=== PATIENT | female | born 1965 | race Caucasian/White ===

== ENCOUNTER 2022-11-30 13:00 | Outpatient (OUT) | payer MEDICAID, SELFPAY ==
--- NOTE | 2022-11-30 13:57 | PM.CN ---
Consult Note: HPI Data of Consult Patient: new to practice Consult date: 11/30/22 Requesting Physician: Geovani Dias MD Primary Care Provider: Non-Staff Physician, Consult Narrative Reason for consult: right knee pain Narrative: 57yof who presents for evaluation. worsening right knee pain, ongoing for years. underwent right genicular blocks at outside pain clinic, which provided significant relief, but was denied RFA. has had steroid injection in the past, with significant relief. last completed >6 months ago. currently uses percocet on occasion, which helps. engages in provider directed home exercise program for >6 weeks, with limited benefit. denies adverse med side effects. cc:: CC: Geovani Dias MD Review of Systems ROS Status of ROS 10 or more systems reviewed and unremarkable except as noted in history and below Exam Narrative Exam Narrative: Psych-alert and oriented x 3.? Attentive and appropriate, constitutionally normal, displays normal mood and affect per situation.? There are no obvious deficits in memory, reasoning, or intellect. Extremities-lower extremities are warm with minimal edema and palpable pulses. Knee-examination of the right knee reveals tenderness to palpation over the superior, inferior, lateral, and medial aspect of the knee.? Some swelling is noted without erythema. Pain is elicited with flexion and extension of the knee both actively and passively.? Some grinding is noted with these motions.? There is no notable ligamental laxity or instability.? Coordination remains intact.? Gait remains antalgic. Assessment and Plan Assessment and Plan (1) Osteoarthritis of right knee: Plan 57yof who presents for evaluation. failed conservative measures. imaging reviewed, which is significant for severe osteoarthritis of right knee. given previous relief with steroid injection of >50% for >3 months, prudent to repeat right knee injection in office. she is in agreement. medications reviewed. will prescribe percocet 5mg tid prn. will obtain urine drug screen. follow up for procedure.
== END 2022-11-30 13:01 | disposition home or self-care (01) ==
PROVIDERS: Visit Provider Anesthesiology
DX: M17.11 Unilateral primary osteoarthritis, right knee (principal)
CPT/HCPCS: G0463

== ENCOUNTER 2022-12-14 11:37 | Outpatient (OUT) | payer MEDICAID, SELFPAY ==
--- NOTE | 2022-12-14 12:14 | PM.CN ---
Consult Note: HPI Data of Consult Patient: known to practice within the last 3 years Consult date: 12/14/22 Requesting Physician: Geovani Dias MD Primary Care Provider: Non-Staff Physician, Consult Narrative Reason for consult: right knee pain Narrative: 57yof who presents for right knee injection today cc:: CC: Geovani Dias MD Review of Systems ROS Status of ROS 10 or more systems reviewed and unremarkable except as noted in history and below Meds Home Medications and Allergies Home Medications Medication Instructions Recorded Confirmed Type amlodipine 2.5 mg tablet 2.5 mg PO DAILY 11/30/22 11/30/22 History duloxetine 20 mg capsule,delayed 20 mg PO DAILY 11/30/22 11/30/22 History release (Cymbalta) lisinopril 40 mg tablet 40 mg PO DAILY 11/30/22 11/30/22 History oxycodone-acetaminophen 5 mg-325 1 tab PO TID 11/30/22 11/30/22 History mg tablet (Percocet) oxycodone-acetaminophen 5 mg-325 1 tab PO TID PRN pain #90 tabs 11/30/22 Rx mg tablet (Percocet) Allergies Allergy/AdvReac Type Severity Reaction Status Date / Time No Known Drug Allergies Allergy Verified 11/30/22 14:33 Exam Narrative Exam Narrative: Psych-alert and oriented x 3.? Attentive and appropriate, constitutionally normal, displays normal mood and affect per situation.? There are no obvious deficits in memory, reasoning, or intellect. Extremities-lower extremities are warm with minimal edema and palpable pulses. Knee-examination of the right knee reveals tenderness to palpation over the superior, inferior, lateral, and medial aspect of the knee.? Some swelling is noted without erythema. Pain is elicited with flexion and extension of the knee both actively and passively.? Some grinding is noted with these motions.? There is no notable ligamental laxity or instability.? Coordination remains intact.? Gait remains antalgic. Assessment and Plan Assessment and Plan (1) Osteoarthritis of right knee: Plan 57yof who presents for right knee injection. Risks and benefits reviewed, all questions answered. We agree to proceed. Procedure: Right knee injection Medications: Bupivacaine 0.25% 4cc, kenalog 40mg I explained the details of the procedure to the patient including the risks, benefits and alternatives. We had an informed discussion and the patient verbalized understanding and signed the consent form. All questions were answered appropriately.? A time out was performed.? After obtaining a comfortable seated position, the right knee was prepped with alcohol x3. A syringe containing the above medication was attached to a 25 guage, 1.5 inch needle under strict aseptic technique. The lateral tibial plateau was palpated.? The needle was then advanced through the subcutaneous tissue in a medial and superior direction towards the joint space.? The contents of the syringe were gently injected without any resistance. The needle was removed and pressure was applied to the injection site to decrease the incidence of ecchymosis and hematoma formation.? A sterile bandage was applied.
== END 2022-12-14 11:38 | disposition home or self-care (01) ==
LOC: PM 11:37
PROVIDERS: Visit Provider Anesthesiology
DX: M17.11 Unilateral primary osteoarthritis, right knee (principal)
CPT/HCPCS: 20610

== ENCOUNTER 2023-01-20 09:39 | Outpatient (OUT) | payer MEDICAID, SELFPAY ==
--- NOTE | 2023-01-20 10:01 | PM.CN ---
Consult Note: HPI Data of Consult Patient: known to practice within the last 3 years Requesting Physician: Lauren Ag NP Primary Care Provider: Non-Staff Physician, Consult Narrative Reason for consult: f/u Narrative: Ruthie Thompson a pleasant 57 year old female presents for evaluation and management of chronic knee pain with moderate to severe OA. Patient had 100% relief for 3.5 weeks as a result of right knee injection with Dr Dias. Patient rating pain 7-8/10 now, returned to baseline. Patient has had benefit from synvisc in left knee prior to surgery and would like to discuss this today. cc:: CC: Lauren Ag NP Review of Systems ROS Status of ROS 10 or more systems reviewed and unremarkable except as noted in history and below Musculoskeletal Reports: joint pain Meds Home Medications and Allergies Home Medications Medication Instructions Recorded Confirmed Type amlodipine 2.5 mg tablet 2.5 mg PO DAILY 11/30/22 11/30/22 History duloxetine 20 mg capsule,delayed 20 mg PO DAILY 11/30/22 11/30/22 History release (Cymbalta) lisinopril 40 mg tablet 40 mg PO DAILY 11/30/22 11/30/22 History oxycodone-acetaminophen 5 mg-325 1 tab PO TID 11/30/22 11/30/22 History mg tablet (Percocet) oxycodone-acetaminophen 5 mg-325 1 tab PO TID PRN pain #90 tabs 11/30/22 Rx mg tablet (Percocet) oxycodone-acetaminophen 5 mg-325 1 tab PO TID PRN pain #90 tabs 12/24/22 Rx mg tablet (Percocet) Allergies Allergy/AdvReac Type Severity Reaction Status Date / Time No Known Drug Allergies Allergy Verified 11/30/22 14:33 Exam Narrative Exam Narrative: Psych-alert and oriented x 3.? Attentive and appropriate, constitutionally normal, displays normal mood and affect per situation.? There are no obvious deficits in memory, reasoning, or intellect. Extremities-lower extremities are warm with minimal edema and palpable pulses. Knee-examination of the right knee reveals tenderness to palpation over the superior, inferior, lateral, and medial aspect of the knee.? Some swelling is noted without erythema. Pain is elicited with flexion and extension of the knee both actively and passively.? Some grinding is noted with these motions.? There is no notable ligamental laxity or instability.? Coordination remains intact.? Gait remains antalgic. Constitutional Documenting provider has reviewed patient's vital signs: yes Common normals: no apparent distress, oriented x3, healthy appearing, alert and well nourished General appearance: cooperative HENMT Common normals: normocephalic, hearing grossly normal bilaterally and moist oral mucous membranes Head and scalp: normocephalic Eye Common normals: PERRL Pupil: PERRL Neck & C-Spine Common normals: full ROM General: normal visual inspection Chest Common normals: inspection of chest normal Respiratory Common normals: normal respiratory effort, no retractions and no use of accessory muscles Neuro Common normals: oriented x3, CN's II-XII intact bilaterally, moves all extremities, no focal motor deficits, no sensory deficits noted and deep tendon reflexes 2+ bilaterally Sensorium/orientation: alert Motor exam: strength 5/5 throughout and no movement abnormalities noted Psych Common normals: mental status grossly normal, thought process normal, cooperative, affect normal, speech normal and activity/motor behavior normal Speech: normal speech Thought process: normal thought process Results Additional Findings Additional findings: I have checked an [place] report on this patient today and there are no aberrancies noted in the prescribing history.?? A drug screen was completed and reviewed within the last year, and if there has not been a drug screen completed we ordered one today to monitor higher risk, state monitored pain medication use. As part of providing excellent, safe, comprehensive care, the following was completed at our patient's visit: 1. A medication reconciliation and review to ensure accurate knowledge of current/active medications, including asking our patients to inform us about any [id number] medications or herbal remedies/nutritional supplements/alternative remedies. 2. A review to specifically ensure our patients have had annual screening for: elevated body mass index (BMI), tobacco use, screening for depression, and screening for unhealthy alcohol use. When screening is concerning, patients are provided with education and the specific recommendation to discuss the concerning health issue and treatment options with their primary care provider. Assessment and Plan Assessment and Plan (1) Osteoarthritis of right knee: Qualifiers: Osteoarthritis type: primary Qualified Code(s): M17.11 - Unilateral primary osteoarthritis, right knee (2) Chronic prescription opiate use: Assessment and Plan: I feel these medications are improving the patient's quality of life and allow them to tolerate activities of daily living as well as participate in recreational activity.? The patient does not report intolerable side effects. The patient is NOT opioid naive and non-pharmacologic and non-opioid treatment has failed to significantly relieve the patient's pain and improve functionality. The patient has a diagnosis that is related to a somatic or visceral pain etiology. ? ?? I reviewed with the patient the potential risks and side effects with the use of? opioid medications including but not limited to respiratory depression,? sedation, and even . I verified the patient has access to naloxone should? these effects occur. I advised the patient to avoid the use of any other? sedation substances including alcohol, THC, and benzodiazepines while? taking opioid medications due to the risk of compounding side effects and? detrimental outcomes. I reviewed the [employer], pain treatment agreement, urine? drug screen, and opioid start talking forms. The patient was advised to let? their family know they had Naloxone in case they would need to administer? the medication.? ?? A drug screen was completed within the last year, and no aberrancies were noted regarding their use of controlled substances. The patient understands they are subject to the terms and conditions of the pain contract that they have signed. ? ?? I have checked an [place] report on this patient today and there are no aberrancies noted in the prescribing history.? okay to fill early as she is going on vacation Plan patient not interested in surgery at this time synvisc to right knee for chronic pain and OA start diclofenac 50mg BID PRN, discussed risks vs benefits continue current medications, tolerating well without side effects f/u 1 month after synvisc injection
== END 2023-01-20 09:40 | disposition home or self-care (01) ==
PROVIDERS: Visit Provider Nurse Practitioner
DX: M17.11 Unilateral primary osteoarthritis, right knee (principal); Z79.891 Long term (current) use of opiate analgesic
CPT/HCPCS: G0463

== ENCOUNTER 2023-02-15 12:04 | Outpatient (OUT) | payer MEDICAID, SELFPAY ==
--- OUTSIDE RECORDS SUMMARY | 2023-02-15 12:07 | XMS_ITS | CCD ---
Author Name Unknown Address [address] [place] [address] Organization [facility] Care Team Providers Care Receiving And Processing Supervisor Name Role Phone Health DeptRolf Primary Care Provider Finn ([facility])CAROLYN Attending Provider Jet Douglass Unavailable LILY OLIVEIRA Primary Care Physician [phone] GOOD TAYLOR Primary Care Physician ANTONY Mesa Admitting UnavailGOOD Bourne Referring Unavailable Mariama Mesa Attending Unavailable Gerard Forbes Attending Unavailable Gerard Forbes Referring Unavailable MD Gerard Forbes Admitting Unavailable Mariama Mesa Admitting Unavailable Mariama Mesa Attending Unavailable Angie Rosario Attending Unavailable Norman Chiu Attending Unavailable ANTONY Mesa Mariama Admitting UnavailGOOD Bourne Referring Unavailable Mariama Mesa Attending Unavailable Mariama Mesa Attending Unavailable ANTONY Mesa Mariama Admitting UnavailGOOD Bourne Referring Unavailable Larissa JONES, Geovani Brar Attending Unavailable Larissa JONES, Geovani Brar Attending Unavailable Allergies Allergy Classification Reported Allergen(s) Allergy Type Date of Onset Reaction(s) Facility (7 sources) Ketorolac; Translations: [Ketorolac] Drug Allergy 10-13-19 Unknown Reaction, [facility] (10 sources) traMADol; Translations: [Tramadol] Drug Allergy 10-13-19 [facility] (2 sources) Dextromethorphan / guaiFENesin Drug Allergy Unknown [employer] Other (7 sources) guaiFENesin; Translations: [guaifenesin] Drug Allergy vomiting [facility] (7 sources) Metoprolol; Translations: [metoprolol] Drug Allergy sickneess [facility] (6 sources) gabapentin; Translations: [gabapentin] Drug Allergy Nausea and vomiting (disorder) [facility] (1 source) Ketorolac; Translations: [Toradol] Drug Allergy [facility] Repository Medications Current Medications Medication Drug Class(es) Dates Sig (Normalized) Sig (Original) acetaminophen 325 mg / oxyCODONE hydrochloride 5 mg oral tablet (8 sources) Opioid Agonist Start: 10-26-2022 take 1 tablet by mouth three times daily as needed for pain Percocet 5 mg-325 mg oral tablet 1 tab(s), Oral, TID as needed for pain, 21 tab(s), Refill(s) 0, [facility], 167, cm, 10/26/22 8:57:00 EDT, Height/Length Dosing, 74.8, kg, 10/26/22 8:57:00 EDT, Weight Dosing Start Date: 10/26/22 Status: Ordered Start: 09-22-2022 take 1 tablet by blaine th three times daily as needed for pain Percocet 5 mg-325 mg oral tablet 1 tab(s), Oral, TID as needed for pain, 21 tab(s), Refill(s) 0, [facility], 167, cm, 09/22/22 9:26:00 EDT, Height/Length Dosing, 82.9, kg, 09/07/22 13:27:00 EDT, Weight Dosing Start Date: 09/22/22 Status: Ordered Start: 05-16-2022 Percocet 5 mg- 325 mg oral tablet 1 tab(s), Oral, q6hr, 12 tab(s), Refill(s) 0, [facility], 167, cm, 05/16/22 10:57:00 EDT, Height/Length Dosing, 74.4, kg, 05/16/22 10:57:00 EDT, Weight Dosing Start Date: 05/16/22 Status: Ordered amLODIPine 2.5 mg oral tablet (6 sources) Dihydropyridine Calcium Channel Radha Start: 09-07-2022 take 1 tablet by mouth once daily amLODIPine 2.5 mg Tab TAKE 1 TABLET BY MOUTH DAILY Start Date: 09/07/22 Status: [facility] amLODIPine Besylate 5 MG 1 tablet Orally Once a day Active amoxicillin 875 mg / clavulanate 125 mg oral tablet (1 source) Penicillin-class Antibacterial Start: 06-16-2021 take 1 tablet by mouth every twelve hours Amoxicillin-Pot Clavulanate 875-125 MG 1 tablet Orally every 12 hrs for 10 day(s) June, Active azithromycin 250 mg oral tablet (1 source) Macrolide Antimicrobial Start: 01-25-2023 Azithromycin 250 MG 2 tablets on the first day, then 1 tablet daily for 4 days Orally Once a day for 5 day(s) Jan, Active benzonatate 200 mg oral capsule (2 sources) Non-narcotic Antitussive Start: 01-25-2023 take 1 capsule by mouth three times daily as needed for cough Benzonatate 200 MG 1 capsule Orally Three times a day as needed for cough for 7 day(s) Jan, Active Start: 06-16-2021 take 1 capsule by mo [facility] three times daily as needed Benzonatate 200 MG 1 capsule Orally Three times a day as needed for 5 day(s) June, Active dextromethorphan hydrobromide 1.5 mg/ml / pyrilamine maleate 1.5 mg/ml oral solution (2 sources) Uncompetitive D-hzcyhf-L-aspartate Receptor Antagonist, Sigma-1 Agonist Start: 01-25-2023 take 20 mL by mouth every eight hours as needed for cough [place] DM 7.5-7.5 MG/5ML 20 ml Orally May take every 8 hours as needed for cough for 3 days Jan, Active Start: 06-16-2021 take 20 mL by mouth once daily at bedtime as needed [place] DM 7.5-7.5 MG/5ML 20 ml Orally QHS as needed for 5 days June, Active DULoxetine 20 mg delayed release oral capsule (6 sources) Serotonin and Norepinephrine Reuptake Inhibitor Start: 09-07-2022 take 1 capsule by mouth once daily duloxetine 20 mg oral delayed release capsule TAKE 1 CAPSULE BY MOUTH DAILY Start Date: 09/07/22 Status: Ordered take 1 capsule by mo [facility] every twenty-four hours DULoxetine HCl 30 MG 1 capsule Orally Once a day Active Hydroxychloroquine (1 source) Antimalarial, Antirheumatic Agent Hydroxychloroquine Sulfate Active ibuprofen 600 mg oral tablet (6 sources) Nonsteroidal Anti-inflammatory Drug Start: 2020 take 1 tablet by mouth four times daily as needed for pain ibuprofen 600 mg Tab 600 mg = 1 tab(s), Oral, QID, PRN for pain, # 40 tab(s), Refills(s) 0, Pharmacy: [facility], 165, cm, 07/07/20 13:07:00 EDT, Height/Length Dosing, 75, kg, 07/07/20 13:07:00 EDT, Weight Dosing Start Date: 07/07/20 Status: Ordered lisinopril 2.5 mg oral tablet (9 sources) Angiotensin Converting Enzyme Inhibitor Start: 2017 take 1 tablet by mouth once daily lisinopril 2.5 mg Tab 2.5 mg = 1 tab(s), Oral, Daily, Refills(s) 0 Start Date: 07/10/19 Status: Ordered take 1 tablet by [facility] every twenty-four hours Lisinopril 5 MG 1 tablet Orally Once a day Active methylPREDNISolone 4 mg oral tablet (1 source) Corticosteroid Start: 09-22-2022 End: 09-28-2022 Medrol 4 mg Tab = 1 packet(s), Oral, As Directed, as directed on package labeling, X 6 day(s), # 21 tab(s), Refills(s) 0, Pharmacy: [facility], 167, cm, 09/22/22 9:26:00 EDT, Height/Length Dosing, 82.9, kg, 09/07/22 13:27:00 EDT, Weight Dosing Start Date: 09/22/22 Stop Date: 09/28/22 Status: Ordered Multivitamin preparation (5 sources) Start: 09-07-2022 multivitamin See Instructions, Refill(s) 0, daily Start Date: 09/07/22 Status: Ordered polymyxin b 34697 unt/ml / trimethoprim 1 mg/ml ophthalmic solution (1 source) Dihydrofolate Reductase Inhibitor Antibacterial, Polymyxin-class Antibacterial Start: 10-28-2021 End: 11-04-2021 Polytrim 10 mL Soln-Opth 1 drop(s), Eye-Right, q3hr for 7 day(s), 10 mL, Refill(s) 0, q3 hr while awake not to exceed 6 doses/day, [facility], 165, cm, 10/28/21 14:14:00 EDT, Height/Length Dosing, 75.8, kg, 10/28/21 14:14:00 EDT, Weight Dosing Start Date: 10/28/21 Stop Date: 11/04/21 Status: Ordered pregabalin 25 mg oral capsule (2 sources) Start: 09-07-2022 take 1 capsule by mouth twice daily pregabalin 25 mg Cap 25 mg = 1 cap(s), Oral, BID, # 60 cap(s), Refills(s) 0, Pharmacy: [facility], 167, cm, 05/16/22 10:57:00 EDT, Height/Length Dosing, 82.9, kg, 09/07/22 13:27:00 EDT, Weight Dosing Start Date: 09/07/22 Status: Ordered Problems Active Problems Problem Classification Problem Date Documented Da te Episodic/Chronic Anxiety disorders (5 sources) Anxiety 09-07-2022 Chronic Essential hypertension (5 sources) Hypertensive disorder 09-07-2022 Chronic Immunizations and screening for infectious disease (1 source) Vaccination given; Translations: [Encounter for immunization] Onset: 10-28-2021 Episodic Other and unspecified benign neoplasm (6 sources) Benign neoplasm of brain Onset: 09-30-2012 07-10-2019 Chronic Other upper respiratory infections (2 sources) Acute maxillary sinusitis, unspecified; Translations: [Acute sinusitis, unspecified] Onset: 06-16-2021 Resolved: 06-16-2021 Episodic Phlebitis; thrombophlebitis and thromboembolism (5 sources) Thrombosis 09-07-2022 Episodic Spondylosis; intervertebral disc disorders; other back problems (5 sources) Low back pain 09-07-2022 Episodic Substance-related disorders (6 sources) Smoker 10-31-2018 Chronic Comment on above: Added secondary to d ocumentation in Social History. Superficial injury; contusion (1 source) Injury of eye region; Translations: [Injury of conjunctiva and corneal abrasion without foreign body, right eye, initial encounter] Onset: 10-28-2021 Episodic Past or Other Problems Problem Classification Problem Date Documented Da te Episodic/Chronic Unclassified (2 sources) Cough R05.9 Onset: 06-16-2021 Resolved: 06-16-2021 Results Test Name Value Interpretation Reference Range Facility COVID/FLU RT-PCRon 3 SARS-CoV-2 (COVID-19) RNA EDWIN+probe Ql (Unsp spec) Positive [facility] Other COVID/FLU RT-PCR [facility] Other Insurance Correspondence Off iceon 11-09-2022 Insurance Correspondence Office [id number]#2.00 CD:127 Normal [facility] Consent for Treatmenton 10-09 Consent for Treatment [id number]#1.00 CD:127 Normal [facility] Consultation Noteon 10-27-19 23 Consultation Note Patient: Delaney CORDERO Age: 57 years Sex: Female : 1965 Associated Diagnoses: None Author: Mariama Mesa PA-C Subjective Chief complaint 10/26/2022 8:50 EDT Right knee pain . Patient is a 57-year-old female. She presents today for a follow-up after undergoing a right-sided genicular nerve block done on 10/13/2022 that gave her 75 to 80% relief for 4 days. Unfortunate, her right knee pain then returned back to baseline at an 8/10. It is present with any sort of walking or standing. This has been going on for a long time?the last 5 to 6 months. She has a history of left knee replacement done by Dr. Ponce. She saw him for her right knee and was told that she did not need surgery. She has difficulty walking any sort just because the pain. This affects her quality of life and activities of daily living. It affects her ability to get comfortable. Previous conservative treatments have not helped. She has trialed some stretching at home that has not helped. She has been using OTC medications that have not helped. Recent trial of Lyrica made her pain worse. She is allergic to gabapentin. She is the Percocet sparingly and she wonders about possibly getting 1 more refill of this to get her to the ablation. She is aware of the reasoning for not wanting to use this long-term but she would like to get some to get her to the RFA. Health Status Allergies: Allergic Reactions (Selected) Severity Not Documented Gabapentin- Nausea and vomiting. GuaiFENesin- Vomiting. Metoprolol- Sickneess. Toradol- Sick. TraMADol- Ill., Allergies (5) Active Reaction gabapentin Nausea and vomiting guaiFENesin vomiting metoprolol sickneess Toradol sick traMADol ill Current medications: (Selected) Prescriptions Prescribed Percocet 5 mg-325 mg oral tablet: 1 tab(s), Oral, TID as needed for pain, 21 tab(s), Refill(s) 0, [facility], 167, cm, 10/26/22 8:57:00 EDT, Height/Length Dosing, 74.8, kg, 10/26/22 8:57:00 EDT, Weight Dosing Percocet 5 mg-325 mg oral tablet: 1 tab(s), Oral, q6hr, 12 tab(s), Refill(s) 0, [facility], 167, cm, 05/16/22 10:57:00 EDT, Height/Length Dosing, 74.4, kg, 05/16/22 10:57:00 EDT, Weight Dosing ibuprofen 600 mg Tab: 600 mg = 1 tab(s), Oral, QID, PRN for pain, # 40 tab(s), Refills(s) 0, Pharmacy: [facility], 165, cm, 07/07/20 13:07:00 EDT, Height/Length Dosing, 75, kg, 07/07/20 13:07:00 EDT, Weight Dosing Documented Medications Documented amLODIPine 2.5 mg Tab: TAKE 1 TABLET BY MOUTH DAILY duloxetine 20 mg oral delayed release capsule: TAKE 1 CAPSULE BY MOUTH DAILY lisinopril 2.5 mg Tab: 2.5 mg = 1 tab(s), Oral, Daily, Refills(s) 0 multivitamin: See Instructions, Refill(s) 0, daily Problem list: All Problems Smoker / SNOMED CT 754222220 / Confirmed Added secondary to documentation in Social History. Hypertension / SNOMED CT 9206669585 / Confirmed Anxiety / SNOMED CT 92000449 / Confirmed Thrombosis / SNOMED CT 2128916098 / Confirmed Lower back pain / SNOMED CT 618985345 / Confirmed Resolved: Benign brain tumor / SNOMED CT 0201424718 Objective Vital Signs 10/26/2022 8:50 EDT Peripheral Pulse Rate 62 bpm Respiratory Rate 18 br/min Systolic Blood Pressure 142 mmHg HI Diastolic Blood Pressure 103 mmHg HI Mean Arterial Pressure, Cuff 116 mmHg General: Alert and oriented, No acute distress. Eye: Normal conjunctiva. HENT: Normocephalic, Normal hearing. Cardiovascular: No edema. Musculoskeletal Normal range of motion. Normal strength. 5/5 lower extremity strength Pain with flexion extension of the right knee Integumentary: Warm, Dry, [place]. Injection sites well-healed Neurologic: Alert, Oriented. Psychiatric: Cooperative, Appropriate mood & affect. Results Review * Final Report * Reason For Exam Pain, Traumatic POWERSCRIBE REPORT IMPRESSION: NO ACUTE OSSEOUS ABNORMALITY. EXAM: XR Knee Complete 4+ Views Right HISTORY: Pain after a fall TECHNIQUE: AP, lateral and oblique views of the knee obtained. COMPARISON: None available FINDINGS: No acute fracture or dislocation. Degenerative changes of the knee including patellofemoral compartment joint space narrowing and tricompartmental marginal osteophyte formation. 9 mm loose body along the anterior joint line. No knee joint effusion. Soft tissues are within normal limits. Ordering Provider: Karla Padron Signature Line FINAL REPORT Dictated: 05/16/2022 12:06 pm Jose Gordon DO Signed (Electronic Signature): 05/16/2022 12:06 pm Signed by: Jose Gordon DO Transcribed by: CALLIE Technologist: CARYN Technical Comments Radiation Dose: Ka,r in mGy = na DAP = na RAD REPORT This document has an image Result type: XR Knee Complete 4+ Views Right Result date: May 16, 2022 11:37 EDT Result status: Auth (Verified) Result title: XR Knee Complete 4+ Views Right Performed by: Jose Gordon DO on May (more content not included)... Normal [facility] Comment on above: Result Comment: Elec tronically Signed By: Mariama Mesa PA-C\.br\Date and Time Signed: 10/26/22 09:21 EDT\.br\Electronically Co-Signed By: Gerard Forbes MD\.br\Date and Time Co-Signed: 10/27/22 12:01 EDT Office/Clinic Note-Physician on 10-26-2022 Office/Clinic Note-Physician [id number]#1.00 CD:[address] [facility] Patient Correspondenceon Patient Correspondence [id number]#1.00 CD:127 Normal [facility] Patient Correspondence [id number]#1.00 CD:[address] [facility] Patient History Officeon Patient History Office [id number]#1.00 CD:[address] [facility] Consent for Procedure/Surger yon 10-13-2022 Consent for Procedure/Surgery [id number]#1.00 CD:[address] [facility] Consent for Treatmenton Consent for Treatment [id number]#1.00 CD:[address] [facility] Discharge Instructionson Discharge Instructions [id number]#1.00 CD:[address] [facility] IntraOperative Documentson 0 10-13-2022 IntraOperative Documents [id number]#1.00 CD:[address] [facility] Main OR Intraoperative Recor don 10-13-2022 Main OR Intraoperative Record IntraOp Document Type FTPM Summary Primary Physician: Gerard Forbes MD Finalized Date/Time: 10/13/22 15:13:27 Pt. Name: RUTHIE CORDERO/Sex: 1965 Female Med Rec #: [id number] Physician: Gerard Forbes MD Financial #: [id number] Pt. Type: P Room/Bed: / Admit/Disch: 10/13/22 13:50:50 - Institution: Case Times FTPM Entry 1 Patient Times In Room 10/13/22 14:50:00 Out Room 10/13/22 14:58:00 Procedure Times Start 10/13/22 14:53:00 Stop 10/13/22 14:57:00 Anesthesia Times Last Modified By: Yaya LEO, Mar 10/13/22 14:59:05 Case Attendance FTPM Entry 1 Entry 2 Entry 3 Case Attendee Leidy JONES, Gerard Mcgill RN, Joana Javier RN, Mar Role Performed Surgeon - Primary Scrub - Primary Oven Tender - Primary Time In 10/13/22 14:50:00 10/13/22 14:50:00 10/13/22 14:50:00 Time Out 10/13/22 14:58:00 10/13/22 14:58:00 10/13/22 14:58:00 Procedure GENICULAR NERVE GENICULAR NERVE GENICULAR NERVE BLOCK(Right) BLOCK(Right) BLOCK(Right) Comments Last Modified By: Yaya LEO, Mar 10/13/22 Yaya LEO, Mar 10/13/22 Yaya LEO, Mar 10/13/22 14:59:05 14:59:05 14:59:05 Entry 4 Entry 5 Case Attendee Ender LEO, Ruthie Lam Role Performed Scrub - Relief Foot Gatherer Time In 10/13/22 14:50:00 10/13/22 14:50:00 Time Out 10/13/22 14:58:00 10/13/22 14:58:00 Procedure GENICULAR NERVE GENICULAR NERVE BLOCK(Right) BLOCK(Right) Comments Last Modified By: Yaya LEO, Mar 10/13/22 Yaya LEO, Mar 10/13/22 14:59:05 14:59:05 Perioperative Protocols FTPM Pre-Care Text: Implements protective measures prior to operative or invasive procedure, confirms identity before the operative or invasive procedure, verifies operative procedure, surgical site, and laterality Entry 1 Procedure(s) GENICULAR NERVE Patient Identity Birthday, ID Band BLOCK(Right) Verified (select at Check, Patient least 2): Participation Consents / H and P HandP, Surgery/Procedure Operative Site Present Verified Consent Marking Verified Surgical Site Yes Laterality Verified Yes Verified Procedure Verified Yes Correct Patient Yes Position Verified Availability Equipment, Medication, Prep Dry Yes Verified (If X-ray Applicable) PreOp Antibiotic No Time Out Mar Javier RN, Given Participants Nano LEO, Leidy Draper MD, Gerard Samuels, Ender LEO, Gregory Mehta Amy Time Out Complete 10/13/22 14:50:00 Outcomes Met? Yes Last Modified By: Mar Javier RN 10/13/22 14:50:56 Post-Care Text: The patient is free from signs and symptoms of injury caused by extraneous objects Allergy Information FTPM Pre-Care Text: Verifies allergies Entry 1 Allergies Reviewed? Yes Allergies Reviewed Self/Patient With Outcomes Met? Yes Last Modified By: Mar Javier RN 10/13/22 14:34:10 Post-Care Text: The patient received appropriate medication(s) safely administered during the perioperative period Surgical Procedures FTPM Entry 1 Procedure Description Procedure GENICULAR NERVE BLOCK Modifiers Right Surgeon Description GENICULAR NB Primary Procedure Yes Primary Surgeon Leidy JONES, Gerard Samuels Start 10/13/22 14:53:00 Stop 10/13/22 14:57:00 Anesthesia Type None Surgical Service Pain Management Wound Class 1 - Clean Last Modified By: Mar Javier RN 10/13/22 14:59:08 General Case Data FTPM Pre-Care Text: Classifies surgical wound, implements aseptic technique, initiates traffic control Entry 1 Case Information OR Pain Proc Room Case Level Level 2 Wound Class 1 - Clean Specialty Pain Management Preop Diagnosis M17.11, M25.561 Postop Same As Preop Yes Postop Diagnosis M17.11, M25.561 Outcomes Met? Yes Last Modified By: Mar Javier RN 10/13/22 15:12:20 Post-Care Text: The patient is free from signs and symptoms of infection Skin Assessment (Pre Procedure) FTPM Pre-Care Text: Implements protective measures to prevent skin/ tissue injury due to thermal or mechanical sources Evaluates for signs and symptoms of physical injury to skin and tissue Entry 1 Skin Integrity Intact, [place], Warm, and Skin Abnormality No Dry Outcomes Met? Yes Last Modified By: Mar Javier RN 10/13/22 15:12:29 Post-Care Text: The patient is free from signs and symptoms of injury caused by extraneous objects Patient Positioning FTPM Pre-Care Text: Identifies physical alterations that require additional precautions for procedure-specific positioning, verifies presence of prosthetics or corrective devices, positions the patient, evaluates the patient for signs and symptoms of injury as a result of positioning Entry 1 Procedure GENICULAR NERVE Body Position Supine BLOCK(Right) Feet Uncrossed? Yes Left Arm Position Resting at Side Right Arm Position Resting at Side Left Leg Position Extended Right Leg Position Extended Positioning Device Pillow Under Head Large, Safety Strap, Pillow Large Under Knees Press Points Checked Yes By Mar Javier RN Outcomes Met? Yes La (more content not included)... Normal [facility] Main OR Preoperative Recordo n 10-13-2022 Main OR Preoperative Record Holding Area Document Type FT Summary Primary Physician: Gerard Forbes MD Finalized Date/Time: 10/13/22 14:22:01 Pt. Name: RUTHIE CORDERO/Sex: 1965 Female Med Rec #: [id number] Physician: Gerard Forbes MD Financial #: [id number] Pt. Type: P Room/Bed: / Admit/Disch: 10/13/22 13:50:50 - Institution: Case Times Holding FTPM Pre-Care Text: Verifies consent for planned procedure, identifies individual values and wishes concerning care, includes family members in perioperative teaching Secures patient's records' belongings, and valuables, maintains patient's dignity and privacy, and maintains patient confidentiality Entry 1 In Holding 10/13/22 14:19:00 Outcomes Met? Yes Last Modified By: Antoinette Wiggins RN 10/13/22 14:20:00 Post-Care Text: The patient participates in decisions affecting his or her perioperative plan of care The patient's right to privacy is maintained Surgery Checklist FTPM Entry 1 Patient Birthday, ID Band Procedure History and Physical, Identification: Check, Patient Verification: Surgical Consent, With Participation Patient NPO after Midnight: n/a Date/Time: 10/13/22 14:20:00 Personal Items: Dentures Personal Items Dentures upper and lower Comment: Complaints of Pain: Yes Pain Comment: 09/17 knee Operative Site Yes Marked By: Leidy Marking: Availability Equipment, X-Ray Verified: Does Patient Smoke No Patient states Yes Comment - Adult [place] postop adult Supervision supervision available Case Cancelled in No Holding Area see comments below for reason Last Modified By: Antoinette Wiggins RN 10/13/22 14:21:56 General Comments: [employer] at 0730 Finalized By: Antoinette Wiggins RN Document Signatures Signed By: Antoinette Wiggins RN 10/13/22 14:22 Normal [facility] Operative Reporton 3 Operative Report Patient: Delaney CORDERO Age: 57 years Sex: Female : 1965 Associated Diagnoses: None Author: Leidy JONES, Gerard Samuels Procedure Procedure: Genicular Nerve Blocks Right Knee Diagnosis: Osteoarthritis Knee, Chronic Knee Joint Pain Anesthesia: Local The patient was identified in the pre-op area. The procedure, including risks benefits and alternatives was discussed with the patient. The patient agreed to proceed. Informed consent was obtained and the site(s) marked. The patient was brought to the procedure room and placed in the supine position with the Right knee flexed. Time out was taken. The knee was prepped and draped in sterile fashion. Skin and subcutaneous tissues were anesthetized with 6 mL of Lidocaine 2% through a 25G needle. Three 22G spinal needles were then advanced under fluoroscopic guidance to the locations of the superior medial, superior lateral, and inferior medial genicular nerves. 0.5 mL of Isovue contrast was injected through each needle demonstrating appropriate spread without vascular uptake. After confirmation of negative aspiration, 1 mL of 0.5% bupivacaine was injected through each needle. The needles were removed and bandages applied. The patient was brought to the recovery area in stable condition and then monitored for an appropriate period of time. The patient was discharged home in good condition with post-procedure instructions. No apparent complications. Epidural injection procedure Physical Exam: vital signs Vital Signs 10/13/2022 14:21 EDT Heart Rate Monitored 79 bpm SpO2 99 % 10/13/2022 14:20 EDT Systolic Blood Pressure 137 mmHg Diastolic Blood Pressure 88 mmHg Mean Arterial Pressure, Monitered 104 mmHg 10/13/2022 14:20 EDT Temperature Axillary 36.6 DegC 10/13/2022 14:20 EDT Respiratory Rate 15 br/min . Normal [facility] Comment on above: Result Comment: Elec tronically Signed By: Leidy JONES, Gerard Mata.br\Date and Time Signed: 10/13/22 14:57 EDT Consent for Treatmenton 09-08 Consent for Treatment [id number]#1.00 CD:127 Normal [facility] Consultation Noteon 09-23-19 Consultation Note Patient: Delaney CORDERO Age: 57 years Sex: Female : 1965 Associated Diagnoses: None Author: Mariama Mesa PA-C Subjective Chief complaint 09/22/2022 9:23 EDT right knee pain . Patient is a 57-year-old female. She presents today for a follow-up that she called for yesterday because she went to the ED but the wait was too long so she decided to leave. She states that she had a flareup of her pain and she has not been able to get it calm down. She is getting ready to leave for [place] in 10 days and she is just worried about how much pain she is going to experience. She states that previously when she went to the ER she was given Percocet and steroids and this helped. She was hopeful to do this again yesterday but she could not wait and there were a lot of people ahead of her at the ED. She has right knee pain. This has been going on for a long time?the last 5 to 6 months. She has a history of left knee replacement done by Dr. Ponce. She saw him for her right knee and was told that she did not need surgery. They recommended pain management. I saw her a few weeks ago and ordered a right-sided genicular nerve block. She has this scheduled in October. She was not able to do it sooner due to her trip. She is here today to see if she can get something to help her with the pain to be able to pursue the trip. She rates her right knee pain a 10/10. She has difficulty walking any sort just because the pain. This affects her quality of life and activities of daily living. It affects her ability to get comfortable. Previous conservative treatments have not helped. She has trialed some stretching at home that has not helped. She has been using OTC medications that have not helped. Recent trial of Lyrica made her pain worse. She stopped taking it. She is allergic to gabapentin. Health Status Allergies: Allergic Reactions (Selected) Severity Not Documented Gabapentin- Nausea and vomiting. GuaiFENesin- Vomiting. Metoprolol- Sickneess. Toradol- Sick. TraMADol- Ill., Allergies (5) Active Reaction gabapentin Nausea and vomiting guaiFENesin vomiting metoprolol sickneess Toradol sick traMADol ill Current medications: (Selected) Prescriptions Prescribed Medrol 4 mg Tab: = 1 packet(s), Oral, As Directed, as directed on package labeling, X 6 day(s), # 21 tab(s), Refills(s) 0, Pharmacy: [facility], 167, cm, 09/22/22 9:26:00 EDT, Height/Length Dosing, 82.9, kg, 09/07/22 13:27:00 EDT, Weight Dosing Percocet 5 mg-325 mg oral tablet: 1 tab(s), Oral, TID as needed for pain, 21 tab(s), Refill(s) 0, [facility], 167, cm, 09/22/22 9:26:00 EDT, Height/Length Dosing, 82.9, kg, 09/07/22 13:27:00 EDT, Weight Dosing Percocet 5 mg-325 mg oral tablet: 1 tab(s), Oral, q6hr, 12 tab(s), Refill(s) 0, [facility], 167, cm, 05/16/22 10:57:00 EDT, Height/Length Dosing, 74.4, kg, 05/16/22 10:57:00 EDT, Weight Dosing ibuprofen 600 mg Tab: 600 mg = 1 tab(s), Oral, QID, PRN for pain, # 40 tab(s), Refills(s) 0, Pharmacy: [facility], 165, cm, 07/07/20 13:07:00 EDT, Height/Length Dosing, 75, kg, 05/30/21 13:07:00 EDT, Weight Dosing pregabalin 25 mg Cap: 25 mg = 1 cap(s), Oral, BID, # 60 cap(s), Refills(s) 0, Pharmacy: [facility], 167, cm, 05/16/22 10:57:00 EDT, Height/Length Dosing, 82.9, kg, 09/07/22 13:27:00 EDT, Weight Dosing Documented Medications Documented amLODIPine 2.5 mg Tab: TAKE 1 TABLET BY MOUTH DAILY duloxetine 20 mg oral delayed release capsule: TAKE 1 CAPSULE BY MOUTH DAILY lisinopril 2.5 mg Tab: 2.5 mg = 1 tab(s), Oral, Daily, Refills(s) 0 multivitamin: See Instructions, Refill(s) 0, daily Problem list: All Problems Smoker / SNOMED CT 443345376 / Confirmed Added secondary to documentation in Social History. Hypertension / SNOMED CT 1179316794 / Confirmed Anxiety / SNOMED CT 44275818 / Confirmed Thrombosis / SNOMED CT 2878203925 / Confirmed Lower back pain / SNOMED CT 646419325 / Confirmed Resolved: Benign brain tumor / SNOMED CT 8504395934 Objective Vital Signs 09/22/2022 9:23 EDT Peripheral Pulse Rate 69 bpm Respiratory Rate 15 br/min Systolic Blood Pressure 139 mmHg Diastolic Blood Pressure 88 mmHg Mean Arterial Pressure, Cuff 105 mmHg General: Alert and oriented, No acute distress. Eye: Normal conjunctiva. HENT: Normocephalic, Normal hearing. Cardiovascular: No edema. Musculoskeletal Normal range of motion. Normal strength. 5/5 lower extremity strength Other than pain with movement of the right knee. Pain with knee flexion and extension Integumentary: Warm, Dry, [place]. Neurologic: Alert, Oriented. Psychiatric: Cooperative, Appropriate mood & affect. Results Review * Final Report * Reason For Exam Pain, Traumatic POWERSCRIBE REPORT IMPRESSION: NO ACUTE OSSEOUS ABNORMALITY. EXAM: XR Knee Complete 4+ Views Right HISTORY: Pain after a fall TECHNIQUE: AP, lateral and oblique views of the k (more content not included)... Normal [facility] Comment on above: Result Comment: Elec tronically Signed By: Moshe HADRY, Mariama\.br\Date and Time Signed: 09/22/22 09:46 EDT\.br\Electronically Co-Signed By: Leidy JONES, Gerard Samuels\.br\Date and Time Co-Signed: 10/13/22 07:49 EDT Office/Clinic Note-Physician on 09-22-2022 Office/Clinic Note-Physician [id number]#1.00 CD:127 Normal [facility] Patient Correspondenceon Patient Correspondence [id number]#1.00 CD:127 Normal [facility] Patient Correspondence [id number]#1.00 CD:127 Normal [facility] Patient History Officeon Patient History Office [id number]#1.00 CD:127 Normal [facility] Consent for Treatmenton 09-08 Consent for Treatment [id number]#1.00C D:127 Normal [facility] ED Clinical Summaryon 2022 ED Clinical Summary (Inserted Image. Teresita ble to display) [place] [id number] ED Clinical Summary Person Information Name: RUTHIE CORDERO [facility] Age: 57 Years : 1965 Sex: Female Language: Canadian PCP: GOOD TAYLOR CNP Marital Status: Visit Id: Visit Reason: FELL IN SHOWER Speciality: Acuity: Enc Type: Emergency Med Service: Emergency Arrival: 09/21/2022 09:12:37 Discharge: 09/21/2022 10:11:52 LOS: 000 00:59 Checkin: 09/21/2022 09:12:37 Checkout: 09/21/2022 10:11:52 Dispo Type: Left Without Being Seen EVENTS: Event Name Event Status Request Date/Time Start Date/Time Complete Date/Time Arrive Complete 09/21/2022 09:12:37 09/21/2022 09:12:37 09/21/2022 09:12:37 Document Home Meds Request 09/21/2022 09:12:37 Triage Request 09/21/2022 09:12:37 Registration Complete 09/21/2022 09:14:31 09/21/2022 09:14:31 09/21/2022 09:14:31 Reg Complete Request 09/21/2022 09:14:31 Reg Bed Request Complete 09/21/2022 09:14:31 09/21/2022 09:14:31 09/21/2022 09:14:31 Discharge Complete 09/21/2022 10:12:23 09/21/2022 10:12:23 09/21/2022 10:12:23 Transfer Complete 09/21/2022 10:12:23 09/21/2022 10:12:23 09/21/2022 10:12:23 ADDRESS: [address] [place] [phone] [facility] DOC NOTES: MEDICAL INFORMATION: Prescriptions Given: Medications to Continue with No Changes Other Medications acetaminophen-oxycodone (Percocet 5 mg-325 mg oral tablet) 1 Tablets By Mouth every 6 hours. Refills: 0. amlodipine (amLODIPine 2.5 mg Tab) TAKE 1 TABLET BY MOUTH DAILY. duloxetine (duloxetine 20 mg oral delayed release capsule) TAKE 1 CAPSULE BY MOUTH DAILY. ibuprofen (ibuprofen 600 mg Tab) 1 Tablets By Mouth 4 times a day as needed for pain. Refills: 0. lisinopril (lisinopril 2.5 mg Tab) 1 Tablets By Mouth every day. multivitamin daily. pregabalin (pregabalin 25 mg Cap) 1 Capsules By Mouth 2 times a day. Refills: 0. PATIENT EDUCATION INFORMATION: Instructions: Follow up: DIAGNOSIS: Normal [facility] ED Patient Education Noteon 09-21-2022 ED Patient Education Note Normal [facility] ED Patient Summaryon 023 ED Patient Summary (Inserted Image. Teresita ble to display) [address] [address] Patient Discharge Instructions Person Information Name: RUTHIE CORDERO Age: 57 Years [facility]: [id number] Arrival Date: 09/21/2022 09:12:37 Discharge Diagnosis: Primary Care Physician: GOOD TAYLOR CNP Provider Information Primary Provider: Advanced Airline Radio Operator:None The exam and treatment you received in the Emergency Department were for an urgent problem and are not intended as complete care. It is important that you follow up with a doctor, nurse practitioner, or physician?s assistant to the president for ongoing care. If your symptoms become worse or you do not improve as expected and you are unable to reach your usual health care provider, you should return to the Emergency Department. We are available 24 hours a day. RUTHIE CORDERO has been given the following list of patient education materials, prescriptions and follow-up instructions: Follow-up Instructions: In the event that this physician does not participate in your insurance network, please consult with your insurance company to find a nearby participating provider. Patient Education Materials: A MESSAGE TO ALL PATIENTS REGARDING OPIOIDS PRESCRIPTION OPIOIDS: WHAT YOU NEED TO KNOW Prescription opioids can be used to help relieve zgvujsya-cg-mfcpto pain and are often prescribed following a surgery or injury, or for certain health conditions. These medications can be an important part of the treatment but also come with serious risks. It is important to work with your healthcare provider to make sure you are getting the safest, most effective care. WHAT ARE THE RISKS AND SIDE EFFECTS OF OPIOID USE? Prescription opioids carry serious risks of addiction and overdose, especially with prolonged use. An opioid overdose, often marked by slowed breathing, can cause sudden . The use of prescription opioids can have a number of side effects as well, even when taken as directed: ? Tolerance?meaning you might need to take more of the medication for the same pain relief ? Physical dependence?meaning you have symptoms of withdrawal when a medication is stopped ? Increased sensitivity to pain ? Constipation ? Nausea, vomiting, and dry mouth ? Sleepiness and dizziness ? Confusion ? Depression ? Low levels of testosterone that can result in lower sex drive, energy, and strength ? Itching and sweating RISKS ARE GREATER WITH: ? History of drug misuse, substance use disorder, or overdose ? Mental health conditions (such as depression or anxiety) ? Sleep apnea ? Older age (65 years and older) ? Avoid alcohol while taking prescription opioids. Also, unless specifically advised by your health care provider, medications to avoid include: ? Benzodiazepines (such as Xanax or Valium) ? Muscle relaxants (such as Soma or Flexeril) ? Hypnotics (such as Ambien or Lunesta) ? Other prescription opioids KNOW YOUR OPTIONS Talk to your health care provider about ways to manage your pain that don?t involve prescription opioids. Some of these options may actually work better and have fewer risks and side effects. Options may include: ? Pain relievers such as acetaminophen, ibuprofen, and naproxen ? Some medication that are also used for depression or seizures ? Physical therapy and exercise ? Cognitive behavioral therapy, a psychological, goal-directed approach, in which patients learn how to modify physical, behavioral, and emotional triggers of pain and stress. IF YOU ARE PRESCRIBED OPIOIDS FOR PAIN: ? Never take opioids in greater amounts or more often than prescribed. ? Follow up with your primary health care provider. o Work together to create a plan on how to manage your pain. o Talk about ways to help manage your pain that don?t involve prescription opioids. o Talk about any and all concerns and side effects. ? Help prevent misuse and abuse o Never sell or share prescription opioids. o Never use another person?s prescription opioids. ? Store prescription opioids in a secure place and out of reach of others (this may include visitors, children, friends, and family). ? Safely dispose of unused prescription opioids: Find your community drug take-back program or your pharmacy mail-back program, or flush them down the toilet, following guidance from the Food and Drug Administration (www.fda.gov/Drugs/Reso urcesForYou). ? Visit www.cdc.gov/drugoverdos e to learn about the risks of opioids abuse and overdose. ? If you believe you may be struggling with addiction, tell your health ocular care technician and ask for guidance or call SAMHSA?S National Helpline at 3-819-106-HAGN. v Source: [place] Department of Health and Human Services/Center for Disease Control & Prevention [facility] Medications Given: Medication Dose Route No medications found. Medication Information: M (more content not included)... Normal [facility] Patient Correspondenceon Patient Correspondence [id number]#1.00C D:127 Normal [facility] Insurance Correspondence Off iceon 09-14-2022 Insurance Correspondence Office [id number]#1.00 CD:127 Normal [facility] Laboratory Outside Office Co pyon 09-11-2022 Laboratory Outside Office Copy [id number]#1.00 CD:127 Normal [facility] Outside Records Officeon Outside Records Office [id number]#1.00 CD:127 Normal [facility] Consent for Treatmenton 08-10 Consent for Treatment [id number]#1.00 CD:127 Normal [facility] Consent for Treatment [id number]#1.00 CD:127 Normal [facility] Consultation Noteon 09-08-19 Consultation Note Patient: Delaney CORDERO Age: 57 years Sex: Female : 1965 Associated Diagnoses: None Author: Mariama Mesa PA-C Basic Information Accompanied by: Significant other. Source of history: Self, Significant other, Medical record. Referral source: GOOD TAYLOR CNP. History limitation: None. Chief Complaint 09/07/2022 13:06 EDT Right knee pain History of Present Illness Patient is a 57-year-old female. She presents today as a new patient with her significant other who is also our patient. She is here today with complaints of right knee pain. This is going on for a long time. She has a history of left knee replacement done by Dr. Ponce. She recently saw him for her right knee. She states that she had an injection in July and was supposed to have another one in August but she decided not to pursue that and to be seen by our services. She states that she has not been able to get anything for pain other than a short supply of Percocet and wonders about getting a refill of this. She rates her right knee pain a 10/10. She states that surgery was not recommended to her. She has difficulty walking any sort just because the pain. This affects her quality of life and activities of daily. It affects her ability to get comfortable. Previous conservative treatments have not helped. She has trialed some stretching at home that has not helped. She has been using OTC medications that have not helped. She states that the Percocet helped and she ration to as much as she could. Review of Systems Constitutional: No fever, No chills. Eye: No recent visual problem. Ear/Nose/Mouth/Throat: No decreased hearing. Respiratory: No shortness of breath, No cough. Cardiovascular: No chest pain. Gastrointestinal: No nausea, No vomiting. Genitourinary: No dysuria, No hematuria. Hematology/Lymphatics: No bruising tendency, No bleeding tendency. Endocrine: No excessive thirst. Musculoskeletal: Joint pain. Integumentary: No rash, No pruritus. Neurologic: Alert and oriented X4. Psychiatric: No anxiety, No depression. Health Status Allergies: Allergic Reactions (Selected) Severity Not Documented Gabapentin- Nausea and vomiting. GuaiFENesin- Vomiting. Metoprolol- Sickneess. Toradol- Sick. TraMADol- Ill. Current medications: No qualifying data available Problem list: All Problems Smoker / SNOMED CT 019082597 / Confirmed Added secondary to documentation in Social History. Hypertension / SNOMED CT 3547297975 / Confirmed Anxiety / SNOMED CT 69154420 / Confirmed Thrombosis / SNOMED CT 2075020005 / Confirmed Lower back pain / SNOMED CT 188605403 / Confirmed Resolved: Benign brain tumor / SNOMED CT 7028041827 Histories Past Medical History: Resolved Benign brain tumor (6780709824): Onset on 09/30/2012 at 47 years. Resolved. Family History: Entire family history is negative. Procedure history: History of total knee arthroplasty (SNOMED CT 5137291930) on 07/14/2018 at 53 Years. BT - Brain tumor (SNOMED CT 015671722). Cholecystectomy (SNOMED CT 62592701). Social History Social & Psychosocial Habits Alcohol 10/31/2018 Risk Assessment: Denies Alcohol Use Substance Abuse 10/31/2018 Risk Assessment: Denies Substance Abuse Tobacco 07/10/2019 Risk Assessment: Denies Tobacco Use 07/10/2019 Tobacco Use: Former smoker, quit more Type: Cigarettes 09/07/2022 Tobacco Use: 5-9 cigarettes (between 1 . Physical Examination Vital Signs (last 24 hrs) Last Charted Heart Rate Peripheral 91 bpm (SEP 07 13:) SBP 118 mmHg (SEP 07 13:06) DBP 73 mmHg (SEP 07:) Weight 82.9 kg (SEP 07:) Height 167 cm (SEP 07:) BMI 29.72 (SEP 07:) General: Alert and oriented. Eye: Pupils are equal, round and reactive to light. HENT: Normocephalic, Normal hearing. Respiratory: Respirations are non-labored. Cardiovascular: No edema. Musculoskeletal Normal range of motion. Normal strength. Other than pain with movement of the right knee. Pain with knee flexion and extension.. Neurologic: Alert, Oriented, Normal deep tendon reflexes. Cognition and Speech: Oriented, Speech clear and coherent. Psychiatric: Cooperative, Appropriate mood & affect. Integumentary: Warm, Dry, [place]. Review / Management Results review: No qualifying data available . inal Report * Reason For Exam Pain, Traumatic POWERSCRIBE REPORT IMPRESSION: NO ACUTE OSSEOUS ABNORMALITY. EXAM: XR Knee Complete 4+ Views Right HISTORY: Pain after a fall TECHNIQUE: AP, lateral and oblique views of the knee obtained. COMPARISON: None available FINDINGS: No acute fracture or dislocation. Degenerative changes of the knee including patellofemoral compartment joint space narrowing and tricompartmental marginal osteophyte formation. 9 mm loose body along the anterior joint line. No knee joint effusion. Soft tissues are within normal limits. Ord (more content not included)... [facility] Comment on above: Result Comment: Elec tronically Signed By: Mariama Mesa PA-C\.br\Date and Time Signed: 09/07/22 13:42 EDT\.br\Electronically Co-Signed By: Leidy JONES, Gerard Samuels\.br\Date and Time Co-Signed: 09/15/22 14:21 EDT HIPAA Forms Officeon 023 HIPAA Forms Office [id number]#1.00 CD:[address] [facility] In office Testingon 09-08-19 23 In office Testing [id number]#1.00 CD:[address] [facility] Legal Correspondence Officeo n 09-07-2022 Legal Correspondence Office [id number]#1.00 CD:127 Normal [facility] Legal Correspondence Office [id number]#1.00 CD:127 Normal [facility] Office/Clinic Note-Physician on 09-07-2022 Office/Clinic Note-Physician [id number]#1.00 CD:127 Normal [facility] APPLICATION PACKAGER Drug Screen-LCon 023 Test Name TOXASSURE FLEX Invalid Interpretation Code [facility] Comment on above: Performed By: #### 1 [id number] ####[facility] [address] [place] [address] Patient Correspondenceon Patient Correspondence [id number]#1.00 CD:127 Normal [facility] Patient Correspondence [id number]#1.00 CD:127 Normal [facility] Patient Correspondence [id number]#1.00 CD:127 Normal [facility] Patient Correspondence [id number]#1.00 CD:127 Normal [facility] Patient Correspondence [id number]#1.00 CD:127 Normal [facility] Patient Correspondence [id number]#1.00 CD:127 Normal [facility] Patient History Officeon Patient History Office [id number]#1.00 CD:127 Normal [facility] Physician Orderon 09-07-2022 Physician Order [id number]#1.00 CD:127 Normal [facility] Reference Laboratory Testing Ordered By: Elena Sierra on 09-07-2022 Test Name TOXASSURE FLEX Invalid Interpretation Code [facility] [place] [employer] Release of Records Officeon 09-07-2022 Release of Records Office [id number]#1.00 CD:127 Normal [facility] Outside Records Officeon Outside Records Office [id number]#1.00 CD:127 Normal [facility] Radiology Outside Office Juvenile Officer yon 08-21-2022 Radiology Outside Office Copy [id number]#1.00 CD:127 Normal [facility] Referrals Officeon Referrals Office [id number]#1.00 CD:127 Normal [facility] Coding Summary.on 2022 Coding Summary. CD:[id number] Ww+ PGhlYWQ+FE2HYUPtS31oiBA dcE1eT3ZBKDtWBxmiAPZRIJ dOLfSjawLlQT1yoDAzJRSc IC8+OY0aYUJqBzaosCDjg3Z 1vRO6V83sis1nRQirkAB0HZ BzUvOujyevs2bkgTx1XVvgA mluOyBt ZXRruZ49EOP0cX48Ue13tWE jiJWir9mevKx2BnPyGZVxAP K9vYwiDNgfo8PsLROwX95ro LWsh2O6 DVMmlNpbvEWaNdOetJO6aI1 bPLnnptust8ywjexrKat0uv 84wGRda8I8bLV7G8PqtiN2F GJvbGQg IqzvjELIoA1gcjkyy5bwoya wKyTtWQOiAXi6WSq7TRGpfE xjMgMhJH73TJD1SLPwkqEsO 2FsLWFs hIozMiY6i7Z1Fk3LG0XADiz qF4EVQGOFGCvbxGZ+PC90cj 25L2UrCoehDug2FNFsOWJ4r UV0aF6i PKArACoko8O7aGM5X3CtbxH vem0ym0cnNPApLGivQ33pbF Uvd8M0APMupSW8EETqoZmcX iBzaG93 Oyc+CPFrxDuxo0GkYfwhr2v no9oxcFw8MiyyPCKwtdKebW gnYAY6e9QmKv2jZOJhoXV2u NE5xO8l LzDuHsO6DRraD721RuZkbQU pIxwzX57aI7NbrSO+PHRyPj e3JVLqiHtaSN7eW8IuJQMxu mctbGVm aBpbPE8gTIPrvxtsYWChhC7 vEMArG4x4AuXoHkA8OAbmX1 LsFBNhwgtwDf71pT4kVgJcH qF4EGmh A7TwvfZ0JQQztIQdNRyuNFX 7P82rc7Y9UFJfMCTvXSI1mW U4tZ6cuDsgeovyoAPbbJiqo mVydGlj DTsaKSzaR693BXObqKctOzF vZGluZyBEYXRlOiAgMDQvMT EvMjAyMzwvdGQ+VGQvTNC3s WxlPSAn aVNqQZttZf6caSbiyOgpGX7 eKECwvnvxCCMkqA0vRHDlbS FvxBfoTZ7vAGVjtnjlr029K iAxMHB0 NFSffUUbL5IsrY8rKmLbADZ cNYUoB2JpcBFmGHrvW489PY ewQjP0EFPcwwVwI8AbOYUrw WduOiB0 d8O0Qe4Uq9WvfhggP4BukVT uApIgHhdyCDy6M4GeWgxypI I+WF90CSPfCO83BJi3OQR9q WxlPSdi AXJuJ9MmaD0rGdYhYVVkCLY kOyc+PHRhYmxlIHdpZHRoPS xnTQTfOeScbNtjZH9eHt3bG GVyLWNv gRlltWVmNnXtq0ehCCDtQRd dRL6biBbzA7BvuIQ8VPCml3 m2Fx29B60nX7KwjGH+PGNvb CU6qTM4 qG0fFoMbEcH7XSagE563JnJ rqLZrWtnim8rim2itcMc8Pn K5VGDwspQcoCuxQMH5f7MhX n80E52m IHdpZHRoPSIxNSUiIHZhbGl sek5jlX1yZw2+FGWbpVY6cH A0yR9gMzKpKyK9EAltK173U nRvcCIv Cwnkk9xsq0ydvIt1FmWkBFC bejRraEmxVIL3u5SuYa92X4 LtxBxcu9NeNdl4hj45fXUiv 1M1pXH7 M2DzFVLydgebpMCakItqCV5 vOSHchxdgSFPpqI6wRMMoS4 w0FtTkCkH2XWeuV9IjzuL3O GJvbGQg YVOkvBNVdB2behxwk3xjnmb fXxFmCIHaXLx5SPp8ZFMmuT ouZwDoLAC5PgE0GSG1tXNvn A9esJzw gftlbU5xIwv+MIV3hHOyyBM QVB0sVadpgSL+TUAlEYM0sR ivBRfiBYAjrW8pPUZeI0o8I iAwLjA1 LJkcG7AuqdD6XVNfgNSbGEF knXRNmF5dzcswg1pnmtvzGc YmMBUtNTg2OOv1ZUXpwZwwL iBsZWZ0 XkG2SKK6hOJbeY9iuQtnplb byC4sKej+MymeuLouDHT9BJ n6D0NzJcs4AQWruBrhNO6sc GFkZGlu Bl7tvWacyZxoAJ8bOANxuuj li900NuTih0atFXOnfYHrVH seTSY2E66mg3K7NWVtZGHiZ NN4qHY7 dY0qzMuatqwusESqtJumzmD boAbtLAdjCMijG256TNLjwH lbCkZnIJi7U6MmVer7MBRsx DwfZI4h zACpPCzdJo2atOkuuRluTY0 yADMjhcelm247VuFld6plLY SjzUIoPFylWCU8Z83xn7G6R CMwMDAw BPW6vKN4xN8gjKqhjsuedMK mdDsgdmVydGljYWwtYWxpZ2 38VHXnqLcaXeQpyMu5M1WoX bn9KAVo nBsiIR8lhRCaSGvdLc5meZb tpMjnCG7fRPNjcvhwy817Ei Oin5yrNXBzqKQrNBbdTSY3X 01qj1Z9 LKYwFCNoAVA8rSN3mR7ewOv nbjogbGVmdDsgdmVydGljYW hjWKksC030QARzhMijWlCcw GllbnQg PGyhARe5Z7VpOpiklCK+PC9 7MQWbDW14fTDntSMkn3xqhL z9JlWoALXzPCX7uRxdYCvsm 3JkZXIt L28clGTbm6Q9FFRscHbokUV uXaXbiQF8mQ9rHNbvzivqq5 uycsqnSldch8asnw36yO60K 29sIHdp ZHRoPSIzMCUiIHZhbGlnbj0 bfX3nQe8+IETzvCV5lHP1sT 4aYBKtNeR6ZSvdA876RrYce CIvPjxj r9pkn4vwaBt8IxB7EAZwdcR qlOegYML7i9RdMm28H08iWN dpZHRoPSIyMCUiIHZhbGlnb s4hfG6m Ii8+BTRjbMY8kLN6nM1nWpN xYvP3NJsvN348TpRmnKCiQq hfN82bI0RogUF+AJYuPzr9G CBzdHls AI5ehXNcLEgkKt8oBIV1EgV sLbDlOAfvL3RmWFCpaanjdo pbwME5BHSqTSFwuR10El2rh DogMTBw rEKWbX8vmzpbi6uhuomdAlE eFISsDZb4OZt7BKJevCvmLy VqQSQ0CvG8MUV9cNOysK6hf Glnbjog yE3kG2AiGZHsjwnaIj57sZ4 sTvTjZtK9PMghTpa+U0NIV0 ZZYANqWFEPXUDSLR37OM72v HItd2M6 bBT8Z6MhVOTjjvwleofsjAA 1NFZlYTQacG89nXAoMYouDx 4zi4M9n761MIXqAWLypV50U s5pbEtg DCNriABPsZ4tcgdgu0jxdte zEfPtHHIrFJa4CCb0AMJptU meOgSdXBC0CyU3UVP4bPDuk Z5jjPby avoslE7sMkl+MDQvMTEvMTk 2NjwvdGQ+AIKfQMZ6bErdHV czBDFnnR6cLZOaB3k8QxGtM fA3YDcc M2HiLSYsiurgGk52fG8bCnM jOwA8QXkhG7HqhhV2PLMxwF ZnZSvjJLX8I86ph8M4VGHwX DAwMDA7 fOB0tO0kgSmvgjbnjFLrlJl ommYgsUfwIJoyMSriS451YB BhvWumKfA5BCohEQOxWV14K Q68oLSk e9W8uIH3O7PuWPGwikcatqx kwPA2SPUiSSGcxR51xUJsPB clOq5du4K1v296HUDeZJQqg C37Wu7e cFxnTHQqaBNIyF7gckrry5i leugwPyMmITVmPSj4DDn6PP HedCpcQiAwXRI4HpH8OUI6b RSeqM2z dSaqqwljwU6mLbj+RmVtYWx lWD25TS14lJRgh2E9wZV7J7 VgXXHuldvoycihlTU1PXOgQ DUwaW47 fQMlTVcnZw3uk2W1v304WXJ vWWRycJ11Wm6xaRdxIFDgeL WPxO7svmjem9yelljyLhYfS DAwMDt0 BNe7KTDwnDxeDfRfAJE3SlW 9KBV3zHJvqR7fcAzttzfanE 9wOyc+RB7mspucuqH0UZ36O Z82E3Wk PjwvdGFibGU+PHRhYmxlIHd pZHRoPScxMDAlJyBzdHlsZT 5cTe5zQCItRGCyjIrrbDWaZ wBws9mz TDWzNCyeLE3qaBgdT0WlzQW 5ESYmr8y7Rk40M48gA6IncX A+RZTgzGZ9dAE3kX8yDtVlN lQ2WCch B224HiZcgQWqWcjkr2npv9r svEo9PqFnPCRksdOegNtqWR P0w9SdGn37X28tGUswSBPtJ SIyMCUi DDXnvLogan2lsY3sVb2+PGN ltCJ8yET0iI3pOuHfDgU1QS nuR184TfLjdCQsKbjaW85yG 3JvdXA+ OGSdSpb9NSFasBukIE3tqKI nIEpuFg0aMYA9SaYkDvHtCK alF3HjSHHbqktwwwgqhTN8O DAuMDUw oQ95Zj5jkVuzYt8xMGIhHZZ 4GRWycNVuR3BchS0kNpAhVR JdKAInY4ZftSZyGMotG554Q GxlZnQ7 YBAtlkCrH8PcAKXduNvyWbX 3x1I4Zc4MqTsemPYvOA5lEp MeOKh2D4TyZwk3TMNsdSzxT B5zlMOc JAkkVy8gxVsbaRuzVN8aJKF upvbrr670HnUyn7pyYJCgdH XmNMioMPR2X74bx7U9IRRpX DAwMDA7 uNX5rY0khTyckqjraWAddLm nhsVnvZizTRxfPIzzU902BD ZxdLlgTeHGZxk0U9AwUfh4N CBzdHls KU1vbZEhEVnjLi7wjAhtjHk vWH3tYYPnvpzmy898EeCci1 sdRHZwdFWrBUpeBXT0B21yy 9C1ZJGv AMNxZGT8vGI5fM2wxBqhaiw gbGVmdDsgdmVydGljYWwtYW unW214SRDxnNdzRc1ZLlp8A 4PkZrw0 PYUpiNhsJF2orSXaKIbpCi9 omMcjxYiaGK9uBMVoooyiu8 28IkMth2pbMJMgxZKjASeeQ EG2N59t y4H2UHQvCRCxLWX4pTC7wN4 hbGlnbjogbGVmdDsgdmVydG ciUQmzSUcmW694OFJwbYesN lBheWVy OjwvdGQ+UM44tg89W7WgNln sJeh0AMJnWAH0mDO2jO1rNV EqZTuin0S4aMB3Y3TxnlEct j1qs0jl YXBzZTog (more content not included)... Normal [facility] Consent for Treatmenton Consent for Treatment [id number] D:127 Normal [facility] Discharge Instructionson Discharge Instructions [id number] CD:127 Normal [facility] ED Clinical Summaryon 2022 ED Clinical Summary (Inserted Image. Teresita ble to display) [address] [address] ED Clinical Summary Person Information Name: MARCELINA RUTHIE [facility] Age[facility] 56 Years : 1965 Sex: Female Language: Canadian PCP: [facility] [employer] Marital Status: Visit Id: Visit Reason: Fall; Knee pain-swelling; FELL WEDNESDAY, Speciality: Acuity: 4 Enc Type: Emergency Med Service: Emergency Arrival: 05/16/2022 10:46:05 Discharge: 05/16/2022 12:31:46 LOS: 000 01:45 Checkin: 05/16/2022 10:46:05 Checkout: 05/16/2022 12:31:46 Dispo Type: Home (Routine DC) EVENTS: Event Name Event Status Request Date/Time Start Date/Time Complete Date/Time Arrive Complete 05/16/2022 10:46:05 05/16/2022 10:46:05 05/16/2022 10:46:05 Document Home Meds Request 05/16/2022 10:46:05 Triage Complete 05/16/2022 10:46:05 05/16/2022 10:57:44 05/16/2022 10:57:44 Bed Assign Complete 05/16/2022 10:54:46 05/16/2022 10:54:46 05/16/2022 10:54:46 Dr Exam Complete 05/16/2022 10:54:46 05/16/2022 10:56:18 05/16/2022 10:56:18 RN Exam Complete 05/16/2022 10:54:46 05/16/2022 12:12:29 05/16/2022 12:12:29 Registration Complete 05/16/2022 10:56:18 05/16/2022 11:28:13 05/16/2022 11:28:13 Dr Exam Complete 05/16/2022 10:58:00 05/16/2022 10:58:00 05/16/2022 10:58:00 X-Ray Complete 05/16/2022 11:13:49 05/16/2022 11:26:37 05/16/2022 11:37:28 Reg Complete Request 05/16/2022 11:28:13 Reg Bed Request Complete 05/16/2022 11:28:13 05/16/2022 11:28:13 05/16/2022 11:28:13 Wet Read Request 05/16/2022 11:37:28 Discharge Complete 05/16/2022 12:26:06 05/16/2022 12:31:51 05/16/2022 12:31:51 Transfer Complete 05/16/2022 12:31:51 05/16/2022 12:31:51 05/16/2022 12:31:51 ADDRESS: [id number] [address] [facility] [id number] PHYS DOC NOTES: MEDICAL INFORMATION: Prescriptions Given: New Medications DSI MET-TECH #24, [address] [facility] [place] [id number], [phone] acetaminophen-oxycodone (Percocet 5 mg-325 mg oral tablet) 1 Tablets By Mouth every 6 hours. Refills: 0. methylPREDNISolone (Medrol 4 mg Tab) 1 Packets By Mouth As Directed for 6 Days. as directed on package labeling. Refills: 0. Medications to Continue with No Changes Other Medications ibuprofen (ibuprofen 600 mg Tab) 1 Tablets By Mouth 4 times a day as needed for pain. Refills: 0. lisinopril (lisinopril 2.5 mg Tab) 1 Tablets By Mouth every day. PATIENT EDUCATION INFORMATION: Instructions: RICE Therapy for Routine Care of Injuries, Fxlt-ax-Aozy; How to Use a Knee Immobilizer, Covl-je-Upbn; Acute Knee Pain, Adult, Yeok-vn-Mgus Follow up: With: Address: When: Gerry Mercado [address] [place], [place] [id number] Business (1) In 3 days 2022 With: Address: When: GOOD TAYLOR [address] [place] [phone] Business (1) In 3 days DIAGNOSIS: 1:Acute traumatic pain; 2:Strain of right knee Normal [facility] ED Note-Physicianon 05-17-19 ED Note-Physician Basic Information Time Seen: Karla Padron PA-C 05/16/2022 10:56 Chief Complaint Pt had mechanical fall on Wednesday, saw PCP who was concerned about L knee due to prior replacement, but pt presents with pain in R knee, radiating down lower leg. History of Present Illness This patient presents emergency department chief complaint of right knee pain. The patient had a mechanical fall on Wednesday. She did see her primary care physician. They were very concerned because she has a left knee replacement. She does have a bruise on that knee, but has not had any pain or difficulty with ambulation. However, her right knee is giving her severe pain even at rest, but much worse with weightbearing and ambulation. She has been taking Naprosyn and Aleve without any relief. She has also been using a cream and Lidoderm patch to the area with no relief. The patient denies any fevers chills or sweats. She denies any other injuries. She is not on a blood thinner. Review of Systems Constitutional: Denies weight loss, fevers, chills, sweats, malaise Eyes: Denies visual changes, eye pain, double vision, scotomas, floaters ENT: Denies runny nose, epistaxis, sinus pain, ear pain, ringing in ears, tooth ache, sore throat, pain with swallowing Cardiovascular: Denies chest pain, shortness of breath, orthopnea, edema, palpitations, loss of consciousness, claudication Respiratory: Denies cough, sputum production, wheezing, hemoptysis, shortness of breath, dyspnea on exertion Gastrointestinal: Denies abdominal pain, unintentional weight loss, difficulty swallowing, indigestion, bloating, cramping, loss of appetite, nausea, vomiting, diarrhea, constipation, hematochezia, melena Genitourinary: Denies any incontinence of urine, dysuria, hematuria, nocturia, polyuria, hesitancy, frequency, urgency, burning Musculoskeletal: Denies joint pain, morning stiffness, joint swelling, decreased range of motion, crepitus. + R knee pain Integumentary: Denies any pruritus, rashes, lesions, wounds, petechiae Neurologic: Denies any changes in sight, smell, hearing, taste, seizures, headache, paresthesia, numbness, weakness, balance disturbance Psychiatric denies any depression, change in sleep patterns, anxiety, difficulty concentrating, paranoia, anhedonia, lack of energy, radha Hematologic/lymphatic: Denies any purpura, petechiae, excessive bleeding, bruising Physical Exam Vitals & Measurements T: 36.6 ?C(Oral) HR: 81(Peripheral) RR: 18 BP: 129/86 SpO2: 99% HT: 167 cm WT: 74.4 kg BMI: 26.68 Vital Signs reviewed and noted. General: Alert, no acute distress, patient resting comfortably Skin: warm, intact, no pallor noted Head: Normocephalic, atraumatic Eye: Normal conjunctiva Cardiac: Normal peripheral perfusion Respiratory: No acute distress Musculoskeletal: No deformity, full ROM. Patient does have a small contusion to the right inferior lateral aspect of the knee anteriorly. There is no laxity of the joint. There is no traumatic effusion. Distal neurovascular is intact. Neurological: alert and oriented, normal sensory and motor observed. Psychiatric: Cooperative Medical Decision Making MEDICAL DECISION MAKING Number and Complexity of Problems Differential Diagnosis: Contusion, sprain, strain, fracture, dislocation, DJD MDM Data External documents reviewed: Not applicable My EKG interpretation: Noted in chart if applicable My CT interpretation: Noted in chart if applicable My X-ray interpretation: Noted in chart if applicable My Ultrasound interpretation: Not applicable Decision rules/scores evaluated: Noted in chart if applicable Discussed with: Not applicable Treatment and Disposition ED Course: Patient was interviewed and examined. The appropriate ER work-up was initiated. Plain film radiograph of the knee has degenerative changes, but no acute findings. No evidence of fractures. I discussed the results of the work-up with the patient. The patient was placed in a knee immobilizer. Distal neurovascular is intact after immobilizer placement. I discussed the discharge diagnosis, plan of care, home-going prescriptions. The patient will follow-up with her orthopedist in anticipation of need for knee replacement. Patient will be discharged home in stable condition. She is to return to the emergency department for any further problems or concerns. Shared decision making: I discussed the discharge diagnosis and plan of care with the patient. She is in agreement with the plan of care. Code status: Not applicable Assessment/Plan 1. Acute traumatic pain (G89.11: Acute pain due to trauma) Ordered: acetaminophen-oxycodone , 1 tab(s), Oral, q6hr, 12 tab(s), Refill(s) 0, DSI MET-TECH #24, 167, cm, 05/16/22 10:57:00 EDT, Height/Length Dosing, 74.4, kg, 05/16/22 10:57:00 EDT, Weight Dosing 2. Strain of right knee (S86.911A: Strain of unspecified muscle(s) and tendon(s) at lower leg level, right leg, initial encounter) Ordered: acetaminophe (more content not included)... Normal [facility] Comment on above: Result Comment: Elec tronically Signed By: Nereida HARDY, Karla Camp\.br\Date and Time Signed: 05/16/22 12:18 EDT\.br\Electronically Co-Signed By: Angie Rosario M.D.\.br\Date and Time Co-Signed: 05/16/22 15:37 EDT ED Patient Education Noteon 05-16-2022 ED Patient Education Note Orthopedics RICE Therapy for Routine Care of Injuries Many injuries can be cared for with rest, ice, compression, and elevation (RICE therapy). This includes: ? Resting the injured part. ? Putting ice on the injury. ? Putting pressure (compression) on the injury. ? Raising the injured part (elevation). Using RICE therapy can help to lessen pain and swelling. Supplies needed: ? Ice. ? Plastic bag. ? Towel. ? Elastic bandage. ? Pillow or pillows to raise (elevate) your injured body part. How to care for your injury with RICE therapy Rest Limit your normal activities, and try not to use the injured part of your body. You can go back to your normal activities when your doctor says it is okay to do them and you feel okay. Ask your doctor if you should do exercises to help your injury get better. Ice Put ice on the injured area. Do not put ice on your bare skin. ? Put ice in a plastic bag. ? Place a towel between your skin and the bag. ? Leave the ice on for 20 minutes, 2?3 times a day. Use ice on as many days as told by your doctor. Compression Compression means putting pressure on the injured area. This can be done with an elastic bandage. If an elastic bandage has been put on your injury: ? Do not wrap the bandage too tight. Wrap the bandage more loosely if part of your body away from the bandage is blue, swollen, cold, painful, or loses feeling (gets numb). ? Take off the bandage and put it on again. Do this every 3?4 hours or as told by your doctor. ? See your doctor if the bandage seems to make your problems worse. Elevation Elevation means keeping the injured area raised. If you can, raise the injured area above your heart or the center of your chest. Contact a doctor if: ? You keep having pain and swelling. ? Your symptoms get worse. Get help right away if: ? You have sudden bad pain at your injury or lower than your injury. ? You have redness or more swelling around your injury. ? You have tingling or numbness at your injury or lower than your injury, and it does not go away when you take off the bandage. Summary ? Many injuries can be cared for using rest, ice, compression, and elevation (RICE therapy). ? You can go back to your normal activities when you feel okay and your doctor says it is okay. ? Put ice on the injured area as told by your doctor. ? Get help if your symptoms get worse or if you keep having pain and swelling. This information is not intended to replace advice given to you by your health care provider. Make sure you discuss any questions you have with your health care provider. Document Released: 07/13/2008 Document Revised: 10/15/2017 Document Reviewed: 10/15/2017 [employer] Patient Education ? 2020 [employer]. How to Use a Knee Immobilizer A knee immobilizer, also called a knee brace, is used to support and protect an injured or painful knee. You may also have to wear it after knee surgery. A knee brace keeps your knee from moving or bending while it is healing. Wear and remove your knee brace only as told by your doctor. In general, your knee brace should: ? Have straps, hooks, or tapes that fasten snugly around your leg. ? Not feel too tight or too loose. Follow these instructions at home: ? While resting, raise (elevate) your leg above the level of your heart. Pillows can be used for support. Doing this reduces throbbing and helps with healing. ? Loosen the brace if your toes tingle or if you notice other symptoms or signs that it is too tight, such as: ? Swelling. ? Numbness. ? Color change in your foot or ankle. ? More pain. ? Keep the brace clean. ? If the brace is not waterproof: ? Do not let it get wet. ? Cover it with a watertight covering when you take a bath or a shower. ? If your doctor says that you may take off (remove) the brace: ? Take it off before you take a bath or a shower. ? Check for any skin irritation. ? Use a towel to dry the area completely before you put the brace back on. Contact a doctor if: ? Your knee brace breaks or needs to be replaced. ? You have more pain or swelling in your knee, foot, or ankle. ? Your knee brace is not helping. ? Your knee brace makes your knee pain worse. Summary ? A knee immobilizer, also called a knee brace, keeps your knee from moving or bending while it is healing. ? Different knee braces will have different instructions for use. Follow the instructions from your doctor. ? Call your doctor if you have more pain or swelling, if your knee brace breaks, or if it does not help your knee pain. This information is not intended to replace advice given to you by your health care provider. Make sure you discuss any questions you have with your health care provider. Document Released: 11/03/2008 Document Revised: 01/07/2018 Document Reviewed: 01/11/2017 [employer] Patient Educatio (more content not included)... Normal [facility] ED Patient Summaryon 023 ED Patient Summary (Inserted Image. Teresita ble to display) [place] [address] Patient Discharge Instructions Person Information Name: RUTHIE CORDERO Age: 56 Years Arrival Date: 05/16/2022 10:46:05 Discharge Diagnosis: 1:Acute traumatic pain; 2:Strain of right knee Primary Care Physician: GOOD TAYLOR CNP Provider Information Primary Provider: Angie Rosario M.D. Advanced Airline Radio Operator:None The exam and treatment you received in the Emergency Department were for an urgent problem and are not intended as complete care. It is important that you follow up with a doctor, nurse practitioner, or physician?s assistant to the president for ongoing care. If your symptoms become worse or you do not improve as expected and you are unable to reach your usual health care provider, you should return to the Emergency Department. We are available 24 hours a day. RUTHIE CORDERO has been given the following list of patient education materials, prescriptions and follow-up instructions: Follow-up Instructions: With: Address: When: Gerry Rogelio [address] [place] [address] Business (1) In 3 days 2022 With: Address: When: GOODAshley TAYLOR [address] [place] [id number] Business (1) In 3 days In the event that this physician does not participate in your insurance network, please consult with your insurance company to find a nearby participating provider. Patient Education Materials: RICE Therapy for Routine Care of Injuries, Syvr-pu-Tlnj; How to Use a Knee Immobilizer, Erbc-zh-Dbpa; Acute Knee Pain, Adult, Dbrp-rz-Ctms A MESSAGE TO ALL PATIENTS REGARDING OPIOIDS PRESCRIPTION OPIOIDS: WHAT YOU NEED TO KNOW Prescription opioids can be used to help relieve aswmeqzm-tg-oojfck pain and are often prescribed following a surgery or injury, or for certain health conditions. These medications can be an important part of the treatment but also come with serious risks. It is important to work with your healthcare provider to make sure you are getting the safest, most effective care. WHAT ARE THE RISKS AND SIDE EFFECTS OF OPIOID USE? Prescription opioids carry serious risks of addiction and overdose, especially with prolonged use. An opioid overdose, often marked by slowed breathing, can cause sudden . The use of prescription opioids can have a number of side effects as well, even when taken as directed: ? Tolerance?meaning you might need to take more of the medication for the same pain relief ? Physical dependence?meaning you have symptoms of withdrawal when a medication is stopped ? Increased sensitivity to pain ? Constipation ? Nausea, vomiting, and dry mouth ? Sleepiness and dizziness ? Confusion ? Depression ? Low levels of testosterone that can result in lower sex drive, energy, and strength ? Itching and sweating RISKS ARE GREATER WITH: ? History of drug misuse, substance use disorder, or overdose ? Mental health conditions (such as depression or anxiety) ? Sleep apnea ? Older age (65 years and older) ? Avoid alcohol while taking prescription opioids. Also, unless specifically advised by your health care provider, medications to avoid include: ? Benzodiazepines (such as Xanax or Valium) ? Muscle relaxants (such as Soma or Flexeril) ? Hypnotics (such as Ambien or Lunesta) ? Other prescription opioids KNOW YOUR OPTIONS Talk to your health care provider about ways to manage your pain that don?t involve prescription opioids. Some of these options may actually work better and have fewer risks and side effects. Options may include: ? Pain relievers such as acetaminophen, ibuprofen, and naproxen ? Some medication that are also used for depression or seizures ? Physical therapy and exercise ? Cognitive behavioral therapy, a psychological, goal-directed approach, in which patients learn how to modify physical, behavioral, and emotional triggers of pain and stress. IF YOU ARE PRESCRIBED OPIOIDS FOR PAIN: ? Never take opioids in greater amounts or more often than prescribed. ? Follow up with your primary health care provider. o Work together to create a plan on how to manage your pain. o Talk about ways to help manage your pain that don?t involve prescription opioids. o Talk about any and all concerns and side effects. ? Help prevent misuse and abuse o Never sell or share prescription opioids. o Never use another person?s prescription opioids. ? Store prescription opioids in a secure place and out of reach of others (this may include visitors, children, friends, and family). ? Safely dispose of unused prescription opioids: Find your community drug take-back program or your pharmacy mail-back program, or flush them down the toilet, following guidance from the Food and Drug Administration (www.fda.gov/Drugs/Reso urcesForYou). ? Visit www.cdc.gov/drugoverdos e (more content not included)... Normal [facility] XR Knee Complete 4+ Views Jacky roberth 05-16-2022 XR Knee Complete 4+ Views Right Exam Date/Time: 05/16/2022 11:37 EDT Reason for Exam: Pain, Traumatic Report IMPRESSION: NO ACUTE OSSEOUS ABNORMALITY. EXAM: XR Knee Complete 4+ Views Right HISTORY: Pain after a fall TECHNIQUE: AP, lateral and oblique views of the knee obtained. COMPARISON: None available FINDINGS: No acute fracture or dislocation. Degenerative changes of the knee including patellofemoral compartment joint space narrowing and tricompartmental marginal osteophyte formation. 9 mm loose body along the anterior joint line. No knee joint effusion. Soft tissues are within normal limits. Ordering Provider: Karla Padron FINAL REPORT Dictated: 05/16/2022 12:06 pm Jose Gordon DO Signed (Electronic Signature): 05/16/2022 12:06 pm Signed by: Jose Gordon DO Transcribed by: CALLIE Technologist: CARYN Technical Comments Radiation Dose: Ka,r in mGy = na DAP = na Normal [facility] MM screening mammo BI w/CADo n 05-16-2021 MM screening mammo BI w/CAD [facility] [place] [address] [place] [address] Mammography Report Signed Patient: Ruthie Cordero MR#: [id number] : 1965 Acct:[id number] Age/Sex: 55 / F ADM Date: 05/16/21 Loc: DC Room: Type: [facility] Attending Dr: Pavithra Briseno ([facility]) CAROLYN Ordering Provider: Pavithra Briseno APRN JAMIA Date of Service: 05/16/21 MM/MM screening mammo BI w/CAD: Z12.31 Copies to: [facility] Pavithra Briseno APRN [facility] Bilateral Screening Full Field digital mammogram with 3-D imaging. Full field digital CC and MLO imaging performed. CAD utilized. COMPARISON: 05/24/15 HISTORY:Screening FINDINGS: The breast is almost entirely fatty. No developing architectural distortion, developing focal breast asymmetry or developing malignant calcifications identified. MM/MM screening mammo BI w/CAD IMPRESSION:No mammographic evidence of malignancy. Routine follow-up recommended in one year. RESULT CODE: 1 Negative DENSITY CODE: 1 (<25% glandular) FOLLOW UP: 1YR THE FALSE-NEGATIVE RATE OF MAMMOGRAPHY IS APPROXIMATELY 10%. IMAGING OF A PALPABLE ABNORMALITY MUST BE BASED ON CLINICAL GROUNDS. PATIENT WAS ENTERED INTO A REMINDER SYSTEM WITH A TARGET DUE DATE FOR THE NEXT MAMMOGRAM. Impression dictated by: Ryder Romero M.D.05/16/2021 9:05 AM Dictation Location: DWS01 Transcribed By: JIM 05/16/21904 Dictated By: Ryder Romero DO 05/16/21903 Signed By: 05/16/21904 [facility] CNOVon 07-25-2019 CNOV Office Visit (LOORRM ) MARCELINARUTHIE Hudson ([id number]) 1965 F Date Time Provider Department 07/25/19 9:20 AM SENA LICONA) LOORRM During your visit today, we recorded the following information about you: Sena Licona PA-C 07/25/2019 9:09 AM Signed Ortho Knee Follow Up Note Narrative Referring Provider: Miguel Angel Ponce MD [address] [place] [address] PCP: Estela Sorto MD ===== IMPRESSION/PLAN: ===== 54 year old s/p Left Total Knee Replacement completed on 06/14/2019. IMPRESSION: Excellent early outcome PLAN: Rest, Ice, Compression, Elevation PRN. continue PT discussed prophylactic antibiotics Patient Reassurance: Normal post-operative course discussed with patient. 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 Post-operative recovery was complicated by uneventful/none. Patient rates their condition as improving. Does the patient still experience pain? 0/10 Patient still utilizes Percocet but was on this medication prior to surgery. She states that she only uses it after physical therapy. She is receiving this prescription from her primary care physician Currently Ambulating with: a cane EXAM: POST OP KNEE Left Post-Operative Knee Ambulates with a: limp favoring the left. SKIN: Appropriate postop appearance, No evidence of erythema, warmth, discharge or drainage and Incision well healed. Range of motion is lacking a few degrees secondary to tight hamstrings degrees in extension and 120 degrees of flexion. Extension La degrees Pain with ROM:No There is None effusion. Mal-alignment: No Tender to the palpation of None Neurovascular Status: Sensation Intact, Moves foot and ankle up AND down and 2+ dorsalis pedis Stability:Anterior/Post erior- Yes, stable and Varus/Valgus- Yes, stable Quad strength: normal Imagin. None today. Provider: Sena Licona PA-C Completed by: Sena Licona PA-C Referring Provider: MIGUEL ANGEL PONCE [[id number]] Allergies As of Date: 07/25/2019 Noted Allergy Reaction GUAIFENESIN 05/02/2019 7 - Swelling TORADOL (KETOROLAC) 05/02/2019 9 - Itching TRAMADOL 03/20/2014 4 - Hives 9 - Itching Date Reviewed: 07/25/2019 Reviewed by: Sena Licona (Pa) - Fully Assessed Reason for Visit: Post Op [174] Primary Visit Diagnosis:S/P total knee arthroplasty, left [Z96.652] Prescriptions as of 07/25/2019 Sig: DOCUSATE SODIUM 100 MG CAPSULE Take 1 capsule by mouth twice* LISINOPRIL 20 MG TABLET Problem List As Of Date 07/25/2019 Noted Resolved Internal derangement of left knee [M23.92] 05/22/2014 Primary osteoarthritis of left knee [M17.12] 12/11/2014 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 DVT (deep venous thrombosis) (HCC) [I82.409] 2012 More... HTN (hypertension) [I10] More... Encounter Status:Closed by SENA LICONA PA-C on 07/25/19 [facility] 07-25-2019 PROGRESS HNO ID: [id number] Author: Sena Licona (Pa) Service: ? Author Type: Physician Senior Formulation Scientist Type: Progress Notes Filed: 07/25/2019 9:09 AM Note Text: Ortho Knee Follow Up Note Narrative Referring Provider: Miguel Angel Ponce MD [address] [facility] [address] PCP: Etsela Sorto MD ===== IMPRESSION/PLAN: ===== 54 year old s/p Left Total Knee Replacement completed on 06/14/2019. IMPRESSION: Excellent early outcome PLAN: Rest, Ice, Compression, Elevation PRN. continue PT discussed prophylactic antibiotics Patient Reassurance: Normal post-operative course discussed with patient. Follow up 6 weeks No X-Rays Needed Ruthie Becca CORDERO presents today for a an intermediate post-op visit ACTIVE PROBLEM LIST Internal Derangement of Left Knee Primary Osteoarthritis of Left Knee Chondromalacia of Left Patella Patellofemoral Stress Syndrome of Both Knees Lupus Erythematosus Discoid Dvt (Deep Venous Thrombosis) (Hcc) Htn (Hypertension) Status post op: Left Total Knee Replacement BMI: There is no height or weight on file to calculate BMI. Post-operative recovery was complicated by uneventful/none. Patient rates their condition as improving. Does the patient still experience pain? 0/10 Patient still utilizes Percocet but was on this medication prior to surgery. She states that she only uses it after physical therapy. She is receiving this prescription from her primary care physician Currently Ambulating with: a cane EXAM: POST OP KNEE Left Post-Operative Knee Ambulates with a: limp favoring the left. SKIN: Appropriate postop appearance, No evidence of erythema, warmth, discharge or drainage and Incision well healed. Range of motion is lacking a few degrees secondary to tight hamstrings degrees in extension and 120 degrees of flexion. Extension La degrees Pain with ROM:No There is None effusion. Mal-alignment: No Tender to the palpation of None Neurovascular Status: Sensation Intact, Moves foot and ankle up AND down and 2+ dorsalis pedis Stability:Anterior/Post erior- Yes, stable and Varus/Valgus- Yes, stable Quad strength: normal Imagin. None today. Provider: Sena Licona PA-C Completed by: Sena Licona PA-C Normal [facility] CNOVon 07-04-2019 CNOV Office Visit (LOORRM ) RUTHIE CORDERO ([id number]) 1965 F Date Time Provider Department 07/04/19 11:00 AM SENA LICONA (TESS) CRISTINA During your visit today, we recorded the following information about you: Sena Licona PA-C 07/04/2019 11:23 AM Signed Ortho Knee Follow Up Note Narrative Referring Provider: Miguel Angel Ponce MD [address] [facility] [address] PCP: Estela Sorto MD ===== IMPRESSION/PLAN: ===== 54 year old s/p Left Total Knee Replacement completed on 06/14/2019. IMPRESSION: At normal post-operative stage of recovery. PLAN: Rest, Ice, Compression, Elevation PRN. progress to outpatient PT rx for norco given, patient will contact PCP who provider her with percocet Patient Reassurance: Normal post-operative course discussed with patient. Follow up 3 weeks No X-Rays Needed Ruthie CORDERO presents today for a a routine 1st post-op visit ACTIVE PROBLEM LIST Internal Derangement of Left Knee Primary Osteoarthritis of Left Knee Chondromalacia of Left Patella Patellofemoral Stress Syndrome of Both Knees Lupus Erythematosus Discoid Dvt (Deep Venous Thrombosis) (Hcc) Htn (Hypertension) Status post op: Left Total Knee Replacement BMI: There is no height or weight on file to calculate BMI. Post-operative recovery was complicated by uneventful/none. Patient rates their condition as improving. Does the patient still experience pain? 10/18 Post Op discharge patient location: in home. Functional Assessment is as follows: has already started outpatient PT as of this visit. Functional difficulties: Stair climbing, Arising from chair and Walking. Pain Medication: Narcotic Currently Ambulating with: a walker EXAM: POST OP KNEE Left Post-Operative Knee Ambulates with a: limp favoring the left. SKIN: Appropriate postop appearance, No evidence of erythema, warmth, discharge or drainage, No evidence of warmth or erythema and Incision clean/dry/intact. Range of motion is 5 degrees in extension and 80 degrees of flexion. Extension La degrees Pain with ROM:No There is None effusion. Mal-alignment: No Tender to the palpation of None Neurovascular Status: Sensation Intact, Moves foot and ankle up AND down and 2+ dorsalis pedis Stability:Anterior/Post erior- Yes, stable and Varus/Valgus- Yes, stable Quad strength: normal Imagin. Implants are well aligned. Implants are well fixed. Provider: Sena Licona PA-C Completed by: Sena Licona PA-C Referring Provider: MIGUEL ANGEL PONCE [[id number]] Allergies As of Date: 07/04/2019 Noted Allergy Reaction GUAIFENESIN 05/02/2019 7 - Swelling TORADOL (KETOROLAC) 05/02/2019 9 - Itching TRAMADOL 03/20/2014 4 - Hives 9 - Itching Date Reviewed: 07/04/2019 Reviewed by: Sena Licona (Pa) - Fully Assessed Reason for Visit: Post Op [174] Primary Visit Diagnosis:S/P total knee arthroplasty, left [Z96.652] Other Visit Diagnoses:Primary osteoarthritis of left knee [M17.12] Post-operative state [Z98.890] Order(s):XR KNEE POST OP 3V AP/LAT/MERCHANT LT [[id number]] Order #: [id number] FUTURE CONSULT TO PHYSICAL THERAPY [9000] Order #: [id number]: 1 FUTURE HYDROcodone-acetaminoph en (NORCO) 5-325 mg per tabletTake 1 tablet by mouth every 6 hours as needed for up to 8 days.Disp: 30 tabletRfl: 0 Prescriptions as of 07/04/2019 Sig: HYDROCODONE 5 MG-ACETAMINOPHE* Take 1 tablet by mouth every * HYDROCODONE 5 MG-ACETAMINOPHE* Take 1-2 tablets by mouth rony* DOCUSATE SODIUM 100 MG CAPSULE Take 1 capsule by mouth twice* LISINOPRIL 20 MG TABLET Problem List As Of Date 07/04/2019 Noted Resolved Internal derangement of left knee [M23.92] 05/22/2014 Primary osteoarthritis of left knee [M17.12] 12/11/2014 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 DVT (deep venous thrombosis) (HCC) [I82.409] 2012 More... HTN (hypertension) [I10] More... Prescriptions ordered this encounter Disp Refills Start End HYDROCODONE 5 MG-ACETAMINOPHEN 325 M* 30 t* 0 07/04/2019 07/12/2019 Class: Print RX Route: ORAL Sig: Take 1 tablet by mouth every 6 hours as needed for up to 8 days. Encounter Status:Closed by SENA LICONA PA-C on 07/04/19 [facility] PROGRESSon 07-04-2019 PROGRESS HNO ID: [id number] Author: Pretty Hudson (Rt) Service: ? Author Type: Rail Switchman Type: Progress Notes Filed: 07/04/2019 11:00 AM Note Text: Radiology Service Progress Note PATIENT NAME: Ruthie CORDERO DATE OF SERVICE: July 04, 2019 TIME: 10:59 AM PATIENT IDENTITY VERIFICATION COMPLETED USING TWO (2) IDENTIFIERS: Name and Date of confirmed by patient verbally. FALL SCREENING: Has the patient had 2 falls in the last year or 1 fall with injury or currently using an Ambulatory Assistive Device (Walker, Cane, Wheelchair, Crutches, etc.)? No PATIENT GENDER DATA: Female. status: : No status: NO. PATIENT RELEVANT IMPLANT DATA REVIEWED: Yes RADIOLOGY DEPARTMENT: General X-ray: Exam(s) Completed: Lower Extremity X-Ray(s): Knee, AP / Lat / Merchant Left: PERIPHERAL IV DATA: Not applicable SIGNED BY: Alma Rosa Olivo July 04, 2019 10:59 AM Normal [facility] PROGRESS HNO ID: [id number] Author: Sena Licona (Pa) Service: ? Author Type: Physician Senior Formulation Scientist Type: Progress Notes Filed: 07/04/2019 11:23 AM Note Text: Ortho Knee Follow Up Note Narrative Referring Provider: Miguel Angel Ponce MD [address] [facility] [address] PCP: Estela Sorto MD ===== IMPRESSION/PLAN: ===== 54 year old s/p Left Total Knee Replacement completed on 06/14/2019. IMPRESSION: At normal post-operative stage of recovery. PLAN: Rest, Ice, Compression, Elevation PRN. progress to outpatient PT rx for norco given, patient will contact PCP who provider her with percocet Patient Reassurance: Normal post-operative course discussed with patient. Follow up 3 weeks No X-Rays Needed Ruthie CORDERO presents today for a a routine 1st post-op visit ACTIVE PROBLEM LIST Internal Derangement of Left Knee Primary Osteoarthritis of Left Knee Chondromalacia of Left Patella Patellofemoral Stress Syndrome of Both Knees Lupus Erythematosus Discoid Dvt (Deep Venous Thrombosis) (Hcc) Htn (Hypertension) Status post op: Left Total Knee Replacement BMI: There is no height or weight on file to calculate BMI. Post-operative recovery was complicated by uneventful/none. Patient rates their condition as improving. Does the patient still experience pain? 10/18 Post Op discharge patient location: in home. Functional Assessment is as follows: has already started outpatient PT as of this visit. Functional difficulties: Stair climbing, Arising from chair and Walking. Pain Medication: Narcotic Currently Ambulating with: a walker EXAM: POST OP KNEE Left Post-Operative Knee Ambulates with a: limp favoring the left. SKIN: Appropriate postop appearance, No evidence of erythema, warmth, discharge or drainage, No evidence of warmth or erythema and Incision clean/dry/intact. Range of motion is 5 degrees in extension and 80 degrees of flexion. Extension La degrees Pain with ROM:No There is None effusion. Mal-alignment: No Tender to the palpation of None Neurovascular Status: Sensation Intact, Moves foot and ankle up AND down and 2+ dorsalis pedis Stability:Anterior/Post erior- Yes, stable and Varus/Valgus- Yes, stable Quad strength: normal Imagin. Implants are well aligned. Implants are well fixed. Provider: Sena Licona PA-C Completed by: Sena Licona PA-C Normal [facility] XR KNEE 3V AP/LAT/MERCHANT L Ton 07-04-2019 XR KNEE 3V AP/LAT/MERCHANT LT * * *Final Report* * * DATE OF EXAM: Jul 04 2019 11:02AM LZX [id number] - XR KNEE 3V AP/LAT/MERCHANT LT / PROCEDURE REASON: S/P total knee arthroplasty, left * * * * Physician Interpretation * * * * EXAMINATION: XR KNEE 3V AP/LAT/MERCHANT LT HISTORY: left knee post op S/P total knee arthroplasty, left . TECHNIQUE: XR KNEE 3V AP/LAT/MERCHANT LT Laterality: LEFT Number of different views (projections): 3 M: XB_1 COMPARISON: 01/27/2019 RESULT: Interval postsurgical changes of a total left knee arthroplasty with patellar resurfacing. Hardware is intact with no evidence of periprosthetic lucency. No acute fracture or dislocation. No joint effusion. Mild surrounding soft tissue swelling. Mild right knee degenerative changes, unchanged. IMPRESSION: Interval total left knee arthroplasty without complication. 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: DESHAWN Transcribe Date/Time: Jul 04 2019 11:07A Dictated by : ONEAL ALONSO MD This examination was interpreted and the report reviewed and electronically signed by: JUSTINO URIBE MD on Jul 04 2019 2:01PM EST [id number] Normal [facility] OBSOLETEon 06-27-2019 OBSOLETE Refill (LOORRM) RUTHIE CORDERO ([id number]) 1965 F Date Time Provider Department 06/27/19 RENITA MIGUEL ANGELMARGARETH EVANS During your visit today, we recorded the following information about you: Tegan Kidney PSS 06/27/2019 8:36 AM Signed Patient has 3 left. Requestor:Patient Patient is identified by name and birthdate: Yes Patient reminded to check with pharmacy in 24-48 hours: Yes Prescriber Verified: Yes Pharmacy benefits have been verified: Yes Pharmacy updated in [facility]: Yes Is medication controlled substance: Yes Medication instructions verified (dose, dosing instructions [sig], dispense amount [30 or 90 day supply], refills): Yes -If medication is not on the MAR please get additional information Are any other medications due for a refill in the next 3 months: No Pending Prescriptions Disp Refills HYDROCODONE 5 MG-ACETAMINOPHEN 325 MG TABLET 40 tablet 0 Sig: Take 1-2 tablets by mouth every 6 hours as needed for Pain for up to 7 days. MARBELLA Class: C-II YIFAN: No Sena Licona PA-C 06/27/2019 8:50 AM Addendum PDMP reviewed. patient was on percocet before surgery. patient has taken norco too quickly. we cannot prescribe norco today. if she would like to proceed with nroco I can fill 06/28. or she can resume percocet from other provider. rx norco sent to local pharmacy today for fill date of 06/29/2019 ANTONY Vazquez RN, RN 06/27/2019 8:51 AM Signed Spoke with patient. Rx too early to fill.She should be decreasing the amount of medication at this point. Encouraged to take extra strength tylenol. Earliest fill date 06/28. Allergies As of Date: 06/27/2019 Noted Allergy Reaction GUAIFENESIN 05/02/2019 7 - Swelling TORADOL (KETOROLAC) 05/02/2019 9 - Itching TRAMADOL 03/20/2014 4 - Hives 9 - Itching Date Reviewed: 06/15/2019 Reviewed by: Brenda (Rn) Coral RN - Fully Assessed Reason for Visit: Refill Request [94] Visit Diagnoses:Primary osteoarthritis of left knee [M17.12] Post-operative state [Z98.890] Order(s):[START ON 06/29/2019] HYDROcodone-acetaminoph en (NORCO) 5-325 mg per tabletTake 1-2 tablets by mouth every 6 hours as needed for Pain for up to 7 days. 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 DVT (deep venous thrombosis) (HCC) [I82.409] 2012 More... HTN (hypertension) [I10] More... Other instructions from your clinician: Spoke with patient. Rx too early to fill.She should be decreasing the amount of medication at this point. Encouraged to take extra strength tylenol. Earliest fill date 06/28. Prescriptions ordered this encounter Disp Refills Start End HYDROCODONE 5 MG-ACETAMINOPHEN 325 M* 40 t* 0 06/29/2019 07/06/2019 Route: ORAL Sig: Take 1-2 tablets by mouth every 6 hours as needed for Pain for up to 7 days. Do not start before June 29, 2019. Medications Discontinued During This Encounter HYDROcodone-acetaminoph en (NORCO) 5-* 40 t* 0 06/23/2019 06/27/2019 Route: ORAL Sig: Take 1-2 tablets by mouth every 6 hours as needed for Pain for up to 7 days. Disc: Reason for discontinue is not on file. Encounter Status:Closed by LILY KISER on 06/27/19 [facility] OBSOLETEon 06-23-2019 OBSOLETE Refill (LOORRM) RUTHIE CORDERO ([id number]) 1965 F Date Time Provider Department 06/23/19 MIGUEL ANGEL PONCE During your visit today, we recorded the following information about you: Ryder OSHEA 06/23/2019 8:46 AM Signed Requestor:Patient Patient is identified by name and birthdate: Yes Patient reminded to check with pharmacy in 24-48 hours: Yes Prescriber Verified: Yes Pharmacy benefits have been verified: Yes Pharmacy updated in [facility]: Yes Is medication controlled substance: Yes Medication instructions verified (dose, dosing instructions [sig], dispense amount [30 or 90 day supply], refills): Yes -If medication is not on the MAR please get additional information Are any other medications due for a refill in the next 3 months: No Pending Prescriptions Disp Refills OXYCODONE 5 MG TABLET 50 tablet 0 Sig: Take 1-2 tablets by mouth every 4 hours as needed for up to 7 days. MARBELLA Class: C-II YIFAN: No Patient has 5 doses remaining. Pharmacy is [facility] [address] [place] [address] - [address] [facility] E??- [phone]. Patient can be reached at [phone]. Please advise. Miguel Angel Ponce MD 06/23/2019 8:56 AM Signed PDMP website checked and validated. All prescriptions have been APPROPRIATELY filled. No suspicious activity was identified. 06/23/2019 by Miguel Angel Ponce MD Rx for [place] has been approved and sent to patient's preferred pharmacy. Allergies As of Date: 06/23/2019 Noted Allergy Reaction GUAIFENESIN 05/02/2019 7 - Swelling TORADOL (KETOROLAC) 05/02/2019 9 - Itching TRAMADOL 03/20/2014 4 - Hives 9 - Itching Date Reviewed: 06/15/2019 Reviewed by: Brenda (Tash) TASH Moncada - Fully Assessed Reason for Visit: Refill Request [94] Primary Visit Diagnosis:Post-operativ e state [Z98.890] Other Visit Diagnosis:Primary osteoarthritis of left knee [M17.12] Order(s):HYDROcodone-ac etaminophen (NORCO) 5-325 mg per tabletTake 1-2 tablets by mouth every 6 hours as needed for Pain for up to 7 days.Disp: 40 tabletRfl: 0 Prescriptions as of 06/23/2019 Sig: HYDROCODONE 5 MG-ACETAMINOPHE* Take 1-2 tablets by mouth rony* OXYCODONE 5 MG TABLET Take 1-2 tablets by mouth rony* DOCUSATE SODIUM 100 MG CAPSULE Take 1 capsule by mouth twice* RIVAROXABAN 10 MG TABLET Take 1 tablet by mouth q 24 H* LISINOPRIL 20 MG TABLET Problem List As Of Date 06/23/2019 Noted Resolved Internal derangement of left knee [M23.92] 05/22/2014 Primary osteoarthritis of left knee [M17.12] 12/11/2014 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 DVT (deep venous thrombosis) (HCC) [I82.409] 2012 More... HTN (hypertension) [I10] More... Prescriptions ordered this encounter Disp Refills Start End HYDROCODONE 5 MG-ACETAMINOPHEN 325 M* 40 t* 0 06/23/2019 06/30/2019 Route: ORAL Sig: Take 1-2 tablets by mouth every 6 hours as needed for Pain for up to 7 days. Encounter Status:Closed by MIGUEL ANGEL PONCE MD on 06/23/19 [facility] Fernando 06-19-2019 CNPN Telephone (LOORRM) RUTHIE CORDERO ([id number]) 1965 Date Time Provider Department 06/19/19 MIGUEL ANGEL PONCE During your visit today, we recorded the following information about you: Rashida Linda Pss 06/19/2019 9:34 AM Signed Requestor:Patient Patient is identified by name and birthdate: Yes Patient reminded to check with pharmacy in 24-48 hours: Yes Prescriber Verified: Yes Pharmacy benefits have been verified: Yes Pharmacy updated in Epic: Yes Is medication controlled substance: No Medication instructions verified (dose, dosing instructions [sig], dispense amount [30 or 90 day supply], refills): Yes -If medication is not on the MAR please get additional information Are any other medications due for a refill in the next 3 months: No Pending Prescriptions Disp Refills OXYCODONE 5 MG TABLET 60 tablet 0 Sig: Take 1-2 tablets by mouth every 3 hours as needed for up to 7 days. MARBELLA Class: C-II YIFAN: No Sena Licona PA-C 06/19/2019 9:42 AM Signed PDMP reviewed. Prescription for oxycodone has been to local pharmacy today ANTONY Vazquez 06/19/2019 3:28 PM Signed Patient emergency contact calling in regards to the below medication, please release to pharmacy, they will pay out of pocket for the medication. Also patient is asking if she can alternate ice and heat or is it too soon after surgery. Please call [facility]in at [phone] Sena Licona PA-C 06/19/2019 3:47 PM Signed the rx was sent already to the local pharmacy she should utilize ice for the first week. then heat before exercise and ice when she is done ANTONY Vazqueznan Dougherty 06/19/2019 4:52 PM Signed Patient's [facility]in calling in regards to the below message. Advised [facility]in of the below message. [facility] verbalized understanding with no further questions. Sena Licona PA-C 06/19/2019 6:58 PM Signed I called and spoke with the pharmacy they did not received the electronic rx. another rx was sent. patients family was notified ANTONY Vazquez PA-C 06/20/2019 9:17 AM Signed Addended by: SENA LICONA PA-C on: 06/20/2019 09:17 AM Modules accepted: Orders Jennifer Greg Pss 06/20/2019 1:58 PM Signed [facility] calling to state they did not receive the med below. Please resend. Patient is okay with paying out of pocket. Please advise. Sena Licona PA-C 06/20/2019 2:18 PM Addendum I called and spoke with the pharmacists again. she did not received my escript of oxycodone. a rx will be mailed ANTONY Vazquez PA-C 06/20/2019 2:22 PM Signed Addended by: SENA LICONA PA-C on: 06/20/2019 02:22 PM Modules accepted: Orders Allergies As of Date: 06/19/2019 Noted Allergy Reaction GUAIFENESIN 05/02/2019 7 - Swelling TORADOL (KETOROLAC) 05/02/2019 9 - Itching TRAMADOL 03/20/2014 4 - Hives 9 - Itching Date Reviewed: 06/15/2019 Reviewed by: Brenda (Rn) Coral RN - Fully Assessed Reason for Visit: Refill Request [94] Visit Diagnosis:Primary osteoarthritis of left knee [M17.12] Order(s):oxyCODONE IR (ROXICODONE) 5 mg immediate release tabletTake 1-2 tablets by mouth every 4 hours as needed for up to 7 days.Disp: 50 tabletRfl: 0 Prescriptions as of 06/19/2019 Sig: OXYCODONE 5 MG TABLET Take 1-2 tablets by mouth rony* DOCUSATE SODIUM 100 MG CAPSULE Take 1 capsule by mouth twice* RIVAROXABAN 10 MG TABLET Take 1 tablet by mouth q 24 H* LISINOPRIL 20 MG TABLET Problem List As Of Date 06/19/2019 Noted Resolved Internal derangement of left knee [M23.92] 05/22/2014 Primary osteoarthritis of left knee [M17.12] 12/11/2014 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 DVT (deep venous thrombosis) (HCC) [I82.409] 2012 More... HTN (hypertension) [I10] More... Prescriptions ordered this encounter Disp Refills Start End OXYCODONE 5 MG TABLET 50 t* 0 06/19/2019 06/20/2019 Route: ORAL Sig: Take 1-2 tablets by mouth every 4 hours as needed for up to 7 days. OXYCODONE 5 MG TABLET 50 t* 0 06/20/2019 06/20/2019 Route: ORAL Sig: Take 1-2 tablets by mouth every 4 hours as needed for up to 7 days. OXYCODONE 5 MG TABLET 50 t* 0 06/20/2019 06/27/2019 Class: Print RX Route: ORAL Sig: Take 1-2 tablets by mouth every 4 hours as needed for up to 7 days. Medications Discontinued During This Encounter oxyCODONE IR (ROXICODONE) 5 mg immed* 60 t* 0 06/15/2019 06/19/2019 Cmt: Narcotic medication dose and quantity may exceed [place] state limits due to the medical necessity for post operative pain control required for the surgical procedure performed on Ruthie ELKINSShaji June 14, 2019. Route: ORAL Sig: Take 1-2 tablets by mouth every 3 hours as needed for up to 7 days. Disc: Reason for discontinue is not on file. oxyCODONE IR (ROXICODONE) 5 mg immed* 50 t* 0 06/19/2019 06/20/2019 Route: ORAL Sig: Take 1-2 tablets by mouth every 4 hours as needed for up to 7 days. Disc: Reason for discontinue is not on file. oxyCODONE IR (ROXICODONE) 5 mg immed* 50 t* 0 06/20/2019 06/20/2019 Route: ORAL Sig: Take 1-2 tablets by mouth every 4 hours as needed for up to 7 days. Disc: Reason for discontinue is not on file. Encounter Status:Closed by SENA LICONA PA-C on 06/19/19 [facility] OBSOLETEon 06-19-2019 OBSOLETE Refill (LOORRM) RUTHIE CORDERO ([id number]) 1965 Date Time Provider Department 06/19/19 [facility] During your visit today, we recorded the following information about you: Rashida Mckeon Pss 06/19/2019 9:34 AM Signed Requestor:Patient Patient is identified by name and birthdate: Yes Patient reminded to check with pharmacy in 24-48 hours: Yes Prescriber Verified: Yes Pharmacy benefits have been verified: Yes Pharmacy updated in [facility]: Yes Is medication controlled substance: No Medication instructions verified (dose, dosing instructions [sig], dispense amount [30 or 90 day supply], refills): Yes -If medication is not on the MAR please get additional information Are any other medications due for a refill in the next 3 months: No Pending Prescriptions Disp Refills OXYCODONE 5 MG TABLET 60 tablet 0 Sig: Take 1-2 tablets by mouth every 3 hours as needed for up to 7 days. MARBELLA Class: C-II YIFAN: No Sena Licona PA-C 06/19/2019 9:42 AM Signed PDMP reviewed. Prescription for oxycodone has been to local pharmacy today Sena Licona PA-C Allergies As of Date: 06/19/2019 Noted Allergy Reaction GUAIFENESIN 05/02/2019 7 - Swelling TORADOL (KETOROLAC) 05/02/2019 9 - Itching TRAMADOL 03/20/2014 4 - Hives 9 - Itching Date Reviewed: 06/15/2019 Reviewed by: Brenda (Rn) TASH Moncada - Fully Assessed Reason for Visit: Refill Request [94] Visit Diagnosis:Primary osteoarthritis of left knee [M17.12] Order(s):oxyCODONE IR (ROXICODONE) 5 mg immediate release tabletTake 1-2 tablets by mouth every 4 hours as needed for up to 7 days.Disp: 50 tabletRfl: 0 Prescriptions as of 06/19/2019 Sig: OXYCODONE 5 MG TABLET Take 1-2 tablets by mouth rony* DOCUSATE SODIUM 100 MG CAPSULE Take 1 capsule by mouth twice* RIVAROXABAN 10 MG TABLET Take 1 tablet by mouth q 24 H* LISINOPRIL 20 MG TABLET Problem List As Of Date 06/19/2019 Noted Resolved Internal derangement of left knee [M23.92] 05/22/2014 Primary osteoarthritis of left knee [M17.12] 12/11/2014 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 DVT (deep venous thrombosis) (HCC) [I82.409] 2012 More... HTN (hypertension) [I10] More... Prescriptions ordered this encounter Disp Refills Start End OXYCODONE 5 MG TABLET 50 t* 0 06/19/2019 06/26/2019 Route: ORAL Sig: Take 1-2 tablets by mouth every 4 hours as needed for up to 7 days. Medications Discontinued During This Encounter oxyCODONE IR (ROXICODONE) 5 mg immed* 60 t* 0 06/15/2019 06/19/2019 Cmt: Narcotic medication dose and quantity may exceed [place] state limits due to the medical necessity for post operative pain control required for the surgical procedure performed on Ruthie CORDERO June 14, 2019. Route: ORAL Sig: Take 1-2 tablets by mouth every 3 hours as needed for up to 7 days. Disc: Reason for discontinue is not on file. Encounter Status:Closed by SENA LICONA PA-C on 06/19/19 [facility] Basic Metabolic Panlon 06-14 Anion gap [Moles/Vol] 12 mmol/L Normal 9-18 [facility] Calcium [Mass/Vol] 8.5 mg/dL Normal 8.5-10.2 [facility] Chloride [Moles/Vol] 100 mmol/L Normal 97-105 [facility] CO2 [Moles/Vol] 26 mmol/L Normal 22-30 [facility] Creatinine [Mass/Vol] 0.72 mg/dL Normal 0.58-0.96 [facility] eGFR- Amer. >60 [facility] GFR/1.73 sq M predicted among non-blacks MDRD (S/P/Bld) [Vol rate/Area] mL/min/{1.73_m2} Normal [facility] Comment on above: Result Comment: eGFR (Estimated GFR) Units of measure: mL/min/1.73 meters squared eGFR is derived from the reexpressed MDRD Study equation using the following parameters: serum creatinine, age, gender and race. The creatinine assay has been calibrated to be traceable to IDMS. An eGFR <60 mL/min/1.73m2 for >3 months is consistent with chronic kidney disease. Refer to KDOQI guidelines for clinical interpretation. In patients with unstable renal function, e.g. those with acute kidney injury, the eGFR may not accurately reflect actual GFR. Glucose [Mass/Vol] 117 mg/dL High 74-99 [facility] Comment on above: Result Comment: The [place] [employer] (ADA) provides guidance for cutoff values for fasting glucose and random glucose. The ADA defines fasting as no caloric intake for at least 8 hours. Fasting plasma glucose results between 100 to 125 mg/dL indicate increased risk for diabetes (prediabetes). Fasting plasma glucose results greater than or equal to 126 mg/dL meet the criteria for diagnosis of diabetes. In the absence of unequivocal hyperglycemia, results should be confirmed by repeat testing. In a patient with classic symptoms of hyperglycemia or hyperglycemic crisis, random plasma glucose results greater than or equal to 200 mg/dL meet the criteria for diagnosis of diabetes. Reference: Standards of Medical Care in Diabetes 2016, [place] [employer] Association. Diabetes Care. 2016.39(Suppl 1). Potassium [Moles/Vol] 4.0 mmol/L Normal 3.7-5.1 [facility] Sodium [Moles/Vol] 138 mmol/L Normal 136-144 [facility] Urea nitrogen [Mass/Vol] 7 mg/dL Normal 7-21 [facility] CASE MANAGEMon 06-15-2019 CASE MANAGEM HNO ID: [id number] Author: Kate (Rn) TASH Sanchez Service: Care Management Author Type: Registered Nurse Type: Care Mgt Progress Note Filed: 06/15/2019 12:58 PM Note Text: CARE MANAGEMENT DISCHARGE NOTE SERVICE DATE: 06/15/2019 SERVICE TIME: 12:57 PM LOS: 0 days Admission Date: 06/14/2019 DISCHARGE ARRANGEMENT (list agency and phone number) Discharge Arrangement: Home Alf Care: PT CAREGIVER ASSESSMENT: Caregiver is ready, willing and able to meet the patient's needs as recommended by the inter-professional team:: No Caregiver needed Does the patient have an acute stroke diagnosis, or has the patient had a stroke during this admission?: No Patient's transition needs and plan for meeting these needs: Home Care PT HANDOFF COMMUNICATION: Handoff to: Other Caregiver Other Caregiver Name/Phone: [employer] [facility] [employer] [facility] TRANSPORTATION ARRANGEMENTS: Transportation Arrangements: Car Discharge Information Row Name Admission (Discharged) from 06/14/[address] Care Agency [facility] SIGNATURE: Kate Sanchez RN PATIENT NAME: Ruthie CORDERO DATE: June 15, 2019 TIME: 12:57 PM PAGER/CONTACT #: [phone] Normal [facility] CASE MANAGEM HNO ID: [id number] Author: Kate (Rn) TASH Sanchez Service: Care Management Author Type: Registered Nurse Type: Care Mgt Progress Note Filed: 06/15/2019 9:21 AM Note Text: CARE MANAGEMENT PROGRESS NOTE SERVICE DATE: 06/15/2019 SERVICE TIME: 9:21 AM LOS: 0 days [place] of Choice Given: Yes Level of Care Discussed: Home Care Financial Disclosure Provided: No Financial Disclosure Comments: [facility] unable to accept. pt would like to use [employer]. Referral sent. SIGNATURE: Kate Sanchez RN PATIENT NAME: Ruthie CORDERO DATE: June 15, 2019 TIME: 9:21 AM PAGER/CONTACT #: [phone] [facility] CBCon 06-15-2019 [facility] nRBC <0.01 [facility] width (RBC) [Ratio] 12.5 % Normal 11.5-15.0 [facility] Hematocrit (Bld) [Volume fraction] 32.8 % Low 36.0-46.0 [facility] Hemoglobin (Bld) [Mass/Vol] 10.9 g/dL Low 11.5-15.5 [facility] MCH (RBC) [Entitic mass] 31.0 pG Normal 26.0-34.0 [facility] MCHC (RBC) [Mass/Vol] 33.2 g/dL Normal 30.5-36.0 [facility] MCV (RBC) [Entitic vol] 93.2 fL Normal 80.0-100.0 [facility] Platelet mean volume (Bld) [Entitic vol] 10.7 fL Normal 9.0-12.7 [facility] Platelets (Bld) [#/Vol] 263 10*3/uL Normal 150-400 [facility] RBC (Bld) [#/Vol] 3.52 10*6/uL Low 3.90-5.20 [facility] WBC (Bld) [#/Vol] 8.63 10*3/uL Normal 3.70-11.00 [facility] NURSING PROGon 06-15-2019 NURSING PROG HNO ID: [id number] Author: Brenda (Rn) Coral, RN Service: Nursing Author Type: Registered Nurse Type: Nursing Progress Note Filed: 06/15/2019 11:35 AM Note Text: Nursing Progress Note Patient Name: Ruthie CORDERO Patient Location: / Daily Note:assumed care of pt, pt awake alert x 3, pt medicated for pain shift change, aquacell dressing left knee dry intact,slight weakness noted left upper extremity baseline per pt, pt up to bathroom assist of walker, now up in chair working with OT, will continue to monitor pt 1134 discharge instructions completed pt waiting for ride This note was completed by: Brenda Moncada RN [facility] PLAN OF CAREon 06-15-2019 PLAN OF CARE HNO ID: [id number] Author: Michelle Handley ([employer]) Service: ? Author Type: Rail Switchman Type: Plan of Care Filed: 06/15/2019 3:12 PM Note Text: The following medications were delivered to the patient: Medication List START taking these medications X docusate sodium 100 mg capsule Commonly known as: COLACE Take 1 capsule by mouth twice daily. X oxyCODONE IR 5 mg immediate release tablet Commonly known as: ROXICODONE Take 1-2 tablets by mouth every 3 hours as needed for up to 7 days. X rivaroxaban 10 mg tablet Commonly known as: XARELTO Take 1 tablet by mouth q 24 HR for 11 doses. CONTINUE taking these medications lisinopril 20 mg tablet Commonly known as: ZESTRIL, PRINIVIL You might also be taking other medications not listed above. If you have questions about any of your other medications, talk to the person who prescribed them or your Primary Care Provider. STOP taking these medications naproxen 500 mg tablet Commonly known as: NAPROSYN oxyCODONE-acetaminophen 5-325 mg tablet Commonly known as: PERCOCET Michelle Handley ([employer]) PAGER: rajesh June 15, 2019 3:12 PM [facility] PROGRESSon 06-15-2019 PROGRESS HNO ID: [id number] Author: Sena Licona (Pa) Service: Orthopaedic Surgery Author Type: Physician Senior Formulation Scientist Type: Progress Notes Filed: 06/15/2019 8:51 AM Note Text: ORTHOPAEDIC POSTOP PROGRESS NOTE SERVICE DATE: 06/15/2019 SERVICE TIME: 8:50 AM Subjective Patient states that they are comfortable Denies knee(s) pain. Denies incisional pain. itm sob, cp or lighteadedness Objective VITAL SIGNS: BP 159/91 Pulse 86 Temp 37.7 ?C (99.9 ?F) (Oral) Resp 20 Ht 167.6 cm (5' 5.98 ) Wt 90 kg (198 lb 6.6 oz) SpO2 96% BMI 32.04 kg/m? INTAKE AND OUTPUT: Intake/Output Summary (Last 24 hours) at 06/15/2019 0850 Last data filed at 06/15/2019 0604 Gross per 24 hour Intake 3360 ml Output 3385 ml Net -25 ml PHYSICAL EXAMINATION: Left Lower Extremity: Dorsalis pedis pulses palpable. Dorsi flexion 5/5. Plantar flexion 5/5. Extensor hallucis extension: 5/5. Sensory intact to light touch Dressing clean, dry and intact. Surgical site no drainage and Aquacell intact. Problem Review and Assessment: Patient monitored, no new events overnight. LABS: Recent Labs 06/15/19 0411 06/12/19 0915 HB 10.9* 12.6 HCT 32.8* 38.6 DATA: Diagnostic tests reviewed for today's visit: Most recent labs Assessment/Plan S/P Procedure(s) (LRB): ARTHROPLASTY REPLACE JOINT TOTAL KNEE (Left) on 06/14/2019 POSTOP PLAN: Physical Therapy evaluation DVT prophylaxis: Intermittent pneumatic compression device (IPCD) and xeralto bc history of DVT Pain control - Discussed with the patient the benefits and risks regarding opioid pain medication. This patient underwent major orthopedic surgery which will require the dose of daily narcotic pain medication to exceed the 30 MED/day regulation and non-opioid pain medication alone will not be enough to control pain in the immediate post operative period. This patient will require 1-2 tablets every 4-6 hours short-term postoperatively (7 days) for pain control. Will taper as tolerated thereafter. Case Management for discharge planning - home with [facility] home after PT evaluation ACTIVE PROBLEM LIST Internal Derangement of Left Knee Primary Osteoarthritis of Left Knee Chondromalacia of Left Patella Patellofemoral Stress Syndrome of Both Knees Lupus Erythematosus Discoid Dvt (Deep Venous Thrombosis) (Hcc) Htn (Hypertension) Medication and Non-Pharmacologic VTE Prophylaxis/Anticoagula nts Anticoagulant AND Antiplatelet Medications (From admission, onward) Start Dose Route Frequency Ordered Stop 06/15/19 0000 rivaroxaban (XARELTO) 10 mg tablet 10 mg ORAL EVERY 24 HOURS 06/15/19 0837 06/26/19 2359 06/14/19 1700 rivaroxaban 10 mg tab(s) (XARELTO) (Surgical Risk Categories ) 10 mg ORAL EVERY 24 HOURS 06/14/19 1211 06/26/19 1659 06/14/19 1215 pneumatic compression stockings (nd,oh) 06/14/19 1215 graduated compression stockings (nd,oh) VTE Prophylaxis: VTE prophylaxis appropriate POST OPERATIVE COMPLICATIONS: Complicated by: uneventful/none SIGNATURE: Sena Licona PA-C PATIENT NAME: Ruthie CORDERO DATE: June 15, 2019 TIME: 8:50 AM PAGER/CONTACT #: [phone] [facility] THERAPY NTon 06-15-2019 THERAPY NT HNO ID: [id number] Author: Chaka (Pt) Richard Service: Physical Therapy Author Type: Physical Therapist Type: Therapy (PT/OT/Speech/Resp) Filed: 06/15/2019 11:31 AM Note Text: Physical Therapy Treatment SERVICE DATE: 06/15/2019 SERVICE TIME: 1025 to 1050 ROOM: [place] [address] Recommended Discharge Disposition: Home PT Anticipated Discharge Needs: Supervision at Home Recommended Discharge Equipment: No equipment needs anticipated PT Recommendations to Nursing: Ambulate with device;To bathroom;In halls;With assist of 1 person Device: Wheeled Walker PT 6 Clicks Score: 22 Precautions/Activity Restrictions: Total Knee Replacement;Weight Bearing Restrictions Extremity With Weight Bearing Restricted: Left Lower Extremity Left Lower Extremity Weight Bearing Status: WBAT ASSESSMENT : Patient presents s/p 1 day L TKA. Patient is limited by pain at this time. Decreased functional strength and mobility. Initially was ambulating with toe touch weight bearing, but with cues, was able to improve heel strike and increase WB on LLE, but still decreased. Was limited to roughly 30? of knee flexion with the sheet and PT assist due to pain. Recommendation of discharging PT services at this time, as patient is able to demo functional mobility safely, and is ready for Home PT. Patient Disposition at Start of Session: (standing in bathroom) Patient Disposition at End of Session: Supine in Bed Tolerance Limited By Pain Physical Therapy Problem List: Decreased Activity Tolerance;Decreased Range Of Motion;Decreased Strength;Functional Mobility Impairment Patient /Caregiver Goals: Walk;Go Home Goals for Plan of Care: Able to perform HEP with: Independent Transfer supine to/from sit with: Modified Independent Transfer sit to/from stand with: Supervision Ambulate with: Supervision Distance: 150 Device: Wheeled Walker Ambulate up and down steps with: Supervision Number of steps: 12 Device: Cane;Rail Progress Toward Goals: Progressing as expected Rehab Potential: Good PLAN: Treatment Frequency (times per week): Discontinue Therapy Services Reasons Therapy Services Discontinued: Independent in all functional mobility;Goals met Current admission Plan of Care developed with: Patient TREATMENT INTERVENTIONS: Therapy Diagnosis: Reduced mobility-other;Unsteadi ness on feet;Abnormalities of gait and mobility-other;Muscle Weakness (generalized) Interventions Provided: Therapeutic Exercise (30910);Gait Training (65484) Therapeutic Exercise (89742) Treatment Minutes: 10 1 unit Skilled Intervention(s): Instruction in therapeutic exercise Verbal and tactile cuing provided Pt performed in supine position: Verbally reviewed AP, QS, GS B LE, pt instructed to do every hour while awake on their own. HS, SLR x10. Pt instructed on using a sheet to A with L SLR, HS. Calf stretch to L with 30 sec hold x 3 reps Pt performed in seated position: LAQ (also known as QBT) x10 Reviewed seated knee extension stretch for pt to perform at home 3x/day. Instructed to sit with heel propped on another chair/table/etc out infront of patient, knee extended, and to hold as long as possible (~10-15 min if able) with ice pack on top of the knee. All exercises are to be completed at home 3x/day, 2 sets for 10, and both stretches to be completed 3x/day with holding times as listed above. Gait Training (77372) Treatment Minutes: 15 1 unit Skilled Intervention(s): Instruction in stand to sit technique with LE's touching chair/bed and reaching back for surface, Instruction in sequencing, gait pattern, Instruction in correction of gait deviations, Instruction in stair negotiation and Instruction in use of equipment, cues for sequence and pattern Total Timed Code Treatment Minutes: 25 Total Treatment Time (minutes): 25 SUBJECTIVE: Current Hospital Course: Chart reviewed and no significant medical updates relevant to therapy were noted Reason for Physical Therapy Consult : safety, functional mobility Relevant Past Medical History: OA Left knee, HTN, brain tumor, lupus Patient Report: Ready for pain meds, and wants to go home Home Environment Patient Lives With: Spouse(and mother in law) Assistance Available: 24 Hour Entry To Home: Ramp Number Of Stairs To Bed/Bath: 14 Stairs to Bed/Bath with: Unilateral Rail Tub/Shower Type: walk in shower Equipment Owned: Cane;Grab Bars-Shower;Grab Bars-Toilet;Wheeled Walker Prior Functional Level: Within Functional Limits Prior Functional Level Comments: ind ADLs, IADLs, not driving OBJECTIVE: CURRENT FUNCTIONAL STATUS: Current Functional Mobility Assist Level Additional Information Rolling Supine to Sit Stand By Assistance Sit to Supine Scooting Sit to Stand Supervision Stand to Sit Supervision Bed to Chair Toilet/Commode Gait Stand By Assistance Gait Device: Wheeled Walker Gait Distance (feet): 50,20 Stairs Contact Guard Assistance Stairs Device: Rail(B handrails) Number of Stairs: 4 Curb Step Car Transfer Gait Deviations Right Lower Extremity: Knee stability during stance phase decreased Gait Deviations Left Lower Extremity: Heel strike during initial stance decreased;Push off during terminal stance decreased;Weight bearing decreased General Deviations/Observations : Flexed trunk posture -[facility]: 7: Walk 25 feet or more Please see discipline specific clinical documentation flowsheet for complete details for this therapy evaluation/treatment. SIGNATURE: Chaka Ramos PT PATIENT NAME: Ruthie CORDERO DATE: June 15, 2019 TIME: 11:02 AM [facility] THERAPY NT HNO ID: [id number] Author: Nancy Helm Service: ? Author Type: Occupational Therapist Type: Therapy (PT/OT/Speech/Resp) Filed: 06/15/2019 10:27 AM Note Text: Occupational Therapy Evaluation SERVICE DATE: 06/15/2019 SERVICE TIME: 844 to 929 ROOM: [place] [address] Recommended Discharge Disposition: Home Anticipated Discharge Needs: Supervision at Home Recommended Discharge Equipment: No equipment needs anticipated OT Recommendations to Nursing: To Bathroom for ADL?s /and or Toileting;OOB for meals;Transfer to Chair Equipment: Wheeled Walker OT 6 Clicks Score: 23 Precautions/Activity Restrictions: Total Knee Replacement;Weight Bearing Restrictions Extremity With Weight Bearing Restricted: Left Lower Extremity Left Lower Extremity Weight Bearing Status: WBAT ASSESSMENT: Patient presents with decrease range of motion, functional mobility / transfers for activities of daily living's and self care tasks after a left TKR. Patient would like to return home with home with family support . Patient demonstrated independence with toilet transfers, upper and lower body dressing. She only required assistance with socks and shoes due to post op edema. Patient is very motivated and has a good understanding of her precautions. Patient cleared to go home from OT standpoint. Patient Disposition at Start of Session: OOB in Chair;Call [facility] in [place] Patient Disposition at End of Session: Supine in Bed;Call [facility] in [place](RN notified) Tolerated Full Session Occupational Therapy Problem List: Edema;Pain;Safety Deficits;Impaired Self Care;Decreased Range Of Motion;Decreased Strength;Functional Mobility Impairment Patient /Caregiver Goals: Go Home;Care For Self Goals for Plan of Care: Lower Body Bathing with: Modified Independent Lower Body Dressing with: Modified Independent Toilet Hygiene with: Modified Independent Toilet Transfer with: Modified Independent Shower Transfer with: Modified Independent Tolerate (minutes of functional activity): 25 Functional Activity with: Modified Independent Kitchen Mobility Tasks with: Modified Independent Rehab Potential: Excellent PLAN: Treatment Frequency (times per week): 5 Current admission Treatment Interventions: Education;Self Care / Home Management;Energy Conservation Training;Joint Mobility;Strengthening; Functional Mobility Training;Balance Training Plan of Care developed with: Patient TREATMENT INTERVENTIONS: Therapy Diagnosis: Decreased activities of daily living (ADL);Reduced mobility-other;Muscle Weakness (generalized);Abnormali ties of gait and mobility-other;General symptoms and signs-other;Difficulty walking-musculoskeletal Interventions Provided: Evaluation;Self Alf Management (72053) $ Evaluation-Low (76069) Billed Units: 1 unit Self Alf Management (92328) Treatment Minutes: 30 2 units Skilled Intervention(s): Instructed in post-op instructions during ADLs . Provided instruction, cuing and facilitation for lower body dressing. Instructed patient in use of ice pack provide for home use and precautions and to keep incision clean and dry. Patient ambulated to toilet and back with supervision. Patient demonstrated ability to óscar and doff shirt, under garments and shorts independently. Patient did require assistance with socks an d shoes due to post op edema. Patient has adaptive equipment at home and is familiar with is but does not wish to use it. She prefers to do everything her self and if she requires assistance, he spouse is available to help. Educated patient on kitchen safety with the walker. Patient completed ADLs as stated above. Patient educated on safety with transfers, DME usage, pacing, energy conservation techniques, home safety, DME for home usage, bathroom safety, compensatory techniques for ADLs with verbalization of understanding however would benefit from continued reinforcement of information provided. Facilitated Patient with maintaining proper balance, education on upright posture with weight shifting while sitting to increase strength and balance in preparation for ADL completion and safe toilet transfer. Facilitation of rest breaks between functional tasks and ADL tasks to reduce anxiety and for optimal activity dosing and monitoring of vital signs. Total Timed Code Treatment Minutes: 30 Total Treatment Time (minutes): 45 SUBJECTIVE: Current Hospital Course: Chart reviewed; . Rtuhie is a 54 year old female with a history of left Knee pain due to OA that has not responded to a comprehensive course of conservative treatment. Patient underwent a ARTHROPLASTY REPLACE JOINT TOTAL KNEE (Left) on 06/14/19. Reason for Occupational Therapy Consult: Recent change in ability to perfrom selfcare tasks Relevant Past Medical History: OA Left knee, HTN, brain tumor, lupus Patient Report: Patient reports she is able to do everything herself as far as self care tasks, but she will not be cooking or cleaning because her and mother in law will be helping with that. Patient states she wants to get better. Home Environment Patient Lives With: Spouse(and mother in law) Assistance Available: 24 Hour Entry To Home: Ramp Number Of Stairs To Bed/Bath: 14 Stairs to Bed/Bath with: Unilateral Rail Tub/Shower Type: walk in shower Equipment Owned: Cane;Grab Bars-Shower;Grab Bars-Toilet;Wheeled Walker Prior Functional Level: Within Functional Limits Prior Functional Level Comments: ind ADLs, IADLs, not driving OBJECTIVE: Cognition/Communication Deficits Responsiveness: Alert;Awake Follows Commands: 3-step Commands CURRENT FUNCTIONAL STATUS: Current Activities of Daily Living Assist Level Feeding Set Up Grooming Set Up Bathing Upper Body Set Up Bathing Lower Body Supervision Dressing Upper Body Set Up Dressing Lower Body Supervision Toileting Supervision Instrumental Activities of Daily Living Assist Level Meal/Beverage Prep Light Cleaning Laundry Medication Management with Strategies Functional Mobility Assist Level Rolling Supine to Sit Sit to Supine Stand By Assistance Scooting Supervision Sit to Stand Supervision Stand to Sit Supervision Bed to Chair Stand By Assistance Stand Pivot Wheeled Walker Toilet/Commode Supervision Functional Mobility Supervision 20' to bathroom and back Wheeled Walker Please see discipline specific clinical documentation flowsheet for complete details for this therapy evaluation/treatment. SIGNATURE: CANDE Case/Maximino PATIENT NAME: Ruthie CORDERO DATE: June 15, 2019 TIME: 9:58 AM [facility] ANES POSTPROC EVALon 020 ANES POSTPROC EVAL HNO ID: [id number] Author: Christy Gutierrez Service: ? Author Type: Anesthesiologist Type: Anesthesia Postprocedure Evaluation Filed: 06/14/2019 11:55 AM Note Text: POST ANESTHESIA EVALUATION NOTE : 1965 Procedure Summary Date: 06/14/19 Room / Location: OR02 / AV OR Anesthesia Start: 857 Anesthesia Stop: 1106 Procedure: ARTHROPLASTY REPLACE JOINT TOTAL KNEE (Left Knee) Diagnosis: Primary osteoarthritis of left knee (Primary osteoarthritis of left knee [M17.12]) Surgeon: Miguel Angel Ponce Responsible Provider: Christy Gutierrez Anesthesia Type: spinal, regional, MAC ASA Status: 3 Anesthesia Type: spinal, regional, MAC Last vitals Vitals Value Taken Time BP 115/75 06/14/2019 11:45 AM Temp 36.1 ?C (97 ?F) 06/14/2019 11:00 AM Pulse 53 06/14/2019 11:45 AM HR SpO2 54 06/14/2019 11:45 AM Resp 20 06/14/2019 11:45 AM SpO2 100 % 06/14/2019 11:45 AM Vitals shown include unvalidated device data. Post Anesthesia Patient Status Patient Evaluation: PACU. PACU/ICU Patient Condition: stable. Anticipated Disposition: inpatient floor planned admission. Neurological Status: aware and responsive. Pulmonary Status: breathing comfortably on room air . Airway Control: returned to baseline unsupported. Cardiovascular Status: stable. Pain Management: clinically adequate. - multimodal analgesia pain management approach Postoperative Hydration: acceptable. Intraoperative Events: no significant anesthesia events Anesthetic Observations: no significant anesthetic observations Recommendation: continue current plan of care. SIGNATURE: Christy Gutierrez MD PATIENT NAME: Ruthie CORDERO DATE: June 14, 2019 TIME: 11:54 AM CSN: [id number] [facility] ANES PRE-OPon 06-14-2019 ANES PRE-OP HNO ID: [id number] Author: Christy Matt Service: ? Author Type: Anesthesiologist Type: Anesthesia Preprocedure Evaluation Filed: 06/14/2019 7:54 AM Note Text: ANESTHESIOLOGY DAY OF SURGERY NOTE : 1965 Procedure(s) (LRB): ARTHROPLASTY REPLACE JOINT TOTAL KNEE (Left) Surgeon(s): Miguel Angel Ponce Estimated body mass index is 30.68 kg/m? as calculated from the following: Height as of this encounter: 167.6 cm (5' 5.98 ). Weight as of this encounter: 86.2 kg (190 lb). Most recent hematocrit and potassium results: Hematocrit 38.6 06/12/2019 Potassium 4.8 06/12/2019 Relevant Problems CARDIO (+) DVT (deep venous thrombosis) (HCC) (+) HTN (hypertension) I - PHYSICAL EVALUATION AIRWAY Patient intubated: No. Tracheostomy tube not present Mallampati: II. TM distance: >3 FB. Neck ROM: full ROM without neurological symptoms. Mouth opening: adequate. Short neck: no. Thick neck: no DENTAL Normal dental observations. Dental findings: teeth intact. II - ANESTHESIA PLAN ASA Score: 3 Anesthetic Plan: spinal and regional Anesthetic plan additional comments: Spinal and regional nerve block and MAC Sedation and back up GA Full code Will accept blood and prdts prn . The patient is not a current smoker. NPO Status: adequate Monitoring plan: Standard ASA. Postoperative analgesic plan: parenteral or oral opioids, multimodal analgesia and peripheral nerve block. Anesthetic Risks, Benefits, Alternatives, Personnel Discussed. Consent obtained from: patient. Patient / Surrogate agrees to blood products: yes DNR status not reviewed with patient and/or family prior to surgery. Significant changes in the patient condition since the History and Physical, not otherwise documented in primary service progress note: no. Potential Anesthesia issues that may suggest increased risk of complications or contractions to planned procedure: none. Vitals Value Taken Time BP 176/109 06/14/2019 7:47 AM Pulse 72 06/14/2019 7:47 AM Resp 15 06/14/2019 7:47 AM Temp 36.3 ?C (97.3 ?F) 06/14/2019 7:47 AM SpO2 100 % 06/14/2019 7:47 AM Facility-Administered Medications as of 06/14/2019 Medication Dose Route Frequency - lactated ringers infusion 5-30 mL/hr INTRAVENOUS CONTINUOUS - ceFAZolin iv piggyback 2 g in D5W (iso-osmotic) 100 mL (ANCEF) 2 g INTRAVENOUS Pre-Op Once - tranexamic acid 1,000 mg in NaCl 0.9% 100 mL (CYKLOKAPRON) 1,000 mg INTRAVENOUS Pre-Op Once - tranexamic acid 1,000 mg in NaCl 0.9% 100 mL (CYKLOKAPRON) 1,000 mg INTRAVENOUS ONCE - bupivacaine liposome (PF) 1.3 % (13.3 mg/mL) 133 mg injection (EXPAREL) 133 mg INFILTRATION ONCE - acetaminophen 1,000 mg tab(s) (TYLENOL) 1,000 mg ORAL ONCE - scopolamine 1 mg over 3 days 1 Patch (TRANSDERM-SCOP) 1 Patch TRANSDERMAL ONCE And - scopolamine - REMOVE PATCH OTHER ONCE And - scopolamine - VERIFY patch OTHER ONCE - promethazine 12.5 mg tab(s) (PHENERGAN) 12.5 mg ORAL ONCE Outpatient Medications as of 06/14/2019 Medication Sig - oxyCODONE-acetaminophen (PERCOCET) 5-325 mg tablet - lisinopril (ZESTRIL, PRINIVIL) 20 mg tablet - naproxen (NAPROSYN) 500 mg tablet I have interviewed and examined the patient. I have reviewed the medical record and/or the pre-anesthesia evaluation, pertinent labs, and test results. This contains updated information obtained within 48 hours of Surgery/Procedure. SIGNATURE: Christy Gutierrez MD PATIENT NAME: Ruthie CORDERO DATE: June 14, 2019 TIME: 7:53 AM CSN: [id number] [facility] BRIEF OP NOTon 06-14-2019 BRIEF OP NOT HNO ID: [id number] Author: Miguel Angel Ponce Service: Orthopaedic Surgery Author Type: Physician Type: Brief Op Note Filed: 06/14/2019 10:52 AM Note Text: TOTAL KNEE ARTHROPLASTY BRIEF OPERATIVE / PROCEDURE NOTE LOG ID: [id number] Surgery/Procedure Date: 06/14/2019 Incision/Procedure Start Time: 9:33 AM Incision Close/Procedure End Time: 10:47 AM Surgeon(s)/Proceduralis t(s) and Senior Formulation Scientist(s): Surgeon(s) and Role: * Miguel Angel Ponce - Primary Physician Senior Formulation Scientist: Sena Licona (Pa) Procedure(s): Procedure(s) (LRB): ARTHROPLASTY REPLACE JOINT TOTAL KNEE (Left) Anesthesia: Spinal Peripheral Block Type: Saphenous/Adductor Approach: Median parapatellar Findings: OA Tourniquet: 39 min at 250mm Hg Estimated Blood Loss: 25 mls Specimens: None Complications: None Implant: * No implants in log * Bearing Surface: Fixed Fixation: Cementless SSI Risk Factors: None Constraint: Cruciate Retaining Other: None Pre-Op/Pre-Procedure Diagnosis: Primary osteoarthritis of left knee [M17.12] Post-Op/Post-Procedure Diagnosis: Primary osteoarthritis of left knee [M17.12] Weight Bearing Status: Full Weight Bearing SIGNATURE: Miguel Angel Ponce MD PATIENT NAME: Ruthie CORDERO DATE: June 14, 2019 TIME: 10:50 AM PAGER/CONTACT #: [facility] CASE MGT INIT [facility] 2019 [facility] HNO ID: [id number] Author: Kate (Rn) TASH Sanchez Service: Care Management Author Type: Registered Nurse Type: Care Mgt Initial Assessment Filed: 06/14/2019 3:43 PM Note Text: CARE MANAGEMENT: ASSESSMENT AND DISCHARGE PLAN SERVICE DATE: June 14, 2019 SERVICE TIME: 3:42 PM PRIMARY CARE PHYSICIAN: Estela Sorto MD ADMISSION STATUS: Extended Recovery MEDICAL: [facility] MEDICAID 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 Last discharge within 30 days: No Advance Directive: Current Advance Directive: Health Care Power of Piano Tuner;Living Will In Chart: No Neurourologist Attempted to Assist with AD Completion: Yes Action: Education Provided Health LiteracyHow often do you need to have someone help you when you read instructions, pamphlets, or other written material from your doctor or pharmacy? : 1 - Never How confident are you filling out medical forms by yourself?: 1 - Extremely If Patient scores > 3 on either question, the following interventions were put into place:: Patient did not score > 3 on either question. Baseline Mental Status Prior to this Illness what was the patient's Baseline Mental Status?: Alert AND Oriented Prior to this illness, has anyone described the patient having any of the following behaviors?: Not Applicable Relationship of the informant to the patient:: Self Functional Status: Independent Does Patient Currently Receive Any Community Services or Home Care?: None Equipment Prior to Admission: Cane;Walker SOCIAL: Living Arrangements: Home Lives With: Other: See Comment(deny and deny's mother) Financial Resources: DisabledPrimary Contact: Extended Emergency Contact Information Primary Emergency Contact: Chapin Child Address: [address] [place] [id number] [facility] Mobile Relation: Significant other Supportive Patient Contact:: Yes Contact Resources: (Deny) Social Needs Food insecurity Worry: Never true Inability: Never true Resources Needed: No Social Needs Financial resource strain: Not hard at all Social Needs Transportation needs Medical: No Non-medical: No Caregiver AssessmentCaregiver is ready, willing and able to meet the patient's needs as recommended by the inter-professional team:: No Caregiver needed Does the patient have an acute stroke diagnosis, or has the patient had a stroke during this admission?: No Patient's transition needs and plan for meeting these needs: Home Care Patient's perception of need for this admission: knee replacement Medication Adherance I am convinced of the importance of my prescription medication: 0 - Agree Completely I worry that my prescription medication will do more harm than good to me : 0 - Disagree Completely I feel financially burdened by my [id number] expenses for my prescription medication:: 0 - Disagree Completely Risk Score: 0 Patient is categorized as: Low risk < 2 Are you interested in bedside delivery of your medications? Yes Is Patient Psychosocially Complex?: No ASSESSMENT AND PLAN: Medical Needs: Medical Needs: None Psychosocial Needs: Psychosocial Needs: None FREEDOM OF CHOICE EXPLAINED: [place] of Choice Given: Yes Level of Care Discussed: Home Care Financial Disclosure Provided: No Financial Disclosure Comments: Pt would like to use [facility] Care. Declines list POTENTIAL TRANSITION PLANS Home Care Pt from home with deny and his mother. Pt independent. Pt has equipment. Referral to [facility] SIGNATURE: Kate Sanchez RN PATIENT NAME: Ruthie CORDERO DATE: June 14, 2019 TIME: 3:42 PM PAGER/CONTACT #: [phone] [facility] NURSING PROGon 06-14-2019 NURSING PROG HNO ID: [id number] Author: Ophelia Girard (Rn) TASH Savage Service: Nursing Author Type: Registered Nurse Type: Nursing Progress Note Filed: 06/14/2019 12:12 PM Note Text: Nursing Progress Note Patient Name: Ruthie CORDERO [facility] [place] [address] Transfer Note: Patient transferred into room/unit 06-13 in stable condition. Actions taken: Patient belongings with patient This note was completed by: Ophelia Savage RN [facility] OPERATIVE NOon 06-14-2019 OPERATIVE NO HNO ID: [id number] Author: Miguel Angel Ponce Service: Orthopaedic Surgery Author Type: Physician Type: Operative Report Filed: 06/15/2019 11:32 AM Note Text: [facility] - Operative Report RUTHIE CORDERO : 1965 AGE: 54. SEX: F PATIENT TYPE: [facility] [place] LOCATION: [facility] ATTENDING PHYSICIAN: Miguel Angel Ponce MD CSN NUMBER: [id number] DATE OF SURGERY/PROCEDURE: 06/14/2019 INCISION/PROCEDURE START TIME: 0933 hours. INCISION CLOSE/PROCEDURE END TIME: 1047 hours. PREOPERATIVE DIAGNOSIS: Left knee primary localized osteoarthritis. POSTOPERATIVE DIAGNOSIS: Left knee primary localized osteoarthritis. SURGEON: Miguel Angel Ponce MD [place] FINISH SPRAYER: Sena MONSIVAIS. No qualified resident available. Ms. Licona assisted in positioning the patient, retraction, and closure of the surgical incision. SURGERY/PROCEDURE: Left total knee replacement. I performed the procedure. ANESTHESIA: Spinal with adductor canal block. OPERATIVE FINDINGS: Tricompartmental osteoarthritis. All 3 compartments with grade 4 changes. INDICATIONS FOR PROCEDURE: The patient is a 54-year-old woman with severe left knee osteoarthritis and pain that was not responsive to a comprehensive course of conservative treatment. Pain was significantly affecting her activities of daily living. We discussed left total knee replacement with her. I went over the procedure, the options, risks, expected outcome, postoperative rehab. Discussed risk of infection, stiffness, preoperative medical problems, neurovascular injury, DVT/PE, and persistent pain. We discussed postoperative rehab. She had a good understanding. She wished to proceed. We discussed risks of infection regarding the COVID pandemic. The patient noted that her activities of daily living were significantly limiting and wants to proceed with surgical treatment. The patient was offered a surgery/procedure at a [facility]. The surgeon/proceduralist and patient have discussed in detail the risk of exposure to and/or potential harm posed by the COVID-19 virus with having a surgery/procedure at this time versus the risk of delaying the surgery/procedure. It is not possible to know either the risk of delaying the surgery or procedure or chance of getting an infection with perfect accuracy, but a joint decision was made between the patient and the surgeon/proceduralist to proceed at this time with the scheduled surgery/procedure as indicated on the consent form. As a result of the 04/25/19 order by [facility] Director Ruthie Zhou M.D. to cancel non-essential surgeries that would use PPE, unless special criteria are met, I have reviewed the clinical record for this patient and have determined that the scheduled procedure meets the criteria to go forward because there is a presence of severe symptoms causing an inability to perform activities of daily living. TOURNIQUET TIME: 39 minutes at 250 mmHg. ESTIMATED BLOOD LOSS: 25 mL. DRAINS: None. SPECIMENS: None. COMPLICATIONS: None apparent. IMPLANTS: [place] [employer] uncemented knee system. A size #3 cruciate retaining femoral component, a size #3 tibia, a 32 mm asymmetric patella and a size #3, 9 mm CS insert. All components were uncemented. DESCRIPTION OF PROCEDURE: Procedure and operative site were confirmed with the patient. The operative site was marked. All questions were answered. Preoperative sign-in was performed. The patient was brought into the operating room and placed on the operating room table. She had a spinal anesthetic administered by the anesthesiologist. She had a left adductor canal block placed. She had a left upper leg well-padded tourniquet placed. Left leg was prepped with ChloraPrep and draped in usual sterile fashion. We did a time-out. The leg was exsanguinated using an Esmarch bandage. The tourniquet was inflated to 250 mmHg. A midline incision was made. A medial parapatellar arthrotomy was made. We did a synovectomy. Both menisci were debrided. The knee demonstrated grade 4 changes in all 3 compartments. The knee demonstrated large areas of bare bone in the patellofemoral joint as well as the medial femoral condyle. There was a full-thickness chondral defect of the lateral femoral condyle. We exposed the proximal medial tibia subperiosteally. We flexed the knee, placed retractors to expose the knee. Using intramedullary alignment batsheva, the distal femoral cutting block was placed. The distal femoral osteotomy was made. We now exposed the tibia. Using the intramedullary alignment batsheva referencing off the medial tibia, the proximal tibial cutting block was placed and the proximal tibial osteotomy was made. We placed a tensiometer and measured the external rotation, which was set on the sizing guide, which measured a size #3. The rotational alignment drill holes were drilled. The anterior, posterior, and chamfer cutting block was placed and appropriate cuts were made. The flexion- extension gaps were 9 mm. We exposed the tibia. The size #3 tibial baseplate provided coverage. We determined rotational alignment and used the keel punch for the cemented prosthesis. We now placed a trial femur. We trialed the knee with a 9 mm insert, which had full extension and flexion with excellent stability and equal gaps. We now osteotomized the patella in a freehand manner. The 32 mm asymmetric patella provided coverage. We reamed the sockets for the pegs. We now placed a trial patella, took the knee through a range of motion with central tracking of the patella. At this point, the trial components were removed. The tourniquet was deflated. Hemostasis was excellent. We completed the preparation of the tibia. The femoral lugs were reamed prior to removal of the femoral trial prosthesis. We infiltrated the soft tissues with a block of Exparel, Marcaine, and Duramorph. We now irrigated the knee. The components were then impacted into place. We again trialed the knee with a 9 mm CS insert, which had full extension and flexion, excellent stability and equal gaps. The trial insert was removed. The real 9 mm CS insert was now placed. The final reduction corresponded to the trial reductions. We placed our attention towards closure. The medial parapatellar arthrotomy was closed using a combination of running and interrupted #1 Ethibond sutures. Ms. Licona completed the closure with #0 Vicryl deep, 2-0 Vicryl, and 3-0 Monocryl subcuticular stitch followed by surgical glue and an Aquacel dressing. Standard post total knee dressing was placed. The patient was in the process of being transferred to the PACU no apparent complications. She tolerated the procedure well. She received preoperative antibiotics. Postoperative sign-out was performed. No specimens were sent. The procedure was to be discussed over the phone with her family. Miguel Angel Ponce MD :[id number] /[id number] [facility] PT ED 06-14-2019 PT ED HNO ID: [id number] Author: Lyubov CoteRn) TASH Grace Service: ? Author Type: Registered Nurse Type: Patient Education Filed: 06/14/2019 7:28 AM Note Text: PRE OP LEARNING ASSESSMENT PROCEDURE/SURGERY: SURGERY: Left total knee surgery READINESS TO LEARN COGNITIVE ABILITY: Alert and oriented MOTIVATION TO LEARN: Eager FAMILY SUPPORT: High - Very involved in pt care PATIENT LEARNS BEST BY: Individual Instruction Written Instruction - Hand-outs Verbal Instruction FACTORS AFFECTING LEARNING: None PHYSICAL LIMITATIONS AFFECTING LEARNING: None Electronically Signed By: Lyubov Grace RN In Department: [facility] SURGERY [facility] THERAPY NT 06-14-2019 THERAPY NT HNO ID: [id number] Author: Chaka CotePt) Richard Service: Physical Therapy Author Type: Physical Therapist Type: Therapy (PT/OT/Speech/Resp) Filed: 06/14/2019 2:27 PM Note Text: Physical Therapy Evaluation SERVICE DATE: 06/14/2019 SERVICE TIME: 1330 to 1405 ROOM: [place] [address] Recommended Discharge Disposition: Home PT Recommended Discharge Equipment: No equipment needs anticipated PT Recommendations to Nursing: Ambulate with device;To bathroom;OOB for Meals;With assist of 2 people Device: Wheeled Walker PT 6 Clicks Score: 16 Precautions/Activity Restrictions: Total Knee Replacement;Weight Bearing Restrictions Extremity With Weight Bearing Restricted: Left Lower Extremity Left Lower Extremity Weight Bearing Status: WBAT ASSESSMENT : Patient presents with decreased ROM, strength, and mobility s/p L TKA. Pt was issued a total joint packet and instructed on anti-embolics. Pt plans to return home with home PT. Plan to progress ambulation and practice steps as pt is able to tolerate. Patient was still experiencing numbness/tingling into R quad, and did have R knee buckle during sit to stand. Was experiencing some diminished sensation B along medial knee. Did have LOB to her R during initial stance. Requires skilled PT for strengthening, ROM, endurance, gait, and stability. Patient Disposition at Start of Session: Supine in Bed Patient Disposition at End of Session: OOB in Chair Tolerance Limited By Fatigue Physical Therapy Problem List: Decreased Activity Tolerance;Decreased Range Of Motion;Decreased Strength;Functional Mobility Impairment Patient /Caregiver Goals: Walk;Go Home Goals for Plan of Care: Able to perform HEP with: Independent Transfer supine to/from sit with: Modified Independent Transfer sit to/from stand with: Supervision Ambulate with: Supervision Distance: 150 Device: Wheeled Walker Ambulate up and down steps with: Supervision Number of steps: 12 Device: Cane;Rail Progress Toward Goals: Progressing as expected Rehab Potential: Good PLAN: Treatment Frequency (times per week): 7 Current admission Plan of Care developed with: Patient TREATMENT INTERVENTIONS: Therapy Diagnosis: Reduced mobility-other;Unsteadi ness on feet;Abnormalities of gait and mobility-other;Muscle Weakness (generalized) Interventions Provided: Evaluation;Therapeutic Exercise (46258) $ Evaluation-Low (05150) Billed Units: 1 unit Therapeutic Exercise (72145) Treatment Minutes: 20 1 unit Skilled Intervention(s): Instruction in therapeutic exercise Verbal and tactile cuing provided See Flowsheets Instructed/facilitated, provided verbal and tactile cues for seated and standing exercises including quad and glut co-activation to enable standing. Performed seated triceps push-ups from bed/chair. Requires mod A. Patient also ambulated 30 feet with min A, did require increased help with circumduction on L LE during fatigue. Total Timed Code Treatment Minutes: 20 Total Treatment Time (minutes): 35 SUBJECTIVE: Current Hospital Course: Chart reviewed; PAST MEDICAL HISTORY Diagnosis Date - DVT (deep venous thrombosis) ([facility]) 2012 s/p brain surgery left leg - HTN (hypertension) - Lupus erythematosus discoid - Osteoarthritis of left knee Reason for Physical Therapy Consult : safety, functional mobility Patient Report: Just received pain meds about 15 mins ago. Home Environment Patient Lives With: Spouse Assistance Available: 24 Hour Entry To Home: Ramp Number Of Stairs To Bed/Bath: 14 Stairs to Bed/Bath with: Unilateral Rail Tub/Shower Type: walk in shower Equipment Owned: Cane;Grab Bars-Shower;Grab Bars-Toilet;Wheeled Walker(3 pronged cane) Prior Functional Level: Within Functional Limits Prior Functional Level Comments: ind ADLs, IADLs, not driving OBJECTIVE: CURRENT FUNCTIONAL STATUS: Current Functional Mobility Assist Level Additional Information Rolling Supine to Sit Stand By Assistance Sit to Supine Scooting Sit to Stand Moderate Assistance Stand to Sit Minimal Assistance Bed to Chair Toilet/Commode Gait Moderate Assistance Gait Device: Wheeled Walker Gait Distance (feet): 30 Stairs Curb Step Car Transfer Gait Deviations Right Lower Extremity: Knee stability during stance phase decreased Gait Deviations Left Lower Extremity: Knee stability during stance phase decreased General Deviations/Observations : Flexed trunk posture [facility]: Walk 25 feet or more Please see discipline specific clinical documentation flowsheet for complete details for this therapy evaluation/treatment. SIGNATURE: Chaka Ramos PT PATIENT NAME: Ruthie CORDERO DATE: June 14, 2019 TIME: 2:23 PM Normal [facility] APTTon 06-12-2019 aPTT Coag (Bld) [Time] 26.5 s Normal 23.0-32.4 [facility] Comment on above: Result Comment: Unfr actionated Heparin Therapeutic Ranges: Standard Heparin Nomogram: 53 to 78 seconds (anti-Xa level of 0.3 to 0.7 U/ml) Low Dose/ACS Nomogram: 49 to 67 seconds (anti-Xa level of 0.2 to 0.5 U/ml) Stroke Treatment Nomogram: 49 to 67 seconds (anti-Xa level of 0.2 to 0.5 U/ml) Note: The APTT therapeutic range has been determined for the current lot of laboratory APTT reagent in use throughout the [facility]. Basic Metabolic Panlon 06-11 Anion gap [Moles/Vol] 11 mmol/L Normal 9-18 [facility] Calcium [Mass/Vol] 9.4 mg/dL Normal 8.5-10.2 [facility] Chloride [Moles/Vol] 105 mmol/L Normal 97-105 [facility] CO2 [Moles/Vol] 24 mmol/L Normal 22-30 [facility] Creatinine [Mass/Vol] 0.73 mg/dL Normal 0.58-0.96 [facility] eGFR- Amer. >60 Normal [facility] GFR/1.73 sq M predicted among non-blacks MDRD (S/P/Bld) [Vol rate/Area] mL/min/{1.73_m2} Normal [facility] Comment on above: Result Comment: eGFR (Estimated GFR) Units of measure: mL/min/1.73 meters squared eGFR is derived from the reexpressed MDRD Study equation using the following parameters: serum creatinine, age, gender and race. The creatinine assay has been calibrated to be traceable to IDMS. An eGFR <60 mL/min/1.73m2 for >3 months is consistent with chronic kidney disease. Refer to KDOQI guidelines for clinical interpretation. In patients with unstable renal function, e.g. those with acute kidney injury, the eGFR may not accurately reflect actual GFR. Glucose [Mass/Vol] 98 mg/dL Normal 74-99 [facility] Comment on above: Result Comment: The [place] [employer] (ADA) provides guidance for cutoff values for fasting glucose and random glucose. The ADA defines fasting as no caloric intake for at least 8 hours. Fasting plasma glucose results between 100 to 125 mg/dL indicate increased risk for diabetes (prediabetes). Fasting plasma glucose results greater than or equal to 126 mg/dL meet the criteria for diagnosis of diabetes. In the absence of unequivocal hyperglycemia, results should be confirmed by repeat testing. In a patient with classic symptoms of hyperglycemia or hyperglycemic crisis, random plasma glucose results greater than or equal to 200 mg/dL meet the criteria for diagnosis of diabetes. Reference: Standards of Medical Care in Diabetes 2016, [place] [employer]. Diabetes Care. 2016.39(Suppl 1). Potassium [Moles/Vol] 4.8 mmol/L Normal 3.7-5.1 [facility] Sodium [Moles/Vol] 140 mmol/L Normal 136-144 [facility] Urea nitrogen [Mass/Vol] 11 mg/dL Normal 7-21 [facility] CBC and Differentialon 06-11 Abs Baso 0.03 k/uL Normal <0.11 [facility] Abs [place] 0.63 k/uL Normal <0.87 [facility] Abs Neut 5.30 k/uL Normal 1.45-7.50 [facility] Absolute nRBC <0.01 Normal <0.01 [facility] Basophils/100 WBC (Bld) 0.4 % Normal [facility] DTYPE Auto Diff Normal [facility] Eosinophils (Bld) [#/Vol] 0.08 10*3/uL Normal <0.46 [facility] Eosinophils/100 WBC (Bld) 1.0 % Normal [facility] Erythrocyte distribution width (RBC) [Ratio] 12.4 % Normal 11.5-15.0 [facility] Hematocrit (Bld) [Volume fraction] 38.6 % Normal 36.0-46.0 [facility] Hemoglobin (Bld) [Mass/Vol] 12.6 g/dL Normal 11.5-15.5 [facility] Lymphocytes (Bld) [#/Vol] 2.31 10*3/uL Normal 1.00-4.00 [facility] Lymphocytes/100 WBC (Bld) 27.7 % Normal [facility] MCH (RBC) [Entitic mass] 30.4 pG Normal 26.0-34.0 [facility] MCHC (RBC) [Mass/Vol] 32.6 g/dL Normal 30.5-36.0 [facility] MCV (RBC) [Entitic vol] 93.2 fL Normal 80.0-100.0 [facility] Monocytes/100 WBC (Bld) 7.5 % Normal [facility] Neutrophils/100 WBC (Bld) 63.4 % Normal [facility] NRBCs 0.0 /100 WBC Normal 0 [facility] Platelet mean volume (Bld) [Entitic vol] 10.0 fL Normal 9.0-12.7 [facility] Platelets (Bld) [#/Vol] 324 10*3/uL Normal 150-400 [facility] RBC (Bld) [#/Vol] 4.14 10*6/uL Normal 3.90-5.20 [facility] WBC (Bld) [#/Vol] 8.35 10*3/uL Normal 3.70-11.00 [facility] Confirm Blood Typeon 020 ABO/RH(D) Negative Normal [facility] Comment on above: Performed By: #### C ONABO #### [facility] [address] [place], [place] [address] Coronavirus 2019on 0 COVID 19 Result 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 [facility] Comment on above: Result Comment: This test was developed and its performance characteristics determined by [facility]'s [facility] Pathology and Laboratory Medicine [place]. This test has been authorized by FDA under an Emergency Use Authorization (EUA). This test has been validated in accordance with the FDA's Guidance Document Policy for Diagnostics Testing in Laboratories Certified to Perform High Complexity Testing under CLIA prior to Emergency use Authorization for Coronavirus Disease 2019 during the Public Health Emergency issued on April 08, 2019. 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 Author Type: Nurse Specialist Type: HANDP Filed: 06/12/2019 9:45 AM Note Text: HISTORY AND PHYSICAL EXAMINATION SERVICE DATE: 06/12/2019 SERVICE TIME: 8:12 AM PRIMARY CARE PHYSICIAN: Estela Sorto MD REASON FOR VISIT: Ruthie CORDERO is a 54 year old female who is scheduled for ARTHROPLASTY REPLACE JOINT TOTAL KNEE Left at the request of Dr. Miguel Angel Ponce for consultation. My final recommendation will be communicated back to the requesting physician by way of shared medical record or letter. 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 She has had Synvisc, a couple times, but states it is no longer effective. On pain scale, 10/10 aching, sharp pain. Consulted Dr. Ponce. After exam, Xray Left Knee, Dx with Osteoarthritis Left Knee. PAST MEDICAL HISTORY Diagnosis Date - DVT (deep venous thrombosis) ([facility]) 2012 s/p brain surgery - HTN (hypertension) - Lupus erythematosus discoid - Osteoarthritis of left knee PAST SURGICAL HISTORY Procedure Laterality Date - PAST SURGICAL HISTORY OF brain surgery 2 benign tumors removed 2012 No family history on file. SOCIAL HISTORY: Social History Tobacco Use - Smoking status: Former Smoker Packs/day: 0.50 Years: 30.00 Pack years: 15.00 Types: Cigarettes Last attempt to quit: 02/09/2012 Years since quittin.3 - Smokeless tobacco: Never Used Substance Use Topics - Alcohol use: Not Currently - Drug use: Not on file Prior to Admission medications as of 06/12/19 0818 Medication Sig Last Dose Taking oxyCODONE-acetaminophen (PERCOCET) 5-325 mg tablet Taking Yes lisinopril (ZESTRIL, PRINIVIL) 20 mg tablet Taking Yes naproxen (NAPROSYN) 500 mg tablet Taking Yes No medication comments found. ALLERGIES Allergen Reactions - Guaifenesin Swelling - Toradol [Ketorolac] Itching - Tramadol Hives, Itching REVIEW OF SYSTEMS: PAIN ASSESSMENT: Pain Pain Level: 7 Pain Location: Knee-Left Description: Aching;Throbbing;Pulsat ing;Stabbing;Stiffness Duration Units: Years Frequency: Continuous Intervention: Relaxation;Heat;Cold;Im agery;Exercise;Medicati on General: No weight loss, malaise or fevers. BMI 30.6 Neuro: No history of TIA's, stroke, CLAIM INVESTIGATOR tumor, impaired sensorium, hemiplegia, paraplegia or quadraplegia. No neurological symptoms or problems., H/O Brain surgery 2013 x2 beign tumor removed Discoid Lupus Respiratory: No history of current cough or dyspnea, or pneumonia in the past 6 weeks. No history of respiratory/pulmonary symptoms or problems. Cardiovascular: Positive for: DVT/PE Left leg 2013 after brain surgery HTN takes med daily GI: No history of GI symptoms or problems. No history of esophageal varices, recent ascites, or ETOH greater than 2 drinks per day. : No history of dysuria, frequency or incontinence,, stones or chronic kidney disease BISQUE PLACER: Negative for abnormal vaginal bleeding, abnormal vaginal discharge. : N/A, No LMP recorded. Patient is postmenopausal. Endocrine: No history of diabetes. Has not taken steroids within the past 30 days. No history of endocrinological symptoms or problems. Hematology: No history of bleeding or clotting disorder. Pt is not taking anti-coagulation or platelet medications. No history of hematological symptoms or problems. Oncology: No history of CA metastasis, chemo within 30 days, or radiotherapy within 90 days. Has not lost 10% of body wt in 6 months. No history of oncological symptoms or problems., H/O Brain tumor removed in 2013 x2-benign Psych: No history of psychiatric symptoms or problems. Musculoskeletal: Joint pain and left knee Skin: Negative for lesions, rash and itching. Objective PHYSICAL EXAM: VITALS: BP 143/88 Pulse 62 Temp (Src) 98.5 (Oral) Resp 18 Ht 5' 6 (1.68m) Wt 190 lb (86.2kg) SpO2 100% BMI 30.68 kg/(m2). General: Alert and oriented Skin: Normal color, no rash, no lesions. HEENT: EOM, pupils equal, round and reactive.full upper and lower dentures Cardiovascular: Normal S1 AND S2, no rubs, murmurs or gallops. No JVD. Pulse regular. Lungs: Normal breath sounds, no wheezes or crackles. Abdomen: Soft, non-tender, no rigidity. Lap celestina scar intact Extremities: No deformity, no edema or tenderness, no joint swelling or clubbing. Neurological: Normal cognition and motor skills. Pulses: Carotid and radial pulses normal +2. Diagnostic tests reviewed for today's visit: Lab Value Units Date High Low HB No results within date range. HCT No results within date range. WBC No results within date range. PLT No results within date range. NA No results within date range. K No results within date range. GLUC No results within date range. BUN No results within date range. CREAT No results within date range. PTSEC No results within date range. INR No results within date range. APTT No results within date range. ALT No results within date range. AST No results within date range. TBILI No results within date range. TSH No results within date range. Lab Value Units Date High Low HCGQT No results within date range. UHCG No results within date range. HCG, BODY* No results within date range. Lab Value Units Date High Low ABORHD No results within date range. ABSCREEN No results within date range. No results found for: HBA1C Most recent labs results in epic of 03/31/19(Nasal Swab)(neg) Assessment/Plan HTN (hypertension) Assessment: on med for control, monitored per PCP,BP 143/88,pulse 62 DVT (deep venous thrombosis) (HCC) Assessment: had DVT left Leg in 2013 after Brain tumor surgery,had not had a DVT since that time Lupus erythematosus discoid Assessment: monitored per PCP H/O BRAIN TUMOR-surgery x2 in 2013,results benign METS: Do yardwork, such as raking leaves, weeding,or pushing a power mower (4.50 METs) Patient denies any chest pain or undue shortness of breath with the above physical activity. D/T left knee pain ASA Class: 3 ANESTHESIA FINDINGS: Intubation History: No history of difficult intubation Significant Anesthesia Considerations: None Airway Exam: General: Normal appearance Mallampati Score is CLASS II ULBT: Class I - Lower incisors can bite the upper lip above the thomas line Neck: Normal appearance and function, Distance from hyoid to mentum during neck extension is at least 3 finger breaths Mouth: Normal tongue size Dentition: Upper denture and Lower denture Airway History: No abnormal airway history STOP BANG Score: Criteria: Hypertension Age over 50 (54 year old) Neck circumference > 15.75 inches Score = 3 PLAN Pt optimally prepared for surgery, pending day of surgery EKG and labs ordered per surgeon (YANE,Confirm Blood Type, PT,PTT,CBCD,Urine CANDS,U/A,BMP,Covid -19) CONSULTS: Patient does not require consults for optimization at this time. The Following Tests/Procedures Have Been Initiated: Orders Placed This Encounter ECG COMPLETE Standing Status: Future Standing Expiration Date: 06/11/2020 Lab tests ordered per surgeon (Cobvid-19,TANDS,Confir m Blood Type, PT,PTT,CBCD,Urine CANDS,U/S,BMP) Planned Anesthetic: Per anesthesia choice Instructions Given to Patient: Instructions located in the after visit summary. Patient given verbal and written preop instructions and voices comprehension and compliance. SIGNATURE: Sammi Noriega APRN.CLAIM INVESTIGATOR PATIENT NAME: Ruthie CORDERO DATE: June 12, 2019 TIME: 8:12 AM PAGER/CONTACT #: [facility] NURSING PROGon 06-12-2019 NURSING PROG HNO ID: [id number] Author: Lois Nickerson (Rn) TASH Cruz Service: ? Author Type: Registered Nurse Type: Nursing Progress Note Filed: 06/12/2019 12:53 PM Note Text: PACC Nurse Progress Note History AND Physical: PACC Visit Date:06/12/2019 Original HANDP Date: N/A ED visit Date: N/A Outside HANDP Scanned Date: N/A Labs Within Last 6 Months: CBC: Date 06/11 BMP/CMP: Date 06/11 PT: Date 06/11 PTT: Date 06/11 UA: Date 06/11 Urine C+S: Date 06/11 TYPE AND SCREEN: Date 06/11 [place]: Date 06/11 OTHER TEST: COVID-scheduled to be done 06/11 STAMP:03/31/2019-Negativ e Imaging Within Last 12 Months: N/A Cardiac Testing: EKG in last 12 Months: Yes: Date: 06/12/2019, Comment: EKG trace pending Last Menstrual Period: LMP Date: No LMP Recorded Postmenopausal >1yr: Yes, S/P Hysterectomy: No Risk Assessment: N/A Anesthesia Review: N/A Narrative: HTN (hypertension) Assessment: on med for control, monitored per PCP,BP 143/88,pulse 62 ? ? DVT (deep venous thrombosis) (HCC) Assessment: had DVT left Leg in 2013 after Brain tumor surgery,had not had a DVT since that time ? ? Lupus erythematosus discoid Assessment: monitored per PCP ? H/O BRAIN TUMOR-surgery x2 in 2013,results benign Pre-op Considerations: N/A Chart Check: IN PROGRES-labs pending ekg tracing covid tbd Lois Cruz RN June 12, 2019 11:41 AM [facility] Protimeon 06-12-2019 PT Coag (PPP) [Time] 9.8 s Normal 9.7-13.0 [facility] PT Coag (PPP) [Time] s Low 0.9-1.3 [facility] Comment on above: Result Comment: Lulu min K Antagonist (VKA) Therapeutic Range: INR 2 to 3 (Target INR of 2.5) Note: For patients treated with VKA drugs, such as warfarin, the [place] [employer] 2012 Guideline recommends a therapeutic INR range of 2 to 3 (target INR of 2.5). This recommendation includes high-risk patients with antiphospholipid syndrome with previous arterial or venous thromboembolism, current-generation mechanical or bioprosthetic aortic heart valve replacement. Note: Patients with mechanical aortic valve replacement and additional risk factors for thromboembolic events (atrial fibrillation, previous thromboembolism, LV dysfunction, hypercoagulable conditions) or an older generation mechanical AVR (i.e., ball in-Cage) or any mechanical MVR should have a INR therapeutic range of 2.5 to 3.5 (target INR of 3). Carol GH, et al. Chest 2012, 141:7S-47S Irvin RA, et al. [facility] 2017, 70: 252-289 Type and SCR (30D)on 020 ABO/RH(D) Negative Normal [facility] Comment on above: Performed By: #### T SCR30 #### [facility] [address] [place], [place] [address] Urinalysis with Microscopico n 06-12-2019 Bilirubin, Urine Negative Normal Negative [facility] Comment on above: Performed By: #### U AWMIC ####[facility] [place], [place] [phone] Clarity (U) Clear Normal Clear [facility] Comment on above: Performed By: #### U AWMIC ####[facility] [place], [place] [phone] Color (U) Light Yellow Critically abnormal Yellow [facility] Comment on above: Performed By: #### U AWMIC ####[facility] [place] [phone] Comments SEE COMMENT Normal [facility] Comment on above: Result Comment: N/A Performed By: #### U AWMIC ####[place] [address] [place] [phone] Epithelial cells LM.HPF (Urine sed) [#/Area] SEE COMMENT Normal [facility] Comment on above: Result Comment: Few Squamous Epithelial Cells Performed By: #### U AWMIC ####[place] [address] [place] [phone] Glucose Ql (U) Negative Normal Negative [facility] Comment on above: Performed By: #### U AWMIC ####[address] [place] [phone] Hemoglobin/Blood,Ur Negative Normal Negative [facility] Comment on above: Performed By: #### U AWMIC ####[place] [address] [place] [phone] Ketones Ql (U) Negative Normal Negative [facility] Comment on above: Performed By: #### U AWMIC ####[place] [address] [place] [phone] Leukest Negative Normal Negative [facility] Comment on above: Performed By: #### U AWMIC ####[place] [address] [place] [phone] Nitrite Ql (U) Negative Normal Negative [facility] Comment on above: Performed By: #### U AWMIC ####[place] [address] [place] [phone] pH (Bld) 6.0 Normal 5.0-8.0 [facility] Comment on above: Performed By: #### U AWMIC ####[place] [address] [place] [phone] Protein (U) [Mass/Vol] Negative Normal Negative [facility] Comment on above: Performed By: #### U AWMIC ####[place] [address] [place] [phone] RBC (U) [#/Vol] 0-3 Normal 0-3 [facility] Comment on above: Performed By: #### U AWMIC ####[place] [phone] Specific Avant, Ur 1.012 Normal 1.005-1.030 [facility] Comment on above: Performed By: #### U AWMIC ####[place] [phone] Urine Christopher Comment SEE COMMENT Normal [facility] Comment on above: Result Comment: N/A Performed By: #### U AWMIC ####[place] [address] [place] [phone] Urobilinogen Qn (U) Negative Normal Negative [facility] Comment on above: Performed By: #### U AWMIC ####[place] [phone] WBC (Bld) [#/Vol] 0-5 Normal 0-5 [facility] Comment on above: Performed By: #### U AWMIC ####[place] [address] [place] [phone] Urine Cultureon 06-12-2019 Bacteria identified Cx Nom (U) Sp. Request/Comment: - Specimen received in preservative Culture Result - No growth (<1,000 CFU/ml) Normal [facility] Comment on above: Performed By: #### U RCUL ####[place] [address] [place] [phone] CNPNon 06-08-2019 CNPN Telephone (ORAVON) RUTHIE CORDERO Becca ([id number]) 1965 F Date Time Provider Department 06/08/19 MIGUEL ANGEL PONCE During your visit today, we recorded the following information about you: Lily Dumas 06/08/2019 12:38 PM Signed Patient was returning your call that she just missed. Patient said if you need to talk to her she has her phone next to her. Miguel Angel Ponce MD 06/09/2019 12:11 PM Addendum Called the patient regarding her canceled surgery. Patient was scheduled for left total knee replacement but was canceled secondary to the COVID-19 pandemic. Patient continues to complain of significant pain and wants to proceed with the canceled surgery. Pre operative discussion and medically necessity regarding surgical scheduling related to COVID pandemic: I discussed with the patient Risks Benefits Alternatives relative to the procedure planned as well as risks of angel COVID-19 during the perioperative period during this time of pandemic. The patient indicated understanding and accepts the associated risks. The patient and I concomitantly agree that their current symptoms are sufficiently severe and that the patients ADL (activities of daily living) are sufficiently limited to warrant the risks of surgical intervention. The risks discussed concern the patients health and well being as well as the risks to the public at large. The patient also understands they will need to have pre operative COVID testing that will likely require travel to the [facility] at the [facility] several days prior to surgery and that they will be required to self quarantine following the COVID test. All questions were answered. The patient requests to proceed with the planned surgical procedure. As a result of the 04/25/19 order by [facility] Director Ruthie Zhou M.D. to cancel non-essential surgeries that would use PPE, unless special criteria are met, I have reviewed the clinical record for this patient and have determined that the scheduled procedure meets the criteria to go forward because there is a presence of severe symptoms causing an inability to perform activities of daily living. MD Sena Hewitt PA-C 06/09/2019 9:49 AM Signed Addended by: SENA LICONA PA-C on: 06/09/2019 09:49 AM Modules accepted: Orders Allergies As of Date: 06/08/2019 Noted Allergy Reaction GUAIFENESIN 05/02/2019 7 - Swelling TORADOL (KETOROLAC) 05/02/2019 9 - Itching TRAMADOL 03/20/2014 4 - Hives 9 - Itching Date Reviewed: 06/08/2019 Reviewed by: Sena Licona (Pa) - Fully Assessed Reason for Visit: returning phone call [Other] Primary Visit Diagnosis:Primary osteoarthritis of left knee [M17.12] Order(s):2019 CORONAVIRUS [SQCOVID] Order #: [id number] FUTURE CONSULT TO(TCI)PRE-OP CLEAR [[id number]] Order #: [id number]: 1 TYPE + SCREEN,30 DAY [NCYCWS39] Order #: [id number] FUTURE CONFIRM BLOOD TYPE [SQCONABO] Order #: [id number] FUTURE ACTIVATED PTT [SQPTT] Order #: [id number] FUTURE PROTHROMBIN TIME/PT [SQPT] Order #: [id number] FUTURE URINALYSIS WITH MICROSCOPIC [SQUAWMIC] Order #: [id number] FUTURE URINE CULTURE [SQURCUL] Order #: [id number] FUTURE CBC + DIFF [SQCBCDIF] Order #: [id number] FUTURE BASIC METABOLIC PNL [SQBMP] Order #: [id number] FUTURE Prescriptions as of 06/08/2019 Sig: OXYCODONE-ACETAMINOPHEN 5 MG-* LISINOPRIL 20 MG TABLET NAPROXEN 500 MG TABLET Problem List As Of Date 06/08/2019 Noted Resolved Internal derangement of left knee [M23.92] 05/22/2014 Primary osteoarthritis of left knee [M17.12] 12/11/2014 Chondromalacia of left patella [M22.42] 12/11/2014 Patellofemoral stress syndrome of both knees [M*2016 Encounter Status:Closed by SENA LICONA PA-C on 06/08/19 Normal [facility] HOSPon 06-08-2019 HOSP Patient:Ruthie CORDERO MRN: Height:5' 6 (1.676 m) Weight:190 lb (86.183 kg) Outpatient Medications as of 06/14/19: oxyCODONE-acetaminophen (PERCOCET) 5-325 mg tablet lisinopril (ZESTRIL, PRINIVIL) 20 mg tablet naproxen (NAPROSYN) 500 mg tablet Admission/Clinic Administered Medications as of 06/14/19: lactated ringers infusion ceFAZolin iv piggyback 2 g in D5W (iso-osmotic) 100 mL (ANCEF) tranexamic acid 1,000 mg in NaCl 0.9% 100 mL (CYKLOKAPRON) tranexamic acid 1,000 mg in NaCl 0.9% 100 mL (CYKLOKAPRON) bupivacaine liposome (PF) 1.3 % (13.3 mg/mL) 133 mg injection (EXPAREL) scopolamine - REMOVE PATCH scopolamine - VERIFY patch Problem List: Internal derangement of left knee [M23.92] Primary osteoarthritis of left knee [M17.12] Chondromalacia of left patella [M22.42] Patellofemoral stress syndrome of both knees [M22.2X1, M22.2X2] Lupus erythematosus discoid [L93.0] DVT (deep venous thrombosis) (HCC) [I82.409] HTN (hypertension) [I10] Allergies: Guaifenesin Toradol [Ketorolac] Tramadol Date Verified: 06/14/19 Lab Values Lab Value Units Date High Low POTA* 4.8 mmol/L 06/12/2019 5.1 3.7 HAYLEE* 38.6 % 06/12/2019 46.0 36.0 Progress Notes ([facility] REJ): Lily Dumas 06/08/2019 12:38 PM Signed Patient was returning your call that she just missed. Patient said if you need to talk to her she has her phone next to her. Miguel Angel Ponce MD 06/09/2019 12:11 PM Addendum Called the patient regarding her canceled surgery. Patient was scheduled for left total knee replacement but was canceled secondary to the COVID-19 pandemic. Patient continues to complain of significant pain and wants to proceed with the canceled surgery. Pre operative discussion and medically necessity regarding surgical scheduling related to COVID pandemic: I discussed with the patient Risks Benefits Alternatives relative to the procedure planned as well as risks of angel COVID-19 during the perioperative period during this time of pandemic. The patient indicated understanding and accepts the associated risks. The patient and I concomitantly agree that their current symptoms are sufficiently severe and that the patients ADL (activities of daily living) are sufficiently limited to warrant the risks of surgical intervention. The risks discussed concern the patients health and well being as well as the risks to the public at large. The patient also understands they will need to have pre operative COVID testing that will likely require travel to the [facility] at the [facility] several days prior to surgery and that they will be required to self quarantine following the COVID test. All questions were answered. The patient requests to proceed with the planned surgical procedure. As a result of the 04/25/19 order by [facility] Director Ruthie Zhou M.D. to cancel non-essential surgeries that would use PPE, unless special criteria are met, I have reviewed the clinical record for this patient and have determined that the scheduled procedure meets the criteria to go forward because there is a presence of severe symptoms causing an inability to perform activities of daily living. Miguel Angel Ponce MD Previous Version Sena Licona PA-C 06/09/2019 9:49 AM Signed Addended by: SENA LICONA PA-C on: 06/09/2019 09:49 AM Modules accepted: Orders Normal [facility] 03-31-2019 [facility] Office Visit (LOORRM ) RUTHIE CORDERO ([id number]) 1965 F Date Time Provider Department 03/31/19 8:45 AM MIGUEL ANGEL PONCE During your visit today, we recorded the following information about you: Miguel Angel Ponce MD 03/31/2019 2:15 PM Signed Established Patient Ortho Knee Consult Note ASSESSMENT AND PLAN Impression: Left Knee Severe Degenerative Osteoarthritis, Primary Ruthie CORDERO has radiograph and physical exam evidence of degenerative joint disease and wishes to pursue surgery. This patient appears to have sufficient symptoms to warrant surgical intervention and is an appropriate candidate for left Primary Total Knee Arthroplasty as evidenced by six months of unsuccessful non-operative treatment as outlined in the HPI below. This patient has the following risk factors: none We had a lengthy discussion regarding the risk and benefit of surgery, the alternatives, limitations and personnel involved. These included but were not limited to infection, persistent pain, instability, nerve injury, blood clots, and medical complications. We also discussed the pre-operative course, surgery itself and rehabilitation. Sara-operative blood management and transfusion issues were discussed, and options clearly outlined. The patient has consented to the use of the banked allogenic blood if medically necessary. The patient has elected to schedule surgery at this time or intends to call the office with a surgical date. Shared decision making occurred while obtaining informed consent. The patient will be scheduled for a pre-operative education class at which time they will have their nasal swab completed and will be given CHG cloths along with the verbal and written instructions for their use. Patient has been instructed and has been scheduled or will call to schedule attendence in one of the total joint perioperative classes offered prior to proceeding with TKA. The patient has been ordered: Nasal Swab Culture Anemia Screen CONSULTS: IMPACT/PACE Consult for preoperative clearance. ACTIVE PROBLEM LIST Internal Derangement of Left Knee Primary Osteoarthritis of Left Knee Chondromalacia of Left Patella Patellofemoral Stress Syndrome of Both Knees SUBJECTIVE CHIEF COMPLAINT: Knee Pain HPI: Ruthie CORDERO is a 53 year old patient here for evaluation and management of left knee pain. Patient has had progressive problems with the knee(s) constantly over the past 5 year(s) interfering with activities which include exercise, doing traveler changer, participating in family activities, enjoying hobbies, walking and climbing stairs. The problem began limiting activities 3+ years ago. Currently the pain in the joint is rated at 10 out of 10 with minimal activity. The pain is chronic and is located along the inside aspect, along the outside aspect and in the front. The pain is described as stabbing, clicking, and grinding. Relieving factors include rest, prescription medication, over the counter medication, repositioning, heat, and knee brace. There is no specific incident that brought about this pain. Patient also complains of weakness, stiffness, locking, popping and giving way. Preoperative Ambulatory Status: Impaired Community Distances Number of Entry Steps: none, has a ramp Bedroom Location: Second floor Bathroom Location: Second floor Caregiver Assistance: Consistent/Live-In (5-7 days/wk) Home Location: Up to 150 miles PREVIOUS TREATMENTS: Medical Treatments: OTC NSAIDS for 3 Months or Greater (Aleve), Steroid Injections Left Knee, Viscosupplementation Left Knee, Percocet Physical Therapy: Shoe Wear, Braces, Orthotics, etc. and PT Three Months or Greater 1-2 times per week SURGICAL RISK FACTORS: None PHYSICAL EXAM: There were no vitals taken for this visit. All other systems deferred. GENERAL: Appears healthy, well-nourished, no deformities. HABITUS: Normal GAIT: Normal, the patient did not have trouble getting onto the exam table. KNEE EXAM: Left: Alignment: Neutral Range of motion is 0 degrees in extension and 120 degrees of flexion. Extension La degrees Pain with ROM: No Effusion: Slight Tender to the palpation of Medial femoral condyle and Lateral femoral condyle Pain with patellar compression: Yes Stability: Anterior/Posterior stable and Varus/Valgus stable Hip Exam: flexion to 100+ degrees, full extension, internal/external rotation adequate and no pain with log roll Neurovascular Status: Sensation Intact, Moves foot and ankle up AND down and 2+ dorsalis pedis DATA: Diagnostic tests reviewed for today's visit: Left knee X-Ray: Medial joint space noted to have moderate degenerative changes, Lateral joint space noted to have moderate degenerative changes , Patellofemoral joint noted to have severe degenerative changes and MRI with grade 4 changes 30 Minutes spent with the patient SIGNATURE: Miguel Angel Ponce MD PATIENT NAME: Ruthie CORDERO DATE: March 31, 2019 TIME: 8:38 AM Referring Provider: ESTELA SORTO [[id number]] Allergies As of Date: 03/31/2019 Noted Allergy Reaction TRAMADOL 03/20/2014 4 - Hives 9 - Itching Date Reviewed: 03/31/2019 Reviewed by: Miguel Angel Ponce - Fully Assessed Reason for Visit: Follow Up [171] Primary Visit Diagnosis:Primary osteoarthritis of left knee [M17.12] Other Visit Diagnoses:Chondromalaci a of left patella [M22.42] Patellofemoral stress syndrome of both knees [M22.2X1, M22.2X2] Order(s):SURGICAL REQUEST - ELECTIVE [[id number]] Order #: [id number]: 1 CONSULT TO(TCI)PRE-OP CLEAR [0891307] Order #: [id number]: 1 PATIENT PLACED ON JESUS TKA CARE PATH [1714767] Order #: [id number]: 1 TYPE + SCREEN,30 DAY [ECFVLI12] Order #: [id number] FUTURE CONFIRM BLOOD TYPE [SQCONABO] Order #: [id number] FUTURE ACTIVATED PTT [SQPTT] Order #: [id number] FUTURE PROTHROMBIN TIME/PT [SQPT] Order #: [id number] FUTURE URINALYSIS WITH MICROSCOPIC [SQUAWMIC] Order #: [id number] FUTURE URINE CULTURE [SQURCUL] Order #: [id number] FUTURE CBC + DIFF [SQCBCDIF] Order #: [id number] FUTURE STAPH AUREUS PCR [SQSAPCR] Order #: [id number] FUTURE BASIC METABOLIC PNL [SQBMP] Order #: [id number] FUTURE WALKER - FOLDING [99836134] Order #: [id number] RAISED TOILET SEAT [[id number]] Order #: [id number] BATH/SHOWER CHAIR [[id number]] Order #: [id number] Prescriptions as of 03/31/2019 Sig: OXYCODONE-ACETAMINOPHEN 5 MG-* LISINOPRIL 20 MG TABLET NAPROXEN 500 MG TABLET Problem List As Of Date 03/31/2019 Noted Resolved Internal derangement of left knee [M23.92] 05/22/2014 Primary osteoarthritis of left knee [M17.12] 12/11/2014 Chondromalacia of left patella [M22.42] 12/11/2014 Patellofemoral stress syndrome of both knees [M*2016 Letter Text Encounter Status:Closed by MIGUEL ANGEL PONCE MD on 03/31/19 [facility] PROGRESSon 03-31-2019 PROGRESS HNO ID: [id number] Author: Miguel Angel Ponce Service: ? Author Type: Physician Type: Progress Notes Filed: 03/31/2019 2:15 PM Note Text: Established Patient Ortho Knee Consult Note ASSESSMENT AND PLAN Impression: Left Knee Severe Degenerative Osteoarthritis, Primary Ruthie CORDERO has radiograph and physical exam evidence of degenerative joint disease and wishes to pursue surgery. This patient appears to have sufficient symptoms to warrant surgical intervention and is an appropriate candidate for left Primary Total Knee Arthroplasty as evidenced by six months of unsuccessful non-operative treatment as outlined in the HPI below. This patient has the following risk factors: none We had a lengthy discussion regarding the risk and benefit of surgery, the alternatives, limitations and personnel involved. These included but were not limited to infection, persistent pain, instability, nerve injury, blood clots, and medical complications. We also discussed the pre-operative course, surgery itself and rehabilitation. Sara-operative blood management and transfusion issues were discussed, and options clearly outlined. The patient has consented to the use of the banked allogenic blood if medically necessary. The patient has elected to schedule surgery at this time or intends to call the office with a surgical date. Shared decision making occurred while obtaining informed consent. The patient will be scheduled for a pre-operative education class at which time they will have their nasal swab completed and will be given CHG cloths along with the verbal and written instructions for their use. Patient has been instructed and has been scheduled or will call to schedule attendence in one of the total joint perioperative classes offered prior to proceeding with TKA. The patient has been ordered: Nasal Swab Culture Anemia Screen CONSULTS: IMPACT/PACE Consult for preoperative clearance. ACTIVE PROBLEM LIST Internal Derangement of Left Knee Primary Osteoarthritis of Left Knee Chondromalacia of Left Patella Patellofemoral Stress Syndrome of Both Knees SUBJECTIVE CHIEF COMPLAINT: Knee Pain HPI: Ruthie CORDERO is a 53 year old patient here for evaluation and management of left knee pain. Patient has had progressive problems with the knee(s) constantly over the past 5 year(s) interfering with activities which include exercise, doing traveler changer, participating in family activities, enjoying hobbies, walking and climbing stairs. The problem began limiting activities 3+ years ago. Currently the pain in the joint is rated at 10 out of 10 with minimal activity. The pain is chronic and is located along the inside aspect, along the outside aspect and in the front. The pain is described as stabbing, clicking, and grinding. Relieving factors include rest, prescription medication, over the counter medication, repositioning, heat, and knee brace. There is no specific incident that brought about this pain. Patient also complains of weakness, stiffness, locking, popping and giving way. Preoperative Ambulatory Status: Impaired Community Distances Number of Entry Steps: none, has a ramp Bedroom Location: Second floor Bathroom Location: Second floor Caregiver Assistance: Consistent/Live-In (5-7 days/wk) Home Location: Up to 150 miles PREVIOUS TREATMENTS: Medical Treatments: OTC NSAIDS for 3 Months or Greater (Aleve), Steroid Injections Left Knee, Viscosupplementation Left Knee, Percocet Physical Therapy: Shoe Wear, Braces, Orthotics, etc. and PT Three Months or Greater 1-2 times per week SURGICAL RISK FACTORS: None PHYSICAL EXAM: There were no vitals taken for this visit. All other systems deferred. GENERAL: Appears healthy, well-nourished, no deformities. HABITUS: Normal GAIT: Normal, the patient did not have trouble getting onto the exam table. KNEE EXAM: Left: Alignment: Neutral Range of motion is 0 degrees in extension and 120 degrees of flexion. Extension La degrees Pain with ROM: No Effusion: Slight Tender to the palpation of Medial femoral condyle and Lateral femoral condyle Pain with patellar compression: Yes Stability: Anterior/Posterior stable and Varus/Valgus stable Hip Exam: flexion to 100+ degrees, full extension, internal/external rotation adequate and no pain with log roll Neurovascular Status: Sensation Intact, Moves foot and ankle up AND down and 2+ dorsalis pedis DATA: Diagnostic tests reviewed for today's visit: Left knee X-Ray: Medial joint space noted to have moderate degenerative changes, Lateral joint space noted to have moderate degenerative changes , Patellofemoral joint noted to have severe degenerative changes and MRI with grade 4 changes 30 Minutes spent with the patient SIGNATURE: Miguel Angel Ponce MD PATIENT NAME: Ruthie CORDERO DATE: March 31, 2019 TIME: 8:38 AM Normal [facility] Staph aureus PCRon 0 MRSA PCR Negative Normal [facility] Comment on above: Performed By: #### S APCR ####[facility] [address] [place], [place] [phone] S aureus Spec Source Nasal Normal [facility] Comment on above: Performed By: #### S APCR ####[facility] [address] [place], [place] [phone] Staph aureus PCR Negative Normal [facility] Comment on above: Performed By: #### S APCR ####[facility] [address] [place], [place] [phone] CNOVon 01-27-2019 CNOV Office Visit (LOORRM ) RUTHIE CORDERO ([id number]) 1965 F Date Time Provider Department 01/27/19 11:00 AM CAST TECH JAYRO EVANS During your visit today, we recorded the following information about you: Vielka Dick Ma 01/27/2019 2:11 PM Signed Dispensed 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 Dispensed by [employer] Clerical Receptionist. Instructions were given on application/adjustments . Will f/u as scheduled/prn. Vielka Dick MA,RADHA Referring Provider: MIGUEL ANGEL PONCE [[id number]] Allergies As of Date: 01/27/2019 Noted Allergy Reaction TRAMADOL 03/20/2014 4 - Hives 9 - Itching Date Reviewed: 01/27/2019 Reviewed by: Miguel Angel Ponce - Fully Assessed Primary Visit Diagnosis:Primary osteoarthritis of left knee [M17.12] Other Visit Diagnosis:Chondromalaci a of left patella [M22.42] Prescriptions as of 01/27/2019 Sig: OXYCODONE-ACETAMINOPHEN 5 MG-* LISINOPRIL 20 MG TABLET NAPROXEN 500 MG TABLET Problem List As Of Date 01/27/2019 Noted Resolved Internal derangement of left knee [M23.92] 05/22/2014 Primary osteoarthritis of left knee [M17.12] 12/11/2014 Chondromalacia of left patella [M22.42] 12/11/2014 Patellofemoral stress syndrome of both knees [M*2016 Encounter Status:Closed by VIELKA DICK MA on 01/27/19 [facility] CNOV Office Visit (GLORYORRM ) RUTHIE CORDERO ([id number]) 1965 Date Time Provider Department 01/27/19 10:45 AM MIGUEL ANGEL PONCE During your visit today, we recorded the following information about you: Miguel Angel Ponce MD 01/27/2019 11:12 AM Signed Large Joint Arthro/Inj: L knee joint The risks, benefits and alternatives of the procedure were reviewed with the patient/surrogate, who agreed to proceed. Sign In Communication: Completed Time Out: Time Out completed The Time-Out verifies the correct patient, procedure, side/site, position (if applicable) and completion and review of fire risk assessment/protocols (if appropriate): Affirmation of Time Out: Yes Signout Discussion: Yes 01/27/2019 11:02 AM The procedure site was prepped in the usual sterile fashion. Allergies were reviewed Site: L knee joint Medications: 48 mg hylan G-F 20 48 mg/6 mL Outcome: Tolerated well, no immediate complications Post-injection instructions were reviewed with the patient and the patient voiced understanding of these instructions. Referring Provider: ESTELA SORTO [[id number]] Allergies As of Date: 01/27/2019 Noted Allergy Reaction TRAMADOL 03/20/2014 4 - Hives 9 - Itching Date Reviewed: 01/27/2019 Reviewed by: Miguel Angel Ponce - Fully Assessed Reason for Visit: Follow Up [171] Injections [199] Primary Visit Diagnosis:Primary osteoarthritis of left knee [M17.12] Other Visit Diagnoses:Chondromalaci a of left patella [M22.42] Patellofemoral stress syndrome of both knees [M22.2X1, M22.2X2] Order(s):Large Joint Arthro/Inj: L knee joint [JTN416] Order #: [id number] KNEE BRACE-J [[id number]] Order #: [id number] hylan G-F 20 48 mg/6 mL 48 mg injection (SYNVISC-ONE)Disp: Rfl: Prescriptions as of 01/27/2019 Sig: OXYCODONE-ACETAMINOPHEN 5 MG-* LISINOPRIL 20 MG TABLET NAPROXEN 500 MG TABLET Problem List As Of Date 01/27/2019 Noted Resolved Internal derangement of left knee [M23.92] 05/22/2014 Primary osteoarthritis of left knee [M17.12] 12/11/2014 Chondromalacia of left patella [M22.42] 12/11/2014 Patellofemoral stress syndrome of both knees [M*2016 Prescriptions ordered this encounter Disp Refills Start End HYLAN G-F 20 48 MG/6 ML INTRA-ARTIC* 01/27/2019 Route: Inj-ORTHO Encounter Status:Closed by MIGUEL ANGEL PONCE MD on 01/27/19 Normal [facility] PROGRESSon 01-27-2019 PROGRESS HNO ID: [id number] Author: Vielka Dick Ma Service: ? Author Type: ? Type: Progress Notes Filed: 01/27/2019 2:11 PM Note Text: Dispensed 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 Dispensed by [employer] Clerical Receptionist. Instructions were given on application/adjustments . Will f/u as scheduled/prn. Vielka Dick MA,ROT Normal [facility] PROGRESS HNO ID: [id number] Author: Miguel Angel Ponce Service: Orthopaedic Surgery Author Type: Physician Type: Progress Notes Filed: 02/02/2019 11:25 AM Note Text: [facility] [address] [place], [place] [address] CLINIC NOTE Department of Orthopaedics - Chel Ponce M.D. NAME: RUTHIE CORDERO CLINIC NO.: [id number] DATE OF SERVICE: 01/27/2019 HISTORY: Patient is a 53-year-old woman who presents for Synvisc injection left knee. She has osteoarthritis and patellofemoral arthralgia. We have injected her multiple times of Synvisc. Last injection did not offer relief but the prior injections had. No new injury. PAIN LEVEL: 10/10. Past medical history, medications, and allergies reviewed. EXAM: Examination demonstrates a small effusion. Motion is unchanged. Moderate patellofemoral crepitation. X-RAYS: X-rays repeated today demonstrate osteoarthritis, primarily patellofemoral with some medial compartment narrowing. PROCEDURE: Identity of the patient was verified. Procedure and site verified with the patient. Risks, benefits, alternatives, and personnel were discussed with the patient who consents to proceed. Audible time-out was performed. Injection of left knee with Synvisc-One. Synvisc-One injected per note above. The patient tolerated the procedure well. ASSESSMENT: 1. Left knee primary localized osteoarthritis. 2. Patellofemoral arthralgia. PLAN: We injected her knee with Synvisc-One today, which was approved. She is beginning to consider surgical treatment which would entail total knee replacement. We will see her back in a couple of months to assess benefits of the injection. A Reaction brace also prescribed. Dictated By: Miguel Angel Ponce M.D. Date Dictated: 01/27/2019 Date Typed: [facility] 01/27/2019 JOB# [id number] [facility] PROGRESS HNO ID: [id number] Author: Miguel Angel Ponce Service: ? Author Type: Physician Type: Progress Notes Filed: 01/27/2019 11:12 AM Note Text: Large Joint Arthro/Inj: L knee joint The risks, benefits and alternatives of the procedure were reviewed with the patient/surrogate, who agreed to proceed. Sign In Communication: Completed Time Out: Time Out completed The Time-Out verifies the correct patient, procedure, side/site, position (if applicable) and completion and review of fire risk assessment/protocols (if appropriate): Affirmation of Time Out: Yes Signout Discussion: Yes 01/27/2019 11:02 AM The procedure site was prepped in the usual sterile fashion. Allergies were reviewed Site: L knee joint Medications: 48 mg hylan G-F 20 48 mg/6 mL Outcome: Tolerated well, no immediate complications Post-injection instructions were reviewed with the patient and the patient voiced understanding of these instructions. [facility] PROGRESS HNO ID: [id number] Author: Vipul Ryder (Rt) Service: ? Author Type: Rail Switchman Type: Progress Notes Filed: 01/27/2019 10:51 AM Note Text: Radiology Service Progress Note PATIENT NAME: Ruthie CORDEOR DATE OF SERVICE: January 27, 2019 TIME: 10:50 AM PATIENT IDENTITY VERIFICATION COMPLETED USING TWO (2) IDENTIFIERS: Name and Date of confirmed by patient verbally. PATIENT GENDER DATA: Female. status: : No status: NO. PATIENT RELEVANT IMPLANT DATA REVIEWED: Not Applicable RADIOLOGY DEPARTMENT: General X-ray: Exam(s) Completed: Lower Extremity X-Ray(s): Knee, AP / Lat / Tunne / Merchant Left and Wt. Bearing: PERIPHERAL IV DATA: Not applicable SIGNED BY: Vik Li, RT January 27, 2019 10:50 AM Normal [facility] XR KNEE 4V AP/PA BOTH+LAT/ME R LTon 01-27-2019 XR KNEE 4V AP/PA BOTH+LAT/JOSE MANUEL LT * * *Final Report* * * DATE OF EXAM: Jan 27 2019 3:16PM LZX [id number] - XR KNEE 4V AP/PA BOTH+LAT/JOSE MANUEL LT / PROCEDURE REASON: Primary osteoarthritis of left knee * * * * Physician Interpretation * * * * HISTORY: 53-YEAR-OLD FEMALE WITH Primary osteoarthritis of left knee . left knee pain TECHNIQUE: XR KNEE 4V AP/PA BOTH+LAT/JOSE MANUEL LT Laterality: LEFT Number of different views (projections): 4 COMPARISON: 02/22/2018 RESULT: Osteophytes around the knee joint. Knee joint is maintained. Patellofemoral joint is moderately narrowed laterally with osteophytes. No joint effusion. No fracture. There are degenerative changes of the right knee. IMPRESSION: DEGENERATIVE JOINT DISEASE MOST SEVERE IN THE PATELLOFEMORAL JOINT. PATELLOFEMORAL DEGENERATIVE CHANGES IS PROGRESSED SINCE THE PREVIOUS EXAM. 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: PSCB Transcribe Date/Time: Jan 27 2019 3:49P Dictated by : CLIF MORALES MD This examination was interpreted and the report reviewed and electronically signed by: CLIF MORALES MD on Jan 27 2019 3:51PM EST [id number] Normal [facility] CNOVon 11-11-2018 CNOV Office Visit (LOORRM ) RUTHIE CORDERO ([id number]) 1965 F Date Time Provider Department 11/11/18 9:15 AM MIGUEL ANGEL PONCEORRBecca During your visit today, we recorded the following information about you: Referring Provider: SELF [200] Allergies As of Date: 11/11/2018 Noted Allergy Reaction TRAMADOL 03/20/2014 4 - Hives 9 - Itching Date Reviewed: 11/11/2018 Reviewed by: Tamanna Abrams Ma - Fully Assessed Reason for Visit: Follow Up [171] Primary Visit Diagnosis:Primary osteoarthritis of left knee [M17.12] Other Visit Diagnoses:Chondromalaci a of left patella [M22.42] Patellofemoral stress syndrome of both knees [M22.2X1, M22.2X2] Prescriptions as of 11/11/2018 Sig: OXYCODONE-ACETAMINOPHEN 5 MG-* LISINOPRIL 20 MG TABLET NAPROXEN 500 MG TABLET Problem List As Of Date 11/11/2018 Noted Resolved Internal derangement of left knee [M23.92] INVALID FOR* Primary osteoarthritis of left knee [M17.12] INVALID FOR* Chondromalacia of left patella [M22.42] INVALID FOR* Patellofemoral stress syndrome of both knees [M*INVALID FOR* Encounter Status:Closed by MIGUEL ANGEL PONCE MD on 11/11/18 Normal [facility] PROGRESSon 11-11-2018 PROGRESS HNO ID: [id number] Author: Miguel Angel Ponce Service: Orthopaedic Surgery Author Type: Physician Type: Progress Notes Filed: 11/22/2018 8:34 AM Note Text: [facility] [address] [place], [place] [address] CLINIC NOTE Department of Orthopaedics - Chel Ponce M.D. NAME: RUTHIE CORDERO CLINIC NO.: [id number] DATE OF SERVICE: 11/11/2018 HISTORY: Patient follows up today for her left knee. She has left knee osteoarthritis, primarily patellofemoral. She has been treated conservatively with naproxen, ice and heat, and cortisone injections. She gets alternating Synvisc and cortisone injections. This results in significant improvement in her pain. She had a cortisone injection 2 months ago with persistent pain. She requests Synvisc. No new trauma. No neurologic or hip complaints. PAIN LEVEL: 0 to 8/10. Past medical history, medications, and allergies reviewed. EXAM: Examination demonstrates a small effusion. Full extension, flexion to 120. Edin negative, stable to varus and valgus stress. There is some patellofemoral crepitation. Hip is negative. Neurologically intact. ASSESSMENT: 1. Left knee primary localized osteoarthritis. 2. Chondromalacia patella. PLAN: We are going to get approval for Synvisc as the combination of alternating Synvisc and cortisone injections offer significant pain relief. We are going to see her back after approval. Dictated By: Miguel Angel Ponce M.D. Date Dictated: 11/11/2018 Date Typed: [facility] 11/11/2018 JOB# [id number] [facility] CNOVon 09-09-2018 CNOV Office Visit (LOORRM ) SEVERORUTHIE Girard ([id number]) 1965 F Date Time Provider Department 09/09/18 10:45 AM SENA LICONA) LOORRBecca During your visit today, we recorded the following information about you: Sena Licona PA-C 09/09/2018 10:22 AM Signed This document has been created with the use of voice recognition technology. It may contain inaccuracies: misspellings, inaccurate syntax or word sense that escaped review. HISTORY: Ruthie is a 53 year old female. She is here following up for left knee pain from OA. She states there is no new injury or direct trauma. Her lubricant injection has helped for about 3-4 months. She comes in today requesting cortisone injection. Pain scale 7 out of 10. The patient's past medical history, surgical history, social history, family history, medications and allergies were reviewed with the patient today and are available in the chart for further review. EXAMINATION: Examination of the knee demonstrates the can be intact. No erythema. No ecchymosis. No Effusion. Active full extension, flexion to 120. Moderate Patellofemoral crepitation. Stable to varus and valgus stresses. Hip Exam is negative. Calf is soft and nontender. IMPRESSION: Encounter Diagnosis ICD-10-CM 1. Primary osteoarthritis of left knee M17.12 2. Chondromalacia of left patella M22.42 PROCEDURE NOTE: Ruthie CORDERO Medical Record: [id number] ? Provider : Sena Licona PA-C [facility] ? Prior to the procedure, the patient's allergies were reviewed. The procedure site was marked. The procedure team checked for proper functioning of devices and supplies to be used for the procedure. The procedure team reviewed the relevant diagnostic tests pertinent to the procedure. The risks, benefits and anticipated outcomes of the procedure, the risks and benefits of the alternatives to the procedure, and the roles and tasks of the personnel to be involved were discussed with the patient, who wished to proceed. ? Procedure details: The injection site was prepped in the usual sterile manner. Ethyl chloride mist spray was used to numb the skin. 4 cc of 1 % lidocaine and 40 mg of Kenalog was injected into the left Knee intraarticular . After the injection, a bandage was placed over the injection site. The patient tolerated the procedure well with no adverse effects. Post-injection instructions were reviewed with the patient and the patient voiced understanding of these instructions. ? Verbal health education was given to patient. Patient verbalizes understanding and agrees with the treatment plan as detailed above. ? ? Sena Licona PA-C PLAN: I injected her left knee with cortisone. Patient understands intervals between alternating between lubricant and cortisone injections. She like to avoid surgery. We'll see her back as symptoms dictate. Sena Licona PA-C Referring Provider: SELF [200] Allergies As of Date: 09/09/2018 Noted Allergy Reaction TRAMADOL 03/20/2014 4 - Hives 9 - Itching Date Reviewed: 09/09/2018 Reviewed by: Linda Perkins Ma - Fully Assessed Reason for Visit: Left Knee Pain [1208] Primary Visit Diagnosis:Primary osteoarthritis of left knee [M17.12] Other Visit Diagnosis:Chondromalaci a of left patella [M22.42] Order(s):lidocaine (PF) 10 mg/mL (1 %) 40 mg, triamcinolone acetonide 40 mgDisp: Rfl: Prescriptions as of 09/09/2018 Sig: OXYCODONE-ACETAMINOPHEN 5 MG-* LISINOPRIL 20 MG TABLET NAPROXEN 500 MG TABLET Problem List As Of Date 09/09/2018 Noted Resolved Internal derangement of left knee [M23.92] INVALID FOR* Primary osteoarthritis of left knee [M17.12] INVALID FOR* 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 Author Type: Physician Senior Formulation Scientist Type: Progress Notes Filed: 09/09/2018 10:22 AM Note Text: This document has been created with the use of voice recognition technology. It may contain inaccuracies: misspellings, inaccurate syntax or word sense that escaped review. HISTORY: Ruthie is a 53 year old female. She is here following up for left knee pain from OA. She states there is no new injury or direct trauma. Her lubricant injection has helped for about 3-4 months. She comes in today requesting cortisone injection. Pain scale 7 out of 10. The patient's past medical history, surgical history, social history, family history, medications and allergies were reviewed with the patient today and are available in the chart for further review. EXAMINATION: Examination of the knee demonstrates the can be intact. No erythema. No ecchymosis. No Effusion. Active full extension, flexion to 120. Moderate Patellofemoral crepitation. Stable to varus and valgus stresses. Hip Exam is negative. Calf is soft and nontender. IMPRESSION: Encounter Diagnosis ICD-10-CM 1. Primary osteoarthritis of left knee M17.12 2. 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 Provider : Sena Licona PA-C [facility] ? Prior to the procedure, the patient's allergies were reviewed. The procedure site was marked. The procedure team checked for proper functioning of devices and supplies to be used for the procedure. The procedure team reviewed the relevant diagnostic tests pertinent to the procedure. The risks, benefits and anticipated outcomes of the procedure, the risks and benefits of the alternatives to the procedure, and the roles and tasks of the personnel to be involved were discussed with the patient, who wished to proceed. ? Procedure details: The injection site was prepped in the usual sterile manner. Ethyl chloride mist spray was used to numb the skin. 4 cc of 1 % lidocaine and 40 mg of Kenalog was injected into the left Knee intraarticular . After the injection, a bandage was placed over the injection site. The patient tolerated the procedure well with no adverse effects. Post-injection instructions were reviewed with the patient and the patient voiced understanding of these instructions. ? Verbal health education was given to patient. Patient verbalizes understanding and agrees with the treatment plan as detailed above. ? ? Sena Licona PA-C PLAN: I injected her left knee with cortisone. Patient understands intervals between alternating between lubricant and cortisone injections. She like to avoid surgery. We'll see her back as symptoms dictate. Sena Licona PA-C Normal [facility] Vital Signs Date Time Vital Sign Value Performing Clinician Facility 01-25-2023 09:25-0500 Body height 167.64 cm Jet Douglass Other [facility] Other 01-25-2023 09:25-0500 Body mass index (BMI) [Ratio] 26.63 kg/m2 [facility] [place] Other [facility] Other 01-25-2023 09:25-0500 Body temperature 98 [degF] Jet [place] Other [facility] Other 01-25-2023 09:25-0500 Body weight 74.84 kg Jet Douglass Other [facility] Other 01-25-2023 09:25-0500 Respiratory rate 18 /min Jet Douglass Other [facility] Other 01-25-2023 09:25-0500 SaO2% (BldA) [Mass fraction] 97 % Jet Douglass Other [facility] Other 10-26-2022 08:50-0400 Diastolic blood pressure 103 mm[Hg] Mariama [facility]ry [facility] 10-26-2022 08:50-0400 Heart rate 62 /min Mariama [facility] 10-26-2022 08:50-0400 Mean blood pressure 116 mm[Hg] Mariama [facility] 10-26-2022 08:50-0400 Respiratory rate 18 /min Mariama [facility] 10-26-2022 08:50-0400 Systolic blood pressure 142 mm[Hg] Mariama [facility]ry [facility] 10-13-2022 15:00-0400 Heart rate 73 /min Gerard Forbes [facility] 10-13-2022 15:00-0400 SaO2% (BldA) [Mass fraction] 98 % Gerard Leidy [facility] 10-13-2022 15:00-0400 Diastolic blood pressure 83 mm[Hg] Gerard Leidy [facility] 10-13-2022 15:00-0400 Mean blood pressure 100 mm[Hg] Gerardsheldon Forbes [facility] 10-13-2022 15:00-0400 Systolic blood pressure 135 mm[Hg] Gerard Leidy [facility] 10-13-2022 14:59-0400 Respiratory rate 16 /min Gerard Leidy [facility] 10-13-2022 14:53-0400 Diastolic blood pressure 91 mm[Hg] Gerard Leidy [facility] 10-13-2022 14:53-0400 Heart rate 85 /min Gerard Leidy [facility] 10-13-2022 14:53-0400 Respiratory rate 14 /min Gerard Leidy [facility] 10-13-2022 14:53-0400 SaO2% (BldA) [Mass fraction] 97 % Gerard Leidy [facility] 10-13-2022 14:53-0400 Systolic blood pressure 145 mm[Hg] Gerard Leidy [facility] 10-13-2022 14:21-0400 Heart rate 79 /min Gerard Leidy [facility] 10-13-2022 14:21-0400 SaO2% (BldA) [Mass fraction] 99 % Gerard Leidy [facility] 10-13-2022 14:20-0400 Diastolic blood pressure 88 mm[Hg] Gerard Leidy [facility] 10-13-2022 14:20-0400 Mean blood pressure 104 mm[Hg] Gerard Leidy [facility] 10-13-2022 14:20-0400 Systolic blood pressure 137 mm[Hg] Gerard Leidy [facility] 10-13-2022 14:20-0400 Body temperature 97.88 [degF] Gerard Forbes [facility] 10-13-2022 14:20-0400 Respiratory rate 15 /min Gerard Forbes [facility] 09-22-2022 09:23-0400 Diastolic blood pressure 88 mm[Hg] Mariama Mesa [facility] 09-22-2022 09:23-0400 Heart rate 69 /min Mariama Mesa [facility] 09-22-2022 09:23-0400 Mean blood pressure 105 mm[Hg] Mariama Mesa [facility] 09-22-2022 09:23-0400 Respiratory rate 15 /min Mariama Mesa [facility] 09-22-2022 09:23-0400 Systolic blood pressure 139 mm[Hg] Mariama Mesa [facility] 09-07-2022 13:06-0400 Diastolic blood pressure 73 mm[Hg] Mariama Mesa [facility] 09-07-2022 13:06-0400 Heart rate 91 /min Mariama Mesa [facility] 09-07-2022 13:06-0400 Mean blood pressure 88 mm[Hg] Mariama Mesa [facility] 09-07-2022 13:06-0400 Respiratory rate 14 /min Mariama Mesa [facility] 09-07-2022 13:06-0400 Systolic blood pressure 118 mm[Hg] Mariama Mesa [facility] 10-28-2021 14:09-0400 Body temperature 98.24 [degF] Angie Latrellmarah [facility] 10-28-2021 14:09-0400 Diastolic blood pressure 93 mm[Hg] [facility] 10-28-2021 14:09-0400 Heart rate 79 /min [facility] 10-28-2021 14:09-0400 Respiratory rate 18 /min [facility] 10-28-2021 14:09-0400 SaO2% (BldA) [Mass fraction] 97 % [facility] 10-28-2021 14:09-0400 Systolic blood pressure 141 mm[Hg] [facility] 06-16-2021 10:30-0400 Body height 167.64 cm Jet Douglass Other [facility] Other 06-16-2021 10:30-0400 Body mass index (BMI) [Ratio] 26.63 kg/m2 Jet Douglass Other [facility] Other 06-16-2021 10:30-0400 Body temperature 97.9 [degF] Jet Douglass Other [facility] Other 06-16-2021 10:30-0400 Body weight 74.84 kg Jet Douglass Other [facility] Other 06-16-2021 10:30-0400 Respiratory rate 18 /min Jet Douglass Other [facility] Other 06-16-2021 10:30-0400 SaO2% (BldA) [Mass fraction] 99 % Jet Douglass Other [facility] Other Encounters Encounter Date Encounter Type Care Provider Facility Start: 01-25-2023 End: 01-25-2023 ambulatory Jet Douglass Other [facility] Other Start: 01-25-2023 Office outpatient visit 15 minutes Jet Douglass [facility] [address] Start: 12-14-2022 End: 12-15-2022 [facility] Start: 11-30-2022 End: 12-01-2022 ambulatory Geovani Dias MD Facility:[facility] Start: 10-26-2022 End: 10-27-2022 ambulatory PA-C Mariama Mesa Facility:[facility] Start: 10-26-2022 End: 10-26-2022 Pain Management Mariama Mesa [facility] Start: 10-13-2022 End: 10-14-2022 ambulatory Gerard Forbes Facility:[facility] [place] [facility] Start: 10-13-2022 End: 10-13-2022 Pain Management Gerard Forbes [facility] Start: 09-22-2022 End: 09-23-2022 ambulatory PA-C Mariama Mesa Facility:[facility] [place] [facility] Start: 09-22-2022 End: 09-22-2022 Pain Management Mariama Mesa [facility] Start: 09-21-2022 End: 09-21-2022 Emergency department patient visit Norman Chiu Facility:[facility] [place] Start: 09-07-2022 End: 09-08-2022 ambulatory Mariama Mesa Facility:[facility] [place] Start: 09-07-2022 End: 09-08-2022 ambulatory Mariama Mesa Facility:[facility] [place] Start: 09-07-2022 End: 09-07-2022 Patient encounter procedure Mariama Mesa [facility] Start: 09-07-2022 End: 09-07-2022 Pain Management Mariama Mesa [facility] Start: 05-16-2022 End: 05-16-2022 Emergency department patient visit Angie Rosario Facility:[facility] [place] Start: 10-28-2021 End: 10-28-2021 [facility] Start: 06-16-2021 End: 06-16-2021 ambulatory Jet Douglass Other [facility] Other Start: 06-16-2021 Office outpatient visit 15 minutes Jet Douglass [facility] [address] Start: 05-16-2021 End: 05-16-2021 Patient encounter procedure [facility] Work Phone: [facility] Procedures Date Procedure Procedure Detail Performing Clinician Start: 10-13-2022 Injection of knee us ing fluoroscopic guidance Mariama Mesa Comment on above: Right Genicular Nerv e Block-75% relief x 4 days Start: 05-16-2021 Screening mammograph y of bilateral breasts [facility] Work Phone: Start: 06-14-2019 Chronic pain followi ng right total knee arthroplasty Mariama Mesa Start: 06-12-2019 Antibody screen Comment on above: Performed By: #### T [id number] #### [place] [id number] Start: 06-12-2019 Electrocardiogram Start: 07-14-2018 [facility] total [facility] Carole Tamar ri Intracranial [facility]disorder) [facility] Immunizations Immunization Date Immunization Notes Care Provider Fa cility 10-28-2021 tetanus toxoid, redu jerrell diphtheria toxoid, and acellular pertussis vaccine, adsorbed [facility] 05-24-2020 COVID-19, mRNA, LNP- S, PF, 30 mcg/0.[address] [facility] Comment on above: Reason for Medicatio n: Prophylaxis 04-26-2020 COVID-19, mRNA, LNP- S, PF, 30 mcg/0.3 mL dose Angie Rosario [facility] Comment on above: Reason for Medicatio n: Prophylaxis Payers Date Payer Category Payer Medicaid [id number] 2022 Unknown 1965 Unknown [id number] 2.16.8 [id number] 1965 Unknown [id number] 2.16.8 [id number] 1965 Unknown [id number] 2.16.8 [id number] 1965 Unknown [id number] 2.16.8 [id number] 1965 Unknown [id number] 2.16.8 [id number] 1965 Unknown [id number] 2.16.8 [id number] 1965 Unknown [id number] 2.16.8 [id number] 1965 Unknown [id number] 2.16. [id number] 1965 Unknown [id number] 2.16. [id number] Self-pay Self Pay [id number] Unknown Self Pay [id number] Unknown [id number] 2.1 [id number] Social History Date Type Detail Facility [facility]: [facility]-12-2017 [facility] Start: 1965 Sex Assigned At Female F [facility] Sex Assigned At [facility] Other Start: 07-10-2019 Tobacco smoking status Ex-smoker (fi nding) [facility] Start: 09-07-2022 Tobacco smoking status Light t obacco smoker (finding) [facility] Functional Status Date Assessment Result Facility 10-26-2022 Functional Status N/A [facility] 10-13-2022 Functional Status N/A [facility] 09-22-2022 Functional Status N/A [facility] 09-07-2022 Functional Status N/A [facility] 10-28-2021 Functional Status N/A [facility] Clinical Notes 09-30-2012 to 01-25-2023 Note Date & Type Note Facility 01-25-2023 Evaluation note Encounter Date Diagnosis Assessment Notes Jan, Cough (ICD-10 - R05.9) Jan, Acute non-recurrent sinusitis, unspecified location (ICD-10 - J01.90) Even though covid test positive, I believe she may be developing early sinusitis. Drink plenty of fluids and get plenty of rest. If symptoms worsen or do not improve in 5-7 days, return to urgent care if you can not get in to see your pcp. Take tylenol as needed. [facility] Other 09-18-2023 Evaluation + Plan noteExtracted from: Title:Pain Managment Follow up Author:Mariama Adkins Date:10/26/22 Impression and Plan Patient is a 57-year-old female with a past medical history significant for right knee arthritis and right knee pain. Recent right genicular nerve block done on 10/13/2022 gave her 75 to 80% relief for 4 days. She was better able to do things. She was able to walk further and stand longer. Her quality of life was improved. She would like to get this amount of pain relief long-term. Thus far, this has been the thing to give her the most significant improvement. We discussed the right genicular RFA. This to be done under fluoroscopy procedure was discussed at length. Risks and benefits were discussed. She is agreeable. She would like to do this soon as possible. She also wonders about getting a refill of the Percocet just to get her to the RFA. I reviewed her OARRS and UDS. Both were appropriate. Narcan was offered and declined and a refill of Percocet #21 pills was given to her to last to the RFA. Patient is going to follow-up 3 weeks after the RFA for reevaluation. Call the clinic sooner if necessary. CADENCE score: 36% [facility]09-05-2023 Note [id number]:127[facility] 09-22-2022 Evaluation + Plan noteExtracted from: Title:Pain Managment Follow up Author:Mariama Adkins Date:09/22/22 Impression and Plan Patient is a 57-year-old female with a past medical history significant for right knee pain, loose body on x-ray, and right knee arthritis. She saw her previous orthopedic surgeon who did her left knee and he did not recommend right knee surgery to her. She was happy to hear this but she is having a lot of pain. She is scheduled for a right-sided genicular nerve block in October but she is here today to discuss options because she has a trip in 10 days and she is not sure if she is going to build to pursue it because of the pain. She states that she is supposed to be going to [place] for a baby shower. She is going to be gradient for the first time and she would really like to go but unfortunate, she has so much pain she is not sure what to do. She has right knee pain that she rates a 10/10. Difficulty with any sort of movement. Difficulty with ambulation. We once again reviewed her x-ray. I would recommend her to pursue the right-sided genicular nerve block and follow-up after as scheduled but in the meantime we are going to have her trial a Medrol Dosepak and I gave her a small supply of Percocet. She uses in the past with good relief. She is previously used Medrol with good relief. Has been over 4 months. She is aware of the risks. I told her that the small supply of Percocet needs to make it to the procedure as I will not refill this. She voiced understanding. Most recent UDS was reviewed. OARRS was reviewed and is appropriate. Narcan was offered and declined. She is going to follow-up after the procedure. Call clinic sooner if necessary. CADENCE score: 34% Future Appointments Appointment Date:10/13/2022 03:15:00 PM Scheduled Provider: Location:[facility] Appointment Type:Surgery FT Appointment Date:10/26/2022 09:00:00 AM Scheduled Provider:Mariama Mesa PA-C Location:.[facility] [place] Appointment Type:Pain Management - Follow Up (FT) [facility]07-31-2023 Evaluation + Plan noteExtracted from: Title:Pain Managment H&P new patient Author:Mariama Vital PA-C Date:09/07/22 Impression and Plan Patient is a 57-year-old female with a past medical history significant for right knee pain and right knee arthritis. Unfortunate, the right knee pain and right knee arthritis is very debilitating to her. She states that she cannot do anything because of the pain. She rates it a 10/10. Affects her ambulatory status. It affects her quality of life and activities of daily. It affects her ability to get comfortable. We reviewed her previous x-rays. I would like to obtain Dr. Ponce's notes as she states that she saw him and he did not recommend surgery but she did have some sort of injection which she thinks was back in July. She wondered about getting another injection today. I would like to obtain these records first. We reviewed the x-ray and I discussed with patient a right genicular nerve block for diagnostic purposes. If she gets significant short-term relief she may be a future candidate for RFA. Procedure was discussed. Risk and benefits were discussed. Patient is agreeable. She will follow-up 2 weeks after the injection for reevaluation. Call the clinic sooner if necessary. In the meantime she wonders what she can get to help with the pain. I recommended starting Lyrica 25 mg twice daily and we will obtain a UDS. CADENCE score: 38% [facility]09-20-2022 Hospital Discharge instructions Patient Education 10/28/2021 15:07:50 Corneal Abrasion, Kask-ar-Zytv Corneal Abrasion A corneal abrasion is a scratch or injury to the clear covering over the front of your eye (cornea). This can be painful. It is important to get treatment for a corneal abrasion. If this problem is not treated, it can affect your eyesight (vision). What are the causes? A inspector glass or mirror the eye. An object in the eye. Too much eye rubbing. Very dry eyes. Certain eye infections. Contact lenses that do not fit right or are worn for too long. You can also injure your cornea whenputting contact lenses in your eye or taking them out. Eye surgery. Certain cornea problems may increase the chance of a corneal abrasion. Sometimes, the cause is not known. What are the signs or symptoms? Eye pain. The pain may get worse when you open and close your eye or when you move your eye. A feeling of something stuck in your eye. Tearing, redness, and sensitivity to light. Having trouble keeping your eye open, or not being able to keep it open. Blurred vision. Headache. How is this diagnosed? You may work with a health care provider who specializes in conditions of the eye (seaman). This condition may be diagnosed based on your medical history, symptoms, and an eye exam. How is this treated? Washing out your eye. Removing anything that is stuck in your eye. Using antibiotic drops or ointment to treat or prevent an infection. Using a dilating drop to decrease irritation, swelling, and pain. Using steroid drops or ointment to treat redness, irritation, or swelling. Applying a cold, wet cloth (cold compress) or ice pack to ease the pain Taking pain medicine by mouth. In some cases, an eye patch or bandage soft contact lens might also be used. An eye patch should not be used if the corneal abrasion was related to contact lens wear as it can increase the chance of infection in these eyes. Follow these instructions at home: Medicines Use eye drops or ointments as told by your doctor. If you were prescribed antibiotic drops or ointment, use them as told by your doctor. Do not stop using the antibiotic even if you start to feel better. Take gjdc-czh-cqezvkk and prescription medicines only as told by your doctor. Ask your doctor if the medicine prescribed to you: ?Requires you to avoid driving or using heavy machinery. ?Can cause trouble pooping (constipation). You may need to take these actions to prevent or treat trouble pooping: ?Drink enough fluid to keep your pee (urine) pale yellow. ?Take hqep-jmd-pbgicuf or prescription medicines. ?Eat foods that are high in fiber. These include beans, whole grains, and fresh fruits and vegetables. ?Limit foods that are high in fat and processed sugars. These include fried or sweet foods. Using an eye patch If you have an eye patch, wear it as told by your doctor. Do not drive or use machinery while wearing an eye patch. Follow instructions from your doctor about when to take off the patch. General instructions Ask your doctor if you can use a cold, wet cloth on your eye to help with pain. Do not rub or touch your eye. Do not wash out your eye. Do not wear contact lenses until your doctor says that this is okay. Avoid bright light. Avoid straining your eyes. Keep all follow-up visits as told by your doctor. Doing this can help to prevent infection and lossof eyesight. Contact a doctor if: You keep having eye pain and other symptoms for more than 2 days. You get new symptoms, such as more redness, watery eyes, or discharge. You have discharge that makes your eyelids stick together in the morning. Your eye patch becomes so loose that you can blink your eye. Symptoms come back after your eye heals. Get help right away if: You have very bad eye pain that does not get better with medicine. You lose eyesight. Summary A corneal abrasion is a scratch or injury to the clear covering over the front of the eye (cornea). It is important to get treatment for a corneal abrasion. If this problem is not treated, it can affect your eyesight (vision). Use eye drops or ointments as told by your doctor. If you have an eye patch, do not drive or use machinery while wearing it. Let your doctor know if your symptoms last for more than 2 days. This information is not intended to replace advice given to you by your health care provider. Make sure you discuss any questions you have with your health care provider. Document Released: 07/13/2008 Document Revised: 06/02/2019 Document Reviewed: 06/02/2019 Elsevier Patient Education 2020 [employer] Follow Up Care 10/28/2021 14:09:12 With:Live Godinez DO Address: [facility] [address], [place] [address] [place] [phone] When:3 to 5 days [facility]09-20-2022 Evaluation + Plan noteExtracted from: Title:ED Note Author:Ishan HARDY, Sarah Samuels ate:10/28/21 1. Right corneal abrasion (S 05.01XA: Injury of conjunctiva and corneal abrasion without foreign body, right eye, initial encounter) Ordered: polymyxin B-trimethoprim ophthalmic, 1 drop(s), Eye-Right, q3hr for 7 day(s), 10 mL, Refill(s) 0, q3 hr while awake not to exceed 6 doses/day, DSI MET-TECH #24, 165, cm, 10/28/21 14:14:00 EDT, Height/Length Dosing, 75.8, kg, 10/28/21 14:14:00 EDT, Weight Dosing 2. Encounter for immunization (Z23: Encounter for immunization) Orders: fluorescein ophthalmic, 1 mg, 1 EA, Test, OPTH, Once, Stop date 10/28/21 14:24:00 EDT, STAT, Start date 10/28/21 14:24:00 EDT tetanus-diphtheria toxoids (Td), 0.5 mL, Susp-Inj, Intramuscular-Immunization, Once, Stop date 10/28/21 15:06:00 EDT, STAT, Start date 10/28/21 15:06:00 EDT tetracaine ophthalmic, 2 drop(s), Soln-Opth, Eye-Right, Once, Stop date 10/28/21 14:24:00 EDT, STAT, Start date 10/28/21 14:24:00 EDT Visual Acuity Screening [facility]05-09-2022 Evaluation note* Encounter Date Diagnosis Assessment Notes Treatment Notes Treatment Clinical Notes June, Acute non-recurrent maxillary sinusitis (ICD-10 - J01.00) Take medications as needed. If your symptoms do not improve in 3-5 days, then follow up with your pcp. Drink plenty of fluids and get plenty of rest. 56 y/o female who believes she has a sinus bacterial infection. She states that I get these a few times per year and this feels exactly like a sinus infection. DDx includes bacterial sinusitis, viral uri, covid, influenza, and allergic rhinosinusitis. Pt would like to start atbs today. I suspect she may have early onset bacterial sinusitis given her history of it. I educate her about the risks vs benefits of atbs. She understands and would like to start atbs. I feel this is not unreasonable. Will prescribe her augmentin and she requests liquid cough medicine for the night and tessalon pearles during the day. This is reasonable. Given strict return precautions. She understands and agrees with the plan. June, Cough (ICD-10 - R05.9) [employer] Other 08-23-2013 History general Narrative - Reported* Type Description Date Medical History CHRONIC KNEE PAIN Medical History ANXIETY Medical History CHOLECYSTECTOMY Medical History LT SIDED HEMIPARESIS Medical History stroke Medical History 09/30/12 CRANIECTOMY-DR. BURNETT Surgical History DR. BURNETT -CRANIECTOMY 09/30/12 Surgical History CHOLECYSTECTOMY 1998 Surgical History pyloric stenosis Dr Benavides thre e days old 1966 Hospitalization History SEE ABOVE SUREGRY [employer] Other Evaluation + Plan note Future Appointments Appointment Date:10/26/2022 09:00:00 AM Scheduled Provider:Mariama Mesa PA-C Location:[facility] Appointment Type:Pain Management - Follow Up (FT) [facility] information available [facility] Work Phone: Hospital course Narrative No data available for this section [facility] No data available for this section [facility] No data available for this section [facility] Summary Purpose Family History No Family History Records FoundNo Family History Records FoundNo Family History Records FoundNo Family History Records FoundNo Family History Records Found Advance Directives Advance Directive Response Recorded Date/ Time Advance Directives No October 4:07pm Hospital Course Note HNO ID: [id number] Author: Britni Landers) Livan Service: Orthopaedic Surgery Author Type: Physician Senior Formulation Scientist Type: Discharge Summary Filed: 06/15/2019 11:22 AM Note Text: Attestation signed by Miguel Angel Ponce at 06/15/2019 11:54 AM I have personally performed face to face diagnostic evaluation on this patient. I have examined the patient and reviewed radiographic studies and agree with plan as outlined above. Miguel Angel oPnce MD June 15, 2019 11:54 AM DISCHARGE SUMMARY Patient Name: Ruthie CORDERO : 1965 ADMISSION DATE: 06/14/2019 DISCHARGE DATE: 06/15/2019 Attending Physician: Miguel Angel Ponce Primary Diagnosis: Primary osteoarthritis of left knee [M17.12] Operations During Hospitalization: Procedure(s) (LRB): ARTHROPLASTY REPLACE JOINT TOTAL KNEE (Left) Procedures During Hospitalization: No procedures performed Hospi (more content not included)... Note HNO ID: [id number] Author: Arvind Ayala Service: ? Author Type: Nurse Technology Development Intern Type: Anesthesia Procedure Notes Filed: 06/14/2019 9:14 AM Note Text: ANESTHESIOLOGY PROCEDURE NOTE Spinal Block General Information SIGNATURE: Maria Del Rosario Ayala APRN.CRNA PATIENT NAME: Ruthie CORDERO DATE: June 14, 2019 TIME: 9:12 AM CSN: [id number] Note HNO ID: [id number] Author: Arvind yAala Service: ? Author Type: Nurse Technology Development Intern Type: Anesthesia Procedure Notes Filed: 06/14/2019 9:17 AM Note Text: ANESTHESIOLOGY PROCEDURE NOTE Spinal Block General Information Procedure Start Time/Medication Administration: 06/14/2019 9:03 AM Staffing BUILDING SUPPLIES SALESPERSON RETAIL: Maria Del Rosario Ayala SIGNATURE: Maria Del Rosario Ayala APRN.CRNA PATIENT NAME: Ruthie CORDERO DATE: June 14, 2019 TIME: 9:16 AM CSN: [id number] Note HNO ID: [id number] Author: Arvind Ayala Service: ? Author Type: Nurse Technology Development Intern Type: Anesthesia Procedure Notes Filed: 06/14/2019 9:19 AM Note Text: ANESTHESIOLOGY PROCEDURE NOTE Spinal Block General Information Procedure Start Time/Medication Administration: 06/14/2019 9:05 AM Patient location during procedure: ORTimeout Performed Pre-procedure: timeout performed Consent Obtained: Yes (via Surgical Consent) Patient identity confirmed: arm band Reason for Block: primary surgical anesthetic Staffing BUILDING SUPPLIES SALESPERSON RETAIL: Maria Del Rosario Ayala Preparation Sterility Preparation: hand hygiene performed prior to procedure, surgical cap used, mask used, sterile drape used during line insertion, skin prep agent completely dried prior to procedure Site Prep: Duraprep Procedure Details Patient Position: sitting Monitoring: Pulse Ox and NIBP Approach: Midline Location: L3-4 and L4-5 Injection Technique: single-shot Needle Needle Type: pencil-tip Needle Gauge: 25 G Needle Length: 3.5 in Asse (more content not included)... Note HNO ID: [id number] Author: Arvind Ayala Service: ? Author Type: Nurse Technology Development Intern Type: Anesthesia Procedure Notes Filed: 06/14/2019 9:32 AM Note Text: ANESTHESIOLOGY PROCEDURE NOTE Peripheral Nerve Block General Information Procedure Start Time/Medication Administration: 06/14/2019 9:10 AM Patient location during procedure: ORTimeout Performed Pre-procedure: timeout performed Consent Obtained: Yes (via Surgical Consent) Patient identity confirmed: patient sedated or unresponsive and arm band Reason for block: post-op pain management/at surgeon's request Staffing Anesthesiologist: Christy Gutierrez Performed by: anesthesiologist Preparation Sterility Preparation: hand hygiene performed prior to procedure, surgical cap used, mask used, sterile drape used during line insertion, skin prep agent completely dried prior to procedure Site Prep: Chloraprep Pre-Procedure Neuro Exam Location: LLE Sensory: sensory deficit and Spinal anesthesia Motor: pre-existing condition and Spinal anesth (more content not included)... Note HNO ID: [id number] Author: Arvind Baldwin) Jamie Service: ? Author Type: Nurse Technology Development Intern Type: Anesthesia Procedure Notes Filed: 06/14/2019 9:49 AM Note Text: ANESTHESIOLOGY PROCEDURE NOTE Spinal Block General Information Procedure Start Time/Medication Administration: 06/14/2019 9:03 AM Patient location during procedure: ORTimeout Performed Pre-procedure: timeout performed Consent Obtained: Yes (via Surgical Consent) Patient identity confirmed: arm band Reason for Block: primary surgical anesthetic Staffing BUILDING SUPPLIES SALESPERSON RETAIL: Maria Del Rosario Ayala Preparation Sterility Preparation: hand hygiene performed prior to procedure, surgical cap used, mask used, sterile drape used during line insertion, skin prep agent completely dried prior to procedure Site Prep: Duraprep Procedure Details Patient Position: sitting Monitoring: Pulse Ox and NIBP Approach: Midline Location: L3-4 and L4-5 Injection Technique: single-shot Needle Needle Type: pencil-tip Needle Gauge: 25 G Needle Length: 3.5 in Asse (more content not included)... Note HNO ID: [id number] Author: Arvind Ayala Service: ? Author Type: Nurse Technology Development Intern Type: Anesthesia Procedure Notes Filed: 06/14/2019 10:06 AM Note Text: ANESTHESIOLOGY PROCEDURE NOTE Spinal Block General Information Procedure Start Time/Medication Administration: 06/14/2019 9:03 AM Patient location during procedure: ORTimeout Performed Pre-procedure: timeout performed Consent Obtained: Yes Patient identity confirmed: arm band Reason for Block: primary surgical anesthetic Staffing BUILDING SUPPLIES SALESPERSON RETAIL: Maria Del Rosario Ayala Performed by: BUILDING SUPPLIES SALESPERSON RETAIL Preparation Sterility Preparation: hand hygiene performed prior to procedure, surgical cap used, mask used, sterile drape used during line insertion, skin prep agent completely dried prior to procedure Site Prep: Duraprep Procedure Details Patient Position: sitting Monitoring: Pulse Ox and NIBP Approach: Midline Location: L3-4 and L4-5 Injection Technique: single-shot Needle Needle Type: pencil-tip Needle Gauge: 25 G Needle Length: 3.5 in Assessm (more content not included)... Procedure Findings Note HNO ID: [id number] Author: Arvidn Ayala Service: ? Author Type: Nurse Technology Development Intern Type: Anesthesia Procedure Notes Filed: 06/14/2019 9:14 AM Note Text: ANESTHESIOLOGY PROCEDURE NOTE Spinal Block General Information SIGNATURE: Maria Del Rosario Ayala, WIND ENERGY TECHNICIAN.BUILDING SUPPLIES SALESPERSON RETAIL PATIENT NAME: Ruthie CORDERO DATE: June 14, 2019 TIME: 9:12 AM CSN: [id number] Note HNO ID: [id number] Author: Arvind Ayala Service: ? Author Type: Nurse Technology Development Intern Type: Anesthesia Procedure Notes Filed: 06/14/2019 9:17 AM Note Text: ANESTHESIOLOGY PROCEDURE NOTE Spinal Block General Information Procedure Start Time/Medication Administration: 06/14/2019 9:03 AM Staffing BUILDING SUPPLIES SALESPERSON RETAIL: Maria Del Rosario Ayala SIGNATURE: Maria Del Rosario Ayala APRN.CRNA PATIENT NAME: Ruthie CORDERO DATE: June 14, 2019 TIME: 9:16 AM CSN: [id number] Note HNO ID: [id number] Author: Arvind Ayala Service: ? Author Type: Nurse Technology Development Intern Type: Anesthesia Procedure Notes Filed: 06/14/2019 9:19 AM Note Text: ANESTHESIOLOGY PROCEDURE NOTE Spinal Block General Information Procedure Start Time/Medication Administration: 06/14/2019 9:05 AM Patient location during procedure: ORTimeout Performed Pre-procedure: timeout performed Consent Obtained: Yes (via Surgical Consent) Patient identity confirmed: arm band Reason for Block: primary surgical anesthetic Staffing BUILDING SUPPLIES SALESPERSON RETAIL: Maria Del Rosario Ayala Preparation Sterility Preparation: hand hygiene performed prior to procedure, surgical cap used, mask used, sterile drape used during line insertion, skin prep agent completely dried prior to procedure Site Prep: Duraprep Procedure Details Patient Position: sitting Monitoring: Pulse Ox and NIBP Approach: Midline Location: L3-4 and L4-5 Injection Technique: single-shot Needle Needle Type: pencil-tip Needle Gauge: 25 G Needle Length: 3.5 in Asse (more content not included)... Note HNO ID: [id number] Author: Arvind Ayala Service: ? Author Type: Nurse Technology Development Intern Type: Anesthesia Procedure Notes Filed: 06/14/2019 9:32 AM Note Text: ANESTHESIOLOGY PROCEDURE NOTE Peripheral Nerve Block General Information Procedure Start Time/Medication Administration: 06/14/2019 9:10 AM Patient location during procedure: ORTimeout Performed Pre-procedure: timeout performed Consent Obtained: Yes (via Surgical Consent) Patient identity confirmed: patient sedated or unresponsive and arm band Reason for block: post-op pain management/at surgeon's request Staffing Anesthesiologist: Christy Gutierrez Performed by: anesthesiologist Preparation Sterility Preparation: hand hygiene performed prior to procedure, surgical cap used, mask used, sterile drape used during line insertion, skin prep agent completely dried prior to procedure Site Prep: Chloraprep Pre-Procedure Neuro Exam Location: LLE Sensory: sensory deficit and Spinal anesthesia Motor: pre-existing condition and Spinal anesth (more content not included)... Note HNO ID: [id number] Author: Arvind Ayala Service: ? Author Type: Nurse Technology Development Intern Type: Anesthesia Procedure Notes Filed: 06/14/2019 9:49 AM Note Text: ANESTHESIOLOGY PROCEDURE NOTE Spinal Block General Information Procedure Start Time/Medication Administration: 06/14/2019 9:03 AM Patient location during procedure: ORTimeout Performed Pre-procedure: timeout performed Consent Obtained: Yes (via Surgical Consent) Patient identity confirmed: arm band Reason for Block: primary surgical anesthetic Staffing BUILDING SUPPLIES SALESPERSON RETAIL: Maria Del Rosario Ayala Preparation Sterility Preparation: hand hygiene performed prior to procedure, surgical cap used, mask used, sterile drape used during line insertion, skin prep agent completely dried prior to procedure Site Prep: Duraprep Procedure Details Patient Position: sitting Monitoring: Pulse Ox and NIBP Approach: Midline Location: L3-4 and L4-5 Injection Technique: single-shot Needle Needle Type: pencil-tip Needle Gauge: 25 G Needle Length: 3.5 in Asse (more content not included)... Note HNO ID: [id number] Author: Arvind Ayala Service: ? Author Type: Nurse Technology Development Intern Type: Anesthesia Procedure Notes Filed: 06/14/2019 10:06 AM Note Text: ANESTHESIOLOGY PROCEDURE NOTE Spinal Block General Information Procedure Start Time/Medication Administration: 06/14/2019 9:03 AM Patient location during procedure: ORTimeout Performed Pre-procedure: timeout performed Consent Obtained: Yes Patient identity confirmed: arm band Reason for Block: primary surgical anesthetic Staffing BUILDING SUPPLIES SALESPERSON RETAIL: Maria Del Rosario Ayala Performed by: BUILDING SUPPLIES SALESPERSON RETAIL Preparation Sterility Preparation: hand hygiene performed prior to procedure, surgical cap used, mask used, sterile drape used during line insertion, skin prep agent completely dried prior to procedure Site Prep: Duraprep Procedure Details Patient Position: sitting Monitoring: Pulse Ox and NIBP Approach: Midline Location: L3-4 and L4-5 Injection Technique: single-shot Needle Needle Type: pencil-tip Needle Gauge: 25 G Needle Length: 3.5 in Assessm (more content not included)... Chief Complaint and Reason for Visit Chief Complaint z12.31 Additional Source Comments INFORMATION SOURCE (unrecogn ized section and content) DATE CREATED AUTHOR 06/25/2019 [facility] DATE CREATED AUTHOR AUTHOR'S ORGANIZ ATION 07/25/2019 [facility] DATE CREATED AUTHOR AUTHOR'S ORGANIZ ATION 05/30/2021 [facility] DATE CREATED AUTHOR AUTHOR'S ORGANIZ ATION 11/13/2022 [facility] DATE CREATED AUTHOR AUTHOR'S ORGANIZ ATION 12/20/2022 [facility] Care Teams (unrecognized sec tion and content) Team Status: Inactive Member Role Status Dates [facility] Primary Care Provider Active Pavithra Briseno ([facility]) , WIND ENERGY TECHNICIAN Attending Provider Active Team Status: Active Member Role Status Dates [facility] Primary Care Provider Active Goals (unrecognized section and content) Goals may be documented in a n alternate sectionNo Information No data available for this section No data available for this section No data available for this section No data available for this section No data available for this section No data available for this sectionNo Information REASON FOR VISIT (unrecogniz ed section and content) congestion, coughCOUGH, JOSEPH ESTION FOR RECORDS PERTAINING TO PATIENTS WHO ARE OR HAVE BEEN ENROLLED IN A CHEMICAL DEPENDENCY/SUBSTANCEABUSE PROGRAM, SOME INFORMATION MAY BE OMITTED. This clinical summary was aggregated from multiple sources. Caution should be exercised in using it in the provision of clinical care. This summary normalizes information from multiple sources, and as a consequence, information in this document may materially change the coding, format and clinical context of patient data. In addition, data may be omitted in some cases. CLINICAL DECISIONS SHOULD BE BASED ON THE PRIMARY CLINICAL RECORDS. [employer] provides no warranty or guarantee of the accuracy or completeness of information in this document.
--- NOTE | 2023-02-15 13:31 | P.CN_ITS ---
Consult Note: HPI Data of Consult Patient: known to practice within the last 3 years Consult date: 02/15/23 Requesting Physician: Geovani Dias MD Primary Care Provider: Non-Staff Physician, Consult Narrative Reason for consult: Right knee pain Narrative: 57yof who presents for right knee Synvisc injection. cc:: CC: Geovani Dias MD Review of Systems ROS Status of ROS 10 or more systems reviewed and unremark able except as noted in history and below Meds Home Medications and Allergies Home Medications Medication Instructions Recorded Confirmed Type amlodipine 2.5 mg tablet 2.5 mg PO DAILY 11/30/22 11/30/22 History duloxetine 20 mg capsule,delayed 20 mg PO DAILY 11/30/22 11/30/22 History release (Cymbalta) lisinopril 40 mg tablet 40 mg PO DAILY 11/30/22 11/30/22 History oxycodone-acetaminophen 5 mg-325 1 tab PO TID 11/30/22 11/30/22 History mg tablet (Percocet) oxycodone-acetaminophen 5 mg-325 1 tab PO TID PRN pain #90 tabs 11/30/22 Rx mg tablet (Percocet) oxycodone-acetaminophen 5 mg-325 1 tab PO TID PRN pain #90 tabs 12/24/22 Rx mg tablet (Percocet) diclofenac sodium 50 mg 50 mg PO BID PRN pain #60 tabs 01/20/23 Rx tablet,delayed release oxycodone-acetaminophen 5 mg-325 1 tab PO TID PRN pain #90 tabs 01/20/23 Rx mg tablet (Percocet) Allergies Allergy/AdvReac Type Severity Reaction Status Date / Time No Known Drug Allergies Allergy Verified 11/30/22 14:33 Exam Narrative Exam Narrative: Psych-alert and oriented x 3.? Attentive and appropriate, constitutionally normal, displays normal mood and affect per situation.? There are no obvious deficits in memory, reasoning, or intellect. Extremities-lower extremities are warm with minimal edema and palpable pulses. Knee-examination of the right knee reveals tenderness to palpation over the superior, inferior, lateral, and medial aspect of the knee.? Some swelling is noted without erythema. Pain is elicited with flexion and extension of the knee both actively and passively.? Some grinding is noted with these motions.? There is no notable ligamental laxity or instability.? Coordination remains intact.? Gait remains antalgic. Assessment and Plan Assessment and Plan (1) Osteoarthritis of right knee: Qualifiers: Osteoarthritis type: primary Qualified Code(s): M17.11 - Unilateral primary osteoarthritis, right knee Plan 57yof who presents for right knee injection. Risks and benefits reviewed, questions answered. We agree to proceed. Procedure: Right knee injection Medications: Synvisc-1 Diagnosis: Right knee osteoarthritis I explained the details of the procedure to the patient including the risks, benefits and alternatives. We had an informed discussion and the patient verbalized understanding and signed the consent form. All questions were answered appropriately.? A time out was performed.? After obtaining a comfortable seated position, the right knee was prepped with alcohol x3. A syringe containing the above medication was attached to a 25 guage, 1.5 inch needle under strict aseptic technique. The lateral tibial plateau was palpated.? The needle was then advanced through the subcutaneous tissue in a medial and superior direction towards the joint space.? The contents of the syringe were gently injected without any resistance. The needle was removed and pressure was applied to the injection site to decrease the incidence of ecchymosis and hematoma formation.? A sterile bandage was applied.
== END 2023-02-15 12:05 | disposition home or self-care (01) ==
LOC: PM 12:04
PROVIDERS: Visit Provider Anesthesiology
DX: M17.11 Unilateral primary osteoarthritis, right knee (principal)
CPT/HCPCS: 20610; J7325

== ENCOUNTER 2023-04-08 09:16 | Outpatient (OUT) | payer MEDICAID, SELFPAY ==
--- NOTE | 2023-04-08 09:56 | P.CN_ITS ---
Consult Note: HPI Data of Consult Patient: known to practice within the last 3 years Consult date: 02/15/23 Requesting Physician: Lauren Ag NP Primary Care Provider: Non-Staff Physician, MD Consult Narrative Reason for consult: Right knee pain Narrative: Ruthie Thompson a pleasant 57 year old female presents for evaluation and management of chronic knee pain with moderate to severe OA. Patient had 100% relief for 3.5 weeks as a result of right knee injection with Dr Dias and recently had right synvsic injection with 70% improvement for 2 weeks. Patient rating pain 7-8/10 now, returned to baseline. Patient is not interested in surgical intervention at this time but is interested in meeting with Dr Graves for evaluation and management. At this time patient noticed moderate improvement in pain and functional ability with percocet 5-325mg TID PRN and diclofenac 50mg BID. cc:: CC: Lauren Ag NP Review of Systems ROS Status of ROS 10 or more systems reviewed and unremark able except as noted in history and below Musculoskeletal Reports: joint pain Meds Home Medications and Allergies Home Medications Medication Instructions Recorded Confirmed Type amlodipine 2.5 mg tablet 2.5 mg PO DAILY 11/30/22 11/30/22 History duloxetine 20 mg capsule,delayed 20 mg PO DAILY 11/30/22 11/30/22 History release (Cymbalta) lisinopril 40 mg tablet 40 mg PO DAILY 11/30/22 11/30/22 History oxycodone-acetaminophen 5 mg-325 1 tab PO TID 11/30/22 11/30/22 History mg tablet (Percocet) oxycodone-acetaminophen 5 mg-325 1 tab PO TID PRN pain #90 tabs 11/30/22 Rx mg tablet (Percocet) oxycodone-acetaminophen 5 mg-325 1 tab PO TID PRN pain #90 tabs 12/24/22 Rx mg tablet (Percocet) diclofenac sodium 50 mg 50 mg PO BID PRN pain #60 tabs 01/20/23 Rx tablet,delayed release oxycodone-acetaminophen 5 mg-325 1 tab PO TID PRN pain #90 tabs 01/20/23 Rx mg tablet (Percocet) oxycodone-acetaminophen 5 mg-325 1 tab PO TID PRN pain #90 tabs 02/25/23 Rx mg tablet (Percocet) oxycodone-acetaminophen 5 mg-325 1 tab PO TID PRN pain #90 tabs 03/26/23 Rx mg tablet (Percocet) Allergies Allergy/AdvReac Type Severity Reaction Status Date / Time No Known Drug Allergies Allergy Verified 11/30/22 14:33 Exam Narrative Exam Narrative: Psych-alert and oriented x 3.? Attentive and appropriate, constitutionally normal, displays normal mood and affect per situation.? There are no obvious deficits in memory, reasoning, or intellect. Extremities-lower extremities are warm with minimal edema and palpable pulses. Knee-examination of the right knee reveals tenderness to palpation over the superior, inferior, lateral, and medial aspect of the knee.? Some swelling is noted without erythema. Pain is elicited with flexion and extension of the knee both actively and passively.? Some grinding is noted with these motions.? There is no notable ligamental laxity or instability.? Coordination remains intact.? Gait remains antalgic. Constitutional Documenting provider has reviewed patient's vital signs: yes Common normals: no apparent distress, oriented x3, healthy appearing, alert and well nourished General appearance: cooperative [facility] Common normals: normocephalic, hearing grossly normal bilaterally and moist oral mucous membranes Head and scalp: normocephalic Eye Common normals: PERRL Pupil: PERRL Neck & C-Spine Common normals: full ROM General: normal visual inspection Chest Common normals: inspection of chest normal Respiratory Common normals: normal respiratory effort, no retractions and no use of accessory muscles Neuro Common normals: oriented x3, CN's II-XII intact bilaterally, moves all extremities, no focal motor deficits, no sensory deficits noted and deep tendon reflexes 2+ bilaterally Sensorium/orientation: alert Motor exam: strength 5/5 throughout and no movement abnormalities noted Psych Common normals: mental status grossly normal, thought process normal, claudine ative, affect normal, speech normal and activity/motor behavior normal Speech: normal speech Thought process: normal thought process Results Additional Findings Additional findings: I have checked an [facility] report on this patient today and there are no aberrancies noted in the prescribing history.?? A drug screen was completed and reviewed within the last year, and if there has not been a drug screen completed we ordered one today to monitor higher risk, state monitored pain medication use. As part of providing excellent, safe, comprehensive care, the following was completed at our patient's visit: 1. A medication reconciliation and review to ensure accurate knowledge of current/active medications, including asking our patients to inform us about any aqni-nbt-dwvdyea medications or herbal remedies/nutritional supplements/alternative remedies. 2. A review to specifically ensure our patients have had annual screening for: elevated body mass index (BMI), tobacco use, screening for depression, and screening for unhealthy alcohol use. When screening is concerning, patients are provided with education and the specific recommendation to discuss the concerning health issue and treatment options with their primary care provider. Assessment and Plan Assessment and Plan (1) Osteoarthritis of right knee: Qualifiers: Osteoarthritis type: primary Qualified Code(s): M17.11 - Unilateral primary osteoarthritis, right knee Plan referral to Dr Graves to assess and treat right knee pain/OA continue current medications f/u 3 months for medication management
== END 2023-04-08 09:17 | disposition home or self-care (01) ==
LOC: PM 09:16
PROVIDERS: Visit Provider Nurse Practitioner
DX: M17.11 Unilateral primary osteoarthritis, right knee (principal)
CPT/HCPCS: G0463

== ENCOUNTER 2023-04-26 09:01 | Outpatient (OUT) | payer MEDICAID, SELFPAY ==
--- NOTE | 2023-04-26 | XR_ITS ---
The [address] [address] Patient Name: JULIÁN HEWITT MRN: [id number] date: 1965 Sex: F Assigned Patient Location: Current Patient Location: Accession/Order Number: [id number] Exam Date: 04/26/2023 09:05 Report Date: 04/26/2023 09:47 At the request of: JANY NASCIMENTO Procedure: XR knee RT 4V EXAM: XR knee RT 4V HISTORY: RIGHT KNEE PAIN COMPARISON: None. TECHNIQUE: 4 views FINDINGS: Mild tricompartmental degenerative changes. No acute fracture or dislocation. No soft tissue swelling. XR/XR knee RT 4V IMPRESSION: Degenerative changes as above. Electronically authenticated by: SAM TANG Date: 04/26/2023 09:47
--- OUTSIDE RECORDS SUMMARY | 2023-04-26 09:18 | XMS_ITS | CCD ---
Author Name Unknown Address [address] [place] [address] Organization [facility] Care Team Providers Care Acquisition Marketing Manager Name Role Phone Health DeptRolf Primary Care Provider Finn ([facility])CAROLYN Attending Provider Jet Douglass Unavailable LILY OLIVEIRA Primary Care Physician GOOD TAYLOR Primary Care Physician ANTONY Mesa [...] Translations: [Ketorolac] Drug Allergy 10-13-19 Unknown Reaction, [facility] (10 sources) traMADol; Translations: [Tramadol] Drug Allergy 10-13-19 [facility] (2 sources) Dextromethorphan / guaiFENesin Drug Allergy Unknown [facility] Other (7 sources) guaiFENesin; Translations: [guaifenesin] Drug Allergy vomiting [facility] (7 sources) Metoprolol; Translations: [metoprolol] Drug Allergy sickneess [facility] (6 sources) gabapentin; Translations: [gabapentin] Drug Allergy Nausea and vomiting (disorder) [facility] (1 source) Ketorolac; Translations: [Toradol] Drug Allergy [facility] Repository Medications Current Medications Medication Drug Class(es) Dates Sig (Normalized) Sig (Original) acetaminophen 325 mg / oxyCODONE hydrochloride 5 mg oral tablet (8 sources) Opioid Agonist Start: 10-26-2022 take 1 tablet by mouth three times daily as needed for pain Percocet 5 mg-325 mg oral tablet 1 tab(s), Oral, TID as needed for pain, 21 tab(s), Refill(s) 0, [email or web address], 167, cm, 10/26/22 8:57:00 EDT, Height/Length Dosing, 74.8, kg, 10/26/22 8:57:00 EDT, Weight Dosing Start Date: 10/26/22 Status: Ordered Start: 09-22-2022 take 1 tablet by blaine th three times daily as needed for pain Percocet 5 mg-325 mg oral tablet 1 tab(s), Oral, TID as needed for pain, 21 tab(s), Refill(s) 0, [facility], 167, cm, 09/22/22 9:26:00 EDT, Height/Length Dosing, 82.9, kg, 09/07/22 13:27:00 EDT, Weight Dosing Start Date: 09/22/22 Status: Ordered Start: 05-16-2022 Percocet 5 mg- 325 mg oral tablet 1 tab(s), Oral, q6hr, 12 tab(s), Refill(s) 0, [facility], 167, cm, 05/16/22 10:57:00 EDT, Height/Length Dosing, 74.4, kg, 05/16/22 10:57:00 EDT, Weight Dosing Start Date: 05/16/22 Status: Ordered amLODIPine 2.5 mg oral tablet (6 sources) Dihydropyridine Calcium Channel Radha Start: 09-07-2022 take 1 tablet by mouth once daily amLODIPine 2.5 mg Tab TAKE 1 TABLET BY MOUTH DAILY Start Date: 09/07/22 Status: Ordered take [address] [facility] every twenty-four hours amLODIPine Besylate 5 MG [...] Active Start: 06-16-2021 take 1 capsule by [facility] three times daily as needed Benzonatate 200 MG 1 capsule Orally Three times a day as needed for 5 day(s) June, Active dextromethorphan hydrobromide 1.5 mg/ml / pyrilamine maleate 1.5 mg/ml oral solution (2 sources) Uncompetitive G-rycaff-Q-aspartate Receptor Antagonist, Sigma-1 Agonist Start: 01-25-2023 take 20 mL by mouth every eight hours as needed for cough Lawrence DM 7.5-7.5 MG/5ML 20 ml Orally May take every 8 hours as needed for cough for 3 days Jan, Active Start: 06-16-2021 take 20 mL by mouth once daily at bedtime as needed Lawrence DM 7.5-7.5 MG/5ML 20 ml Orally QHS as needed for 5 days June, Active DULoxetine 20 mg delayed release oral capsule (6 sources) Serotonin and Norepinephrine Reuptake Inhibitor Start: 09-07-2022 take 1 capsule by mouth once daily duloxetine 20 mg oral delayed release capsule TAKE 1 CAPSULE BY MOUTH DAILY Start Date: 09/07/22 Status: Ordered take 1 capsule by [facility] every twenty-four hours DULoxetine HCl 30 MG [...] pain, # 40 tab(s), Refills(s) 0, Pharmacy: [facility], 165, cm, 07/07/20 13:07:00 EDT, Height/Length Dosing, 75, kg, 07/07/20 13:07:00 EDT, Weight Dosing Start Date: 07/07/20 Status: Ordered lisinopril 2.5 mg oral tablet (9 sources) Angiotensin Converting Enzyme Inhibitor Start: 2017 take 1 tablet by mouth once daily lisinopril 2.5 mg Tab 2.5 mg = 1 tab(s), Oral, Daily, Refills(s) 0 Start Date: 07/10/19 Status: Ordered take [address] [facility] every twenty-four hours Lisinopril 5 MG 1 tablet Orally Once a day Active methylPREDNISolone 4 mg oral tablet (1 source) Corticosteroid Start: 09-22-2022 End: 09-28-2022 Medrol 4 mg Tab = 1 packet(s), Oral, As Directed, as directed on package labeling, X 6 day(s), # 21 tab(s), Refills(s) 0, Pharmacy: [facility], 167, cm, 09/22/22 9:26:00 EDT, Height/Length Dosing, 82.9, kg, 09/07/22 13:27:00 EDT, Weight Dosing Start Date: 09/22/22 Stop Date: 09/28/22 Status: Ordered Multivitamin preparation (5 sources) Start: 09-07-2022 multivitamin See Instructions, Refill(s) 0, daily Start Date: 09/07/22 Status: Ordered polymyxin b 11216 unt/ml / trimethoprim 1 mg/ml ophthalmic solution (1 source) Dihydrofolate Reductase Inhibitor Antibacterial, Polymyxin-class Antibacterial Start: 10-28-2021 End: 11-04-2021 Polytrim 10 mL Soln-Opth 1 drop(s), Eye-Right, q3hr for 7 day(s), 10 mL, Refill(s) 0, q3 hr while awake not to exceed 6 doses/day, [facility], 165, cm, 10/28/21 14:14:00 EDT, Height/Length Dosing, 75.8, kg, 10/28/21 14:14:00 EDT, Weight Dosing Start Date: 10/28/21 Stop Date: 11/04/21 Status: Ordered pregabalin 25 mg oral capsule (2 sources) Start: 09-07-2022 take 1 capsule by mouth twice daily pregabalin 25 mg Cap 25 mg = 1 cap(s), Oral, BID, # 60 cap(s), Refills(s) 0, Pharmacy: [facility], 167, cm, 05/16/22 10:57:00 [...] (COVID-19) RNA EDWIN+probe Ql (Unsp spec) Positive [facility] Other COVID/FLU RT-PCR [facility] [employer] Other Insurance Correspondence Off iceon 11-09-2022 Insurance Correspondence Office [id number]#2.00 CD:127 Normal [facility] Consent for Treatmenton 10-09 Consent for Treatment [id number]#1.00 CD:127 Normal [facility] Consultation Noteon 10-27-19 23 Consultation Note [...] needed for pain, 21 tab(s), Refill(s) 0, [facility], 167, cm, 10/26/22 8:57:00 EDT, Height/Length Dosing, 74.8, kg, 10/26/22 8:57:00 EDT, Weight Dosing Percocet 5 mg-325 mg oral tablet: 1 tab(s), Oral, q6hr, 12 tab(s), Refill(s) 0, [facility], 167, cm, 05/16/22 10:57:00 EDT, Height/Length Dosing, 74.4, kg, 05/16/22 10:57:00 EDT, Weight Dosing ibuprofen 600 mg Tab: 600 mg = 1 tab(s), Oral, QID, PRN for pain, # 40 tab(s), Refills(s) 0, Pharmacy: [facility], 165, cm, 07/07/20 13:07:00 EDT, Height/Length [...] list: All Problems Smoker / SNOMED CT 389267804 / Confirmed Added secondary to documentation in Social History. Hypertension / SNOMED CT 7244243172 / Confirmed Anxiety / SNOMED CT 86843875 / Confirmed Thrombosis / SNOMED CT 4938164963 / Confirmed Lower back pain / SNOMED CT 413678405 / Confirmed Resolved: Benign brain tumor / SNOMED CT 7493430993 Objective Vital Signs 10/26/2022 8:50 EDT Peripheral [...] of the right knee Integumentary: Warm, Dry, [place]. Injection sites well-healed Neurologic: Alert, Oriented. Psychiatric: [...] on May (more content not included)... Normal [facility] Comment on above: Result Comment: Elec tronically Signed By: Mariama Mesa PA-C\.br\Date and Time Signed: 10/26/22 09:21 EDT\.br\Electronically Co-Signed By: Gerard Forbes MD\.br\Date and Time Co-Signed: 10/27/22 12:01 EDT Office/Clinic Note-Physician on 10-26-2022 Office/Clinic Note-Physician [id number]#1.00 CD:127 Normal [facility] Patient Correspondenceon Patient Correspondence [id number]#1.00 CD:127 Normal [facility] Patient Correspondence [id number]#1.00 CD:127 Normal [facility] Patient History Officeon Patient History Office [id number]#1.00 CD:127 [facility] Consent for Procedure/Surger yon 10-13-2022 Consent for Procedure/Surgery [id number]#1.00 CD:127 [facility] Consent for Treatmenton Consent for Treatment [id number]#1.00 CD:127 [facility] Discharge Instructionson Discharge Instructions [id number]#1.00 CD:127 [facility] IntraOperative Documentson 0 10-13-2022 IntraOperative Documents [id number]#1.00 CD:127 [facility] Main OR Intraoperative Recor don 10-13-2022 Main OR Intraoperative Record IntraOp Document Type FT Summary Primary Physician: Gerard Forbes MD Finalized Date/Time: 10/13/22 15:13:27 Pt. Name: RUTHIE CORDERO/Sex: 1965 Female Med Rec #: [id number] Physician: Gerard Forbes MD Financial #: [id number] Pt. Type: P Room/Bed: / Admit/Disch: 10/13/22 [...] Performed Surgeon - Primary Scrub - Primary Gleason Operator - Primary Time In 10/13/22 14:50:00 10/13/22 14:50:00 10/13/22 14:50:00 Time Out 10/13/22 14:58:00 10/13/22 14:58:00 10/13/22 14:58:00 Procedure GENICULAR NERVE GENICULAR NERVE GENICULAR NERVE BLOCK(Right) BLOCK(Right) BLOCK(Right) Comments Last Modified By: Yaya LEO, Mar 10/13/22 Yaya LEO, Mar 10/13/22 Yaya LEO, Mar 10/13/22 14:59:05 14:59:05 14:59:05 Entry 4 Entry 5 Case Attendee Ender LEO, Ruthie Lam Role Performed Scrub - Relief Progress Developer Time In 10/13/22 14:50:00 10/13/22 14:50:00 Time [...] and tissue Entry 1 Skin Integrity Intact, [place], Warm, and Skin Abnormality No Dry Outcomes [...] Yes La (more content not included)... Normal [facility] Main OR Preoperative Recordo n 10-13-2022 Main OR Preoperative Record Holding Area Document Type FTPM Summary Primary Physician: Gerard Forbes MD Finalized Date/Time: 10/13/22 14:22:01 Pt. Name: RUTHIE CORDERO/Sex: 1965 Female Med Rec #: [id number] Physician: Gerard Forbes MD Financial #: [id number] Pt. Type: P Room/Bed: / Admit/Disch: 10/13/22 [...] Antoinette Wiggins RN 10/13/22 14:21:56 General Comments: [place] at 0730 Finalized By: Antoinette Wiggins RN Document Signatures Signed By: Antoinette Wiggins RN 10/13/22 14:22 Normal [facility] Operative Reporton 3 Operative Report Patient: [...] EDT Respiratory Rate 15 br/min . Normal [facility] Comment on above: Result Comment: Elec tronically Signed By: Leidy JONES, Gerard Samuels\.br\Date and Time Signed: 10/13/22 14:57 EDT Consent for Treatmenton 09-08 Consent for Treatment [id number]#1.00 CD:127 Normal [facility] Consultation Noteon 09-23-19 Consultation Note Patient: [...] She is getting ready to leave for [place] in 10 days and she is just [...] day(s), # 21 tab(s), Refills(s) 0, Pharmacy: [facility], 167, cm, 09/22/22 9:26:00 EDT, Height/Length Dosing, 82.9, kg, 09/07/22 13:27:00 EDT, Weight Dosing Percocet 5 mg-325 mg oral tablet: 1 tab(s), Oral, TID as needed for pain, 21 tab(s), Refill(s) 0, [facility], 167, cm, 09/22/22 9:26:00 EDT, Height/Length Dosing, 82.9, kg, 09/07/22 13:27:00 EDT, Weight Dosing Percocet 5 mg-325 mg oral tablet: 1 tab(s), Oral, q6hr, 12 tab(s), Refill(s) 0, [facility], 167, cm, 05/16/22 10:57:00 EDT, Height/Length Dosing, 74.4, kg, 05/16/22 10:57:00 EDT, Weight Dosing ibuprofen 600 mg Tab: 600 mg = 1 tab(s), Oral, QID, PRN for pain, # 40 tab(s), Refills(s) 0, Pharmacy: [facility], 165, cm, 07/07/20 13:07:00 EDT, Height/Length Dosing, 75, kg, 07/07/20 13:07:00 EDT, Weight Dosing pregabalin 25 mg Cap: 25 mg = 1 cap(s), Oral, BID, # 60 cap(s), Refills(s) 0, Pharmacy: [facility], 167, cm, 05/16/22 10:57:00 [...] list: All Problems Smoker / SNOMED CT 034144428 / Confirmed Added secondary to documentation in Social History. Hypertension / SNOMED CT 7275603932 / Confirmed Anxiety / SNOMED CT 58909707 / Confirmed Thrombosis / SNOMED CT 5016177856 / Confirmed Lower back pain / SNOMED CT 656524121 / Confirmed Resolved: Benign brain tumor / SNOMED CT 8349177404 Objective Vital Signs 09/22/2022 9:23 EDT Peripheral [...] knee flexion and extension Integumentary: Warm, Dry, [place]. Neurologic: Alert, Oriented. Psychiatric: Cooperative, Appropriate mood & affect. Results Review * Final Report * Reason For Exam Pain, Traumatic POWERSCRIBE REPORT IMPRESSION: NO ACUTE OSSEOUS ABNORMALITY. EXAM: XR Knee Complete 4+ Views Right HISTORY: Pain after a fall TECHNIQUE: AP, lateral and oblique views of the k (more content not included)... Normal [facility] Comment on above: Result Comment: Elec tronically Signed By: Moshe HARDY, Mariama\.br\Date and Time Signed: 09/22/22 09:46 EDT\.br\Electronically Co-Signed By: Leidy JONES, Gerard Samuels\.br\Date and Time Co-Signed: 10/13/22 07:49 EDT Office/Clinic Note-Physician on 09-22-2022 Office/Clinic Note-Physician [id number]#1.00 CD:127 Normal [facility] Patient Correspondenceon Patient Correspondence [id number]#1.00 CD:127 Normal [facility] Patient Correspondence [id number]#1.00 CD:127 Normal [facility] Patient History Officeon Patient History Office [id number]#1.00 CD:127 [facility] Consent for Treatmenton 09-08 Consent for Treatment [id number]#1.00C D:127 Normal [facility] ED Clinical Summaryon 2022 ED Clinical Summary (Inserted Image. Teresita ble to display) [place] [address] ED Clinical Summary Person Information Name: RUTHIE CORDERO [facility] Age: 57 Years : 1965 Sex: Female Language: Welsh PCP: GOOD TAYLOR CNP Marital Status: Visit [...] 09/21/2022 10:12:23 09/21/2022 10:12:23 09/21/2022 10:12:23 ADDRESS: [address] [place] [id number] [facility] DOC NOTES: MEDICAL INFORMATION: Prescriptions Given: [...] EDUCATION INFORMATION: Instructions: Follow up: DIAGNOSIS: Normal [facility] ED Patient Education Noteon 09-21-2022 ED Patient Education Note Normal [facility] ED Patient Summaryon 023 ED Patient Summary (Inserted Image. Teresita ble to display) [address] [address] Patient Discharge Instructions Person Information Name: RUTHIE CORDERO Age: 57 Years Arrival Date: 09/21/2022 09:12:37 Discharge Diagnosis: Primary Care Physician: GOOD TAYLOR CNP Provider Information Primary Provider: Advanced Space Buyer:None The exam and treatment you received in the Emergency Department were for an urgent problem and are not intended as complete care. It is important that you follow up with a doctor, nurse practitioner, or physician?s planning assistant for ongoing care. If your symptoms become worse or you do not improve as expected and you are unable to reach your usual health care provider, you should return to the Emergency Department. We are available 24 hours a day. MARCELINARUTHIE has been given the following list of [...] opioids can be used to help relieve smlfhckk-mo-epqcuy pain and are often prescribed following a [...] be struggling with addiction, tell your health memory care program resident and ask for guidance or call SAMHSA?S National Helpline at 2-021-528-CGWV. v Source: [place] Department of Health and Human Services/Center for Disease Control & Prevention [facility] Medications Given: Medication Dose Route No medications found. Medication Information: M (more content not included)... Normal [facility] Patient Correspondenceon Patient Correspondence [id number]#1.00C D:127 Normal [facility] Insurance Correspondence Off ice09-14-2022 Insurance Correspondence Office [id number]#1.00 CD:127 Normal [facility] Laboratory Outside Office Co pyon 09-11-2022 Laboratory Outside Office Copy [id number]#1.00 CD:127 Normal [facility] Outside Records Officeon Outside Records Office [id number]#1.00 CD:127 Normal [facility] Consent for Treatmenton 08-10 Consent for Treatment [id number]#1.00 CD:127 Normal [facility] Consent for Treatment [id number]#1.00 CD:127 Normal [facility] Consultation Noteon 09-08-19 Consultation Note Patient: [...] list: All Problems Smoker / SNOMED CT 246044235 / Confirmed Added secondary to documentation in Social History. Hypertension / SNOMED CT 9043242153 / Confirmed Anxiety / SNOMED CT 15499021 / Confirmed Thrombosis / SNOMED CT 4180547680 / Confirmed Lower back pain / SNOMED CT 380626843 / Confirmed Resolved: Benign brain tumor / SNOMED CT 6644879241 Histories Past Medical History: Resolved Benign brain tumor (6506670037): Onset on 09/30/2012 at 47 years. Resolved. Family History: Entire family history is negative. Procedure history: History of total knee arthroplasty (SNOMED CT 4063549138) on 07/14/2018 at 53 Years. BT - Brain tumor (SNOMED CT 328713032). Cholecystectomy (SNOMED CT 23088633). Social History Social & Psychosocial Habits Alcohol 10/31/2018 Risk Assessment: Denies Alcohol Use Substance Abuse 10/31/2018 Risk Assessment: Denies Substance Abuse Tobacco 07/10/2019 Risk Assessment: Denies Tobacco Use 07/10/2019 Tobacco Use: Former smoker, quit more Type: Cigarettes 09/07/2022 Tobacco Use: 5-9 cigarettes (between 1 . Physical Examination Vital Signs (last 24 hrs) Last Charted Heart Rate Peripheral 91 bpm (SEP 07 13:06) SBP 118 mmHg (SEP 07:) DBP 73 mmHg (SEP 07:) Weight 82.9 [...] Appropriate mood & affect. Integumentary: Warm, Dry, [place]. Review / Management Results review: No qualifying [...] Ord (more content not included)... [facility] Comment on above: Result Comment: Elec tronically Signed By: Mariama Mesa PA-C\.br\Date and Time Signed: 09/07/22 13:42 EDT\.br\Electronically Co-Signed By: Leidy JONES, Gerard Samuels\.br\Date and Time Co-Signed: 09/15/22 14:21 EDT HIPAA Forms Officeon 023 HIPAA Forms Office [id number]#1.00 CD:127 [facility] In office Testingon 09-08-19 23 In office Testing [id number]#1.00 CD:127 Normal [facility] Legal Correspondence Officeo n 09-07-2022 Legal Correspondence Office [id number]#1.00 CD:127 Normal [facility] Legal Correspondence Office [id number]#1.00 CD:127 Normal [facility] Office/Clinic Note-Physician on 09-07-2022 Office/Clinic Note-Physician [id number]#1.00 CD:127 Normal [facility] FORM DESIGNER Drug Screen-LCon 023 Test Name TOXASSURE FLEX Invalid Interpretation Code [facility] Comment on above: Performed By: #### 1 [id number] ####[facility] [address] [place] [address] Patient Correspondenceon Patient Correspondence [id number]#1.00 CD:127 Normal [facility] Patient Correspondence [id number]#1.00 CD:127 Normal [facility] Patient Correspondence [id number]#1.00 CD:127 Normal [facility] Patient Correspondence [id number]#1.00 CD:127 Normal [facility] Patient Correspondence [id number]#1.00 CD:127 Normal [facility] Patient Correspondence [id number]#1.00 CD:127 Normal [facility] Patient History Officeon Patient History Office [id number]#1.00 CD:127 Normal [facility] Physician Orderon 09-07-2022 Physician Order [id number] [facility] [id number]#1.00 CD:127 Normal [facility] Reference Laboratory Testing Ordered By: Elena Sierra on 09-07-2022 Test Name TOXASSURE FLEX Invalid Interpretation Code [facility] [employer] Release of Records Officeon 09-07-2022 Release of Records Office [id number]#1.00 CD:127 Normal [facility] Outside Records Officeon Outside Records Office [id number]#1.00 CD:127 Normal [facility] Radiology Outside Office [employer] yon 08-21-2022 Radiology Outside Office Copy [id number]#1.00 CD:127 Normal [facility] Referrals Officeon Referrals Office [id number]#1.00 CD:127 Normal [facility] Coding Summary.on 2022 Coding Summary. CD:[id number] Ww+ PGhlYWQ+UD2YRHZaI07pzED zlN7xD8HQKYmWNvdjFAGAAL fHXuEprxUhBZ3kuPEeUWVa IC8+IV3cRURsHettyYVob2O 5mFV1N21dpo6oCNwasVD7UD UaLiBtqnzay3tmiSq9CVlwN mluOyBt WZRwhU06GMZ6wN18Xc45mLC waUAmv4mjbHn9KrPpYFSyUB A9ePycOZcfq7EpCAGsL14ne SMre2Y0 AMFanTyyoIAcKrVwhRF3qO4 nOEcuxwuhf5pazsasMdm1ux 36sKGeh8N9oOW8T0KwmpQ5D GJvbGQg CcrkuUDFdI0hugxuu1tspdq hRlLdCTAuGTi8ZGt7FRKhyA zsBxIbGP19WKC8XVTkxoAxH 2FsLWFs sOixUbD5p3K0Ld5GD0LWGnz fI2VGEKNGTUurhXA+PC90cj 70S9ZnXptzCgg6KKXsEYN5x XV7tO7x JBWgRNxjn8X9dPE7F4XimkT ygd9vr3nsZUBqYKepA38ymC Dnm3Q2UQYvpSF7QXDbvQkyL iBzaG93 Oyc+GHJpjKivp1JoBhskk7m mr6dfsDg7LskdTNKqqoCcvW cnYFB2s8EuHv6oRUIhfMX0d DG1wA5r GiImDqJ3WJagM046WlLxoDC dXpmdU06bH5SjmAR+PHRyPj m8RBRqsIrhLD8tU3VjHRVrf mctbGVm yRerGI8xGQNjzjxeGWOtoT0 sTVGvZ8b6WlUbRmZ8KVvlL5 WwZGVmoxkfUr17oC1aVvSbV cO4OMvg N3PdolC2HVXjqMTuEMvxUNB 6I25vn9X2DVIpGVEjOHX8hZ V7vN2tgElwrtyytADijJghg mVydGlj HAjkZPxhC593LPUjsQzvLvB vZGluZyBEYXRlOiAgMDQvMT EvMjAyMzwvdGQ+MSKrSLO8t WxlPSAn iLKbBHjnVt9eqIayiLhdTK1 uYQDjaaoxPCYmaS1nEAOvxW QjdImyIP5jGTLtanxjm421Z iAxMHB0 CZIyrSAfT6IdpX0lWuKsBZH yVKRtC9GpuFJkQFlbD550NN ltGtE9RMDllrSmR8NlQBDbu WduOiB0 v5K9Cn4Qn6MzclfdT8RzdAI jAmNzZtnjKId8W3IrJipaoJ I+ME72AAXjEE09TDq8YMY8w WxlPSdi PZQbZ6OnnC8eWzYmLSZbDDI kOyc+PHRhYmxlIHdpZHRoPS icSXYzPiVifNqkAN6wSn5yB GVyLWNv iDzhzXEnAaOxg8ijBUOhSAg oKX8lxGasN6UaaGW3MFLiw7 d4Ss42S43qK7WsbXB+PGNvb QK0jTB8 lR7kOjYqGlA9VBdmK618CeR vpBAdGivlw8xdl0srcVx9Vu G0TKVzujXgfEqlZXM4q3JlL o04C20x IHdpZHRoPSIxNSUiIHZhbGl mfb6tdM5pNv3+AUKsdIR4hM J2fA4pVqVaBvI6GEnsI086N nRvcCIv Rllfu1ehz7sveOh9ClAoMPO jbtHbgXkaTNU0i3SjZo20M5 PygOebf7YyFim8vd32jSDuf 5B4fFA9 J4ZfOXZfovygxYZpnGomIK3 xERDumvpoLNJseY3fJDObR8 f9JbPkPjK2MQeqS5LtxcC1D GJvbGQg OWQlpHQRvG8wuiggw5jvzgp pCkVbOBLqNFb4OLa6TQRkrL wrXfSgVFU7UeA5MTU5tOXhl H7vaTsv dyyxgE8zDel+UWL3wEYrnSF KST4sVaeafPT+NURbGUS3pG dwYYvvGFMqrF7wFJQtH0m8L iAwLjA1 JAmyH3JjhyF3IUQqhNHdFPU bwAQYhD5vengpg1bmywkhLq NfJBSuFZo4RKr8EASmkKjeB iBsZWZ0 SpS4WIP1aUKqcN2foVtkbvt auG9nIkd+JlzkaFuyYQB0SC z7M4BtAfv3SSPrqDxbRG7pp GFkZGlu Ks6acTkvrFjcZI4tRJIwijo vz704QeGfa4kdITIzvYWoAU dbVGL2V40zf1L1GLDuLZIcW QK1pRD0 iG0taQxvwbyzpABslAlugsQ rvOqxPNqxJValC297KWIxwC myHzKvRYq6W8NoAtq2XDZxb ZmkQS0v aPMwBJxxOf9acDxsqLwfHZ9 jXXIpisujc786QbIsi1hzYW PvoFZeFIesYCC5M56ii9L8X CMwMDAw ELF8vEB0bV7atYzitnduiFA mdDsgdmVydGljYWwtYWxpZ2 80EWOguPwhSiSgaXu8F8TpI cw6TNXj cNvzNY2euGFxPDphLc0ylEk elWsxNV5rVJEwbmnln180Pl Pwx5chCGUxfZQpHDeyZQD6V 11dj3C6 LNGlFDPdWXP8jGN7mY8dfRp nbjogbGVmdDsgdmVydGljYW xbDPnpT006HACojPimLuAkz GllbnQg IGgcAVy9M4ZeXjfbuQF+PC9 9WWOzYK93kSGudSSyk6lraA o3PvUnTHNbIZW9oFjpAWsjy 3JkZXIt U67clREnp9E2BXGvhAfolTQ aZjHluSR5eR4wKGjzmnfoc3 shdjlrByxlx4feit55pU69B 29sIHdp ZHRoPSIzMCUiIHZhbGlnbj0 vmH7zGf5+TBDfhIM2xZJ0fV 5sRXVeArI7CNuyH688SlHeo CIvPjxj y2nmy3oouXa7RoT3RHZqnpY hnRbiEWD9y2DlDt35R39mYP dpZHRoPSIyMCUiIHZhbGlnb i9ffW3w Ii8+VHXkgXH8tWI3kP0gOqQ fTiZ8IFjoF089VuGlzVBmLb adM11bT8YdwWS+YJFrThz2X CBzdHls KK6mlBBoSIdxFl4uKAF3SvJ mRjMlPLytZ5UqHWZwhcbokp ikuBQ3MMUoLRHkfD60Lc0nf DogMTBw hCYLaD0nriydc5ivfssxJhY mULLdSOd3XFn9WNXrdOmxAt ScRHZ9JrN5XIJ6dWSknU4ib Glnbjog oZ4kN5XtTZMxhvjuGk24sV1 lXtRzHrR9UDkoEvz+U0NIV0 UFMECbNLFHJZWPNB62KK23h EMqz0D1 cBD7R3YvNBYogihmvskvsEO 3OPOzILQpfO92uOKwCXlkRd 5hu2K7r170ERPgXLBrvQ88N m5grVxk CJHtxSMMrN1udlisr3nhixz mOxQfPFWeYAv3JGh0JFQwhX ruPmGcNTN5NzW5YZT7yTDua V4tyHtb jejfvF2vSzg+MDQvMTEvMTk 2NjwvdGQ+VIWqHML2sWtxNO riBCNcnN4tUTBtX5z7NvJwU vQ4AYab L1QrZOPfzsudTl17qZ9eNrN tKlL1OIlmU1BqugV8XDOvhN CwJDimXWD9Y98yr4W2IEHuP DAwMDA7 hMD4eM6nmAeyfihzyJLghJf nfcWxlLsxAWoiNMutV373BP PhxJusClM8GGnePVYeBD78E N88qRDs f6X9yKU1T7JaPGPcblntclf pcLE6YVWhIAXsyU73uYUqXZ kwWh2ur8Z6h411TJZgYUMfh Q25Nt1i vLlgMNXjtCDAaA8eznryw8u dqdopFkJyUVBqRDr7ZZj2PE JhxDuuQaQuSPL8PqL4QTW9g VAnyH2g eXebyxosjX6dKea+RmVtYWx kFI90CR69eNAxm7J7gUA5E7 NbIJYihfbhrmaqaCN5KBHiK DUwaW47 iJBcWHjwSc1ry7M3o939GPD pESKmfQ36Sf5alFpqUCMyiM VTlU7ldyuez7mipwmrEiWvU DAwMDt0 XRn2WUWtaDzsElLlJWX6ClO 6ZNF9hQAkkD8ipHrahuiczY 9wOyc+YV7xnkvpoiO8PD62M T19P6Oq PjwvdGFibGU+PHRhYmxlIHd pZHRoPScxMDAlJyBzdHlsZT 1dVh0rVFEdLQSoxHyrwWLlW rCxv6tk IIGmTRznOH7chLsiF0BciOB 2LNCeh3j1Pm53Z86cS0TwlH A+NVHjsAK8lBQ5tQ9pXlAmG pO0OGnq X010SkQucEOiFxrhb2csb9k kwGv8BvAhCZQqqwRytSseID N1y2QwUt34Q38zAEnqOHWuK SIyMCUi GHRczPfnno1fhX5jVy8+PGN raUG8cCG3fS9sSvRsLaQ9GQ mbM879ZbPbeKKsYbduM22jS 3JvdXA+ DNAhKvx2QQThxVzyXM7usIC mSHfrQv2lZOL1RzMsXaOhKZ pkE7UaGSZcxcheknmtdVS1S DAuMDUw jB50Of6gsMrkHi2sYIBcOIK 5SZHuaLEjO9XqsX0nXiTeZM ElXRHhZ3QeoGOdAWysS712M GxlZnQ7 XGUinkPjV3FsTKKzrVixUxQ 6q0G1Ag4KrBplmFMpWH6iMc FuLKa0V7TmGjd5FDFadOrhF B5trUXd FImyFf7cqNvbxYfuXP6mZJU iwgzfr483OwHug4tzYBFlxS WxZYzzJIG3Q53ag0I3EQLoX DAwMDA7 tBQ1tN1uqIsohrylbIBdfAz ktjSooJyhDBtlVEasH276RH GstAysJjQMEpx3H1DhOxv9D CBzdHls PF8jzMCnOTctRc7nxHjkoRk jBO5fEUAegxuur198ZbNub4 ygOCUyyFMyPXcoVJO1A04dt 5P2UKSd ECViWXK0wNP5oN0ciXhypkm gbGVmdDsgdmVydGljYWwtYW orW766ERAwcTyqGv1BFeg3X 5OpBqj7 MEFuyAeeOR7itTDcNFcmAe2 ndVpmlRdnVL8yTZJubvgbs1 98EiVkf9amGVRfsYVtLHgnW CD8J53a p2T7VKVzXZCdXTG4oIQ1vB8 hbGlnbjogbGVmdDsgdmVydG fuYDupYLhyW748IKIcgRxoY lBheWVy OjwvdGQ+PS30xh55U7UpZhz bXin9MRGxHTJ2eCL3nJ9iKR ZtIXttd5U0kJB4Q9RzvtZqs o7su5ll YXBzZTog (more content not included)... Normal [facility] Consent for Treatmenton Consent for Treatment [id number] D:127 Normal [facility] Discharge Instructionson Discharge Instructions [id number] CD:127 Normal [facility] ED Clinical Summaryon 2022 ED Clinical Summary (Inserted Image. Teresita ble to display) [address] [address] ED Clinical Summary Person Information Name: RUTHIE CORDERO/[facility] Age: 56 Years : 1965 Sex: Female Language: Welsh PCP: GOOD TAYLOR CNP Marital Status: Visit Id: Visit Reason: Fall; [...] 05/16/2022 12:31:51 05/16/2022 12:31:51 05/16/2022 12:31:51 ADDRESS: [id number] [facility] [id number] PHYS DOC NOTES: MEDICAL INFORMATION: Prescriptions Given: New Medications [facility], [address] [facility] [place] [id number], [phone] acetaminophen-oxycodone (Percocet 5 mg-325 mg oral tablet) [...] RICE Therapy for Routine Care of Injuries, Qgtk-fa-Amqq; How to Use a Knee Immobilizer, Xlaj-tf-Buil; Acute Knee Pain, Adult, Smtk-ps-Bksb Follow up: With: Address: When: Gerry Mercado [address] [place] [id number] Business (1) In 3 days 2022 With: Address: When: GOOD TAYLOR [address] [place], [place] [phone] Business (1) In 3 days DIAGNOSIS: 1:Acute traumatic pain; 2:Strain of right knee Normal [facility] ED Note-Physicianon 05-17-19 ED Note-Physician Basic [...] tab(s), Oral, q6hr, 12 tab(s), Refill(s) 0, [facility], 167, cm, 05/16/22 10:57:00 EDT, Height/Length Dosing, 74.4, kg, 05/16/22 10:57:00 EDT, Weight Dosing 2. Strain of right knee (S86.911A: Strain of unspecified muscle(s) and tendon(s) at lower leg level, right leg, initial encounter) Ordered: acetaminophe (more content not included)... Normal [facility] Comment on above: Result Comment: Elec [...] 07/13/2008 Document Revised: 10/15/2017 Document Reviewed: 10/15/2017 Cli[employer]set Patient Education ? 2020 Liveset. How to Use a Knee Immobilizer A [...] 11/03/2008 Document Revised: 01/07/2018 Document Reviewed: 01/11/2017 Elsevier Patient Educatio (more content not included)... Normal [facility] ED Patient Summaryon 023 ED Patient Summary (Inserted Image. Teresita ble to display) [place] [id number] Patient Discharge Instructions Person Information Name: RUTHIE CORDERO Age: 56 Years Arrival Date: 05/16/2022 10:46:05 Discharge Diagnosis: 1:Acute traumatic pain; 2:Strain of right knee Primary Care Physician: GOOD TAYLOR CNP Provider Information Primary Provider: Angie Rosario M.D. Advanced Space Buyer:None The exam and treatment you received in the Emergency Department were for an urgent problem and are not intended as complete care. It is important that you follow up with a doctor, nurse practitioner, or physician?s planning assistant for ongoing care. If your symptoms become [...] Instructions: With: Address: When: Gerry Rogelio [address] [place] [address] Business (1) In 3 days 2022 With: Address: When: GOOD TAYLOR [address] [place], [place] [phone] Business (1) In 3 days In the event that this physician does not participate in your insurance network, please consult with your insurance company to find a nearby participating provider. Patient Education Materials: RICE Therapy for Routine Care of Injuries, Rqsb-ru-Ykaw; How to Use a Knee Immobilizer, Rdtk-hz-Lnin; Acute Knee Pain, Adult, Yduo-qv-Kqmd A MESSAGE TO ALL PATIENTS REGARDING OPIOIDS PRESCRIPTION OPIOIDS: WHAT YOU NEED TO KNOW Prescription opioids can be used to help relieve qpuecmoy-jo-ecmzpi pain and are often prescribed following a [...] www.cdc.gov/drugoverdos e (more content not included)... Normal [facility] XR Knee Complete 4+ Views Jacky [...] tissues are within normal limits. Ordering Provider: Skalsky, Karla FINAL REPORT Dictated: 05/16/2022 12:06 pm Jose Gordon DO Signed (Electronic Signature): 05/16/2022 12:06 pm Signed by: Jose Gordon DO Transcribed by: CALLIE Technologist: CARYN Technical Comments Radiation Dose: Ka,r in mGy = na DAP = na Normal [facility] MM screening mammo BI w/CADo n 05-16-2021 MM screening mammo BI w/CAD [facility] [address] [place] [address] Mammography Report Signed Patient: Ruthie Cordero MR#: [id number] : 1965 Acct:[id number] Age/Sex: 55 / F ADM Date: 05/16/21 Loc: [place] Room: Type: [facility] Attending Dr: Pavithra Briseno ([facility]) CAROLYN Ordering Provider: Pavithra Briseno APRN, WHCNP Date of Service: 05/16/21 MM/MM screening mammo BI w/CAD: Z12.31 Copies to: [facility] Pavithra Briseno APRN SHAKEEL Bilateral Screening Full Field digital mammogram with [...] Ryder Romero M.D.05/16/2021 9:05 AM Dictation Location: [facility] Transcribed By: JIM 05/16/21904 Dictated By: Ryder Romero DO 05/16/21903 Signed By: 05/16/21904 [facility] CNOVon 07-25-2019 [facility] Office Visit (LOORRM ) MARCELINARUTHIE Hudson ([id number]) 1965 F Date Time Provider Department 07/25/19 9:20 AM SENA LICONA) LOORRBecca During your visit today, we recorded the following information about you: Sena Licona PA-C 07/25/2019 9:09 AM Signed Ortho Knee Follow Up Note Narrative Referring Provider: Miguel Angel Ponce MD [address] [facility] [place] [address] PCP: Estela Sorto MD ===== IMPRESSION/PLAN: ===== 54 year old s/p Left Total Knee Replacement completed on 06/14/2019. IMPRESSION: Excellent early outcome PLAN: Rest, Ice, Compression, Elevation PRN. continue PT discussed prophylactic antibiotics Patient Reassurance: Normal post-operative course discussed with patient. Follow up 6 weeks No X-Rays Needed Ruthie Becca UREÑACAROLE presents today for a an intermediate post-op [...] by SENA LICONA PA-C on 07/25/19 Normal [facility] PROGRESSon 07-25-2019 PROGRESS HNO ID: [id number] Author: Sena Licona (Pa) Service: ? Author Type: Physician Fine Jewelry Sales Associate Type: Progress Notes Filed: 07/25/2019 9:09 AM Note Text: Ortho Knee Follow Up Note Narrative Referring Provider: Miguel Angel Ponce MD [address] [facility] [address] PCP: Estela Sorto MD ===== IMPRESSION/PLAN: ===== [...] PA-C Completed by: Sena Licona PA-C Normal [facility] CNOVon 07-04-2019 CNOV Office Visit (LOORRM ) RUTHIE CORDERO ([id number]) 1965 F Date Time Provider Department 07/04/19 11:00 AM SENA LICONA) CRISTINA During your visit today, we recorded the following information about you: Sena Licona PA-C 07/04/2019 11:23 AM Signed Ortho Knee Follow Up Note Narrative Referring Provider: Miguel Angel Ponce MD [address] [facility] [address] PCP: Estela Sorto MD ===== IMPRESSION/PLAN: ===== [...] Licona PA-C Referring Provider: MIGUEL ANGEL PONCE [[id number]] Allergies As of Date: 07/04/2019 Noted Allergy [...] Order(s):XR KNEE POST OP 3V AP/LAT/MERCHANT LT [7091177] Order #: [id number] FUTURE CONSULT TO PHYSICAL THERAPY [9032] Order #: [id number]: 1 FUTURE HYDROcodone-acetaminoph en (NORCO) 5-325 mg [...] Status:Closed by SENA LICONA PA-C on 07/04/19 [facility] PROGRESSon 07-04-2019 PROGRESS HNO ID: [id number] Author: Pretty Hudson (Rt) Service: ? Author Type: Weight And Test Bar Clerk Type: Progress Notes Filed: 07/04/2019 11:00 AM [...] Olivo July 04, 2019 10:59 AM [facility] PROGRESS HNO ID: [id number] Author: Sena Licona (Pa) Service: ? Author Type: Physician Fine Jewelry Sales Associate Type: Progress Notes Filed: 07/04/2019 11:23 AM Note Text: Ortho Knee Follow Up Note Narrative Referring Provider: Miguel Angel Ponce MD [address] [facility] [address] PCP: Estela Sorto MD ===== IMPRESSION/PLAN: ===== [...] PA-C Completed by: Sena Licona PA-C Normal [facility] XR KNEE 3V AP/LAT/MERCHANT L [...] Interval total left knee arthroplasty without complication. 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: DESHAWN Transcribe Date/Time: Jul 04 2019 11:07A Dictated by : ONEAL ALONSO MD This examination was interpreted and the report reviewed and electronically signed by: JUSTINO URIBE MD on Jul 04 2019 2:01PM EST [id number] [facility] OBSOLETEon 06-27-2019 OBSOLETE Refill (LOORRM) RUTHIE CORDERO ([id number]) 1965 F Date Time Provider Department 06/27/19 MIGUEL ANGEL PONCE During your visit today, we recorded the following information about you: Tegan Kidney PSS 06/27/2019 8:36 AM Signed Patient has 3 left. Requestor:Patient Patient is identified by name and birthdate: Yes Patient reminded to check with pharmacy in 24-48 hours: Yes Prescriber Verified: Yes Pharmacy benefits have been verified: Yes Pharmacy updated in [facility]: Yes Is medication controlled substance: Yes Medication [...] Encounter Status:Closed by LILY KISER on 06/27/19 [facility] OBSOLETEon 06-23-2019 OBSOLETE Refill (LOORRM) RUTHIE CORDERO ([id number]) 1965 F Date Time Provider Department 06/23/19 MIGUEL ANGEL PONCE During your visit today, we recorded the following information about you: Ryder OSHEA 06/23/2019 8:46 AM Signed Requestor:Patient Patient is identified by name and birthdate: Yes Patient reminded to check with pharmacy in 24-48 hours: Yes Prescriber Verified: Yes Pharmacy benefits have been verified: Yes Pharmacy updated in [facility]: Yes Is medication controlled substance: Yes Medication [...] Patient has 5 doses remaining. Pharmacy is [facility] [place] [address] - [address] [facility] E??- [phone]. Patient can be reached at [phone]. Please advise. Miguel Angel Ponce MD 06/23/2019 8:56 AM Signed PDMP website checked and validated. All prescriptions have been APPROPRIATELY filled. No suspicious activity was identified. 06/23/2019 by Miguel Angel Ponce MD Rx for [place] has been approved and sent to patient's preferred pharmacy. Allergies As of Date: 06/23/2019 Noted Allergy Reaction GUAIFENESIN 05/02/2019 7 - Swelling TORADOL (KETOROLAC) 05/02/2019 9 - Itching TRAMADOL 03/20/2014 4 - Hives 9 - Itching Date Reviewed: 06/15/2019 Reviewed by: Brenda (Rn) FELIPA Moncada - Fully Assessed Reason for Visit: [...] by MIGUEL ANGEL PONCE MD on 06/23/19 [facility] Fernando 06-19-2019 CNPN Telephone (LOORRM) RUTHIE CORDERO ([id number]) 1965 Date Time Provider Department 06/19/19 MIGUEL [...] soon after surgery. Please call [facility] at [phone] Sena Licona PA-C 06/19/2019 3:47 PM Signed the rx was sent already to the local pharmacy she should utilize ice for the first week. then heat before exercise and ice when she is done Sena Licona PA-C Ryder Jassilva 06/19/2019 4:52 PM Signed Patient's [facility] calling [...] Narcotic medication dose and quantity may exceed [place] state limits due to the medical necessity [...] Status:Closed by SENA LICONA PA-C on 06/19/19 [facility] OBSOLETEon 06-19-2019 OBSOLETE Refill (LOORRM) RUTHIE CORDERO ([id number]) 1965 Date Time Provider Department 06/19/19 MIGUEL ANGEL PONCE During your visit today, we recorded the following information about you: Rashida Escobarviktoriya [facility] 06/19/2019 9:34 AM Signed Requestor:Patient Patient is identified by name and birthdate: Yes Patient reminded to check with pharmacy in 24-48 hours: Yes Prescriber Verified: Yes Pharmacy benefits have been verified: Yes Pharmacy updated in [facility]: Yes Is medication controlled substance: No Medication [...] Itching Date Reviewed: 06/15/2019 Reviewed by: Brenda CoteRn) FELIPA Moncada - Fully Assessed Reason for Visit: [...] Narcotic medication dose and quantity may exceed [place] state limits due to the medical necessity for post operative pain control required for the surgical procedure performed on Ruthie CORDERO June 14, 2019. Route: ORAL Sig: Take 1-2 tablets by mouth every 3 hours as needed for up to 7 days. Disc: Reason for discontinue is not on file. Encounter Status:Closed by SENA LICONA PA-C on 06/19/19 [facility] Basic Metabolic Panlon 06-14 Anion gap [Moles/Vol] 12 mmol/L Normal 9-18 [facility] Calcium [Mass/Vol] 8.5 mg/dL Normal 8.5-10.2 [facility] Chloride [Moles/Vol] 100 mmol/L Normal 97-105 [facility] CO2 [Moles/Vol] 26 mmol/L Normal 22-30 [facility] Creatinine [Mass/Vol] 0.72 mg/dL Normal 0.58-0.96 [facility] eGFR- Amer. >60 [facility] GFR/1.73 sq M predicted among non-blacks MDRD (S/P/Bld) [Vol rate/Area] mL/min/{1.73_m2} Normal [facility] Comment on above: Result Comment: eGFR [...] GFR. Glucose [Mass/Vol] 117 mg/dL High 74-99 [facility] Comment on above: Result Comment: The [place] Diabetes Association (ADA) provides guidance for cutoff [...] Standards of Medical Care in Diabetes 2016, [place] Diabetes Association. Diabetes Care. 2016.39(Suppl 1). Potassium [Moles/Vol] 4.0 mmol/L Normal 3.7-5.1 [facility] Sodium [Moles/Vol] 138 mmol/L Normal 136-144 [facility] Urea nitrogen [Mass/Vol] 7 mg/dL Normal 7-21 [facility] CASE MANAGEMon 06-15-2019 CASE MANAGEM HNO ID: [id number] Author: Kate CoteRn) FELIPA Sanchez Service: Care Management Author Type: Registered Nurse Type: Care Mgt Progress Note Filed: 06/15/2019 12:58 PM Note Text: CARE MANAGEMENT DISCHARGE NOTE SERVICE DATE: 06/15/2019 SERVICE TIME: 12:57 PM LOS: 0 days Admission Date: 06/14/2019 DISCHARGE ARRANGEMENT (list agency and phone number) Discharge Arrangement: Home [facility] Care: PT CAREGIVER ASSESSMENT: Caregiver is ready, [...] Handoff to: Other Caregiver Other Caregiver Name/Phone: [facility] TRANSPORTATION ARRANGEMENTS: Transportation Arrangements: Car Discharge Information Row Name Admission (Discharged) from 06/14/[address] [facility] SIGNATURE: Kate Sanchez RN PATIENT NAME: Ruthie CORDERO DATE: June 15, 2019 TIME: 12:57 PM PAGER/CONTACT #: [phone] Normal [facility] CASE MANAGEM HNO ID: [id number] Author: Kate (Rn) FELIPA Sanchez Service: Care Management Author Type: Registered Nurse Type: Care Mgt Progress Note Filed: 06/15/2019 9:21 AM Note Text: CARE MANAGEMENT PROGRESS NOTE SERVICE DATE: 06/15/2019 SERVICE TIME: 9:21 AM LOS: 0 days [place] of Choice Given: Yes Level of Care Discussed: Home Care Financial Disclosure Provided: No Financial Disclosure Comments: [facility] unable to accept. pt would like to use [facility]. Referral sent. SIGNATURE: Kate Sanchez RN PATIENT NAME: Ruthie CORDERO DATE: June 15, 2019 TIME: 9:21 AM PAGER/CONTACT #: [phone] Normal [facility] CBCon 06-15-2019 Absolute nRBC <0.01 [facility] width (RBC) [Ratio] 12.5 % Normal 11.5-15.0 [facility] Hematocrit (Bld) [Volume fraction] 32.8 % Low 36.0-46.0 [facility] Hemoglobin (Bld) [Mass/Vol] 10.9 g/dL Low 11.5-15.5 [facility] MCH (RBC) [Entitic mass] 31.0 pG Normal 26.0-34.0 [facility] MCHC (RBC) [Mass/Vol] 33.2 g/dL Normal 30.5-36.0 [facility] MCV (RBC) [Entitic vol] 93.2 fL Normal 80.0-100.0 [facility] Platelet mean volume (Bld) [Entitic vol] 10.7 fL Normal 9.0-12.7 [facility] Platelets (Bld) [#/Vol] 263 10*3/uL Normal 150-400 [facility] RBC (Bld) [#/Vol] 3.52 10*6/uL Low 3.90-5.20 [facility] WBC (Bld) [#/Vol] 8.63 10*3/uL Normal 3.70-11.00 [facility] NURSING PROGon 06-15-2019 NURSING PROG HNO ID: [id number] Author: Brenda (Rn) Coral RN Service: Nursing Author Type: Registered Nurse [...] note was completed by: Brenda Moncada RN [facility] PLAN OF CAREon 06-15-2019 PLAN OF CARE HNO ID: [id number] Author: Michelle Handley ([employer]) Service: ? Author Type: Weight And Test Bar Clerk Type: Plan of Care Filed: 06/15/2019 3:12 [...] tablet Commonly known as: PERCOCET Michelle Handley ([employer]) PAGER: rajesh June 15, 2019 3:12 PM [facility] PROGRESSon 06-15-2019 PROGRESS HNO ID: [id number] Author: Sena Licona (Pa) Service: Orthopaedic Surgery Author Type: Physician Fine Jewelry Sales Associate Type: Progress Notes Filed: 06/15/2019 8:51 AM Note Text: ORTHOPAEDIC POSTOP PROGRESS NOTE SERVICE DATE: 06/15/2019 SERVICE TIME: 8:50 AM Subjective Patient states that they are comfortable Denies knee(s) pain. Denies incisional pain. tim sob, cp or lighteadedness Objective VITAL SIGNS: [...] Management for discharge planning - home with [facility] home after PT evaluation ACTIVE PROBLEM [...] 06/26/19 1659 06/14/19 1215 pneumatic compression stockings (ut,oh) 06/14/19 1215 graduated compression stockings (ut,az) VTE Prophylaxis: VTE prophylaxis appropriate POST OPERATIVE COMPLICATIONS: Complicated by: uneventful/none SIGNATURE: Sena Licona PA-C PATIENT NAME: Ruthie CORDERO DATE: June 15, 2019 TIME: 8:50 AM PAGER/CONTACT #: [phone] [facility] THERAPY NTon 06-15-2019 THERAPY NT HNO ID: [id number] Author: Chaka (Pt) Richard Service: Physical Therapy Author Type: Physical Therapist Type: Therapy (PT/OT/Speech/Resp) Filed: 06/15/2019 11:31 AM Note Text: Physical Therapy Treatment SERVICE DATE: 06/15/2019 SERVICE TIME: 1025 to 1050 ROOM: [place] [address] Recommended Discharge Disposition: Home PT Anticipated Discharge [...] mobility-other;Muscle Weakness (generalized) Interventions Provided: Therapeutic Exercise (91679);Gait Training (07593) Therapeutic Exercise (10740) Treatment Minutes: 10 1 unit Skilled Intervention(s): [...] holding times as listed above. Gait Training (69006) Treatment Minutes: 15 1 unit Skilled Intervention(s): [...] decreased General Deviations/Observations : Flexed trunk posture [facility]: 7: Walk 25 feet or more Please see discipline specific clinical documentation flowsheet for complete details for this therapy evaluation/treatment. SIGNATURE: Chaka Ramos PT PATIENT NAME: Ruthie CORDERO DATE: June 15, 2019 TIME: 11:02 AM Normal [facility] THERAPY NT HNO ID: [id number] Author: Nancy Helm Service: ? Author Type: Occupational Therapist Type: Therapy (PT/OT/Speech/Resp) Filed: 06/15/2019 10:27 AM Note Text: Occupational Therapy Evaluation SERVICE DATE: 06/15/2019 SERVICE TIME: 844 to 929 ROOM: [place] [address] Recommended Discharge Disposition: Home Anticipated Discharge Needs: [...] symptoms and signs-other;Difficulty walking-musculoskeletal Interventions Provided: Evaluation;Self Fci Management (29006) $ Evaluation-Low (62549) Billed Units: 1 unit Self Fci Management (42022) Treatment Minutes: 30 2 units Skilled Intervention(s): [...] SUBJECTIVE: Current Hospital Course: Chart reviewed; . Ruthie is a 54 year old female with [...] complete details for this therapy evaluation/treatment. SIGNATURE: Sammi Helm OTR/L PATIENT NAME: Ruthie CORDERO DATE: June 15, 2019 TIME: 9:58 AM [facility] ANES POSTPROC EVALon 020 ANES POSTPROC EVAL HNO ID: [id number] Author: Christy Gutierrez Service: ? Author Type: [...] June 14, 2019 TIME: 11:54 AM CSN: [id number] [facility] ANES PRE-OPon 06-14-2019 ANES PRE-OP HNO ID: [id number] Author: Christy Gutierrez Service: ? Author Type: [...] June 14, 2019 TIME: 7:53 AM CSN: [id number] [facility] BRIEF OP NOTon 06-14-2019 BRIEF OP NOT HNO ID: [id number] Author: Miguel Angel Ponce Service: Orthopaedic Surgery Author Type: Physician Type: Brief Op Note Filed: 06/14/2019 10:52 AM Note Text: TOTAL KNEE ARTHROPLASTY BRIEF OPERATIVE / PROCEDURE NOTE LOG ID: [id number] Surgery/Procedure Date: 06/14/2019 Incision/Procedure Start Time: 9:33 AM Incision Close/Procedure End Time: 10:47 AM Surgeon(s)/Proceduralis t(s) and Fine Jewelry Sales Associate(s): Surgeon(s) and Role: * Miguel Angel Ponce - Primary Physician Fine Jewelry Sales Associate: Sena Licona (Pa) Procedure(s): Procedure(s) (LRB): ARTHROPLASTY [...] 14, 2019 TIME: 10:50 AM PAGER/CONTACT #: 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 Last discharge within 30 days: No Advance Directive: Current Advance Directive: Health Care Power of Patient Sitter;Living Will In Chart: No Computer Operations Supervisor Attempted to Assist with AD Completion: Yes [...] Extended Emergency Contact Information Primary Emergency Contact: ChildChapin Address: [address] [place] [id number] [facility] Mobile Relation: Significant other Supportive Patient Contact:: [...] Completely I feel financially burdened by my lgl-vg-mapdgg expenses for my prescription medication:: 0 - Disagree Completely Risk Score: 0 Patient is categorized as: Low risk < 2 Are you interested in bedside delivery of your medications? Yes Is Patient Psychosocially Complex?: No ASSESSMENT AND PLAN: Medical Needs: Medical Needs: None Psychosocial Needs: Psychosocial Needs: None FREEDOM OF CHOICE EXPLAINED: [place] of Choice Given: Yes Level of Care Discussed: Home Care Financial Disclosure Provided: No Financial Disclosure Comments: [facility] hospital Care. Declines list POTENTIAL TRANSITION PLANS Home Care Pt from home with deny and his mother. Pt independent. Pt has equipment. [facility] SIGNATURE: Kate Sanchez RN PATIENT NAME: Ruthie CORDERO DATE: June 14, 2019 TIME: 3:42 PM PAGER/CONTACT #: [phone] [facility] NURSING PROGon 06-14-2019 NURSING PROG HNO ID: [id number] Author: Ophelia Girard (Rn) FELIPA Savage Service: Nursing Author Type: Registered Nurse Type: Nursing Progress Note Filed: 06/14/2019 12:12 PM Note Text: Nursing Progress Note Patient Name: Ruthie CORDERO [facility] [place] [address] Note: Patient transferred into room/unit 06-13 in stable condition. Actions taken: Patient belongings with patient This note was completed by: Ophelia Savage RN [facility] OPERATIVE NOon 06-14-2019 OPERATIVE NO HNO ID: [id number] Author: Miguel Angel Ponce Service: Orthopaedic Surgery Author Type: Physician Type: Operative Report Filed: 06/15/2019 11:32 AM Note Text: [facility] - Operative Report RUTHIE CORDERO : 1965 AGE: 54. SEX: F PATIENT TYPE: [place] [facility] [place] [facility] LOCATION: [facility] ATTENDING PHYSICIAN: Miguel Angel Ponce MD CSN NUMBER: [id number] DATE OF SURGERY/PROCEDURE: 06/14/2019 INCISION/PROCEDURE START TIME: 0933 hours. INCISION CLOSE/PROCEDURE END TIME: 1047 hours. PREOPERATIVE DIAGNOSIS: Left knee primary localized osteoarthritis. POSTOPERATIVE DIAGNOSIS: Left knee primary localized osteoarthritis. SURGEON: Miguel Angel Ponce MD RECYCLING COLLECTIONS DRIVER: Sena MONSIVAIS. No qualified resident available. Ms. [...] patient was offered a surgery/procedure at a [facility]. The surgeon/proceduralist and patient have discussed [...] a result of the 04/25/19 order by [facility] Director Ruthie Zhou M.D. to cancel non-essential [...] None. SPECIMENS: None. COMPLICATIONS: None apparent. IMPLANTS: Thrall Triathlon uncemented knee system. A size #3 [...] with her family. Miguel Angel Ponce MD :[id number] /[id number] [facility] PT EDon 06-14-2019 PT ED HNO ID: [id number] Author: Lyubov CoteRn) FELIPA Grace Service: ? Author Type: Registered Nurse [...] Signed By: Lyubov Grace RN In Department: [facility] SURGERY [facility] THERAPY NT 06-14-2019 THERAPY NT HNO ID: [id number] Author: Chaka CotePt) Richard Service: Physical Therapy Author Type: Physical Therapist Type: Therapy (PT/OT/Speech/Resp) Filed: 06/14/2019 2:27 PM Note Text: Physical Therapy Evaluation SERVICE DATE: 06/14/2019 SERVICE TIME: 1330 to 1405 ROOM: [place] [address] Recommended Discharge Disposition: Home PT Recommended Discharge [...] mobility-other;Muscle Weakness (generalized) Interventions Provided: Evaluation;Therapeutic Exercise (08686) $ Evaluation-Low (12151) Billed Units: 1 unit Therapeutic Exercise (97797) Treatment Minutes: 20 1 unit Skilled Intervention(s): [...] Diagnosis Date - DVT (deep venous thrombosis) ([facility]) 2012 s/p brain surgery left leg - [...] decreased General Deviations/Observations : Flexed trunk posture -M: 7: Walk 25 feet or more Please see discipline specific clinical documentation flowsheet for complete details for this therapy evaluation/treatment. SIGNATURE: Chaka Ramos PT PATIENT NAME: Ruthie CORDERO DATE: June 14, 2019 TIME: 2:23 PM Normal [facility] APTTon 06-12-2019 aPTT Coag (Bld) [Time] 26.5 s Normal 23.0-32.4 [facility] Comment on above: Result Comment: [...] laboratory APTT reagent in use throughout the [facility]. Basic Metabolic Panlon 06-11 Anion gap [Moles/Vol] 11 mmol/L Normal 9-18 [facility] Calcium [Mass/Vol] 9.4 mg/dL Normal 8.5-10.2 [facility] Chloride [Moles/Vol] 105 mmol/L Normal 97-105 [facility] CO2 [Moles/Vol] 24 mmol/L Normal 22-30 [facility] Creatinine [Mass/Vol] 0.73 mg/dL Normal 0.58-0.96 [facility] eGFR- Amer. >60 Normal [facility] GFR/1.73 sq M predicted among non-blacks MDRD (S/P/Bld) [Vol rate/Area] mL/min/{1.73_m2} Normal [facility] Comment on above: Result Comment: [...] GFR. Glucose [Mass/Vol] 98 mg/dL Normal 74-99 [facility] Comment on above: Result Comment: The [place] Diabetes Association (ADA) provides guidance for cutoff [...] Standards of Medical Care in Diabetes 2016, [place] Diabetes Association. Diabetes Care. 2016.39(Suppl 1). Potassium [Moles/Vol] 4.8 mmol/L Normal 3.7-5.1 [facility] Sodium [Moles/Vol] 140 mmol/L Normal 136-144 [facility] Urea nitrogen [Mass/Vol] 11 mg/dL Normal 7-21 [facility] CBC and Differentialon 06-11 Abs Baso 0.03 k/uL Normal <0.11 [facility] Abs Catron 0.63 k/uL Normal <0.87 [facility] Abs Neut 5.30 k/uL Normal 1.45-7.50 [facility] Absolute nRBC <0.01 Normal <0.01 [facility] Basophils/100 WBC (Bld) 0.4 % Normal [facility] DTYPE Auto Diff Normal [facility] Eosinophils (Bld) [#/Vol] 0.08 10*3/uL Normal <0.46 [facility] Eosinophils/100 WBC (Bld) 1.0 % Normal [facility] Erythrocyte distribution width (RBC) [Ratio] 12.4 % Normal 11.5-15.0 [facility] Hematocrit (Bld) [Volume fraction] 38.6 % Normal 36.0-46.0 [facility] Hemoglobin (Bld) [Mass/Vol] 12.6 g/dL Normal 11.5-15.5 [facility] Lymphocytes (Bld) [#/Vol] 2.31 10*3/uL Normal 1.00-4.00 [facility] Lymphocytes/100 WBC (Bld) 27.7 % Normal [facility] MCH (RBC) [Entitic mass] 30.4 pG Normal 26.0-34.0 [facility] MCHC (RBC) [Mass/Vol] 32.6 g/dL Normal 30.5-36.0 [facility] MCV (RBC) [Entitic vol] 93.2 fL Normal 80.0-100.0 [facility] Monocytes/100 WBC (Bld) 7.5 % Normal [facility] Neutrophils/100 WBC (Bld) 63.4 % Normal [facility] NRBCs 0.0 /100 WBC Normal 0 [facility] Platelet mean volume (Bld) [Entitic vol] 10.0 fL Normal 9.0-12.7 [facility] Platelets (Bld) [#/Vol] 324 10*3/uL Normal 150-400 [facility] RBC (Bld) [#/Vol] 4.14 10*6/uL Normal 3.90-5.20 [facility] WBC (Bld) [#/Vol] 8.35 10*3/uL Normal 3.70-11.00 [facility] Confirm Blood Typeon 020 ABO/RH(D) Negative Normal [facility] Comment on above: Performed By: #### C ONABO #### [facility] [address] [place], [place] [address] Coronavirus 2019on 0 COVID 19 Result 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 [facility] Comment on above: Result Comment: This test was developed and its performance characteristics determined by [facility]'s [facility] [place]. This test has been authorized by FDA under an Emergency Use Authorization (EUA). This test has been validated in accordance with the FDA's Guidance Document Policy for Diagnostics Testing in Laboratories Certified to Perform High Complexity Testing under CLIA prior to Emergency use Authorization for Coronavirus Disease 2019 during the Public Health Emergency issued on April 08, 2019. 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 Author [...] Lupus Erythematosus Discoid Dvt (Deep Venous Thrombosis) ([facility]) Htn (Hypertension) Subjective CHIEF COMPLAINT: Patient stated [...] Diagnosis Date - DVT (deep venous thrombosis) ([facility]) 2013 s/p brain surgery - HTN (hypertension) - [...] 30.6 Neuro: No history of TIA's, stroke, LIMOUSINE AND HEARSE UPHOLSTERER tumor, impaired sensorium, hemiplegia, paraplegia or quadraplegia. 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 The Following Tests/Procedures Have Been Initiated: Orders Placed This Encounter ECG COMPLETE Standing Status: Future Standing Expiration Date: 06/11/2020 Lab tests ordered per surgeon (Cobvid-19,YANE,Confir m Blood Type, PT,PTT,CBCD,Urine CANDS,U/S,BMP) Planned Anesthetic: Per anesthesia choice Instructions Given to Patient: Instructions located in the after visit summary. Patient given verbal and written preop instructions and voices comprehension and compliance. SIGNATURE: Sammi Noriega APRN.LIMOUSINE AND HEARSE UPHOLSTERER PATIENT NAME: Ruthie CORDERO DATE: June 12, 2019 TIME: 8:12 AM PAGER/CONTACT #: [facility] NURSING PROGon 06-12-2019 NURSING PROG HNO ID: [id number] Author: Lois CoteRn) FELIPA Cruz Service: ? Author Type: Registered Nurse [...] Cruz RN June 12, 2019 11:41 AM [facility] Protimeon 06-12-2019 PT Coag (PPP) [Time] 9.8 s Normal 9.7-13.0 [facility] PT Coag (PPP) [Time] s Low 0.9-1.3 [facility] Comment on above: Result Comment: Lulu min K Antagonist (VKA) Therapeutic Range: INR 2 to 3 (Target INR of 2.5) Note: For patients treated with VKA drugs, such as warfarin, the [place] [employer]icians 2012 Guideline recommends [...] to 3.5 (target INR of 3). Carol SPENCER, et al. Chest 2012, 141:7S-47S Irvin RA, et al. [facility] 2017, 70: 252-289 Type and SCR (30D)on 020 ABO/RH(D) Negative Normal [facility] Comment on above: Performed By: #### T SCR30 #### [facility] [address] [place], [place] [address] Urinalysis with Microscopico n 06-12-2019 Bilirubin, Urine Negative Normal Negative [facility] Comment on above: Performed By: #### U AWMIC ####[facility] [address] [place], [place] [phone] Clarity (U) Clear Normal Clear [facility] Comment on above: Performed By: #### U AWMIC ####[facility] [address] [place], [place] [phone] Color (U) Light Yellow Critically abnormal Yellow [facility] Comment on above: Performed By: #### U AWMIC ####[place] [address], [place] [phone] Comments SEE COMMENT Normal [facility] Comment on above: Result Comment: N/A Performed By: #### U AWMIC ####[place] [address] [place] [place] [phone] Epithelial cells LM.HPF (Urine sed) [#/Area] SEE COMMENT Normal [facility] Comment on above: Result Comment: Few Squamous Epithelial Cells Performed By: #### U AWMIC ####[place] [address] [place] [phone] Glucose Ql (U) Negative Normal Negative [facility] Comment on above: Performed By: #### U AWMIC ####[place] [address] [place] [phone] Hemoglobin/Blood,Ur Negative Normal Negative [facility] Comment on above: Performed By: #### U AWMIC ####[place] [address] [phone] Ketones Ql (U) Negative Normal Negative [facility] Comment on above: Performed By: #### U AWMIC ####[place] [address] [place] [phone] Leukest Negative Normal Negative [facility] Comment on above: Performed By: #### U AWMIC ####[place] [address] [place] [phone] Nitrite Ql (U) Negative Normal Negative [facility] Comment on above: Performed By: #### U AWMIC ####[place] [address] [place] [phone] pH (Bld) 6.0 Normal 5.0-8.0 [facility] Comment on above: Performed By: #### U AWMIC ####[place] [address] [place] [phone] Protein (U) [Mass/Vol] Negative Normal Negative [facility] Comment on above: Performed By: #### U AWMIC ####[place] [address] [address] [place] [phone] RBC (U) [#/Vol] 0-3 Normal 0-3 [facility] Comment on above: Performed By: #### U AWMIC ####[place] [address] [address] [place] [phone] Specific [place], Ur 1.012 Normal 1.005-1.030 [facility] Comment on above: Performed By: #### U AWMIC ####[place] [address] [address] [place] [phone] Urine Christopher Comment SEE COMMENT Normal [facility] Comment on above: Result Comment: N/A Performed By: #### U AWMIC ####[place] [address] [address] [place] [phone] Urobilinogen Qn (U) Negative Normal Negative [facility] Comment on above: Performed By: #### U AWMIC ####[place] [phone] WBC (Bld) [#/Vol] 0-5 Normal 0-5 [facility] Comment on above: Performed By: #### U AWMIC ####[place] [address] [place] Publishing[place] [phone] Urine Cultureon 06-12-2019 Bacteria identified Cx Nom (U) Sp. Request/Comment: - Specimen received in preservative Culture Result - No growth (<1,000 CFU/ml) Normal [facility] Comment on above: Performed By: #### U RCUL ####[place] [address] [place] [phone] CNPBanner 06-08-2019 CNPN Telephone (ORAVON) SEVERORUTHIE Girard ([id number]) 1965 F Date Time Provider Department 06/08/19 [...] travel to the [facility] building at the [facility] several days prior to surgery and that they will be required to self quarantine following the COVID test. All questions were answered. The patient requests to proceed with the planned surgical procedure. As a result of the 04/25/19 order by [facility] Director Ruthie Zhou M.D. to [...] knee [M17.12] Order(s):2019 CORONAVIRUS [SQCOVID] Order #: [id number] FUTURE CONSULT TO(TCI)PRE-OP CLEAR [5373491] Order #: [id number]: 1 TYPE + SCREEN,30 DAY [UKPJXI27] Order #: [id number] FUTURE CONFIRM BLOOD TYPE [SQCONABO] Order #: [id number] FUTURE ACTIVATED PTT [SQPTT] Order #: [id number] FUTURE PROTHROMBIN TIME/PT [SQPT] Order #: [id number] FUTURE URINALYSIS WITH MICROSCOPIC [SQUAWMIC] Order #: [id number] FUTURE URINE CULTURE [SQURCUL] Order #: [id number] FUTURE CBC + DIFF [SQCBCDIF] Order #: [id number] FUTURE BASIC METABOLIC PNL [SQBMP] Order #: [id number] FUTURE Prescriptions as of 06/08/2019 Sig: OXYCODONE-ACETAMINOPHEN 5 MG-* LISINOPRIL 20 MG TABLET NAPROXEN 500 MG TABLET Problem List As Of Date 06/08/2019 Noted Resolved Internal derangement of left knee [M23.92] 05/22/2014 Primary osteoarthritis of left knee [M17.12] 12/11/2014 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 Patient said if you need to talk to her she has her phone next to her. iMguel Angel Ponce MD 06/09/2019 12:11 PM Addendum [...] travel to the [place] building at the [facility] several days prior to surgery and that they will be required to self quarantine following the COVID test. All questions were answered. The patient requests to proceed with the planned surgical procedure. As a result of the 04/25/19 order by [facility] Director Ruthie Zhou M.D. 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, enjoying hobbies, walking [...] TIME: 8:38 AM Referring Provider: ESTELA SORTO [[id number]] Allergies As of Date: 03/31/2019 Noted Allergy Reaction TRAMADOL 03/20/2014 4 - Hives 9 - Itching Date Reviewed: 03/31/2019 Reviewed by: Miguel Angel Ponce - Fully Assessed Reason for Visit: Follow Up [171] Primary Visit Diagnosis:Primary osteoarthritis of left knee [M17.12] Other Visit Diagnoses:Chondromalaci a of left patella [M22.42] Patellofemoral stress syndrome of both knees [M22.2X1, M22.2X2] Order(s):SURGICAL REQUEST - ELECTIVE [2023576] Order #: [id number]: 1 CONSULT TO(TCI)PRE-OP CLEAR [9173177] Order #: [id number]: 1 PATIENT PLACED ON JESUS TKA CARE PATH [2335087] Order #: [id number]: 1 TYPE + SCREEN,30 DAY [BKLVBK11] Order #: [id number] FUTURE CONFIRM BLOOD TYPE [SQCONABO] Order #: [id number] FUTURE ACTIVATED PTT [SQPTT] Order #: [id number] FUTURE PROTHROMBIN TIME/PT [SQPT] Order #: [id number] FUTURE URINALYSIS WITH MICROSCOPIC [SQUAWMIC] Order #: [id number] FUTURE URINE CULTURE [SQURCUL] Order #: [id number] FUTURE CBC + DIFF [SQCBCDIF] Order #: [id number] FUTURE STAPH AUREUS PCR [SQSAPCR] Order #: [id number] FUTURE BASIC METABOLIC PNL [SQBMP] Order #: [id number] FUTURE WALKER - FOLDING [90406924] Order #: [id number] RAISED TOILET SEAT [[id number]] Order #: [id number] BATH/SHOWER CHAIR [R8588NQH] Order #: [id number] Prescriptions as of 03/31/2019 Sig: OXYCODONE-ACETAMINOPHEN 5 MG-* LISINOPRIL 20 MG TABLET NAPROXEN 500 MG TABLET Problem List As Of Date 03/31/2019 Noted Resolved Internal derangement of left knee [M23.92] 05/22/2014 Primary osteoarthritis of left knee [M17.12] 12/11/2014 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, enjoying hobbies, walking [...] March 31, 2019 TIME: 8:38 AM Normal [facility] Staph aureus PCRon 0 MRSA PCR Negative Normal [facility] Comment on above: Performed By: #### S APCR ####[facility] [place], [place] [phone] S aureus Spec Source Nasal Normal [facility] Comment on above: Performed By: #### S APCR ####[facility] [address], [place] [phone] Staph aureus PCR Negative Normal [facility] Comment on above: Performed By: #### S APCR ####[facility] [address] [place], [place] [phone] CNOVon 01-27-2019 CNOV Office Visit (LOORRM ) RUTHIE CORDERO ([id number]) 1965 F Date Time Provider Department 01/27/19 11:00 AM CAST TECH JAYRO GLORYCHERYLBecca During your visit today, we recorded the following information about you: Vielka Dick Ma 01/27/2019 2:11 PM Signed Dispensed Large Medial cage unloader OA Reaction brace for the Left knee. Dispensed by [place] [employer]. Instructions were given on application/adjustments . Will f/u as scheduled/prn. Vielka Dick MA,ROT Referring Provider: MIGUEL ANGEL PONCE [[id number]] Allergies [...] Status:Closed by VIELKA DICK MA on 01/27/19 [facility] CNOV Office Visit (GLORYORRM ) RUTHIE CORDERO ([id number]) 1965 F Date Time Provider Department 01/27/19 10:45 AM [...] of these instructions. Referring Provider: ESTELA SORTO [[id number]] Allergies As of Date: 01/27/2019 Noted Allergy [...] M22.2X2] Order(s):Large Joint Arthro/Inj: L knee joint [NEP112] Order #: [id number] KNEE BRACE-J [[id number]] Order #: [id number] hylan G-F 20 48 mg/6 mL 48 [...] MIGUEL ANGEL PONCE MD on 01/27/19 Normal [facility] PROGRESSon 01-27-2019 PROGRESS HNO ID: [id number] Author: Vielka Dick Ma Service: ? Author Type: ? Type: Progress Notes Filed: 01/27/2019 2:11 PM Note Text: Dispensed Large Medial cage unloader OA Reaction brace for the Left knee. Dispensed by [employer]. Instructions were given on application/adjustments . Will f/u as scheduled/prn. Vielka Dick MA,[facility] Normal [facility] PROGRESS HNO ID: [id number] Author: Miguel Angel Ponce Service: Orthopaedic Surgery Author Type: Physician Type: Progress Notes Filed: 02/02/2019 11:25 AM Note Text: [facility] [address] [place], [place] [address] CLINIC NOTE Department of Orthopaedics - Natalio Ponec M.D. NAME: RUTHIE CORDERO CLINIC NO.: [id number] DATE OF SERVICE: 01/27/2019 HISTORY: Patient is [...] Ponce M.D. Date Dictated: 01/27/2019 Date Typed: [facility] 01/27/2019 JOB# [id number] [facility] PROGRESS HNO ID: [id number] Author: Miguel Angel Ponce Service: ? Author [...] the patient voiced understanding of these instructions. [facility] PROGRESS HNO ID: [id number] Author: Vipul Ryder (Rt) Service: ? Author Type: Weight And Test Bar Clerk Type: Progress Notes Filed: 01/27/2019 10:51 AM Note Text: Radiology Service Progress Note PATIENT NAME: Ruthie CORDERO DATE OF SERVICE: January 27, 2019 TIME: [...] PERIPHERAL IV DATA: Not applicable SIGNED BY: RT Britni January 27, 2019 10:50 AM Normal [facility] XR KNEE 4V AP/PA BOTH+LAT/ME [...] CHANGES IS PROGRESSED SINCE THE PREVIOUS EXAM. 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: PSCB Transcribe Date/Time: Jan 27 2019 3:49P Dictated by : CLIF MORALES MD This examination was interpreted and the report reviewed and electronically signed by: CLIF MORALES MD on Jan 27 2019 3:51PM EST [id number] Normal [facility] CNOVon 11-11-2018 CNOV Office Visit (LOORRM ) RUTHIE CORDERO ([id number]) 1965 F Date Time Provider Department 11/11/18 9:15 AM MIGUEL ANGEL PONCE During your visit [...] MIGUEL ANGEL PONCE MD on 11/11/18 Normal [facility] PROGRESSon 11-11-2018 PROGRESS HNO ID: [id number] Author: Miguel Angel Ponce Service: Orthopaedic Surgery Author Type: Physician Type: Progress Notes Filed: 11/22/2018 8:34 AM Note Text: [facility] [address] [place], [place] [address] CLINIC NOTE Department of Orthopaedics - Natalio Ponce M.D. NAME: RUTHIE CORDERO CLINIC NO.: [id number] DATE OF SERVICE: 11/11/2018 HISTORY: Patient follows [...] Ponce M.D. Date Dictated: 11/11/2018 Date Typed: [facility] 11/11/2018 JOB# [id number] [facility] CNOVon 09-09-2018 CNOV Office Visit (LOORRM ) MARCELINARUTHIE ([id number]) 1965 F Date Time Provider Department 09/09/18 [...] M22.42 PROCEDURE NOTE: Ruthie CORDERO Medical Record: [id number] ? Provider : Sena Licona PA-C [facility] ? 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 Author Type: Physician Fine Jewelry Sales Associate Type: Progress Notes Filed: 09/09/2018 10:22 AM [...] M22.42 PROCEDURE NOTE: Ruthie CORDERO Medical Record: [id number] ? Provider : Sena Licona PA-C [facility] ? Prior to the procedure, the patient's [...] as symptoms dictate. Sena Licona PA-C [facility] Vital Signs Date Time Vital Sign Value Performing Clinician Facility 01-25-2023 09:25-0500 Body height 167.64 cm Jet Douglass Other [facility] Other 01-25-2023 09:25-0500 Body mass index (BMI) [Ratio] 26.63 kg/m2 [facility] [place] Other [facility] Other 01-25-2023 09:25-0500 Body temperature 98 [degF] Jet [place] Other [facility] Other 01-25-2023 09:25-0500 Body weight 74.84 kg Jet Douglass Other [facility] Other 01-25-2023 09:25-0500 Respiratory rate 18 /min Jet Douglass Other [facility] Other 01-25-2023 09:25-0500 SaO2% (BldA) [Mass fraction] 97 % Jet Douglass Other [facility] Other 10-26-2022 08:50-0400 Diastolic blood pressure 103 mm[Hg] Mariama DescribeMe [facility] 10-26-2022 08:50-0400 Heart rate 62 /min Mariama Describe[facility] 10-26-2022 08:50-0400 Mean blood pressure 116 mm[Hg] Mariama [facility]cribe[facility] 10-26-2022 08:50-0400 Respiratory rate 18 /min Mariama [facility] 10-26-2022 08:50-0400 Systolic blood pressure 142 mm[Hg] Mariama [facility]cribe[facility] 10-13-2022 15:00-0400 Heart rate 73 /min Gerard Forbes [facility] 10-13-2022 15:00-0400 SaO2% (BldA) [Mass fraction] 98 % Gerard Leidy [facility] 10-13-2022 15:00-0400 Diastolic blood pressure 83 mm[Hg] Gerard Leidy [facility] 10-13-2022 15:00-0400 Mean blood pressure 100 mm[Hg] Gerard Leidy [facility] 10-13-2022 15:00-0400 Systolic blood pressure 135 mm[Hg] Gerard Leidy [facility] 10-13-2022 14:59-0400 Respiratory rate 16 /min Gerard Leidy [facility] 10-13-2022 14:53-0400 Diastolic blood pressure 91 mm[Hg] Gerard Leidy [facility] 10-13-2022 14:53-0400 Heart rate 85 /min Gerard Leidy [facility] 10-13-2022 14:53-0400 Respiratory rate 14 /min Gerard Leidy [facility] 10-13-2022 14:53-0400 SaO2% (BldA) [Mass fraction] 97 % Gerard Leidy [facility] 10-13-2022 14:53-0400 Systolic blood pressure 145 mm[Hg] Gerard Leidy [facility] 10-13-2022 14:21-0400 Heart rate 79 /min Gerard Leidy [facility] 10-13-2022 14:21-0400 SaO2% (BldA) [Mass fraction] 99 % Gerard Leidy [facility] 10-13-2022 14:20-0400 Diastolic blood pressure 88 mm[Hg] Gerard Leidy [facility] 10-13-2022 14:20-0400 Mean blood pressure 104 mm[Hg] Gerard Leidy [facility] 10-13-2022 14:20-0400 Systolic blood pressure 137 mm[Hg] Gerard Leidy [facility] 10-13-2022 14:20-0400 Body temperature 97.88 [degF] Gerard Forbes [facility] 10-13-2022 14:20-0400 Respiratory rate 15 /min Gerard Forbes [facility] 09-22-2022 09:23-0400 Diastolic blood pressure 88 mm[Hg] Mariama Mesa [facility] 09-22-2022 09:23-0400 Heart rate 69 /min Mariama Mesa [facility] 09-22-2022 09:23-0400 Mean blood pressure 105 mm[Hg] Mariama Mesa [facility] 09-22-2022 09:23-0400 Respiratory rate 15 /min Mariama Mesa [facility] 09-22-2022 09:23-0400 Systolic blood pressure 139 mm[Hg] Mariama Mesa [facility] 09-07-2022 13:06-0400 Diastolic blood pressure 73 mm[Hg] Mariama Mesa [facility] 09-07-2022 13:06-0400 Heart rate 91 /min Mariama Mesa [facility] 09-07-2022 13:06-0400 Mean blood pressure 88 mm[Hg] Mariama Mesa [facility] 09-07-2022 13:06-0400 Respiratory rate 14 /min Mariama Mesa [facility] 09-07-2022 13:06-0400 Systolic blood pressure 118 mm[Hg] Mariama Mesa [facility] 10-28-2021 14:09-0400 Body temperature 98.24 [degF] Angie Latrellmarah [facility] 10-28-2021 14:09-0400 Diastolic blood pressure 93 mm[Hg] [facility] 10-28-2021 14:09-0400 Heart rate 79 /min [facility] 10-28-2021 14:09-0400 Respiratory rate 18 /min [facility] 10-28-2021 14:09-0400 SaO2% (BldA) [Mass fraction] 97 % [facility] 10-28-2021 14:09-0400 Systolic blood pressure 141 mm[Hg] [facility] 06-16-2021 10:30-0400 Body height 167.64 cm Jet Douglass Other [facility] Other 06-16-2021 10:30-0400 Body mass index (BMI) [Ratio] 26.63 kg/m2 Jet Douglass Other [facility] Other 06-16-2021 10:30-0400 Body temperature 97.9 [degF] Jet Douglass Other [facility] Other 06-16-2021 10:30-0400 Body weight 74.84 kg Jet Douglass Other [facility] Other 06-16-2021 10:30-0400 Respiratory rate 18 /min Jet Douglass Other [facility] Other 06-16-2021 10:30-0400 SaO2% (BldA) [Mass fraction] 99 % Jet Douglass Other [facility] Other Encounters Encounter Date Encounter Type Care Provider Facility Start: 02-15-2023 End: 02-16-2023 ambulatory Geovani Dias MD Facility: [facility] Start: 01-25-2023 End: 01-25-2023 ambulatory Jet Douglass Other [facility] [employer] Other Start: 01-25-2023 Office outpatient visit 15 minutes Jet Douglass [facility] Start: 12-14-2022 End: 12-15-2022 ambulatory Geovani Dias MD Facility:[facility] Start: 11-30-2022 End: 12-01-2022 ambulatory Geovani Dias MD Facility:[facility] Start: 10-26-2022 End: 10-27-2022 ambulatory PA-C Mariama Mesa Facility[facility] Start: 10-26-2022 End: 10-26-2022 Pain Management [address]ama Mesa [facility] Start: 10-13-2022 End: 10-14-2022 ambulatory Gerard Forbes Facility:[facility] Start: 10-13-2022 End: 10-13-2022 Pain Management [address] [facility] Start: 09-22-2022 End: 09-23-2022 ambulatory PA-C Mariama Mesa Facility:[facility] Start: 09-22-2022 End: 09-22-2022 Pain Management [address] Mesa [facility] Start: 09-21-2022 End: 09-21-2022 Emergency department patient visit Norman Apple Facility:[facility] Start: 09-07-2022 End: 09-08-2022 ambulatory Mariama Mesa Facility:[facility] Start: 09-07-2022 End: 09-08-2022 ambulatory Mariama Mesa Facility:[facility] Start: 09-07-2022 End: 09-07-2022 Patient encounter procedure Mariama Mesa [facility] Start: 09-07-2022 End: 07-31-2023 Pain Management [address] Mesa [facility] Start: 05-16-2022 End: 05-16-2022 Emergency department patient visit Angie Rosario Facility:[facility] Start: 10-28-2021 End: 10-28-2021 Emergency department patient visit Angie Rosario [facility] Start: 06-16-2021 End: 06-16-2021 ambulatory Jet Douglass Other [facility] [place] Other Start: 06-16-2021 Office outpatient visit 15 minutes Jet Douglass [facility] Start: 05-16-2021 End: 05-16-2021 Patient encounter procedure [employer] Work Phone: [facility] Procedures Date Procedure Procedure Detail Performing Clinician Start: 10-13-2022 Injection of knee us ing fluoroscopic guidance Mariamafranc Mesa Comment on above: Right Genicular Nerv e Block-75% relief x 4 days Start: 05-16-2021 [facility] Work Phone: Start: 06-14-2019 Chronic pain followi ng right total knee arthroplasty Mariama Mesa Start: 06-12-2019 Antibody screen Comment on above: Performed By: #### T [id number] #### [facility] [address] [place] [address] Start: 06-12-2019 Electrocardiogram Start: 07-14-2018 History of total kne e arthroplasty Angie Rosario Cholecystectomy Angie Boyle ri Intracranial tumor (disorder) Angie Rosario Immunizations Immunization Date Immunization Notes Care Provider Fa katherine 10-28-2021 tetanus toxoid, redu jerrell diphtheria toxoid, and acellular pertussis vaccine, adsorbed Angie Rosario [facility] 05-24-2020 COVID-19, mRNA, LNP- S, PF, 30 mcg/0.3 mL dose [facility] Comment on above: Reason for Medicatio n: Prophylaxis 04-26-2020 COVID-19, mRNA, LNP- S, PF, 30 mcg/0.3 mL dose [facility] Comment on above: Reason for Medicatio n: Prophylaxis Payers Date Payer Category Payer Medicaid [id number] 2022 Unknown 1965 Unknown [id number] 2.16.8 [id number] 1965 Unknown [id number] 2.16.8 [id number]. 1965 Unknown [id number] 2.16.8 [id number] 1965 Unknown [id number] 2.16.8 [id number]. 1965 Unknown [id number] 2.16.8 [id number] 1965 Unknown [id number] 2.16.8 [id number]. 1965 Unknown [id number] 2.16.8 [id number] 1965 Unknown [id number] 2.16. [id number] 1965 Unknown [id number] 2.16. [id number] 1965 Unknown [id number] 2.16. [id number] Self-pay Self Pay [id number] Unknown Self Pay [id number] Unknown [id number] 2.1 [id number] Social History Date Type Detail Facility Start: 10-12-2017 Tobacco smoking stat us NHIS Smoker (finding) [facility] Start: 1965 Sex Assigned At Female F [facility] Sex Assigned At [facility] Other Start: 07-10-2019 Tobacco smoking status Ex-smoker (fi nding) [facility] Start: 09-07-2022 Tobacco smoking status Light t obacco smoker (finding) [facility] Functional Status Date Assessment Result Facility 10-26-2022 Functional Status N/A [facility] 10-13-2022 Functional Status N/A [facility] 09-22-2022 Functional Status N/A [facility] 09-07-2022 Functional Status N/A [facility] 10-28-2021 Functional Status N/A [facility] Clinical Notes 09-30-2012 to 01-25-2023 [...] see your pcp. Take tylenol as needed. [facility] Other [id number] Evaluation + Plan noteExtracted from: Title:Pain Managment [...] clinic sooner if necessary. CADENCE score: 36% [facility]09-05-2023 Note [id number]:127[facility] 09-22-2022 Evaluation + Plan noteExtracted from: [...] she is supposed to be going to [place] for a baby shower. She is going [...] Appointments Appointment Date:10/13/2022 03:15:00 PM Scheduled Provider: Location:[facility] Pain Management Appointment Type:Surgery FT Appointment Date:10/26/2022 09:00:00 AM Scheduled Provider:Mariama Mesa PA-C Location[facility] Appointment Type:Pain Management - Follow Up (FT) [facility]07-31-2023 Evaluation + Plan noteExtracted from: Title:Pain [...] will obtain a UDS. CADENCE score: 38% [facility]09-20-2022 Hospital Discharge instructions Patient Education 10/28/2021 15:07:50 Corneal Abrasion, Xmmw-ac-Wemo Corneal Abrasion A corneal abrasion is a scratch or injury to the clear covering over the front of your eye (cornea). This can be painful. It is important to get treatment for a corneal abrasion. If this problem is not treated, it can affect your eyesight (vision). What are the causes? A skoog machine operator the eye. An object in the eye. [...] who specializes in conditions of the eye (purchasing manager/sales). This condition may be diagnosed based on [...] if you start to feel better. Take yucl-xgu-tvsdfys and prescription medicines only as told by your doctor. Ask your doctor if the medicine prescribed to you: ?Requires you to avoid driving or using heavy machinery. ?Can cause trouble pooping (constipation). You may need to take these actions to prevent or treat trouble pooping: ?Drink enough fluid to keep your pee (urine) pale yellow. ?Take ksah-ecc-lesloka or prescription medicines. ?Eat foods that are [...] 07/13/2008 Document Revised: 06/02/2019 Document Reviewed: 06/02/2019 [employer] Patient Education 2019 [employer] Follow Up Care 10/28/2021 14:09:12 With:Live Godinez DO Address: [facility] [place], [address] [address]- When:[address] [facility]09-20-2022 Evaluation + Plan noteExtracted from: Title:ED Note Author:Ishan HARDY, Sarah Samuels ate:10/28/21 1. Right corneal abrasion (S 05.01XA: Injury of conjunctiva and corneal abrasion without foreign body, right eye, initial encounter) Ordered: polymyxin B-trimethoprim ophthalmic, 1 drop(s), Eye-Right, q3hr for 7 day(s), 10 mL, Refill(s) 0, q3 hr while awake not to exceed 6 doses/day, [employer] #24, 165, cm, 10/28/21 14:14:00 EDT, [...] date 10/28/21 14:24:00 EDT Visual Acuity Screening [facility]05-09-2022 Evaluation note* Encounter Date Diagnosis Assessment [...] the plan. June, Cough (ICD-10 - R05.9) [facility] Other 08-23-2013 History general Narrative - Reported* Type Description Date Medical History CHRONIC KNEE PAIN Medical History ANXIETY Medical History CHOLECYSTECTOMY Medical History LT SIDED HEMIPARESIS Medical History stroke Medical History 09/30/12 CRANIECTOMY-DR. BURNETT Surgical History DR. BURNETT -CRANIECTOMY 09/30/12 Surgical History CHOLECYSTECTOMY 1998 Surgical History pyloric stenosis Dr Benavides thre e days old 1966 Hospitalization History SEE ABOVE SUREGRY [facility] Other Evaluation + Plan note Future Appointments Appointment Date:10/26/2022 09:00:00 AM Scheduled Provider:Mariama Mesa PA-C Location[facility] Appointment Type:[facility] assessment information available [facility] Work Phone: Hospital course Narrative No data available for this section [facility] No data available for this section [facility] No data available for this section [facility] Summary Purpose Family History No Family History Records FoundNo Family History Records FoundNo Family History Records FoundNo Family History Records FoundNo Family History Records Found Advance Directives No Advanced Directives Records Found Advance Directive Response Recorded Date/ Time Advance Directives No October 4:07pm Hospital Course Note HNO ID: [id number] Author: Britni Licona (Pa) Service: Orthopaedic Surgery Author Type: Physician Fine Jewelry Sales Associate Type: Discharge Summary Filed: 06/15/2019 11:22 AM Note Text: Attestation signed by Miguel Angel Ponce at 06/15/2019 11:54 AM I have personally performed face to face diagnostic evaluation on this patient. I have examined the patient and reviewed radiographic studies and agree with plan as outlined above. Miguel Angel Ponce MD June 15, 2019 11:54 AM DISCHARGE SUMMARY Patient Name: Ruthie CORDERO : 1965 ADMISSION DATE: 06/14/2019 DISCHARGE DATE: 06/15/2019 Attending Physician: Miguel Angel Ponce Primary Diagnosis: Primary osteoarthritis of left knee [M17.12] Operations During Hospitalization: Procedure(s) (LRB): ARTHROPLASTY REPLACE JOINT TOTAL KNEE (Left) Procedures During Hospitalization: No procedures performed Hospi (more content not included)... Note HNO ID: [id number] Author: Arvind Ayala Service: ? Author Type: Nurse Job Setter Type: Anesthesia Procedure Notes Filed: 06/14/2019 9:14 AM Note Text: ANESTHESIOLOGY PROCEDURE NOTE Spinal Block General Information SIGNATURE: Maria Del Rosario Ayala, ZAIRE PATIENT NAME: Ruthie CORDERO DATE: June 14, 2019 TIME: 9:12 AM CSN: [id number] Note HNO ID: [id number] Author: Arvind Ayala Service: ? Author Type: Nurse Job Setter Type: Anesthesia Procedure Notes Filed: 06/14/2019 9:17 AM Note Text: ANESTHESIOLOGY PROCEDURE NOTE Spinal Block General Information Procedure Start Time/Medication Administration: 06/14/2019 9:03 AM Staffing WINDOWS DEPLOYMENT TECHNICIAN: Maria Del Rosario Ayala SIGNATURE: Maria Del Rosario Ayala, ZAIRE PATIENT NAME: Ruthie CORDERO DATE: June 14, 2019 TIME: 9:16 AM CSN: [id number] Note HNO ID: [id number] Author: Arvind Ayala Service: ? Author Type: Nurse Job Setter Type: Anesthesia Procedure Notes Filed: 06/14/2019 9:19 AM Note Text: ANESTHESIOLOGY PROCEDURE NOTE Spinal Block General Information Procedure Start Time/Medication Administration: 06/14/2019 9:05 AM Patient location during procedure: ORTimeout Performed Pre-procedure: timeout performed Consent Obtained: Yes (via Surgical Consent) Patient identity confirmed: arm band Reason for Block: primary surgical anesthetic Staffing WINDOWS DEPLOYMENT TECHNICIAN: Maria Del Rosario Ayala Preparation Sterility Preparation: [...] (more content not included)... Note HNO ID: [id number] Author: Arvind Ayala Service: ? Author Type: Nurse Job Setter Type: Anesthesia Procedure Notes Filed: 06/14/2019 9:32 [...] (more content not included)... Note HNO ID: [id number] Author: Arvind Ayala Service: ? Author Type: Nurse Job Setter Type: Anesthesia Procedure Notes Filed: 06/14/2019 9:49 AM Note Text: ANESTHESIOLOGY PROCEDURE NOTE Spinal Block General Information Procedure Start Time/Medication Administration: 06/14/2019 9:03 AM Patient location during procedure: ORTimeout Performed Pre-procedure: timeout performed Consent Obtained: Yes (via Surgical Consent) Patient identity confirmed: arm band Reason for Block: primary surgical anesthetic Staffing WINDOWS DEPLOYMENT TECHNICIAN: Maria Del Rosario Ayala Preparation Sterility Preparation: [...] (more content not included)... Note HNO ID: [id number] Author: Arvind Ayala Service: ? Author Type: Nurse Job Setter Type: Anesthesia Procedure Notes Filed: 06/14/2019 10:06 AM Note Text: ANESTHESIOLOGY PROCEDURE NOTE Spinal Block General Information Procedure Start Time/Medication Administration: 06/14/2019 9:03 AM Patient location during procedure: ORTimeout Performed Pre-procedure: timeout performed Consent Obtained: Yes Patient identity confirmed: arm band Reason for Block: primary surgical anesthetic Staffing WINDOWS DEPLOYMENT TECHNICIAN: Maria Del Rosario Ayala Performed by: WINDOWS DEPLOYMENT TECHNICIAN Preparation Sterility Preparation: hand hygiene performed prior [...] not included)... Procedure Findings Note HNO ID: [id number] Author: Arvind Ayala Service: ? Author Type: Nurse Job Setter Type: Anesthesia Procedure Notes Filed: 06/14/2019 9:14 AM Note Text: ANESTHESIOLOGY PROCEDURE NOTE Spinal Block General Information SIGNATURE: Maria Del Rosario Ayala APRN.CRNA PATIENT NAME: Ruthie CORDERO DATE: June 14, 2019 TIME: 9:12 AM CSN: [id number] Note HNO ID: [id number] Author: Arvind Ayala Service: ? Author Type: Nurse Job Setter Type: Anesthesia Procedure Notes Filed: 06/14/2019 9:17 AM Note Text: ANESTHESIOLOGY PROCEDURE NOTE Spinal Block General Information Procedure Start Time/Medication Administration: 06/14/2019 9:03 AM Staffing WINDOWS DEPLOYMENT TECHNICIAN: Maria Del Rosario Ayala SIGNATURE: Maria Del Rosario Ayala APRN.CRNA PATIENT NAME: Ruthie CORDERO DATE: June 14, 2019 TIME: 9:16 AM CSN: [id number] Note HNO ID: [id number] Author: Arvind Ayala Service: ? Author Type: Nurse Job Setter Type: Anesthesia Procedure Notes Filed: 06/14/2019 9:19 AM Note Text: ANESTHESIOLOGY PROCEDURE NOTE Spinal Block General Information Procedure Start Time/Medication Administration: 06/14/2019 9:05 AM Patient location during procedure: ORTimeout Performed Pre-procedure: timeout performed Consent Obtained: Yes (via Surgical Consent) Patient identity confirmed: arm band Reason for Block: primary surgical anesthetic Staffing WINDOWS DEPLOYMENT TECHNICIAN: Maria Del Rosario Ayala Preparation Sterility Preparation: [...] (more content not included)... Note HNO ID: [id number] Author: Arvind Ayala Service: ? Author Type: Nurse Job Setter Type: Anesthesia Procedure Notes Filed: 06/14/2019 9:32 [...] (more content not included)... Note HNO ID: [id number] Author: Arvind Ayala Service: ? Author Type: Nurse Job Setter Type: Anesthesia Procedure Notes Filed: 06/14/2019 9:49 AM Note Text: ANESTHESIOLOGY PROCEDURE NOTE Spinal Block General Information Procedure Start Time/Medication Administration: 06/14/2019 9:03 AM Patient location during procedure: ORTimeout Performed Pre-procedure: timeout performed Consent Obtained: Yes (via Surgical Consent) Patient identity confirmed: arm band Reason for Block: primary surgical anesthetic Staffing WINDOWS DEPLOYMENT TECHNICIAN: Maria Del Rosario Ayala Preparation Sterility Preparation: [...] (more content not included)... Note HNO ID: [id number] Author: Arvind Ayala Service: ? Author Type: Nurse Job Setter Type: Anesthesia Procedure Notes Filed: 06/14/2019 10:06 AM Note Text: ANESTHESIOLOGY PROCEDURE NOTE Spinal Block General Information Procedure Start Time/Medication Administration: 06/14/2019 9:03 AM Patient location during procedure: ORTimeout Performed Pre-procedure: timeout performed Consent Obtained: Yes Patient identity confirmed: arm band Reason for Block: primary surgical anesthetic Staffing WINDOWS DEPLOYMENT TECHNICIAN: Maria Del Rosario Ayala Performed by: WINDOWS DEPLOYMENT TECHNICIAN Preparation Sterility Preparation: hand hygiene performed prior [...] section and content) DATE CREATED AUTHOR 06/25/2019 [facility] DATE CREATED AUTHOR AUTHOR'S ORGANIZ ATION 07/25/2019 [facility] DATE CREATED AUTHOR AUTHOR'S ORGANIZ ATION 05/30/2021 [facility] DATE CREATED AUTHOR AUTHOR'S ORGANIZ ATION 11/13/2022 [facility] DATE CREATED AUTHOR AUTHOR'S ORGANIZ ATION 02/17/2023 [facility] Care Teams (unrecognized sec tion and content) Team Status: Inactive Member Role Status Dates [facility] Provider Active Pavithra Briseno ([facility]) , MEDICAL HEALTH RESEARCHER Attending Provider Active Team Status: Active Member Role Status Dates [facility] Primary Care Provider Active Goals (unrecognized section [...] BE BASED ON THE PRIMARY CLINICAL RECORDS. [facility] provides no warranty or guarantee of the accuracy or completeness of information in this document.
== END 2023-04-26 09:02 | disposition home or self-care (01) ==
LOC: EC 09:01
PROVIDERS: Visit Provider Orthopaedic Surgery
DX: M25.561 Pain in right knee (principal)
CPT/HCPCS: 73564

== ENCOUNTER 2023-05-11 10:12 | Outpatient (OUT) | payer MEDICAID, SELFPAY ==
--- NOTE | 2023-05-11 10:15 | MR_ITS ---
[address] [address] Patient Name: JULIÁN HEWITT MRN: [id number] date: 1965 Sex: F Assigned Patient Location: MRI Current Patient Location: Accession/Order Number: [id number] Exam Date: 05/11/2023 10:15 Report Date: 05/12/2023 07:27 At the request of: JANY NASCIMENTO Procedure: MR knee RT wo con EXAMINATION: MR knee RT wo con HISTORY: acute pain of right knee M25.561 COMPARISON: XR knee right 04/26/2023 TECHNIQUE: A complete multi-planar MRI was performed. FINDINGS: MEDIAL COMPARTMENT MEDIAL MENISCUS: Partially extruded from the joint space. Mild intrasubstance degeneration. CARTILAGE: No visible defect. BONES: Large degenerative osteophyte along the articular margins of the femoral condyle. No fracture, lesion, or marrow edema. MCL AND MEDIAL CAPSULE: Grade I sprain of the medial collateral ligament. LATERAL COMPARTMENT LATERAL MENISCUS: Partially extruded from the joint space. Mild intrasubstance degeneration. CARTILAGE: No visible defect. BONES: Large degenerative osteophytes along the articular margins of the femoral condyle. Mild subchondral marrow edema within the tibial plateau adjacent the lateral intercondylar spine. LCL/POSTEROLAT COMPLEX: Normal lateral collateral ligament, fascicles, lateral capsule and ligaments. ANTERIOR COMPARTMENT PATELLA: Small area of subchondral edema involving the lateral facet. Large degenerative osteophytes along the articular margins. CARTILAGE: Cartilage thinning with focal defect overlying the lateral facet. TENDONS: Normal. EFFUSION: None. No synovitis or loose bodies. ACL: Normal appearing ligament. PCL: Normal appearing ligament. MENISCOFEMORAL: Normal meniscofemoral ligaments. OTHER: Small Lama's cyst. MR/MR knee RT wo con IMPRESSION: 1. 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 2. Mild degenerative changes of the medial and lateral menisci. 3. Large degenerative osteophytes along the articular margins of all 3 compartments. 4. Small Lama's cyst. Electronically authenticated by: JANY RAMOS Date: 05/12/2023 07:27
--- OUTSIDE RECORDS SUMMARY | 2023-05-11 10:17 | XMS_ITS | CCD ---
Author Organization [facility] Care Team Providers Care Hitch Technician Name Role Phone Health Dept, Rolf Braswell Primary Care Provider Finn ([facility])CAROLYN Attending Provider Jet Douglass Unavailable LILY OLIVEIRA Primary Care Physician [phone] GOOD TAYLOR Primary Care Physician [phone] ANTONY Mesa Admitting UnavailGOOD Bourne Referring Unavailable Mariama Mesa Attending Unavailable Gerard Forbes Attending Unavailable Gerard Forbes Referring Unavailable MD Gerard Forbes Admitting Unavailable Mariama Mesa Admitting Unavailable Mariama Mesa Attending Unavailable Angie Rosario Attending Unavailable Norman Chiu Attending Unavailable ANTONY Mesa Mariama Admitting UnavailGOOD Bourne Referring Unavailable Mariama Mesa Attending Unavailable Mariama Mesa Attending Unavailable ANTONY Mesa Admitting UnavailGOOD Bourne Referring Unavailable Larissa JONES, Geovani Brar Attending Unavailable Larissa JONES, Geovani Brar Attending Unavailable Larissa JONES, Geovani Brar Attending Unavailable Allergies Allergy Classification Reported Allergen(s) Allergy Type Date of Onset Reaction(s) Facility (7 sources) Ketorolac; Translations: [Ketorolac] Drug Allergy 10-13-19 Unknown Reaction, [facility] (10 sources) traMADol; Translations: [Tramadol] Drug Allergy 10-13-19 [facility] (2 sources) Dextromethorphan / guaiFENesin Drug Allergy Unknown [facility] Other (7 sources) guaiFENesin; Translations: [guaifenesin] Drug Allergy vomiting [facility] (7 sources) Metoprolol; Translations: [metoprolol] Drug Allergy sickneess [facility] (6 sources) gabapentin; Translations: [gabapentin] Drug Allergy Nausea and vomiting (disorder) [facility] (1 source) Ketorolac; Translations: [Toradol] Drug Allergy [facility] Repository Medications Current Medications Medication Drug Class(es) Dates Sig (Normalized) Sig (Original) acetaminophen 325 mg / oxyCODONE hydrochloride 5 mg oral tablet (8 sources) Opioid Agonist Start: 10-26-2022 take 1 tablet by mouth three times daily as needed for pain Percocet 5 mg-325 mg oral tablet 1 tab(s), Oral, TID as needed for pain, 21 tab(s), Refill(s) 0, [facility], 167, cm, 10/26/22 8:57:00 EDT, Height/Length Dosing, 74.8, kg, 10/26/22 8:57:00 EDT, Weight Dosing Start Date: 10/26/22 Status: Ordered Start: 09-22-2022 take 1 tablet by blaine th three times daily as needed for pain Percocet 5 mg-325 mg oral tablet 1 tab(s), Oral, TID as needed for pain, 21 tab(s), Refill(s) 0, [facility], 167, cm, 09/22/22 9:26:00 EDT, Height/Length Dosing, 82.9, kg, 09/07/22 13:27:00 EDT, Weight Dosing Start Date: 09/22/22 Status: Ordered Start: 05-16-2022 Percocet 5 mg- 325 mg oral tablet 1 tab(s), Oral, q6hr, 12 tab(s), Refill(s) 0, [facility], 167, cm, 05/16/22 10:57:00 EDT, Height/Length Dosing, 74.4, kg, 05/16/22 10:57:00 EDT, Weight Dosing Start Date: 05/16/22 Status: Ordered amLODIPine 2.5 mg oral tablet (6 sources) Dihydropyridine Calcium Channel Radha Start: 09-07-2022 take 1 tablet by mouth once daily amLODIPine 2.5 mg Tab TAKE 1 TABLET BY MOUTH DAILY Start Date: 09/07/22 Status: Ordered take 1 tablet by [facility] every twenty-four hours amLODIPine Besylate 5 [...] Active Start: 06-16-2021 take 1 capsule by [facility] three times daily as needed Benzonatate 200 MG 1 capsule Orally Three times a day as needed for 5 day(s) June, Active dextromethorphan hydrobromide 1.5 mg/ml / pyrilamine maleate 1.5 mg/ml oral solution (2 sources) Uncompetitive B-jrmvfr-H-aspartate Receptor Antagonist, Sigma-1 Agonist Start: 01-25-2023 take 20 mL by mouth every eight hours as needed for cough Maxwell DM 7.5-7.5 MG/5ML 20 ml Orally May take every 8 hours as needed for cough for 3 days Jan, Active Start: 06-16-2021 take 20 mL by mouth once daily at bedtime as needed Maxwell DM 7.5-7.5 MG/5ML 20 ml Orally QHS as needed for 5 days June, Active DULoxetine 20 mg delayed release oral capsule (6 sources) Serotonin and Norepinephrine Reuptake Inhibitor Start: 09-07-2022 take 1 capsule by mouth once daily duloxetine 20 mg oral delayed release capsule TAKE 1 CAPSULE BY MOUTH DAILY Start Date: 09/07/22 Status: Ordered take 1 capsule by [facility] every twenty-four hours DULoxetine HCl 30 MG [...] pain, # 40 tab(s), Refills(s) 0, Pharmacy: [facility], 165, cm, 07/07/20 13:07:00 EDT, Height/Length Dosing, 75, kg, 07/07/20 13:07:00 EDT, Weight Dosing Start Date: 07/07/20 Status: Ordered lisinopril 2.5 mg oral tablet (9 sources) Angiotensin Converting Enzyme Inhibitor Start: 2017 take 1 tablet by mouth once daily lisinopril 2.5 mg Tab 2.5 mg = 1 tab(s), Oral, Daily, Refills(s) 0 Start Date: 07/10/19 Status: Ordered take 1 tablet by blaine every twenty-four hours Lisinopril 5 MG 1 tablet Orally Once a day Active methylPREDNISolone 4 mg oral tablet (1 source) Corticosteroid Start: 09-22-2022 End: 09-28-2022 Medrol 4 mg Tab = 1 packet(s), Oral, As Directed, as directed on package labeling, X 6 day(s), # 21 tab(s), Refills(s) 0, Pharmacy: [facility], 167, cm, 09/22/22 9:26:00 EDT, Height/Length Dosing, 82.9, kg, 09/07/22 13:27:00 EDT, Weight Dosing Start Date: 09/22/22 Stop Date: 09/28/22 Status: Ordered Multivitamin preparation (5 sources) Start: 09-07-2022 multivitamin See Instructions, Refill(s) 0, daily Start Date: 09/07/22 Status: Ordered polymyxin b 35206 unt/ml / trimethoprim 1 mg/ml ophthalmic solution (1 source) Dihydrofolate Reductase Inhibitor Antibacterial, Polymyxin-class Antibacterial Start: 10-28-2021 End: 11-04-2021 Polytrim 10 mL Soln-Opth 1 drop(s), Eye-Right, q3hr for 7 day(s), 10 mL, Refill(s) 0, q3 hr while awake not to exceed 6 doses/day, [facility], 165, cm, 10/28/21 14:14:00 EDT, Height/Length Dosing, 75.8, kg, 10/28/21 14:14:00 EDT, Weight Dosing Start Date: 10/28/21 Stop Date: 11/04/21 Status: Ordered pregabalin 25 mg oral capsule (2 sources) Start: 09-07-2022 take 1 capsule by mouth twice daily pregabalin 25 mg Cap 25 mg = 1 cap(s), Oral, BID, # 60 cap(s), Refills(s) 0, Pharmacy: [facility], 167, cm, 05/16/22 10:57:00 [...] (COVID-19) RNA EDWIN+probe Ql (Unsp spec) Positive [facility] [employer] Other COVID/FLU RT-PCR [facility] [employer] Other Insurance Correspondence Off iceon 11-09-2022 Insurance Correspondence Office [id number]#2.00 CD:127 Normal [facility] Consent for Treatmenton 10-09 Consent for Treatment [id number]#1.00 CD:127 Normal [facility] Consultation Noteon 10-27-19 23 Consultation Note Patient: Delaney CORDERO Age: 57 years Sex: Female : 1965 Associated Diagnoses: None Author: Mariama Msea PA-C Subjective Chief complaint 10/26/2022 8:50 EDT [...] needed for pain, 21 tab(s), Refill(s) 0, [facility], 167, cm, 10/26/22 8:57:00 EDT, Height/Length Dosing, 74.8, kg, 10/26/22 8:57:00 EDT, Weight Dosing Percocet 5 mg-325 mg oral tablet: 1 tab(s), Oral, q6hr, 12 tab(s), Refill(s) 0, [facility], 167, cm, 05/16/22 10:57:00 EDT, Height/Length Dosing, 74.4, kg, 05/16/22 10:57:00 EDT, Weight Dosing ibuprofen 600 mg Tab: 600 mg = 1 tab(s), Oral, QID, PRN for pain, # 40 tab(s), Refills(s) 0, Pharmacy: [facility], 165, cm, 07/07/20 13:07:00 EDT, Height/Length [...] list: All Problems Smoker / SNOMED CT 711675352 / Confirmed Added secondary to documentation in Social History. Hypertension / SNOMED CT 4371724753 / Confirmed Anxiety / SNOMED CT 13310182 / Confirmed Thrombosis / SNOMED CT 8167192026 / Confirmed Lower back pain / SNOMED CT 526412133 / Confirmed Resolved: Benign brain tumor / SNOMED CT 9255061965 Objective Vital Signs 10/26/2022 8:50 EDT Peripheral [...] of the right knee Integumentary: Warm, Dry, Agar. Injection sites well-healed Neurologic: Alert, Oriented. Psychiatric: [...] FINAL REPORT Dictated: 05/16/2022 12:06 pm Jose Gordno DO Signed (Electronic Signature): 05/16/2022 12:06 pm [...] on May (more content not included)... Normal [facility] Comment on above: Result Comment: Elec tronically Signed By: Moshe HARDY, Mariama\.br\Date and Time Signed: 10/26/22 09:21 EDT\.br\Electronically Co-Signed By: Gerard Forbes MD\.br\Date and Time Co-Signed: 10/27/22 12:01 EDT Office/Clinic Note-Physician on 10-26-2022 Office/Clinic Note-Physician [id number]#1.00 CD:127 Normal [facility] Patient Correspondenceon Patient Correspondence [id number]#1.00 CD:127 Normal [facility] Patient Correspondence [id number]#1.00 CD:127 Normal [facility] Patient History Officeon Patient History Office [id number]#1.00 CD:127 [facility] Consent for Procedure/Surger yon 10-13-2022 Consent for Procedure/Surgery [id number]#1.00 CD:127 [facility] Consent for Treatmenton Consent for Treatment [id number]#1.00 CD:127 [facility] Discharge Instructionson Discharge Instructions [id number]#1.00 CD:127 [facility] IntraOperative Documentson 0 10-13-2022 IntraOperative Documents [id number]#1.00 CD:127 [facility] Main OR Intraoperative Recor don 10-13-2022 Main OR Intraoperative Record IntraOp Document Type FTPM Summary Primary Physician: Gerard Forbes MD Finalized Date/Time: 10/13/22 15:13:27 Pt. Name: RUTHIE CORDERO/Sex: 1965 Female Med Rec #: [id number] Physician: Gerard Forbes MD Financial #: [id number] Pt. Type: P Room/Bed: / Admit/Disch: 10/13/22 13:50:50 - Institution: Case Times FTPM Entry 1 Patient Times In Room 10/13/22 14:50:00 Out Room 10/13/22 14:58:00 Procedure Times Start 10/13/22 14:53:00 Stop 10/13/22 14:57:00 Anesthesia Times Last Modified By: Yaya ELO, Mar 10/13/22 14:59:05 Case Attendance FTPM Entry 1 Entry 2 Entry 3 Case Attendee Leidy JONES, Gerard Mcgill RN, Mar Medrano RN Role Performed Surgeon - Primary Scrub - Primary Wireline Operator - Primary Time In 10/13/22 14:50:00 10/13/22 14:50:00 10/13/22 14:50:00 Time Out 10/13/22 14:58:00 10/13/22 14:58:00 10/13/22 14:58:00 Procedure GENICULAR NERVE GENICULAR NERVE GENICULAR NERVE BLOCK(Right) BLOCK(Right) BLOCK(Right) Comments Last Modified By: Yaya LEO, Mar 10/13/22 Yaya LEO, Mar 10/13/22 Yaya LEO, Mar 10/13/22 14:59:05 14:59:05 14:59:05 Entry 4 Entry 5 Case Attendee Ender LEO, Ruthie Lam Role Performed Scrub - Relief Project Mgr Time In 10/13/22 14:50:00 10/13/22 14:50:00 Time [...] Given Participants Nano LEO, Leidy Draper MD, Ender Hardy RN, Gregory Mehta Amy Time Out Complete 10/13/22 [...] and tissue Entry 1 Skin Integrity Intact, Agar, Warm, and Skin Abnormality No Dry Outcomes [...] Yes La (more content not included)... Normal [facility] Main OR Preoperative Recordo n 10-13-2022 Main OR Preoperative Record Holding Area Document Type FTPM Summary Primary Physician: Gerard Forbes MD Finalized Date/Time: 10/13/22 14:22:01 Pt. Name: RUTHIE CORDERO./Sex: 1965 Female Med Rec #: [id number] Physician: Gerard Forbes MD Financial #: [id number] Pt. Type: P Room/Bed: / Admit/Disch: 10/13/22 [...] Antoinette Wiggins RN 10/13/22 14:21:56 General Comments: [employer] at 0730 Finalized By: Antoinette Wiggins RN Document Signatures Signed By: Antoinette Wiggins RN 10/13/22 14:22 Normal [facility] Operative Reporton 3 Operative Report Patient: Delaney CORDERO Age: 57 years Sex: Female : 1965 Associated Diagnoses: None Author: Gerard Forbes MD Procedure Procedure: Genicular Nerve Blocks Right Knee [...] EDT Respiratory Rate 15 br/min . Normal [facility] Comment on above: Result Comment: Elec tronically Signed By: Leidy JONES, Gerard Samuels\.br\Date and Time Signed: 10/13/22 14:57 EDT Consent for Treatmenton 09-08 Consent for Treatment [id number]#1.00 CD:127 Normal [facility] Consultation Noteon 09-23-19 Consultation Note Patient: Delaney [...] She is getting ready to leave for [place] in 10 days and she is just [...] day(s), # 21 tab(s), Refills(s) 0, Pharmacy: [facility], 167, cm, 09/22/22 9:26:00 EDT, Height/Length Dosing, 82.9, kg, 09/07/22 13:27:00 EDT, Weight Dosing Percocet 5 mg-325 mg oral tablet: 1 tab(s), Oral, TID as needed for pain, 21 tab(s), Refill(s) 0, [facility], 167, cm, 09/22/22 9:26:00 EDT, Height/Length Dosing, 82.9, kg, 09/07/22 13:27:00 EDT, Weight Dosing Percocet 5 mg-325 mg oral tablet: 1 tab(s), Oral, q6hr, 12 tab(s), Refill(s) 0, [facility], 167, cm, 05/16/22 10:57:00 EDT, Height/Length Dosing, 74.4, kg, 05/16/22 10:57:00 EDT, Weight Dosing ibuprofen 600 mg Tab: 600 mg = 1 tab(s), Oral, QID, PRN for pain, # 40 tab(s), Refills(s) 0, Pharmacy: [facility], 165, cm, 07/07/20 13:07:00 EDT, Height/Length Dosing, 75, kg, 07/07/20 13:07:00 EDT, Weight Dosing pregabalin 25 mg Cap: 25 mg = 1 cap(s), Oral, BID, # 60 cap(s), Refills(s) 0, Pharmacy: [facility], 167, cm, 05/16/22 10:57:00 [...] list: All Problems Smoker / SNOMED CT 476852132 / Confirmed Added secondary to documentation in Social History. Hypertension / SNOMED CT 6165874739 / Confirmed Anxiety / SNOMED CT 42824339 / Confirmed Thrombosis / SNOMED CT 7360924938 / Confirmed Lower back pain / SNOMED CT 024811900 / Confirmed Resolved: Benign brain tumor / SNOMED CT 9002159154 Objective Vital Signs 09/22/2022 9:23 EDT Peripheral [...] knee flexion and extension Integumentary: Warm, Dry, Agar. Neurologic: Alert, Oriented. Psychiatric: Cooperative, Appropriate mood & affect. Results Review * Final Report * Reason For Exam Pain, Traumatic POWERSCRIBE REPORT IMPRESSION: NO ACUTE OSSEOUS ABNORMALITY. EXAM: XR Knee Complete 4+ Views Right HISTORY: Pain after a fall TECHNIQUE: AP, lateral and oblique views of the k (more content not included)... Normal [facility] Comment on above: Result Comment: Elec tronically Signed By: Mariama Mesa PA-C\.br\Date and Time Signed: 09/22/22 09:46 EDT\.br\Electronically Co-Signed By: Leidy JONES, Gerard Samuels\.br\Date and Time Co-Signed: 10/13/22 07:49 EDT Office/Clinic Note-Physician on 09-22-2022 Office/Clinic Note-Physician [id number]#1.00 CD:127 Normal [facility] Patient Correspondenceon Patient Correspondence [id number]#1.00 CD:127 Normal [facility] Patient Correspondence [id number]#1.00 CD:127 Normal [facility] Patient History Officeon Patient History Office [id number]#1.00 CD:127 Normal [facility] Consent for Treatmenton 09-08 Consent for Treatment [id number]#1.00C D:127 Normal [facility] ED Clinical Summaryon 2022 ED Clinical Summary (Inserted Image. Teresita ble to display) [place] [id number] ED Clinical Summary Person Information Name: URTHIE CORDERO [facility] Age: 57 Years : 1965 Sex: Female Language: Persian PCP: GOOD TAYLOR CNP Marital Status: Visit [...] 09/21/2022 10:12:23 09/21/2022 10:12:23 09/21/2022 10:12:23 ADDRESS: [id number] [facility] [id number] [facility] DOC NOTES: MEDICAL [...] EDUCATION INFORMATION: Instructions: Follow up: DIAGNOSIS: Normal [facility] ED Patient Education Noteon 09-21-2022 ED Patient Education Note Normal [facility] ED Patient Summaryon 023 ED Patient Summary (Inserted Image. Teresita ble to display) [place] [id number] Patient Discharge Instructions Person Information Name: RUTHIE CORDERO Age: 57 Years Arrival Date: 09/21/2022 09:12:37 Discharge Diagnosis: Primary Care Physician: GOOD TAYLOR CNP Provider Information Primary Provider: Advanced Machine Repairer:None The exam and treatment you received in the Emergency Department were for an urgent problem and are not intended as complete care. It is important that you follow up with a doctor, nurse practitioner, or physician?s registered dental assistant rda for ongoing care. If your symptoms become [...] opioids can be used to help relieve pzywprpb-rd-kehhyn pain and are often prescribed following a [...] be struggling with addiction, tell your health youth care specialist and ask for guidance or call [employer] National Helpline at 2-660-807-LJRT. v Source: [place] Department of Health and Human Services/Center for Disease Control & Prevention [facility] Medications Given: Medication Dose Route No medications found. Medication Information: M (more content not included)... Normal [facility] Patient Correspondenceon Patient Correspondence [id number]#1.00C D:127 [facility] Insurance Correspondence Off ice09-14-2022 Insurance Correspondence Office [id number]#1.00 CD:127 Normal [facility] Laboratory Outside Office Co pyon 09-11-2022 Laboratory Outside Office Copy [id number]#1.00 CD:127 Normal [facility] Outside Records Officeon Outside Records Office [id number]#1.00 CD:127 Normal [facility] Consent for Treatmenton 08-10 Consent for Treatment [id number]#1.00 CD:127 Normal [facility] Consent for Treatment [id number]#1.00 CD:127 Normal [facility] Consultation Noteon 09-08-19 Consultation Note Patient: Delaney [...] list: All Problems Smoker / SNOMED CT 378154028 / Confirmed Added secondary to documentation in Social History. Hypertension / SNOMED CT 4009286343 / Confirmed Anxiety / SNOMED CT 94265387 / Confirmed Thrombosis / SNOMED CT 2836655070 / Confirmed Lower back pain / SNOMED CT 656567517 / Confirmed Resolved: Benign brain tumor / SNOMED CT 8369379430 Histories Past Medical History: Resolved Benign brain tumor (7402483208): Onset on 09/30/2012 at 47 years. Resolved. Family History: Entire family history is negative. Procedure history: History of total knee arthroplasty (SNOMED CT 9172671809) on 07/14/2018 at 53 Years. BT - Brain tumor (SNOMED CT 064897661). Cholecystectomy (SNOMED CT 98657138). Social History Social & Psychosocial Habits Alcohol 10/31/2018 Risk Assessment: Denies Alcohol Use Substance Abuse 10/31/2018 Risk Assessment: Denies Substance Abuse Tobacco 07/10/2019 Risk Assessment: Denies Tobacco Use 07/10/2019 Tobacco Use: Former smoker, quit more Type: Cigarettes 09/07/2022 Tobacco Use: 5-9 cigarettes (between 1 . Physical Examination Vital Signs (last 24 hrs) Last Charted Heart Rate Peripheral 91 bpm (SEP 07:) SBP 118 mmHg (SEP 07:) DBP 73 [...] Appropriate mood & affect. Integumentary: Warm, Dry, Agar. Review / Management Results review: No qualifying [...] normal limits. Ord (more content not included)... Normal [facility] Comment on above: Result Comment: Elec tronically Signed By: Mariama Mesa PA-C\.br\Date and Time Signed: 09/07/22 13:42 EDT\.br\Electronically Co-Signed By: Leidy JONES, Gerard Samuels\.br\Date and Time Co-Signed: 09/15/22 14:21 EDT HIPAA Forms Officeon 023 HIPAA Forms Office [id number]#1.00 CD:127 Normal [facility] In office Testingon 09-08-19 23 In office Testing [id number]#1.00 CD:127 Normal [facility] Legal Correspondence Officeo n 09-07-2022 Legal Correspondence Office [id number]#1.00 CD:127 Normal [facility] Legal Correspondence Office [id number]#1.00 CD:127 Normal [facility] Office/Clinic Note-Physician on 09-07-2022 Office/Clinic Note-Physician [id number]#1.00 CD:127 Normal [facility] CATHOLIC PRIEST Drug Screen-LCon 023 Test Name TOXASSURE FLEX Invalid Interpretation Code [facility] Comment on above: Performed By: #### 1 [id number] ####[facility] [address] [place] [address] Patient Correspondenceon Patient Correspondence [id number]#1.00 CD:127 Normal [facility] Patient Correspondence [id number]#1.00 CD:127 Normal [facility] Patient Correspondence [id number]#1.00 CD:127 Normal [facility] Patient Correspondence [id number]#1.00 CD:127 Normal [facility] Patient Correspondence [id number]#1.00 CD:127 Normal [facility] Patient Correspondence [id number]#1.00 CD:127 Normal [facility] Patient History Officeon Patient History Office [id number]#1.00 CD:127 Normal [facility] Physician Orderon 09-07-2022 Physician Order [id number]#1.00 CD:127 Normal [facility] Reference Laboratory Testing Ordered By: Elena Sierra on 09-07-2022 Test Name TOXASSURE FLEX Invalid Interpretation Code [facility] [employer] Release of Records Officeon 09-07-2022 Release of Records Office [id number]#1.00 CD:127 Normal [facility] Outside Records Officeon Outside Records Office [id number]#1.00 CD:127 Normal [facility] Radiology Outside Office Church Official yon 08-21-2022 Radiology Outside Office Copy [id number]#1.00 CD:127 Normal [facility] Referrals Officeon Referrals Office [id number]#1.00 CD:127 Normal [facility] Coding Summary.on 2022 Coding Summary. CD:[id number] Ww+ PGhlYWQ+XU4ONQSbM71qpFP ysQ8jN9GMEUcLRpyuHAGAIW iMVuRdrcMpMB7wmOXkBICq IC8+GB2gJOXdBruvySEoj2O 3cFD0R09srd6nGCncsXA2DO EjWpZgngtgf2uarVx5XNvoU mluOyBt KHHcpS73OKQ4wC25Dd30oWN qvRHqi3zabUb7MoGsVKQgOZ G9cBkzMNhch8UmVHUnG79pa UTqr3G6 QLMlpIofvMIrKjXxwID7oG9 jRBbrkchct4dqbpgnQkw9jm 04uKAaf4F7rMY9U7UvffW0L GJvbGQg RqscuZMGzY9rewohm0euwkp rVyKxSOAgHOz9NJk1RWHjfP mqOsCcKJ65FQL3OLYdbiEvI 2FsLWFs oTkqGnM3e0H5Ri2YM7OUJwu cV5EQWKKZHXpwjPQ+PC90cj 13C0IjWnasOnu7NHCzFME1e YT6nU6y IUYuGJizc8T6xYV9J0FerlF fun7vx1saEZWaBBseS64omY Ozh2V6ZCKorMO0KNDtxIgvR iBzaG93 Oyc+RXLdyOozs4ThCwtsa1n pe7pmcHz0KyyfOQYllkZzoL tqWHG2n8XnEh3sHSPcpTN9s ZZ1mK7j SbZfAwN2ZKyhC723MwDexHN tYxvwZ10gE8YkiSF+PHRyPj q6FVAtnVzxBS1pT4VsKLEwo mctbGVm fBhlVV3cUTJlrsuiSJOecR7 kECAaC4l9GcOwVoK1TOxxL5 LnBCKgcwdxXe89yH4nNoMpO cJ7PEvf Q4MpxdL0HELejDPvESglBDX 3U46lj3Y7NYSfPRDgLTF5qY G6dA6nqByqfikhnFOvtPvlv mVydGlj ZTqzYOwtA194ENLteJfrXhJ vZGluZyBEYXRlOiAgMDQvMT EvMjAyMzwvdGQ+EYRxFPD8x WxlPSAn sRVlMJezAy5itMtlzNloQR7 vDLSmdwkaHUZeaU1gRXDpuC RihKdkXT0nYOPlhtatb700C iAxMHB0 CEFloFSvL8BaiP7xDnMaLRY bXOSrC6AhtMAuMQvsD755AR zqHpK5QGIbbsPaK4ZxRIHyg WduOiB0 x9H3Sb3Bh7IqsspoA5TeoBB tSsLtXjvxNDt4V1IuLvdsuL I+XG32IJYzBO48APk3QWM7k WxlPSdi BVHlK7JizB3lXuAnNPDyOYZ kOyc+PHRhYmxlIHdpZHRoPS coHIIfVzOmeFazRA0kLt5tH GVyLWNv nLfcwUZzFqFml4qfVNDbSYa oKL6fwLqpE8ObhRG1GSUnc6 s7Bp58W12bG1EdxLO+PGNvb DP9lSM3 hR2tJdYbEiT9SSsiT013NvI ovACsCwepx2tud9ielNg8Vu T0YNRolhHucBaiVUM0x3SpH u72P75y IHdpZHRoPSIxNSUiIHZhbGl puu3etB5cEj3+IKHypLR9aX Q3kK7xUvFkJuD5FWnzR638C nRvcCIv Lkuuw6cgl7xmhJc4RwBlPLS xrjVrzZeeKYQ9s3WlHa27L9 YouHrsu8WnOwb1xn36fZMwh 5F8oIC9 N3FoEKWvnhlvmFDtoEctBF8 kQXLfscclHREqvV1lQKAqN8 w5FhXkUqS9RAlkB6EvcoC8H GJvbGQg EZEcyLAXzI9yhfxgv0vjlli eDbAvUXBfXYl9XLv2KRXegI pmGsZeSTC1NiB1VAZ9sBZpt Q0xjHcv wpqfjP2cSwk+QBX1nNTuyEL ZEP9kTyuauRB+GADmHTV7oP fyFQicPLQyzU4yWKTvL3j3J iAwLjA1 FJboB8PcueP9LHExuWMdAZB onTMUvL0qqhnlc9gffyxjDl VrPCYaTUn5OGr0PTBsnEovN iBsZWZ0 BlZ4BNV9sXTmnN8nxHomhio xeH3fYpn+YcipyMqgLLV1PM f6J8BqEzd7OCAzxNkvML5by GFkZGlu Bo3ddSjdpDesXQ6rHYRarzh jr810BcGwb2amPRMouSCmUI oqRDH0K66zw2X6CBNyTQJsM GF2eSD3 lZ9ipPbtpokglJJudYfnnlW obVuiAMtkKHjtL946JVNgzL xiIlDmIWb0Y4LcZul2DTMrz AufWT6v dBNbPQbyBl6lqBlvwAlkGO0 iBRUezijyw410WeHyl8beSC HphTOwPKsfTPQ4N37hv2V2P CMwMDAw MBV0xMY0gF3naDwbmptcoWS mdDsgdmVydGljYWwtYWxpZ2 62VPTnzXekSiMpmSd0O8YoR ym3TXUv gYvvFY0kcLDaKIkqDj1thBt miPxqEU4gGRAdexnlq925Cf Nbm1mcHMNaxUUpSMcxWSV2G 75co1R2 UFLcEXZgIQV9cPH7nJ9jlRe nbjogbGVmdDsgdmVydGljYW cfBLbeA465DYZgpCakDqEln GllbnQg WMdaDQb7Z8KuPmvjxOO+PC9 3XCTrTR90sCAzeITue8fldM l4ZmMmFJWvOWE5iXgwGYuvd 3JkZXIt K52cwILue7J4AXDqeTgdsMR kXmHizXL1xL0xJCtxxdqnl0 vujjgyNnnxr9iplz81zM38B 29sIHdp ZHRoPSIzMCUiIHZhbGlnbj0 ywF6kOt4+LCIdcNM6cJX2hK 8mFBOmXgC0ATtuJ459IdYom CIvPjxj z6pzh4repAc8HeD1YUYsubN yxFuoVRH3y3CaIh10X52rFG dpZHRoPSIyMCUiIHZhbGlnb k6edA1e Ii8+SPRsfLT5zKN0lT6bSdE vCdO1FDoxE207JyPikANzZf kwO52kT9LadCN+JICjAec6V CBzdHls DT7kaXLvDVzqNf6oGCP7PyP ePuSgGVjlE2NlGVHupumgqd heiUY4YVMmQNOokQ85Al7cl DogMTBw hLBBdO7ricbrp6jtgtgbCiF uRYUmXDa4FQv0AHBhbMsdWj XjPEQ8HbX1DZZ5dYJpqV7di Glnbjog aZ8aD0GzNVOsphtfBb59dI4 sOxGkHpD6UOloVzu+U0NIV0 DWMARdTVEMDKEHLL69BP79n KXox1L0 bDZ5J6VhWDLyhisiplitoGG 2GQClTXGsmS51uLLjMCsdQb 4tn2G7o075LGFaAJPniC90M e6rlAph RPNmpWVKdF0zguvog2szjsx tXsOdHEPzDKo6JNm0DAQytI kxWfYpLFV8ZnK1GEA0pLVkp G2lrNcy qolnnE1oBnn+MDQvMTEvMTk 2NjwvdGQ+LUZcRDF6vAitXQ fiOITquK6nAZPuM4i9IjWwZ rA6TVbu P7RqJCGlmvsjSa24nD9uNcQ iOcK8LBnkL4MmliR2PLTabT RlRKomXSR5Q67nu6R2NCIgX DAwMDA7 fUX5eP2reKrrorksiRWwuIp txcCkwDjcAPgxKYatS474BW ErjNwrAtE4TIuwFBEeBR62D I81iMQi e4U1nDQ2T6SpCTYbenxopsl elPW6UMVnKXIydB29dEVlJU jkFt4bv2L1y772HRFvGUThv H80Oz2f tBsbQFJjaARZsG5wxrodh4j evhhaRpXdWSDsGDr0FPq1JM KznFfsYdJwMIX1DfK7MQO4k KYmgM3b qJwwwvmraI1jNsc+RmVtYWx zYG82YH00iLGqy9O9bNG8N0 SeMAWshunvesqgrEV1EXRoO DUwaW47 tKOuJNclZo6mk0B0x614EHO oWIYkaP95Bj8bdFvjHWAzjX DMuO0gkapqb4teelfvWrXqP DAwMDt0 HAp7HOGhcLdfMqIgJHT0OaV 9ULT2lWVweW1txMfzqtuvnN 9wOyc+GP9ixvyxqsM1NV10S K04I9Wp PjwvdGFibGU+PHRhYmxlIHd pZHRoPScxMDAlJyBzdHlsZT 6jUo4bBSKaMVApzGstzZZbX wWmn8it JZReGWxyMN5rcTknS5FjyQT 4DPZsy6z6Jz33B34pM1OgzK A+MFGccWG6iRT2nX8eAiAqV fF1IXiq O093XwMopGTiHyjsk4wgj1a cwBg3MkPkVSQtwlBsuDfbXX I9r7OhPc17E01qYJzeCPHvJ SIyMCUi IXOnyJjkap3rjT5yWk8+PGN gtAM6tVH0gP2aFoFwYnL0QS pdY684UoIqdFWnDwmvX68rL 3JvdXA+ ESCiAle3AVInkDurZB0xbUV fGDchVk5nKGU3PiSbLbFeKS xjH5ZmZWFicebduwzvnNV9I DAuMDUw pH48Fo6rgHrqAj2eXIIyJTM 8JRLynIIwP2OnrT7qYuWlLE HyNMQeZ1QbnWMkWZltC995D GxlZnQ7 NVVfuxAdS3KfFUUarGfgOpT 7r8D8Ip5XiIvgtWJdYD3hMa JoMJx5T9IgCtg5CSYgvFxaG L1cpXPg HOkyNs1giJkatZmzEK8bXZC juabgj496DmAjh4tcZEKueU NgRIznAEI6Q80mx6Q3LNYfW DAwMDA7 cIS6yS0luCwhtyhmwTFosAa lhfPpvMigWAgjDCtjM746OT LewYklRkEJQlq1P7VlZbz2B CBzdHls JH7whXHtFPooGo5kySddgMh cWV3kOXWuctodx303MfWpv7 qeKUQqkSHoHZslUXF5V10gv 0E6HYIw EJNvMNL7iSW8zH5tqGjjrzo gbGVmdDsgdmVydGljYWwtYW oiM156BNLgxOabQp6HEyl1G 7XtPkw1 XHWkvQvgZA6lkNPpGOutVr8 krBffsDvdUB6dRTZzsiorp8 88UoRvj3jdAEShzAWcHAnlT XE9H42t a1B8SLMxWCDnCFN6pSW2mJ9 hbGlnbjogbGVmdDsgdmVydG acQYwuPCbqT805VTUnyGahY lBheWVy OjwvdGQ+BX58vd16I0VqQuq hJzf3MOWzPNG9qGQ7tU9dXB RyWCfxp2Z7dXQ8P1TggoEon y0hs9pf YXBzZTog (more content not included)... Normal [facility] Consent for Treatmenton Consent for Treatment [id number]#1.00C D:127 Normal [facility] Discharge Instructionson Discharge Instructions [id number]#1.00 CD:127 Normal [facility] ED Clinical Summaryon 2022 ED Clinical Summary (Inserted Image. Teresita ble to display) [address] [address] ED Clinical Summary Person Information Name: RUTHIE CORDERO [facility] Age: 56 Years : 1965 Sex: Female Language: Persian PCP: GOOD TAYLOR CNP Marital Status: Visit [...] 05/16/2022 12:31:51 05/16/2022 12:31:51 05/16/2022 12:31:51 ADDRESS: [id number] [address] [facility] [place] [id number] PHYS DOC NOTES: MEDICAL INFORMATION: Prescriptions Given: New Medications [facility], [address] [facility] [place] [id number], [phone] acetaminophen-oxycodone (Percocet 5 mg-325 mg oral tablet) [...] RICE Therapy for Routine Care of Injuries, Lrao-tr-Mjpv; How to Use a Knee Immobilizer, Touq-sj-Csqi; Acute Knee Pain, Adult, Gpgb-uz-Ccsl Follow up: With: Address: When: Gerry Mercado [address] [place] [address] [phone] Business (1) In 3 days 2022 With: Address: When: GOOD TAYLOR [address] [place] [address] [phone] Business (1) In 3 days DIAGNOSIS: 1:Acute traumatic pain; 2:Strain of right knee Normal [facility] ED Note-Physicianon 05-17-19 ED Note-Physician Basic Information [...] tab(s), Oral, q6hr, 12 tab(s), Refill(s) 0, [facility], 167, cm, 05/16/22 10:57:00 EDT, Height/Length Dosing, 74.4, kg, 05/16/22 10:57:00 EDT, Weight Dosing 2. Strain of right knee (S86.911A: Strain of unspecified muscle(s) and tendon(s) at lower leg level, right leg, initial encounter) Ordered: acetaminophe (more content not included)... Normal [facility] Comment on above: Result Comment: Elec tronically [...] 07/13/2008 Document Revised: 10/15/2017 Document Reviewed: 10/15/2017 Medication Review Patient Education ? 2020 [employer]. How to Use a Knee Immobilizer A [...] 11/03/2008 Document Revised: 01/07/2018 Document Reviewed: 01/11/2017 Medication Review Patient Educatio (more content not included)... Normal [facility] ED Patient Summaryon 023 ED Patient Summary (Inserted Image. Teresita ble to display) [place] [address] Patient Discharge Instructions Person Information Name: RUTHIE CORDERO Age: 56 Years Arrival Date: 05/16/2022 10:46:05 Discharge Diagnosis: 1:Acute traumatic pain; 2:Strain of right knee Primary Care Physician: GOOD TAYLOR CNP Provider Information Primary Provider: Angie Rosraio M.D. Advanced Machine Repairer:None The exam and treatment you received in the Emergency Department were for an urgent problem and are not intended as complete care. It is important that you follow up with a doctor, nurse practitioner, or physician?s registered dental assistant rda for ongoing care. If your symptoms become [...] Instructions: With: Address: When: Gerry Rogelio [address] [place] [phone] Business (1) In 3 days 2022 With: Address: When: GOOD TAYLOR [address] [place] [phone] Business (1) In 3 days In the event that this physician does not participate in your insurance network, please consult with your insurance company to find a nearby participating provider. Patient Education Materials: RICE Therapy for Routine Care of Injuries, Ilvt-zv-Sldz; How to Use a Knee Immobilizer, Jxgy-ro-Gmhh; Acute Knee Pain, Adult, Cxuz-bb-Vasr A MESSAGE TO ALL PATIENTS REGARDING OPIOIDS PRESCRIPTION OPIOIDS: WHAT YOU NEED TO KNOW Prescription opioids can be used to help relieve olrwrkyx-jh-nhcxab pain and are often prescribed following a [...] www.cdc.gov/drugoverdos e (more content not included)... Normal [facility] XR Knee Complete 4+ Views Jacky lepe 05-16-2022 XR Knee Complete 4+ Views Right [...] Padron FINAL REPORT Dictated: 05/16/2022 12:06 pm Heidi DO, Jose J Signed (Electronic Signature): 05/16/2022 12:06 pm Signed by: Jose Gordon DO Transcribed by: CALLIE Technologist: CARYN Technical Comments Radiation Dose: Ka,r in mGy = na DAP = na Normal [facility] MM screening mammo BI w/CADo n 05-16-2021 MM screening mammo BI w/CAD [facility] [place] [address] Mammography Report Signed Patient: Ruthie Cordero MR#: [id number] : 1965 Acct:[id number] Age/Sex: 55 / F ADM Date: 05/16/21 Loc: [place] Room: Type: [facility] Attending Dr: Pavithra Briseno ([facility]) CAROLYN Ordering Provider: Pavithra Briseno APRN, WHCNP Date of Service: 05/16/21 MM/MM screening mammo BI w/CAD: Z12.31 Copies to: [facility] Pavithra Briseno APRN JAMIA Bilateral Screening Full Field digital mammogram with [...] Ryder Romero M.D.05/16/2021 9:05 AM Dictation Location: [facility] Transcribed By: JIM 05/16/21904 Dictated By: Ryder Romero DO 05/16/21903 Signed By: 05/16/21904 [facility] CNOVon 07-25-2019 CNOV Office Visit (LOORRM ) RUTHIE CORDERO ([id number]) 1965 F Date Time Provider Department 07/25/19 9:20 AM SENA LICONA (PA)ORRBecca During your visit today, we recorded the following information about you: Sena Licona PA-C 07/25/2019 9:09 AM Signed Ortho Knee Follow Up Note Narrative Referring Provider: Miguel Angel Ponce MD [address] [facility] [address] PCP: Estela Sorto MD ===== IMPRESSION/PLAN: ===== [...] by SENA LICONA PA-C on 07/25/19 Normal [facility] PROGRESSon 07-25-2019 PROGRESS HNO ID: [id number] Author: Sena Landers) Livan Service: ? Author Type: Physician Retail Banking Manager Type: Progress Notes Filed: 07/25/2019 9:09 AM Note Text: Ortho Knee Follow Up Note Narrative Referring Provider: Miguel Angel Ponce MD [address] [facility] [address] PCP: Estela Sorto MD ===== IMPRESSION/PLAN: ===== [...] PA-C Completed by: Sena Licona PA-C Normal [facility] CNOVon 07-04-2019 CNOV Office Visit (LOORRM ) RUTHIE CORDERO ([id number]) 1965 F Date Time Provider Department 07/04/19 11:00 AM SENA LICONA) GLORYORRBecca During your visit today, we recorded the following information about you: Sena Licona PA-C 07/04/2019 11:23 AM Signed Ortho Knee Follow Up Note Narrative Referring Provider: Miguel Angel Ponce MD [address] [facility] [place] [facility] [address] PCP: Estela Sorto MD ===== IMPRESSION/PLAN: ===== [...] Licona PA-C Referring Provider: MIGUEL ANGEL PONCE [[id number]] Allergies As of Date: 07/04/2019 Noted Allergy [...] Order(s):XR KNEE POST OP 3V AP/LAT/MERCHANT LT [5256313] Order #: [id number] FUTURE CONSULT TO PHYSICAL THERAPY [9032] Order #: [id number]: 1 FUTURE HYDROcodone-acetaminoph en (NORCO) 5-325 mg [...] Status:Closed by SENA LICONA PA-C on 07/04/[address] [facility] PROGRESSon 07-04-2019 PROGRESS HNO ID: [id number] Author: Pretty Hudson (Rt) Service: ? Author Type: Food Prep Worker Type: Progress Notes Filed: 07/04/2019 11:00 AM [...] Olivo July 04, 2019 10:59 AM Normal [facility] PROGRESS HNO ID: [id number] Author: Sena Landers) Livan Service: ? Author Type: Physician Retail Banking Manager Type: Progress Notes Filed: 07/04/2019 11:23 AM Note Text: Ortho Knee Follow Up Note Narrative Referring Provider: Miguel Angel Ponce MD [address] [facility] [address] PCP: Estela Sorto MD ===== IMPRESSION/PLAN: ===== [...] PA-C Completed by: Sena Licona PA-C Normal [facility] XR KNEE 3V AP/LAT/MERCHANT L Ton 07-04-2019 [...] Interval total left knee arthroplasty without complication. Citrus Fruit Colorer: DESHAWN Transcribe Date/Time: Jul 04 2019 11:07A Dictated by : ONEAL ALONSO MD This examination was interpreted and the report reviewed and electronically signed by: JUSTINO URIBE MD on Jul 04 2019 2:01PM EST [id number] Normal [facility] OBSOLETEon 06-27-2019 OBSOLETE Refill (LOORRM) RUTHIE CORDERO ([id number]) 1965 F Date Time Provider Department 06/27/19 MIGUEL ANGEL PONCE During your visit today, we recorded the following information about you: Tegan Kidney PSS 06/27/2019 8:36 AM Signed Patient has 3 left. Requestor:Patient Patient is identified by name and birthdate: Yes Patient reminded to check with pharmacy in 24-48 hours: Yes Prescriber Verified: Yes Pharmacy benefits have been verified: Yes Pharmacy updated in [facility]: Yes Is medication controlled [...] Encounter Status:Closed by LILY KISER on 06/27/[address] [facility] OBSOLETEon 06-23-2019 OBSOLETE Refill (LOORRM) RUTHIE CORDERO ([id number]) 1965 F Date Time Provider Department 06/23/19 [...] in Epic: Yes Is medication controlled substance: Yes Medication [...] Patient has 5 doses remaining. Pharmacy is [facility] [place] [address] - [address] [facility] E??- [phone]. Patient can be reached at [phone]. Please advise. Miguel Angel Ponce MD 06/23/2019 8:56 AM Signed PDMP website checked and validated. All prescriptions have been APPROPRIATELY filled. No suspicious activity was identified. 06/23/2019 by Miguel Angel Ponce MD Rx for [place] has been approved and sent to patient's [...] by MIGUEL ANGEL PONCE MD on 06/23/19 [facility] 06-19-2019 CNPN Telephone (LOORRM) RUTHIE CORDERO ([id number]) 1965 F Date Time Provider Department 06/19/19 MIGUEL ANGEL [...] soon after surgery. Please call [facility] at [phone] Sena Licona PA-C 06/19/2019 3:47 PM Signed the rx was sent already to the local pharmacy she should utilize ice for the first week. then heat before exercise and ice when she is done Sena Licona PA-C Ryder LOPEZK 06/19/2019 4:52 PM Signed Patient's [facility] calling [...] 06/20/2019 09:17 AM Modules accepted: Orders Jennifer Garza Pss 06/20/2019 1:58 PM Signed DDM calling [...] Date Reviewed: 06/15/2019 Reviewed by: Brenda (Tash) Coral RN - Fully Assessed Reason for [...] Narcotic medication dose and quantity may exceed [place] state limits due to the medical necessity [...] Status:Closed by SENA LICONA PA-C on 06/19/[address] [facility] OBSOLETEon 06-19-2019 OBSOLETE Refill (LOORRM) RUTHIE CORDERO ([id number]) 1965 F Date Time Provider Department 06/19/19 MIGUEL ANGEL PONCE During your visit today, we recorded the following information about you: Rashida Mckeon Pss 06/19/2019 9:34 AM Signed Requestor:Patient Patient is identified by name and birthdate: Yes Patient reminded to check with pharmacy in 24-48 hours: Yes Prescriber Verified: Yes Pharmacy benefits have been verified: Yes Pharmacy updated in [facility]: Yes Is medication controlled [...] Narcotic medication dose and quantity may exceed [place] state limits due to the medical necessity for post operative pain control required for the surgical procedure performed on Ruthie CORDERO June 14, 2019. Route: ORAL Sig: Take 1-2 tablets by mouth every 3 hours as needed for up to 7 days. Disc: Reason for discontinue is not on file. Encounter Status:Closed by SENA LICONA PA-C on 06/19/19 Normal [facility] Basic Metabolic Panlon 06-14 Anion gap [Moles/Vol] 12 mmol/L Normal 9-18 [facility] Calcium [Mass/Vol] 8.5 mg/dL Normal 8.5-10.2 [facility] Chloride [Moles/Vol] 100 mmol/L Normal 97-105 [facility] CO2 [Moles/Vol] 26 mmol/L Normal 22-30 [facility] Creatinine [Mass/Vol] 0.72 mg/dL Normal 0.58-0.96 [facility] eGFR- Amer. >60 Normal [facility] GFR/1.73 sq M predicted among non-blacks MDRD (S/P/Bld) [Vol rate/Area] mL/min/{1.73_m2} Normal [facility] Comment on above: Result Comment: eGFR [...] ospital Comment on above: Result Comment: The [place] Diabetes Association (ADA) provides guidance for cutoff [...] Standards of Medical Care in Diabetes 2016, [place] [employer] Association. Diabetes Care. 2016.39(Suppl 1). Potassium [Moles/Vol] 4.0 mmol/L Normal 3.7-5.1 [facility] Sodium [Moles/Vol] 138 mmol/L Normal 136-144 [facility] Urea nitrogen [Mass/Vol] 7 mg/dL Normal 7-21 [facility] CASE MANAGEMon 06-15-2019 CASE MANAGEM HNO ID: [id number] Author: Kate (Rn) TASH Sanchez Service: Care Management Author Type: Registered Nurse Type: Care Mgt Progress Note Filed: 06/15/2019 12:58 PM Note Text: CARE MANAGEMENT DISCHARGE NOTE SERVICE DATE: 06/15/2019 SERVICE TIME: 12:57 PM LOS: 0 days Admission Date: 06/14/2019 DISCHARGE ARRANGEMENT (list agency and phone number) Discharge Arrangement: Home Long Term Care: PT CAREGIVER ASSESSMENT: Caregiver is ready, [...] Handoff to: Other Caregiver Other Caregiver Name/Phone: [employer] [facility] TRANSPORTATION ARRANGEMENTS: Transportation Arrangements: Car Discharge Information Row Name Admission (Discharged) from 06/14/[address] [facility] SIGNATURE: Kate Sanchez RN PATIENT NAME: Ruthie CORDERO DATE: June 15, 2019 TIME: 12:57 PM PAGER/CONTACT #: [phone] [facility] CASE MANAGEM HNO ID: [id number] Author: Kate (Rn) TASH Sanchez Service: Care Management Author Type: Registered Nurse Type: Care Mgt Progress Note Filed: 06/15/2019 9:21 AM Note Text: CARE MANAGEMENT PROGRESS NOTE SERVICE DATE: 06/15/2019 SERVICE TIME: 9:21 AM LOS: 0 days [place] of Choice Given: Yes Level of Care Discussed: Home Care Financial Disclosure Provided: No Financial Disclosure Comments: [facility] unable to accept. pt would like to use [facility] Referral sent. SIGNATURE: Kate Sanchez RN PATIENT NAME: Ruthie CORDERO DATE: June 15, 2019 TIME: 9:21 AM PAGER/CONTACT #: [phone] Normal [facility] CBCon 06-15-2019 Absolute nRBC <0.01 [facility] width (RBC) [Ratio] 12.5 % Normal 11.5-15.0 [facility] Hematocrit (Bld) [Volume fraction] 32.8 % Low 36.0-46.0 [facility] Hemoglobin (Bld) [Mass/Vol] 10.9 g/dL Low 11.5-15.5 [facility] MCH (RBC) [Entitic mass] 31.0 pG Normal 26.0-34.0 [facility] MCHC (RBC) [Mass/Vol] 33.2 g/dL Normal 30.5-36.0 [facility] MCV (RBC) [Entitic vol] 93.2 fL Normal 80.0-100.0 [facility] Platelet mean volume (Bld) [Entitic vol] 10.7 fL Normal 9.0-12.7 [facility] Platelets (Bld) [#/Vol] 263 10*3/uL Normal 150-400 [facility] RBC (Bld) [#/Vol] 3.52 10*6/uL Low 3.90-5.20 [facility] WBC (Bld) [#/Vol] 8.63 10*3/uL Normal 3.70-11.00 [facility] NURSING PROGon 06-15-2019 NURSING PROG HNO ID: [id number] Author: Brenda (Rn) TASH Moncada Service: Nursing Author Type: Registered Nurse Type: [...] note was completed by: Brenda Moncada RN [facility] PLAN OF CAREon 06-15-2019 PLAN OF CARE HNO ID: [id number] Author: Michelle Handley (Evince) Service: ? Author Type: Food Prep Worker Type: Plan of Care Filed: 06/15/2019 3:12 [...] tablet Commonly known as: PERCOCET Michelle Handley (Evince) PAGER: rajesh June 15, 2019 3:12 PM [facility] PROGRESSon 06-15-2019 PROGRESS HNO ID: [id number] Author: Sena Landers) Livan Service: Orthopaedic Surgery Author Type: Physician Retail Banking Manager Type: Progress Notes Filed: 06/15/2019 8:51 AM [...] Management for discharge planning - home with [facility] home after PT evaluation ACTIVE PROBLEM [...] 06/26/19 1659 06/14/19 1215 pneumatic compression stockings (vt,ct) 06/14/19 1215 graduated compression stockings ([place]) VTE Prophylaxis: VTE prophylaxis appropriate POST OPERATIVE COMPLICATIONS: Complicated by: uneventful/none SIGNATURE: Sena Licona PA-C PATIENT NAME: Ruthie CORDERO DATE: June 15, 2019 TIME: 8:50 AM PAGER/CONTACT #: [phone] [facility] THERAPY NTon 06-15-2019 THERAPY NT HNO ID: [id number] Author: Chaka (Pt) Richard Service: Physical Therapy Author Type: Physical Therapist Type: Therapy (PT/OT/Speech/Resp) Filed: 06/15/2019 11:31 AM Note Text: Physical Therapy Treatment SERVICE DATE: 06/15/2019 SERVICE TIME: 1025 to 1050 ROOM: [place] [address] Recommended Discharge Disposition: Home PT Anticipated Discharge [...] mobility-other;Muscle Weakness (generalized) Interventions Provided: Therapeutic Exercise (06311);Gait Training (80906) Therapeutic Exercise (88405) Treatment Minutes: 10 1 unit Skilled Intervention(s): [...] holding times as listed above. Gait Training (89591) Treatment Minutes: 15 1 unit Skilled Intervention(s): [...] decreased General Deviations/Observations : Flexed trunk posture -HLM: 7: Walk 25 feet or more Please see discipline specific clinical documentation flowsheet for complete details for this therapy evaluation/treatment. SIGNATURE: Chaka Ramos PT PATIENT NAME: Ruthie CORDERO DATE: June 15, 2019 TIME: 11:02 AM Normal [facility] THERAPY NT HNO ID: [id number] Author: Nancy Helm Service: ? Author Type: Occupational Therapist Type: Therapy (PT/OT/Speech/Resp) Filed: 06/15/2019 10:27 AM Note Text: Occupational Therapy Evaluation SERVICE DATE: 06/15/2019 SERVICE TIME: 0845 to 0930 ROOM: [place] [address] Recommended Discharge Disposition: Home Anticipated Discharge Needs: [...] symptoms and signs-other;Difficulty walking-musculoskeletal Interventions Provided: Evaluation;Self Long Term Management (19838) $ Evaluation-Low (32131) Billed Units: 1 unit Self Long Term Management (54432) Treatment Minutes: 30 2 units Skilled Intervention(s): [...] DATE: June 15, 2019 TIME: 9:58 AM [facility] ANES POSTPROC EVALon 020 ANES POSTPROC EVAL HNO ID: [id number] Author: Christy Gutierrez Service: ? Author Type: [...] June 14, 2019 TIME: 11:54 AM CSN: [id number] [facility] ANES PRE-OPon 06-14-2019 ANES PRE-OP HNO ID: [id number] Author: Christy Gutierrez Service: ? Author Type: [...] June 14, 2019 TIME: 7:53 AM CSN: [id number] [facility] BRIEF OP NOTon 06-14-2019 BRIEF OP NOT HNO ID: [id number] Author: Miguel Angel Ponce Service: Orthopaedic Surgery Author Type: Physician Type: Brief Op Note Filed: 06/14/2019 10:52 AM Note Text: TOTAL KNEE ARTHROPLASTY BRIEF OPERATIVE / PROCEDURE NOTE LOG ID: [id number] Surgery/Procedure Date: 06/14/2019 Incision/Procedure Start Time: 9:33 AM Incision Close/Procedure End Time: 10:47 AM Surgeon(s)/Proceduralis t(s) and Retail Banking Manager(s): Surgeon(s) and Role: * Miguel Angel Ponce - Primary Physician Retail Banking Manager: Sena Licona (Pa) Procedure(s): Procedure(s) (LRB): ARTHROPLASTY [...] 14, 2019 TIME: 10:50 AM PAGER/CONTACT #: [facility] CASE MGT INIT [facility] 2019 CASE MGT INIT [facility] HNO ID: [id number] Author: Kate (Rn) TASH Sanchez Service: Care Management Author Type: Registered Nurse Type: Care Mgt Initial Assessment Filed: 06/14/2019 3:43 PM Note Text: CARE MANAGEMENT: ASSESSMENT AND DISCHARGE PLAN SERVICE DATE: June 14, 2019 SERVICE TIME: 3:42 PM PRIMARY CARE PHYSICIAN: Estela Sorto MD ADMISSION STATUS: Extended Recovery MEDICAL: [employer] MEDICA[employer] Patient/Occupational Health Technician Stated Goals: To have reduction in pain;To have reduction in symptoms;To improve my functional status;To return home to life as it was Health Insurance: None Health Issues Impacting Discharge Plan: Newly diagnosed Newly Diagnosed: knee replacement Last Discharge Date: N/A Is this Within the Past 30 days? Last discharge within 30 days: No Advance Directive: Current Advance Directive: Health Care Power of Benefits Clerk;Living Will In Chart: No Labor Arbitrator Hearing Office Attempted to Assist with AD Completion: Yes [...] Information Primary Emergency Contact: Chapin Child Address: [address] [place] [id number] [facility] Mobile Relation: Significant other Supportive Patient [...] Completely I feel financially burdened by my eez-vs-ktlded expenses for my prescription medication:: 0 - Disagree Completely Risk Score: 0 Patient is categorized as: Low risk < 2 Are you interested in bedside delivery of your medications? Yes Is Patient Psychosocially Complex?: No ASSESSMENT AND PLAN: Medical Needs: Medical Needs: None Psychosocial Needs: Psychosocial Needs: None FREEDOM OF CHOICE EXPLAINED: [place] of Choice Given: Yes Level of Care Discussed: Home Care Financial Disclosure Provided: No Financial Disclosure Comments: [facility] [place] [facility] Declines list POTENTIAL TRANSITION PLANS Home Care Pt from home with deny and his mother. Pt independent. Pt has equipment. Referral to [facility] Care SIGNATURE: Kate Sanchez RN PATIENT NAME: Ruthie CORDERO DATE: June 14, 2019 TIME: 3:42 PM PAGER/CONTACT #: [phone] [facility] NURSING PROGon 06-14-2019 NURSING PROG HNO ID: [id number] Author: Ophelia Girard (Rn) TASH Savage Service: Nursing Author Type: Registered Nurse Type: Nursing Progress Note Filed: 06/14/2019 12:12 PM Note Text: Nursing Progress Note Patient Name: Ruthie CORDERO [facility] Transfer Note: Patient transferred into room/unit 06-13 in stable condition. Actions taken: Patient belongings with patient This note was completed by: Ophelia Savage RN [facility] OPERATIVE NOon 06-14-2019 OPERATIVE NO HNO ID: [id number] Author: Miguel Angel Ponce Service: Orthopaedic Surgery Author Type: Physician Type: Operative Report Filed: 06/15/2019 11:32 AM Note Text: [facility] - Operative Report RUTHIE CORDERO : 1965 AGE: 54. SEX: F PATIENT TYPE: A HOSP [facility]: [facility] LOCATION: [facility] ATTENDING PHYSICIAN: Miguel Angel Ponce MD CSN NUMBER: [id number] DATE OF SURGERY/PROCEDURE: 06/14/2019 INCISION/PROCEDURE START TIME: 0933 hours. INCISION CLOSE/PROCEDURE END TIME: 1047 hours. PREOPERATIVE DIAGNOSIS: Left knee primary localized osteoarthritis. POSTOPERATIVE DIAGNOSIS: Left knee primary localized osteoarthritis. SURGEON: Miguel Angel Ponce MD PLANT CHANGER: Sena Licona PAC. No qualified resident available. Ms. Licona assisted [...] patient was offered a surgery/procedure at a [facility]. The surgeon/proceduralist and patient have discussed [...] a result of the 04/25/[address] [facility] Director Ruthie Zhou M.D. to cancel non-essential [...] None. SPECIMENS: None. COMPLICATIONS: None apparent. IMPLANTS: Sheldon Triathlon uncemented knee system. A size #3 [...] with her family. Miguel Angel Ponce MD :[id number] [facility] PT EDon 06-14-2019 PT ED HNO ID: [id number] Author: Lyubov CoteRn) TASH Grace Service: ? [...] AFFECTING LEARNING: None Electronically Signed By: Lyubov Graec RN In Department: [facility] SURGERY [facility] THERAPY NT 06-14-2019 THERAPY NT HNO ID: [id number] Author: Chaka CotePtShirlene Ramos Service: Physical Therapy Author Type: Physical Therapist Type: Therapy (PT/OT/Speech/Resp) Filed: 06/14/2019 2:27 PM Note Text: Physical Therapy Evaluation SERVICE DATE: 06/14/2019 SERVICE TIME: 1330 to 1405 ROOM: [place] [address] Recommended Discharge Disposition: Home PT Recommended Discharge [...] mobility-other;Muscle Weakness (generalized) Interventions Provided: Evaluation;Therapeutic Exercise (35461) $ Evaluation-Low (07917) Billed Units: 1 unit Therapeutic Exercise (53195) Treatment Minutes: 20 1 unit Skilled Intervention(s): [...] Diagnosis Date - DVT (deep venous thrombosis) ([facility]) 2012 s/p brain surgery left leg - [...] decreased General Deviations/Observations : Flexed trunk posture -[facility]: 7: Walk 25 feet or more Please see discipline specific clinical documentation flowsheet for complete details for this therapy evaluation/treatment. SIGNATURE: Chaka Ramos PT PATIENT NAME: Ruthie CORDERO DATE: June 14, 2019 TIME: 2:23 PM Normal [facility] APTTon 06-12-2019 aPTT Coag (Bld) [Time] 26.5 s Normal 23.0-32.4 [facility] Comment on above: Result Comment: Unfr actionated [...] laboratory APTT reagent in use throughout the [facility]. Basic Metabolic Panlon 06-11 Anion gap [Moles/Vol] 11 mmol/L Normal 9-18 [facility] Calcium [Mass/Vol] 9.4 mg/dL Normal 8.5-10.2 [facility] Chloride [Moles/Vol] 105 mmol/L Normal 97-105 [facility] CO2 [Moles/Vol] 24 mmol/L Normal 22-30 [facility] Creatinine [Mass/Vol] 0.73 mg/dL Normal 0.58-0.96 [facility] eGFR- Amer. >60 Normal [facility] GFR/1.73 sq M predicted among non-blacks MDRD (S/P/Bld) [Vol rate/Area] mL/min/{1.73_m2} Normal [facility] Comment on above: Result Comment: eGFR [...] GFR. Glucose [Mass/Vol] 98 mg/dL Normal 74-99 [facility] Comment on above: Result Comment: The [place] Diabetes Association (ADA) provides guidance for cutoff [...] Standards of Medical Care in Diabetes 2016, [place] [employer] Association. Diabetes Care. 2016.39(Suppl 1). Potassium [Moles/Vol] 4.8 mmol/L Normal 3.7-5.1 [facility] Sodium [Moles/Vol] 140 mmol/L Normal 136-144 [facility] Urea nitrogen [Mass/Vol] 11 mg/dL Normal 7-21 [facility] CBC and Differentialon 06-11 Abs Baso 0.03 k/uL Normal <0.11 [facility] Abs Plumas 0.63 k/uL Normal <0.87 [facility] Abs Neut 5.30 k/uL Normal 1.45-7.50 [facility] Absolute nRBC <0.01 Normal <0.01 [facility] Basophils/100 WBC (Bld) 0.4 % Normal [facility] DTYPE Auto Diff Normal [facility] Eosinophils (Bld) [#/Vol] 0.08 10*3/uL Normal <0.46 [facility] Eosinophils/100 WBC (Bld) 1.0 % Normal [facility] Erythrocyte distribution width (RBC) [Ratio] 12.4 % Normal 11.5-15.0 [facility] Hematocrit (Bld) [Volume fraction] 38.6 % Normal 36.0-46.0 [facility] Hemoglobin (Bld) [Mass/Vol] 12.6 g/dL Normal 11.5-15.5 [facility] Lymphocytes (Bld) [#/Vol] 2.31 10*3/uL Normal 1.00-4.00 [facility] Lymphocytes/100 WBC (Bld) 27.7 % Normal [facility] MCH (RBC) [Entitic mass] 30.4 pG Normal 26.0-34.0 [facility] MCHC (RBC) [Mass/Vol] 32.6 g/dL Normal 30.5-36.0 [facility] MCV (RBC) [Entitic vol] 93.2 fL Normal 80.0-100.0 [facility] Monocytes/100 WBC (Bld) 7.5 % Normal [facility] Neutrophils/100 WBC (Bld) 63.4 % Normal [facility] NRBCs 0.0 /100 WBC Normal 0 [facility] Platelet mean volume (Bld) [Entitic vol] 10.0 fL Normal 9.0-12.7 [facility] Platelets (Bld) [#/Vol] 324 10*3/uL Normal 150-400 [facility] RBC (Bld) [#/Vol] 4.14 10*6/uL Normal 3.90-5.20 [facility] WBC (Bld) [#/Vol] 8.35 10*3/uL Normal 3.70-11.00 [facility] Confirm Blood Typeon 020 ABO/RH(D) Negative Normal [facility] Comment on above: Performed By: #### C ONABO #### [facility] [address] [place], [place] [address] Coronavirus 2019on 0 COVID 19 Result VAMP WETTER Negative Normal Negative for COVID19 (SARS CoV2) by PCR. [facility] Comment on above: Result Comment: This test was developed and its performance characteristics determined by [facility]'s [facility] Pathology and Laboratory Medicine [place]. This test has been authorized by FDA under an Emergency Use Authorization (EUA). This test has been validated in accordance with the FDA's Guidance Document Policy for Diagnostics Testing in Laboratories Certified to Perform High Complexity Testing under CLIA prior to Emergency use Authorization for Coronavirus Disease 2019 during the Public Health Emergency issued on April 08, 2019. Performed By: #### C OVID ####[facility] [address] [place], [place] [phone] COVID 19 Source VAMP WETTER Nasopharyngeal Swab Normal [facility] Comment on above: Performed By: #### C OVID ####[facility] [place], [place] [phone] HISTORY PHYSICALon 0 HISTORY PHYSICAL HNO ID: [id number] Author: Sammi Noriega (Cns) Service: ? Author [...] Dvt (Deep Venous Thrombosis) (Hcc) Htn (Hypertension) Subjective CHIEF COMPLAINT: Patient stated [...] 30.6 Neuro: No history of TIA's, stroke, PHOTO TECHNOLOGIST tumor, impaired sensorium, hemiplegia, paraplegia or quadraplegia. [...] or incontinence,, stones or chronic kidney disease SUPERVISOR ACOUSTICAL TILE CARPENTERS: Negative for abnormal vaginal bleeding, abnormal vaginal [...] voices comprehension and compliance. SIGNATURE: Sammi Noriega APRN.PHOTO TECHNOLOGIST PATIENT NAME: Ruthie CORDERO DATE: June 12, 2019 TIME: 8:12 AM PAGER/CONTACT #: [facility] NURSING PROGon 06-12-2019 NURSING PROG HNO ID: [id number] Author: Lois Nickerson (Rn) TASH Cruz Service: [...] PCP ? H/O BRAIN TUMOR-surgery x2 in 2012,results benign Pre-op Considerations: N/A Chart Check: IN PROGRES-labs pending ekg tracing covid tbd Lois Cruz RN June 12, 2019 11:41 AM [facility] Protimeon 06-12-2019 PT Coag (PPP) [Time] 9.8 s Normal 9.7-13.0 [facility] PT Coag (PPP) [Time] s Low 0.9-1.3 [facility] Comment on above: Result Comment: Lulu min K Antagonist (VKA) Therapeutic Range: INR 2 to 3 (Target INR of 2.5) Note: For patients treated with VKA drugs, such as warfarin, the [place] College of Chest Physicians 2012 Guideline recommends [...] Chest 2012, 141:7S-47S Irvin RA, et al. [facility] 2017, 70: 252-289 Type and SCR (30D)on 020 ABO/RH(D) Negative Normal [facility] Comment on above: Performed By: #### T SCR30 #### [facility] [address] [place], [place] [address] Urinalysis with Microscopico n 06-12-2019 Bilirubin, Urine Negative Normal Negative [facility] Comment on above: Performed By: #### U AWMIC ####[facility] [address] [place], [place] [phone] Clarity (U) Clear Normal Clear [facility] Comment on above: Performed By: #### U AWMIC ####[facility] [address] [place], [place] [phone] Color (U) Light Yellow Critically abnormal Yellow [facility] Comment on above: Performed By: #### U AWMIC ####[facility] [place], [place] [phone] Comments SEE COMMENT Normal [facility] Comment on above: Result Comment: N/A Performed By: #### U AWMIC ####[place] [address] [address] [phone] Epithelial cells LM.HPF (Urine sed) [#/Area] SEE COMMENT Normal [facility] Comment on above: Result Comment: Few Squamous Epithelial Cells Performed By: #### U AWMIC ####[place] [address] [address] [phone] Glucose Ql (U) Negative Normal Negative [facility] Comment on above: Performed By: #### U AWMIC ####[place] [address] [phone] Hemoglobin/Blood,Ur Negative Normal Negative [facility] Comment on above: Performed By: #### U AWMIC ####[place] [address] [phone] Ketones Ql (U) Negative Normal Negative [facility] Comment on above: Performed By: #### U AWMIC ####[place] [address] [address] [phone] Leukest Negative Normal Negative [facility] Comment on above: Performed By: #### U AWMIC ####[place] [address] [phone] Nitrite Ql (U) Negative Normal Negative [facility] Comment on above: Performed By: #### U AWMIC ####[place] [address] [place] [phone] pH (Bld) 6.0 Normal 5.0-8.0 [facility] Comment on above: Performed By: #### U AWMIC ####[place] [address] [place] [phone] Protein (U) [Mass/Vol] Negative Normal Negative [facility] Comment on above: Performed By: #### U AWMIC ####[place] [phone] RBC (U) [#/Vol] 0-3 Normal 0-3 [facility] Comment on above: Performed By: #### U AWMIC ####[place] [phone] Specific [place], Ur 1.012 Normal 1.005-1.030 [facility] Comment on above: Performed By: #### U AWMIC ####[place] [phone] Urine Christopher Comment SEE COMMENT Normal [facility] Comment on above: Result Comment: N/A Performed By: #### U AWMIC ####[place] [phone] Urobilinogen Qn (U) Negative Normal Negative [facility] Comment on above: Performed By: #### U AWMIC ####[place] [phone] WBC (Bld) [#/Vol] 0-5 Normal 0-5 [facility] Comment on above: Performed By: #### U AWMIC ####[place] [phone] Urine Cultureon 06-12-2019 Bacteria identified Cx Nom (U) Sp. Request/Comment: - Specimen received in preservative Culture Result - No growth (<1,000 CFU/ml) Normal [facility] Comment on above: Performed By: #### U RCUL ####[place] [phone] CNPBanner 06-08-2019 CNPN Telephone (ORAVON) RUTHIE CORDERO ([id number]) 1965 F Date Time Provider Department 06/08/19 MIGUEL ANGEL PONCE During your visit today, we recorded the following information about you: Lily Dumas 06/08/2019 12:38 PM Signed Patient was returning your call that she just missed. Patient said if you need to talk to her she has her phone next to her. Migue lAngel Ponce MD 06/09/2019 12:11 PM Addendum Called [...] travel to the [facility] building at the [facility] several days prior to surgery and that they will be required to self quarantine following the COVID test. All questions were answered. The patient requests to proceed with the planned surgical procedure. As a result of the 04/25/19 order by [facility] Director Ruthie Zhou M.D. to [...] knee [M17.12] Order(s):2019 CORONAVIRUS [SQCOVID] Order #: [id number] FUTURE CONSULT TO(TCI)PRE-OP CLEAR [7977107] Order #: [id number]: 1 TYPE + SCREEN,30 DAY [HGJWOU33] Order #: [id number] FUTURE CONFIRM BLOOD TYPE [SQCONABO] Order #: [id number] FUTURE ACTIVATED PTT [SQPTT] Order #: [id number] FUTURE PROTHROMBIN TIME/PT [SQPT] Order #: [id number] FUTURE URINALYSIS WITH MICROSCOPIC [SQUAWMIC] Order #: [id number] FUTURE URINE CULTURE [SQURCUL] Order #: [id number] FUTURE CBC + DIFF [SQCBCDIF] Order #: [id number] FUTURE BASIC METABOLIC PNL [SQBMP] Order #: [id number] FUTURE Prescriptions as of 06/08/2019 Sig: OXYCODONE-ACETAMINOPHEN 5 MG-* LISINOPRIL 20 MG TABLET NAPROXEN 500 MG TABLET Problem List As Of Date 06/08/2019 Noted Resolved Internal derangement of left knee [M23.92] 05/22/2014 Primary osteoarthritis of left knee [M17.12] 12/11/2014 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 HOSP 06-08-2019 HOSP Patient:Ruthie CORDERO MRN: Height:5' 6 [...] % 06/12/2019 46.0 36.0 Progress Notes ([facility]): Lily Alesia 06/08/2019 12:38 PM Signed Patient was returning [...] travel to the [facility] building at the [facility] several days prior to surgery and that they will be required to self quarantine following the COVID test. All questions were answered. The patient requests to proceed with the planned surgical procedure. As a result of the 04/25/[address] [facility] Director Ruthie Zhou M.D. to cancel non-essential [...] 06/09/2019 09:49 AM Modules accepted: Orders Normal [facility] 03-31-2019 [facility] Office Visit (LOORRM ) RUTHIE CORDERO ([id number]) 1965 F Date Time Provider Department 03/31/19 [...] interfering with activities which include exercise, doing household coordinator, participating in family activities, enjoying hobbies, walking [...] spent with the patient SIGNATURE: Miguel Angel Pocne MD PATIENT NAME: Ruthie CORDERO DATE: March 31, 2019 TIME: 8:38 AM Referring Provider: ESTELA SORTO [[id number]] Allergies As of Date: 03/31/2019 Noted Allergy Reaction TRAMADOL 03/20/2014 4 - Hives 9 - Itching Date Reviewed: 03/31/2019 Reviewed by: Miguel Angel Ponce - Fully Assessed Reason for Visit: Follow Up [171] Primary Visit Diagnosis:Primary osteoarthritis of left knee [M17.12] Other Visit Diagnoses:Chondromalaci a of left patella [M22.42] Patellofemoral stress syndrome of both knees [M22.2X1, M22.2X2] Order(s):SURGICAL REQUEST - ELECTIVE [1215547] Order #: [id number]: 1 CONSULT TO(TCI)PRE-OP CLEAR [9623698] Order #: [id number]: 1 PATIENT PLACED ON JESUS TKA CARE PATH [3814424] Order #: [id number]: 1 TYPE + SCREEN,30 DAY [WUXPID86] Order #: [id number] FUTURE CONFIRM BLOOD TYPE [SQCONABO] Order #: [id number] FUTURE ACTIVATED PTT [SQPTT] Order #: [id number] FUTURE PROTHROMBIN TIME/PT [SQPT] Order #: [id number] FUTURE URINALYSIS WITH MICROSCOPIC [SQUAWMIC] Order #: [id number] FUTURE URINE CULTURE [SQURCUL] Order #: [id number] FUTURE CBC + DIFF [SQCBCDIF] Order #: [id number] FUTURE STAPH AUREUS PCR [SQSAPCR] Order #: [id number] FUTURE BASIC METABOLIC PNL [SQBMP] Order #: [id number] FUTURE WALKER - FOLDING [15846350] Order #: [id number] RAISED TOILET SEAT [U1563VPI] Order #: [id number] BATH/SHOWER CHAIR [J1113ILC] Order #: [id number] Prescriptions as of 03/31/2019 Sig: OXYCODONE-ACETAMINOPHEN 5 MG-* LISINOPRIL 20 MG TABLET NAPROXEN 500 MG TABLET Problem List As Of Date 03/31/2019 Noted Resolved Internal derangement of left knee [M23.92] 05/22/2014 Primary osteoarthritis of left knee [M17.12] 12/11/2014 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 PROGRESSon 03-31-2019 PROGRESS HNO ID: [id number] Author: Miguel Angel Ponce Service: ? Author [...] interfering with activities which include exercise, doing household coordinator, participating in family activities, enjoying hobbies, walking [...] March 31, 2019 TIME: 8:38 AM Normal [facility] Staph aureus PCRon 0 MRSA PCR Negative Normal [facility] Comment on above: Performed By: #### S APCR ####[facility] [address] [place], [place] [phone] S aureus Spec Source Nasal Normal [facility] Comment on above: Performed By: #### S APCR ####[facility] [address] [place], [place] [phone] Staph aureus PCR Negative Normal [facility] Comment on above: Performed By: #### S APCR ####[facility] [address] [place], [place] [phone] CNOVon 01-27-2019 CNOV Office Visit (LOORRM ) RUTHIE CORDERO ([id number]) 1965 F Date Time Provider Department 01/27/19 11:00 AM CAST TECH JAYRO EVANS During your visit today, we recorded the following information about you: Vielka Dick Ma 01/27/2019 2:11 PM Signed Dispensed Large Medial digital forensic analyst OA Reaction brace for the Left knee. Dispensed by [facility] Occupational Health Technician. Instructions were given on application/adjustments . Will f/u as scheduled/prn. Vielka Dikc MA,ROT Referring Provider: MIGUEL ANGEL PONCE [[id number]] [...] Status:Closed by VIELKA DICK MA on 01/27/[address] [facility] CNOV Office Visit (LOORRM ) RUTHIE CORDERO ([id number]) 1965 F Date Time Provider Department 01/27/19 10:45 AM MIGUEL ANGEL PONCE During your visit today, we recorded the following information about you: Miguel Angel Ponec MD 01/27/2019 11:12 AM Signed Large Joint [...] of these instructions. Referring Provider: ESTELA SORTO [[id number]] Allergies As of Date: 01/27/2019 Noted Allergy [...] M22.2X2] Order(s):Large Joint Arthro/Inj: L knee joint [DPS752] Order #: [id number] KNEE BRACE-J [[id number]] Order #: [id number] hylan G-F 20 48 mg/6 mL 48 [...] MIGUEL ANGEL PONCE MD on 01/27/19 Normal [facility] PROGRESSon 01-27-2019 PROGRESS HNO ID: [id number] Author: Vielka Dick Ma Service: ? Author Type: ? Type: Progress Notes Filed: 01/27/2019 2:11 PM Note Text: Dispensed Large Medial digital forensic analyst OA Reaction brace for the Left knee. Dispensed by [employer] Occupational Health Technician. Instructions were given on application/adjustments . Will f/u as scheduled/prn. Vielka Dick MA,[facility] Normal [facility] PROGRESS HNO ID: [id number] Author: Miguel Angel Ponce Service: Orthopaedic Surgery Author Type: Physician Type: Progress Notes Filed: 02/02/2019 11:25 AM Note Text: [facility] [address] [place], [place] [address] CLINIC NOTE Department of Orthopaedics - Chel Ponce M.D. NAME: NIRANJANCAROLERUTHIE CLINIC NO.: [id number] DATE OF SERVICE: 01/27/2019 HISTORY: Patient is [...] Ponce M.D. Date Dictated: 01/27/2019 Date Typed: [facility] 01/27/2019 JOB# [id number] [facility] PROGRESS HNO ID: [id number] Author: Miguel Angel Ponce Service: ? Author [...] the patient voiced understanding of these instructions. [facility] PROGRESS HNO ID: [id number] Author: Vipul Ryder (Rt) Service: ? Author Type: Food Prep Worker Type: Progress Notes Filed: 01/27/2019 10:51 AM [...] Britni January 27, 2019 10:50 AM Normal [facility] XR KNEE 4V AP/PA BOTH+LAT/ME R LTon [...] CHANGES IS PROGRESSED SINCE THE PREVIOUS EXAM. Citrus Fruit Colorer: PSCB Transcribe Date/Time: Jan 27 2019 3:49P Dictated by : CLIF MORALES MD This examination was interpreted and the report reviewed and electronically signed by: CLIF MORALES MD on Jan 27 2019 3:51PM EST [id number] Normal [facility] CNOVon 11-11-2018 CNOV Office Visit (LOORRM ) RUTHIE CORDERO ([id number]) 1965 F Date Time Provider Department 11/11/18 [...] MIGUEL ANGEL PONCE MD on 11/11/18 Normal [facility] PROGRESSon 11-11-2018 PROGRESS HNO ID: [id number] Author: Miguel Angel Ponce Service: Orthopaedic Surgery Author Type: Physician Type: Progress Notes Filed: 11/22/2018 8:34 AM Note Text: [facility] [address] [place], [place] [address] CLINIC NOTE Department of Orthopaedics - Chel Ponce M.D. NAME: RUTHIE CORDERO CLINIC NO.: [id number] DATE OF SERVICE: 11/11/2018 HISTORY: Patient follows [...] Ponce M.D. Date Dictated: 11/11/2018 Date Typed: lesia 11/11/2018 JOB# [id number] [facility] CNOVon 09-09-2018 CNOV Office Visit (LOORRM ) SEVERORUTHIE Girard ([id number]) 1965 F Date Time Provider Department 09/09/18 10:45 AM SENA LICONA) GLORYORRBecca During your visit today, we recorded the [...] M22.42 PROCEDURE NOTE: Ruthie CORDERO Medical Record: [id number] ? Provider : Sena Licona PA-C [facility] ? Prior to the procedure, the [...] - Itching Date Reviewed: 09/09/2018 Reviewed by: Linad Perkins Ma - Fully Assessed Reason for [...] BUILDER 09/09/2018 09/09/2018 Class: Suppress Questions Route: [facility] Encounter Status:Closed by SENA LICONA PA-C on 09/09/[address] [facility] PROGRESSon 09-09-2018 PROGRESS HNO ID: [id number] Author: Sena Licona (Pa) Service: ? Author Type: Physician Retail Banking Manager Type: Progress Notes Filed: 09/09/2018 10:22 AM [...] M22.42 PROCEDURE NOTE: Ruthie CORDERO Medical Record: [id number] ? Provider : Sena Licona PA-C [facility] ? Prior to the procedure, the [...] as symptoms dictate. Sena Licona PA-C Normal [facility] Vital Signs Date Time Vital Sign Value Performing Clinician Facility 01-25-2023 09:25-0500 Body height 167.64 cm Jet Douglass Other [facility] Other 01-25-2023 09:25-0500 Body mass index (BMI) [Ratio] 26.63 kg/m2 Jet Douglass Other [facility] Other 01-25-2023 09:25-0500 Body temperature 98 [degF] Jet Douglass Other [facility] Other 01-25-2023 09:25-0500 Body weight 74.84 kg Jet Douglass Other [facility] Other 01-25-2023 09:25-0500 Respiratory rate 18 /min Jet Douglass Other [facility] Other 01-25-2023 09:25-0500 SaO2% (BldA) [Mass fraction] 97 % Jet Douglass Other [place] [facility] Other 10-26-2022 08:50-0400 Diastolic blood pressure 103 mm[Hg] Mariama Oxtox [facility] 10-26-2022 08:50-0400 Heart rate 62 /min Mariama Oxtox [facility] 10-26-2022 08:50-0400 Mean blood pressure 116 mm[Hg] Marimaa Oxtox [facility] 10-26-2022 08:50-0400 Respiratory rate 18 /min Mariama Oxtox [facility] 10-26-2022 08:50-0400 Systolic blood pressure 142 mm[Hg] Mariama Oxtox [facility] 10-13-2022 15:00-0400 Heart rate 73 /min Gerard Forbes [facility] 10-13-2022 15:00-0400 SaO2% (BldA) [Mass fraction] 98 % Gerard Leidy [facility] 10-13-2022 15:00-0400 Diastolic blood pressure 83 mm[Hg] Gerard Leidy [facility] 10-13-2022 15:00-0400 Mean blood pressure 100 mm[Hg] Gerardsheldon Forbes [facility] 09-05-2023 15:00-0400 Systolic blood pressure 135 mm[Hg] Gerard Leidy [facility] 10-13-2022 14:59-0400 Respiratory rate 16 /min Gerard Leidy [facility] 10-13-2022 14:53-0400 Diastolic blood pressure 91 mm[Hg] Gerard Leidy [facility] 10-13-2022 14:53-0400 Heart rate 85 /min Gerard Leidy [facility] 10-13-2022 14:53-0400 Respiratory rate 14 /min Gerard Leidy [facility] 10-13-2022 14:53-0400 SaO2% (BldA) [Mass fraction] 97 % Gerard Leidy [facility] 10-13-2022 14:53-0400 Systolic blood pressure 145 mm[Hg] Gerard Leidy [facility] 10-13-2022 14:21-0400 Heart rate 79 /min Gerard Leidy [facility] 10-13-2022 14:21-0400 SaO2% (BldA) [Mass fraction] 99 % Gerard Leidy [facility] 10-13-2022 14:20-0400 Diastolic blood pressure 88 mm[Hg] Gerard Leidy [facility] 10-13-2022 14:20-0400 Mean blood pressure 104 mm[Hg] Gerard Leidy [facility] 10-13-2022 14:20-0400 Systolic blood pressure 137 mm[Hg] Gerard Leidy [facility] 10-13-2022 14:20-0400 Body temperature 97.88 [degF] Gerard Leidy [facility] 10-13-2022 14:20-0400 Respiratory rate 15 /min Gerard Forbes [facility] 09-22-2022 09:23-0400 Diastolic blood pressure 88 mm[Hg] Mariamafranc Mesa [facility] 09-22-2022 09:23-0400 Heart rate 69 /min Mariamafranc Mesa [facility] 09-22-2022 09:23-0400 Mean blood pressure 105 mm[Hg] Mariamafranc Mesa [facility] 09-22-2022 09:23-0400 Respiratory rate 15 /min Mariamafranc Mesa [facility] 09-22-2022 09:23-0400 Systolic blood pressure 139 mm[Hg] Mariamafranc Mesa [facility] 09-07-2022 13:06-0400 Diastolic blood pressure 73 mm[Hg] Mariamafranc Mesa [facility] 09-07-2022 13:06-0400 Heart rate 91 /min Mariama Mesa [facility] 09-07-2022 13:06-0400 Mean blood pressure 88 mm[Hg] Mariamafranc Mesa [facility] 09-07-2022 13:06-0400 Respiratory rate 14 /min Mariamafranc Mesa [facility] 09-07-2022 13:06-0400 Systolic blood pressure 118 mm[Hg] Mariama Mesa [facility] 10-28-2021 14:09-0400 Body temperature 98.24 [degF] [facility] 10-28-2021 14:09-0400 Diastolic blood pressure 93 mm[Hg] [facility] 10-28-2021 14:09-0400 Heart rate 79 /min [facility] 10-28-2021 14:09-0400 Respiratory rate 18 /min [facility] 10-28-2021 14:09-0400 SaO2% (BldA) [Mass fraction] 97 % [facility] 10-28-2021 14:09-0400 Systolic blood pressure 141 mm[Hg] [facility] 06-16-2021 10:30-0400 Body height 167.64 cm Jet Douglass Other [facility] Other 06-16-2021 10:30-0400 Body mass index (BMI) [Ratio] 26.63 kg/m2 Jet Douglass Other [facility] Other 06-16-2021 10:30-0400 Body temperature 97.9 [degF] Jet Douglass Other [facility] Other 06-16-2021 10:30-0400 Body weight 74.84 kg Jet Douglass Other [facility] Other 06-16-2021 10:30-0400 Respiratory rate 18 /min Jet Douglass Other [facility] Other 06-16-2021 10:30-0400 SaO2% (BldA) [Mass fraction] 99 % Jet Douglass Other [facility] Other Encounters Encounter Date Encounter Type Care Provider Facility Start: 02-15-2023 End: 02-16-2023 ambulatory Geovani Dias MD Facility:[facility] Start: 01-25-2023 End: 01-25-2023 ambulatory Jet Douglass Other [facility] Other Start: 01-25-2023 [facility] [address] Start: 12-14-2022 End: 12-15-2022 ambulatory Geovani Dias MD Facility:[facility] Start: 11-30-2022 End: 12-01-2022 ambulatory Geovani Dias MD Facility:[facility] Start: 10-26-2022 End: 10-27-2022 ambulatory PA-C Mariama Mesa Facility:[facility] Start: 10-26-2022 End: 10-26-20[address] [facility] Start: 10-13-2022 End: 10-14-2022 ambulatory Gerard Forbes Facility:[facility] Start: 10-13-2022 End: 10-13-20[address] [facility] Start: 09-22-2022 End: 09-23-2022 ambulatory PA-C Mariama Mesa Facility:[facility] Start: 09-22-2022 End: 09-22-[address] [facility] Start: 09-21-2022 End: 09-21-2022 Emergency department patient visit Norman Chiu Facility:[facility] Start: 09-07-2022 End: 09-08-2022 ambulatory Mariama Mesa Facility:[facility] Start: 09-07-2022 End: 09-08-2022 ambulatory Mariama Mesa Facility:[facility] Start: 09-07-2022 End: 09-07-2022 Patient encounter procedure Mariama Mesa [facility] Start: 09-07-2022 End: 09-07-[address] [facility] Start: 05-16-2022 End: 05-16-2022 Emergency department patient visit Angie Rosario Facility:[facility] Start: 10-28-2021 End: 10-28-2021 Emergency department patient visit [facility]lesly Rosario [facility] Start: 06-16-2021 End: 06-16-2021 ambulatory Jet Douglass Other [facility] Other Start: 06-16-2021 Office outpatient visit 15 minutes Jet Douglass [facility] [address] Start: 05-16-2021 End: 05-16-2021 Patient encounter procedure Sterling Canyont Work Phone: [facility] Procedures Date Procedure Procedure Detail Performing Clinician Start: 10-13-2022 Injection of knee us ing fluoroscopic guidance Mariama Mesa Comment on above: Right Genicular Nerv e Block-75% relief x 4 days Start: 05-16-2021 Screening mammograph y of bilateral breasts Sterling Canyont Work Phone: Start: 06-14-2019 Chronic pain followi ng right total knee arthroplasty Mariama Mesa Start: 06-12-2019 Antibody screen Comment on above: Performed By: #### T [id number] #### [place] [id number] Start: 06-12-2019 Electrocardiogram Start: 07-14-2018 History of total kne e arthroplasty Caroleit Hamarah Cholecystectomy Angie Boyle ri [facility]ac[facility] Immunizations Immunization Date Immunization Notes Care Provider Fa cility 10-28-2021 tetanus toxoid, redu jerrell diphtheria toxoid, and acellular pertussis vaccine, adsorbed [facility] 05-24-2020 COVID-19, mRNA, LNP- S, PF, 30 mcg/0.3 mL dose [facility] Comment on above: Reason for Medicatio n: Prophylaxis 04-26-2020 COVID-19, mRNA, LNP- S, PF, 30 mcg/0.[address] [facility] Comment on above: Reason for Medicatio n: Prophylaxis Payers Date Payer Category Payer Medicaid [id number] 2022 Unknown 1965 Unknown [id number] 2.16.8 [id number] 1965 Unknown [id number] 2.16.8 [id number] 1965 Unknown [id number] 2.16.8 [id number] 1965 Unknown [id number] 2.16.8 [id number] 1965 Unknown [id number] 2.16.8 [id number]. 1965 Unknown [id number] 2.16.8 [id number] 1965 Unknown [id number] 2.16.8 [id number] 1965 Unknown [id number] 2.16. [id number] 1965 Unknown [id number] 2.16. [id number] 1965 Unknown [id number] 2.16. [id number] Self-pay Self Pay [id number] Unknown Self Pay [id number] Unknown [id number] 2.1 [id number] Social History Date Type Detail Facility Start: 10-12-2017 [facility] Start: 1965 Sex Assigned At Female [facility] Sex Assigned At [facility] [employer] Other Start: 07-10-2019 Tobacco smoking status Ex-smoker (fi nding) [facility] Start: 09-07-2022 Tobacco smoking status Light t obacco smoker (finding) [facility] Functional Status Date Assessment Result Facility 10-26-2022 Functional Status N/A [facility] 10-13-2022 Functional Status N/A [facility] 09-22-2022 Functional Status N/A [facility] 09-07-2022 Functional Status N/A [facility] 10-28-2021 Functional Status N/A [facility] Clinical Notes 09-30-2012 to 01-25-2023 Note Date [...] see your pcp. Take tylenol as needed. [facility] [employer] Other [id number] Evaluation + Plan noteExtracted from: Title:Pain Managment [...] sooner if necessary. CADENCE score: 36% [facility]09-05-2023 Note [id number]:127[facility] 09-22-2022 Evaluation + Plan noteExtracted from: Title:Pain [...] she is supposed to be going to [place] for a baby shower. She is going [...] Appointments Appointment Date:10/13/2022 03:15:00 PM Scheduled Provider: Location:[facility] Appointment Type:Surgery FT Appointment Date:10/26/2022 09:00:00 AM Scheduled Provider:Mariama Mesa PA-C Location:.[facility] [place] Appointment Type:Pain Management - Follow Up (FT) [facility]07-31-2023 Evaluation + Plan noteExtracted from: Title:Pain [...] obtain a UDS. CADENCE score: 38% [facility]09-20-2022 Hospital Discharge instructions Patient Education 10/28/2021 15:07:50 Corneal Abrasion, Xtaf-jw-Qhtl Corneal Abrasion A corneal abrasion is a scratch or injury to the clear covering over the front of your eye (cornea). This can be painful. It is important to get treatment for a corneal abrasion. If this problem is not treated, it can affect your eyesight (vision). What are the causes? A testing coordinator the eye. An object in the eye. [...] who specializes in conditions of the eye (platform attendant). This condition may be diagnosed based on [...] if you start to feel better. Take ukgj-moh-azgctja and prescription medicines only as told by your doctor. Ask your doctor if the medicine prescribed to you: ?Requires you to avoid driving or using heavy machinery. ?Can cause trouble pooping (constipation). You may need to take these actions to prevent or treat trouble pooping: ?Drink enough fluid to keep your pee (urine) pale yellow. ?Take abpv-isd-igmsvhq or prescription medicines. ?Eat foods that are [...] 07/13/2008 Document Revised: 06/02/2019 Document Reviewed: 06/02/2019 [employer] Patient Education 2020 [employer]. Follow Up Care 10/28/2021 14:09:12 With:Live Godinez DO Address: [facility] [address], [place] [id number]- When:[address] [facility]09-20-2022 Evaluation + Plan noteExtracted from: Title:ED Note Author:Sarah Olmstead PA-C ate:10/28/21 1. Right corneal abrasion (S 05.01XA: Injury of conjunctiva and corneal abrasion without foreign body, right eye, initial encounter) Ordered: polymyxin B-trimethoprim ophthalmic, 1 drop(s), Eye-Right, q3hr for 7 day(s), 10 mL, Refill(s) 0, q3 hr while awake not to exceed 6 doses/day, path intelligence #24, 165, cm, 10/28/21 14:14:00 EDT, Height/Length [...] 10/28/21 14:24:00 EDT Visual Acuity Screening [facility]05-09-2022 Evaluation note* Encounter Date Diagnosis Assessment [...] the plan. June, Cough (ICD-10 - R05.9) [facility] Other 08-23-2013 History general Narrative - Reported* Type Description Date Medical History CHRONIC KNEE PAIN Medical History ANXIETY Medical History CHOLECYSTECTOMY Medical History LT SIDED HEMIPARESIS Medical History stroke Medical History 09/30/12 CRANIECTOMY-DR. BURNETT Surgical History DR. BURNETT -CRANIECTOMY 09/30/12 Surgical History CHOLECYSTECTOMY 1997 Surgical History pyloric stenosis Dr Benavides thre e days old 1966 Hospitalization History SEE ABOVE SUREGRY [facility] Other Evaluation + Plan note Future Appointments Appointment Date:10/26/2022 09:00:00 AM Scheduled Provider:Mariama Mesa PA-C Location[facility] Appointment Type:[facility] Management - [facility] assessment information available [facility] Work Phone: Hospital course Narrative No data available for this section [facility] Dis[facility] instructions No data available for this section [facility] No data available for this section [facility] Summary Purpose Family History No Family History Records FoundNo Family History Records FoundNo Family History Records FoundNo Family History Records FoundNo Family History Records Found Advance Directives No Advanced Directives Records Found Advance Directive Response Recorded Date/ Time Advance Directives No October 4:07pm Hospital Course Note HNO ID: [id number] Author: Britni Landers) Livan Service: Orthopaedic Surgery Author Type: Physician Retail Banking Manager Type: Discharge Summary Filed: 06/15/2019 11:22 AM [...] (more content not included)... Note HNO ID: [id number] Author: Arvind Ayala Service: ? Author Type: Nurse Under Presser Type: Anesthesia Procedure Notes Filed: 06/14/2019 9:14 AM Note Text: ANESTHESIOLOGY PROCEDURE NOTE Spinal Block General Information SIGNATURE: Maria Del Rosario Ayala APRN.CRNA PATIENT NAME: Ruthie CORDERO DATE: June 14, 2019 TIME: 9:12 AM CSN: [id number] Note HNO ID: [id number] Author: Arvind Ayala Service: ? Author Type: Nurse Under Presser Type: Anesthesia Procedure Notes Filed: 06/14/2019 9:17 AM Note Text: ANESTHESIOLOGY PROCEDURE NOTE Spinal Block General Information Procedure Start Time/Medication Administration: 06/14/2019 9:03 AM Staffing BUSINESS COMPUTERS TEACHER: Maria Del Rosario Ayala SIGNATURE: Maria Del Rosario Ayala APRN.CRNA PATIENT NAME: Ruthie CORDERO DATE: June 14, 2019 TIME: 9:16 AM CSN: [id number] Note HNO ID: [id number] Author: Arvind Aayla Service: ? Author Type: Nurse Under Presser Type: Anesthesia Procedure Notes Filed: 06/14/2019 9:19 AM Note Text: ANESTHESIOLOGY PROCEDURE NOTE Spinal Block General Information Procedure Start Time/Medication Administration: 06/14/2019 9:05 AM Patient location during procedure: ORTimeout Performed Pre-procedure: timeout performed Consent Obtained: Yes (via Surgical Consent) Patient identity confirmed: arm band Reason for Block: primary surgical anesthetic Staffing BUSINESS COMPUTERS TEACHER: Maria Del Rosario Ayala Preparation Sterility Preparation: [...] (more content not included)... Note HNO ID: [id number] Author: Arvind Ayala Service: ? Author Type: Nurse Under Presser Type: Anesthesia Procedure Notes Filed: 06/14/2019 9:32 [...] (more content not included)... Note HNO ID: [id number] Author: Arvind Ayala Service: ? Author Type: Nurse Under Presser Type: Anesthesia Procedure Notes Filed: 06/14/2019 9:49 AM Note Text: ANESTHESIOLOGY PROCEDURE NOTE Spinal Block General Information Procedure Start Time/Medication Administration: 06/14/2019 9:03 AM Patient location during procedure: ORTimeout Performed Pre-procedure: timeout performed Consent Obtained: Yes (via Surgical Consent) Patient identity confirmed: arm band Reason for Block: primary surgical anesthetic Staffing BUSINESS COMPUTERS TEACHER: Maria Del Rosario Ayala Preparation Sterility Preparation: [...] (more content not included)... Note HNO ID: [id number] Author: Arvind Ayala Service: ? Author Type: Nurse Under Presser Type: Anesthesia Procedure Notes Filed: 06/14/2019 10:06 AM Note Text: ANESTHESIOLOGY PROCEDURE NOTE Spinal Block General Information Procedure Start Time/Medication Administration: 06/14/2019 9:03 AM Patient location during procedure: ORTimeout Performed Pre-procedure: timeout performed Consent Obtained: Yes Patient identity confirmed: arm band Reason for Block: primary surgical anesthetic Staffing BUSINESS COMPUTERS TEACHER: Maria Del Rosario Ayala Performed by: BUSINESS COMPUTERS TEACHER Preparation Sterility Preparation: hand hygiene performed prior [...] not included)... Procedure Findings Note HNO ID: [id number] Author: Arvind Ayala Service: ? Author Type: Nurse Under Presser Type: Anesthesia Procedure Notes Filed: 06/14/2019 9:14 AM Note Text: ANESTHESIOLOGY PROCEDURE NOTE Spinal Block General Information SIGNATURE: Maria Del Rosario Ayala APRN.CRNA PATIENT NAME: Ruthie CORDERO DATE: June 14, 2019 TIME: 9:12 AM CSN: [id number] Note HNO ID: [id number] Author: Arvind Ayala Service: ? Author Type: Nurse Under Presser Type: Anesthesia Procedure Notes Filed: 06/14/2019 9:17 AM Note Text: ANESTHESIOLOGY PROCEDURE NOTE Spinal Block General Information Procedure Start Time/Medication Administration: 06/14/2019 9:03 AM Staffing BUSINESS COMPUTERS TEACHER: Maria Del Rosario Ayala SIGNATURE: Maria Del Rosario Ayala APRN.CRNA PATIENT NAME: Ruthie CORDERO DATE: June 14, 2019 TIME: 9:16 AM CSN: [id number] Note HNO ID: [id number] Author: Arvind Ayala Service: ? Author Type: Nurse Under Presser Type: Anesthesia Procedure Notes Filed: 06/14/2019 9:19 AM Note Text: ANESTHESIOLOGY PROCEDURE NOTE Spinal Block General Information Procedure Start Time/Medication Administration: 06/14/2019 9:05 AM Patient location during procedure: ORTimeout Performed Pre-procedure: timeout performed Consent Obtained: Yes (via Surgical Consent) Patient identity confirmed: arm band Reason for Block: primary surgical anesthetic Staffing BUSINESS COMPUTERS TEACHER: Maria Del Rosario Ayala Preparation Sterility Preparation: [...] (more content not included)... Note HNO ID: [id number] Author: Arvind Ayala Service: ? Author Type: Nurse Under Presser Type: Anesthesia Procedure Notes Filed: 06/14/2019 9:32 [...] (more content not included)... Note HNO ID: [id number] Author: Arvind Ayala Service: ? Author Type: Nurse Under Presser Type: Anesthesia Procedure Notes Filed: 06/14/2019 9:49 AM Note Text: ANESTHESIOLOGY PROCEDURE NOTE Spinal Block General Information Procedure Start Time/Medication Administration: 06/14/2019 9:03 AM Patient location during procedure: ORTimeout Performed Pre-procedure: timeout performed Consent Obtained: Yes (via Surgical Consent) Patient identity confirmed: arm band Reason for Block: primary surgical anesthetic Staffing BUSINESS COMPUTERS TEACHER: Maria Del Rosario Ayala Preparation Sterility Preparation: [...] (more content not included)... Note HNO ID: [id number] Author: Arvind Ayala Service: ? Author Type: Nurse Under Presser Type: Anesthesia Procedure Notes Filed: 06/14/2019 10:06 AM Note Text: ANESTHESIOLOGY PROCEDURE NOTE Spinal Block General Information Procedure Start Time/Medication Administration: 06/14/2019 9:03 AM Patient location during procedure: ORTimeout Performed Pre-procedure: timeout performed Consent Obtained: Yes Patient identity confirmed: arm band Reason for Block: primary surgical anesthetic Staffing BUSINESS COMPUTERS TEACHER: Maria Del Rosario Ayala Performed by: BUSINESS COMPUTERS TEACHER Preparation Sterility Preparation: hand hygiene performed prior [...] section and content) DATE CREATED AUTHOR 06/25/2019 [facility] DATE CREATED AUTHOR AUTHOR'S ORGANIZ ATION 07/25/2019 [facility] DATE CREATED AUTHOR AUTHOR'S ORGANIZ ATION 05/30/2021 [facility] DATE CREATED AUTHOR AUTHOR'S ORGANIZ ATION 11/13/2022 [facility] DATE CREATED AUTHOR AUTHOR'S ORGANIZ ATION 02/17/2023 [facility] Care Teams (unrecognized sec tion and content) Team Status: Inactive Member Role Status Dates [facility] Primary Care Provider Active Pavithra Briseno ([facility]) , DATABASES COMPUTER CONSULTANT Attending Provider Active Team Status: Active Member Role Status Dates [facility] Primary Care Provider Active Goals (unrecognized section [...] BE BASED ON THE PRIMARY CLINICAL RECORDS. [employer]. provides no warranty or guarantee of the accuracy or completeness of information in this document.
== END 2023-05-11 10:13 | disposition home or self-care (01) ==
LOC: MRI 10:12
PROVIDERS: Visit Provider Orthopaedic Surgery
DX: M25.561 Pain in right knee (principal); M71.21 Synovial cyst of popliteal space [Baker], right knee; M22.41 Chondromalacia patellae, right knee
CPT/HCPCS: 73721

== ENCOUNTER 2023-06-30 08:55 | Outpatient (OUT) | payer MEDICAID, SELFPAY ==
--- NOTE | 2023-06-30 08:59 | PM.CN ---
Consult Note: HPI Data of Consult Patient: known to practice within the last 3 years Consult date: 02/15/23 Requesting Physician: Lauren gA NP Primary Care Provider: Non-Staff Physician, MD Consult Narrative Reason for consult: Right knee pain Narrative: Ruthie Thompson a pleasant 57 year old female presents for evaluation and management of chronic knee pain with moderate to severe OA. Patient had 100% relief for 3.5 weeks as a result of right knee injection with Dr Dias and recently had right synvsic injection with 70% improvement for 2 weeks. Patient rating pain 7-8/10 now, returned to baseline. At this time patient noticed moderate improvement in pain and functional ability with percocet 5-325mg TID PRN and diclofenac 50mg BID. Patient was evaluated by Dr Graves and referred to Dr Johnson for surgical intervention, patient cannot undergo surgery at this time but is hoping to proceed with TKA in the fall. cc:: CC: Lauren Ag NP Review of Systems ROS Status of ROS 10 or more systems reviewed and unremarkable except as noted in history and below Musculoskeletal Reports: joint pain Meds Home Medications and Allergies Home Medications ?Medication ?Instructions ?Recorded ?Confirmed ?Type amlodipine 2.5 mg tablet 2.5 mg PO DAILY 11/30/22 11/30/22 History duloxetine 20 mg capsule,delayed 20 mg PO DAILY 11/30/22 11/30/22 History release (Cymbalta) lisinopril 40 mg tablet 40 mg PO DAILY 11/30/22 11/30/22 History oxycodone-acetaminophen 5 mg-325 1 tab PO TID 11/30/22 11/30/22 History mg tablet (Percocet) oxycodone-acetaminophen 5 mg-325 1 tab PO TID PRN pain #90 tabs 11/30/22 Rx mg tablet (Percocet) oxycodone-acetaminophen 5 mg-325 1 tab PO TID PRN pain #90 tabs 12/24/22 Rx mg tablet (Percocet) diclofenac sodium 50 mg 50 mg PO BID PRN pain #60 tabs 01/20/23 Rx tablet,delayed release oxycodone-acetaminophen 5 mg-325 1 tab PO TID PRN pain #90 tabs 01/20/23 Rx mg tablet (Percocet) oxycodone-acetaminophen 5 mg-325 1 tab PO TID PRN pain #90 tabs 02/25/23 Rx mg tablet (Percocet) oxycodone-acetaminophen 5 mg-325 1 tab PO TID PRN pain #90 tabs 03/26/23 Rx mg tablet (Percocet) oxycodone-acetaminophen 5 mg-325 1 tab PO TID PRN pain #90 tabs 04/27/23 Rx mg tablet (Percocet) oxycodone-acetaminophen 5 mg-325 1 tab PO TID PRN pain #90 tabs 05/27/23 Rx mg tablet (Endocet) oxycodone-acetaminophen 5 mg-325 1 tab PO TID PRN pain #90 tabs 06/23/23 Rx mg tablet (Percocet) diclofenac sodium 50 mg 50 mg PO BID #180 tabs 06/30/23 Rx tablet,delayed release Allergies Allergy/AdvReac Type Severity Reaction Status Date / Time No Known Drug Allergies Allergy Verified 11/30/22 14:33 Exam Narrative Exam Narrative: Psych-alert and oriented x 3.? Attentive and appropriate, constitutionally normal, displays normal mood and affect per situation.? There are no obvious deficits in memory, reasoning, or intellect. Extremities-lower extremities are warm with minimal edema and palpable pulses. Knee-examination of the right knee reveals tenderness to palpation over the superior, inferior, lateral, and medial aspect of the knee.? Some swelling is noted without erythema. Pain is elicited with flexion and extension of the knee both actively and passively.? Some grinding is noted with these motions.? There is no notable ligamental laxity or instability.? Coordination remains intact.? Gait remains antalgic. Constitutional Documenting provider has reviewed patient's vital signs: yes Common normals: no apparent distress, oriented x3, healthy appearing, alert and well nourished General appearance: cooperative [facility] Common normals: normocephalic, hearing grossly normal bilaterally and moist oral mucous membranes Head and scalp: normocephalic Eye Common normals: PERRL Pupil: PERRL Neck & C-Spine Common normals: full ROM General: normal visual inspection Chest Common normals: inspection of chest normal Respiratory Common normals: normal respiratory effort, no retractions and no use of accessory muscles Neuro Common normals: oriented x3, CN's II-XII intact bilaterally, moves all extremities, no focal motor deficits, no sensory deficits noted and deep tendon reflexes 2+ bilaterally Sensorium/orientation: alert Motor exam: strength 5/5 throughout and no movement abnormalities noted Psych Common normals: mental status grossly normal, thought process normal, cooperative, affect normal, speech normal and activity/motor behavior normal Speech: normal speech Thought process: normal thought process Results Additional Findings Additional findings: If on a controlled substance or opioids, I have checked an [place] report on this patient and there are no aberrancies noted in the prescribing history.??If on a controlled substance or opioid a drug screen was completed and reviewed within the last year, and if there has not been a drug screen completed we ordered one today to monitor higher risk, state monitored pain medication use. As part of providing excellent, safe, comprehensive care, the following was completed at our patient's visit: 1. A medication reconciliation and review to ensure accurate knowledge of current/active medications, including asking our patients to inform us about any [id number] medications or herbal remedies/nutritional supplements/alternative remedies. 2. A review to specifically ensure our patients have had annual screening for screening for depression, screening for tobacco use, and screening for unhealthy alcohol use. For concerning screenings had a discussion with the patient, provided patient education, and recommended follow-up with primary care provider when appropriate. If patient noted with a risk of falling, they received education on strength, gait, and balance training to prevent future risk of falling. Assessment and Plan Assessment and Plan (1) Osteoarthritis of right knee: Qualifiers: Osteoarthritis type: primary Qualified Code(s): M17.11 - Unilateral primary osteoarthritis, right knee (2) Chronic prescription opiate use: Assessment and Plan: I feel these medications are improving the patient's quality of life and allow them to tolerate activities of daily living as well as participate in recreational activity.? The patient does not report intolerable side effects. The patient is NOT opioid naive and non-pharmacologic and non-opioid treatment has failed to significantly relieve the patient's pain and improve functionality. The patient has a diagnosis that is related to a somatic or visceral pain etiology. ? ?? I reviewed with the patient the potential risks and side effects with the use of? opioid medications including but not limited to respiratory depression,? sedation, and even . I verified the patient has access to naloxone should? these effects occur. I advised the patient to avoid the use of any other? sedation substances including alcohol, THC, and benzodiazepines while? taking opioid medications due to the risk of compounding side effects and? detrimental outcomes. I reviewed the [employer], pain treatment agreement, urine? drug screen, and opioid start talking forms. The patient was advised to let? their family know they had Naloxone in case they would need to administer? the medication.? ?? A drug screen was completed within the last year, and no aberrancies were noted regarding their use of controlled substances. The patient understands they are subject to the terms and conditions of the pain contract that they have signed. ? ?? I have checked an [place] report on this patient today and there are no aberrancies noted in the prescribing history.? Plan decrease percocet 5-325mg BID PRN moderate to severe pain, noticing significant improvement in pain and functional ability without side effect continue diclofenac 50mg BID PRN, tolerating well without side effect f/u 3 months for medication management
== END 2023-06-30 08:56 | disposition home or self-care (01) ==
PROVIDERS: Visit Provider Nurse Practitioner
DX: M17.11 Unilateral primary osteoarthritis, right knee (principal); Z79.891 Long term (current) use of opiate analgesic
CPT/HCPCS: G0463

== ENCOUNTER 2023-09-23 08:23 | Outpatient (OUT) | payer MEDICAID, SELFPAY ==
--- OUTSIDE RECORDS SUMMARY | 2023-09-23 08:30 | XMS_ITS | CCD ---
Author Organization [facility] Care Team Providers Care Clay Preparation Supervisor Name Role Phone Health DeptRolf Primary Care Provider Finn ([facility])CAROLYN Attending Provider 1( [phone] Jet Douglass LILY OLIVEIRA Primary Care Physician [phone] GOOD TAYLOR Primary Care Physician Larissa JONES, Geovani Brar Attending Unavailable Larissa JONES, Geovani Brar Attending Unavailable Larissa JONES, Geovani Brar Attending Unavailable Norman Chiu Attending Unavailable Norman Chiu Attending Unavailable Mariama Mesa Attending Unavailable ANTONY Mesa Admitting UnavailGOOD Bourne Referring Unavailable ANTONY Mesa Mariama Admitting UnavailGOOD Bourne Referring Unavailable Mariama Mesa Attending Unavailable ANTONY Mesa Mariama Admitting UnavailGOOD Bourne Referring Unavailable Mariama Mesa Attending Unavailable Gerard Forbes Attending Unavailable Gerard Forbes Referring Unavailable MD Gerard Forbes Admitting Unavailable Mariama Mesa Admitting Unavailable Mariama Mesa Attending Unavailable Freddy Means Attending Unavailable Sammi Brumfield Attending Unavailable Allergies Allergy Classification Reported Allergen(s) Allergy Type Date of Onset Reaction(s) Facility (10 sources) Ketorolac; Translations: [Ketorolac] Drug Allergy 10-13-19 Unknown Reaction, [facility] (13 sources) traMADol; Translations: [Tramadol] Drug Allergy 10-13-19 [facility] (2 sources) Dextromethorphan / guaiFENesin Drug Allergy Unknown [facility] Other (10 sources) guaiFENesin; Translations: [guaifenesin] Drug Allergy vomiting [facility] (10 sources) Metoprolol; Translations: [metoprolol] Drug Allergy sickneess [facility] (9 sources) gabapentin; Translations: [gabapentin] Drug Allergy Nausea and vomiting (disorder) [facility] (1 source) Ketorolac; Translations: [Toradol] Drug Allergy [facility] Repository Medications Current Medications Medication Drug Class(es) Dates Sig (Normalized) Sig (Original) acetaminophen 325 mg / oxyCODONE hydrochloride 5 mg oral tablet (14 sources) Opioid Agonist Start: 11-10-2022 take 1 tablet by mouth three times daily as needed for pain Percocet 5 mg-325 mg oral tablet 1 tab(s), Oral, TID as needed for pain, 21 tab(s), [facility](s) 0[id number], cm, 10/26/22 8:57:00 EDT, Height/Length Dosing, 74.8, kg, 10/26/22 8:57:00 EDT, Weight Dosing Start Date: 11/10/22 Status: Ordered Start: 10-26-2022 take 1 tablet by blaine th three times daily as needed for pain Percocet 5 mg-325 mg oral tablet 1 tab(s), Oral, TID as needed for pain, 21 tab(s), Refill(s) 0, [facility], 167, cm, 10/26/22 8:57:00 EDT, Height/Length Dosing, 74.8, kg, 10/26/22 8:57:00 EDT, Weight Dosing Start Date: 10/26/22 Status: Ordered Start: 09-22-2022 take 1 tablet by blaine th three times daily as needed for pain Percocet 5 mg-325 mg oral tablet 1 tab(s), Oral, TID as needed for pain, 21 tab(s), Refill(s) 0, [facility], 167, cm, 09/22/22 9:26:00 EDT, Height/Length Dosing, 82.9, kg, 09/07/22 13:27:00 EDT, Weight Dosing Start Date: 09/22/22 Status: Ordered Start: 05-16-2022 Percocet 5 mg- 325 mg oral tablet 1 tab(s), Oral, q6hr, 12 tab(s), Refill(s) 0, [facility], 167, cm, 05/16/22 10:57:00 EDT, Height/Length Dosing, 74.4, kg, 05/16/22 10:57:00 EDT, Weight Dosing Start Date: 05/16/22 Status: Ordered amLODIPine 2.5 mg oral tablet (9 sources) Dihydropyridine Calcium Channel Radha Start: 09-07-2022 take 1 tablet by mouth once daily amLODIPine 2.5 mg Tab TAKE 1 TABLET BY MOUTH DAILY Start Date: 09/07/22 Status: Ordered take 1 tablet by blaine every twenty-four hours amLODIPine Besylate 5 MG [...] Start: 06-16-2021 take 1 capsule by mo [facility] three times daily as needed Benzonatate 200 MG 1 capsule Orally Three times a day as needed for 5 day(s) June, Active dextromethorphan hydrobromide 1.5 mg/ml / pyrilamine maleate 1.5 mg/ml oral solution (2 sources) Uncompetitive U-bnsuss-P-aspartate Receptor Antagonist, Sigma-1 Agonist Start: 01-25-2023 take 20 mL by mouth every eight hours as needed for cough [facility] DM 7.5-7.5 MG/5ML 20 ml Orally May take every 8 hours as needed for cough for 3 days Jan, Active Start: 06-16-2021 take 20 mL by mouth once daily at bedtime as needed [facility] DM 7.5-7.5 MG/5ML 20 ml Orally QHS as needed for 5 days June, Active DULoxetine 20 mg delayed release oral capsule (9 sources) Serotonin and Norepinephrine Reuptake Inhibitor Start: 09-07-2022 take 1 capsule by mouth once daily duloxetine 20 mg oral delayed release capsule TAKE 1 CAPSULE BY MOUTH DAILY Start Date: 09/07/22 Status: Ordered take 1 capsule by [facility] every twenty-four hours DULoxetine HCl 30 MG 1 capsule Orally Once a day Active Hydroxychloroquine (1 source) Antimalarial, Antirheumatic Agent Hydroxychloroquine Sulfate Active ibuprofen 600 mg oral tablet (9 sources) Nonsteroidal Anti-inflammatory Drug Start: 2020 take 1 tablet by mouth four times daily as needed for pain ibuprofen 600 mg Tab 600 mg = 1 tab(s), Oral, QID, PRN for pain, # 40 tab(s), Refills(s) 0, Pharmacy: [facility], 165, cm, 07/07/20 13:07:00 EDT, Height/Length Dosing, 75, kg, 07/07/20 13:07:00 EDT, Weight Dosing Start Date: 07/07/20 Status: Ordered lisinopril 2.5 mg oral tablet (12 sources) Angiotensin Converting Enzyme Inhibitor Start: 2017 take 1 tablet by mouth once daily lisinopril 2.5 mg Tab 2.5 mg = 1 tab(s), Oral, Daily, Refills(s) 0 Start Date: 07/10/19 Status: Ordered take 1 tablet by [facility] every twenty-four hours Lisinopril 5 MG 1 tablet Orally Once a day Active methylPREDNISolone 4 mg oral tablet (2 sources) Corticosteroid Start: 05-14-2023 End: 05-20-2023 Medrol 4 mg Tab = 1 packet(s), Oral, As Directed, as directed on package labeling, X 6 day(s), # 21 tab(s), Refills(s) 0, Pharmacy: [facility], 167, cm, 05/14/23 11:52:00 EDT, Height/Length Dosing, 78, kg, 05/14/23 11:52:00 EDT, Weight Dosing Start Date: 05/14/23 Stop Date: 05/20/23 Status: Ordered Start: 09-22-2022 End: 09-28-2022 Medrol 4 mg Tab = 1 packet(s ), Oral, As Directed, as directed on package labeling, X 6 day(s), # 21 tab(s), Refills(s) 0, Pharmacy: [id number], 167, cm, 09/22/22 9:26:00 EDT, Height/Length Dosing, 82.9, kg, 09/07/22 13:27:00 EDT, Weight Dosing Start Date: 09/22/22 Stop Date: 09/28/22 Status: Ordered Multivitamin preparation (8 sources) Start: 09-07-2022 multivitamin See Instructions, Refill(s) 0, daily Start Date: 09/07/22 Status: Ordered polymyxin b [id number] unt/ml / trimethoprim 1 mg/ml ophthalmic solution (2 sources) Dihydrofolate Reductase Inhibitor Antibacterial, Polymyxin-class Antibacterial Start: 08-27-2023 End: 09-03-2023 take 1 drop(s) into the eye(s) every three hours polymyxin B-trimethoprim Opth Jennifer 1 drop(s), OPTH, q3hr for 7 day(s), 10 mL, Refill(s) 0, not to exceed 6 doses/day. Use in RIGHT eye., [id number], 164, cm, 08/27/23 9:09:00 EDT, Height/Length Dosing, 74.5, kg, 08/27/23 9:09:00 EDT, Weight Dosing Start Date: 08/27/23 Stop Date: 09/03/23 Status: Ordered Start: 10-28-2021 End: 11-04-2021 Polytrim 10 mL Soln-Opth 1 d rop(s), Eye-Right, q3hr for 7 day(s), 10 mL, Refill(s) 0, q3 hr while awake not to exceed 6 doses/day, [facility], 165, cm, 10/28/21 14:14:00 EDT, Height/Length Dosing, 75.8, kg, 10/28/21 14:14:00 EDT, Weight Dosing Start Date: 10/28/21 Stop Date: 11/04/21 Status: Ordered pregabalin 25 mg oral capsule (2 sources) Start: 09-07-2022 take 1 capsule by mouth twice daily pregabalin 25 mg Cap 25 mg = 1 cap(s), Oral, BID, # 60 cap(s), Refills(s) 0, Pharmacy: [facility], 167, cm, 05/16/22 10:57:00 EDT, Height/Length Dosing, 82.9, kg, 09/07/22 13:27:00 EDT, Weight Dosing Start Date: 09/07/22 Status: Ordered Problems Active Problems Problem Classification Problem Date Documented Da te Episodic/Chronic Anxiety disorders (8 sources) Anxiety 09-07-2022 Chronic Essential hypertension (8 sources) Hypertensive disorder 09-07-2022 Chronic Immunizations and screening for infectious disease (1 source) Vaccination given; Translations: [Encounter for immunization] Onset: 10-28-2021 Episodic Inflammation; infection of eye (except that caused by tuberculosis or sexually transmitteddisease) (1 source) Conjunctivitis; Translations: [Unspecified conjunctivitis] Onset: 08-27-2023 Episodic Other and unspecified benign neoplasm (9 sources) Benign neoplasm of brain Onset: 09-30-2012 07-10-2019 Chronic Other connective tissue disease (1 source) Foot pain; Translations: [Pain in unspecified foot] Onset: 05-14-2023 Episodic Other nutritional; endocrine; and metabolic disorders (1 source) Overweight; Translations: [Overweight] Onset: 08-27-2023 Episodic Other nutritional; endocrine; and metabolic disorders (1 source) Overweight in adulthood with body mass index of 25 or more but less than 30; Translations: [Body mass index (BMI) 27.0-27.9, adult] Onset: 08-27-2023 Episodic Other upper respiratory infections (2 sources) Acute maxillary sinusitis, unspecified; Translations: [Acute sinusitis, unspecified] Onset: 06-16-2021 Resolved: 06-16-2021 Episodic Phlebitis; thrombophlebitis and thromboembolism (8 sources) Thrombosis 09-07-2022 Episodic Spondylosis; intervertebral disc disorders; other back problems (8 sources) Low back pain 09-07-2022 Episodic Substance-related disorders (9 sources) Smoker 10-31-2018 Chronic Comment on above: Added secondary to d ocumentation in Social History. Superficial injury; contusion (2 sources) Injury of eye region; Translations: [Injury of conjunctiva and corneal abrasion without foreign body, right eye, initial encounter] Onset: 10-28-2021 Episodic Past or Other Problems Problem Classification Problem Date Documented Da te Episodic/Chronic Unclassified (2 sources) Cough R05.9 Onset: 06-16-2021 Resolved: 06-16-2021 Results Test Name Value Interpretation Reference Range Facility Ambulatory Visit Summaryon 0 08-27-2023 Ambulatory Visit Summary Ambulatory Visit Summary RUTHIE CORDERO :1965 Visit Date:08/27/2023 Ambulatory Visit Instructions Your Diagnosis Bacterial conjunctivitis Your Care Team Attending Physician - Octaviano PLEITEZ, Nancy Primary Care Physician - GOOD TAYLOR CNP This Is Your Medications List acetaminophen-oxycodone (Percocet 5 mg-325 mg oral tablet) acetaminophen-oxycodone (Percocet 5 mg-325 mg oral tablet) amlodipine (amLODIPine 2.5 mg Tab) duloxetine (duloxetine 20 mg oral delayed release capsule) ibuprofen (ibuprofen 600 mg Tab) lisinopril (lisinopril 2.5 mg Tab) multivitamin polymyxin B-trimethoprim ophthalmic (polymyxin B-trimethoprim Opth Jennifer) Procedures Performed Injection of knee using fluoroscopic guidance (10/13/2022), Chronic pain following right total knee arthroplasty (06/14/2019), History of total knee arthroplasty (07/14/2018), BT - Brain tumor, Cholecystectomy. Discharge Vitals Temperature (Oral) 36.8 ?C Heart Rate (Peripheral) 69 Blood Pressure 124/86 Height 164 cm Height 65 in Weight 74.5 kg Weight 163.9 lb BMI 27.7 Medications What How Much When Why Instructions New polymyxin B-trimethoprim ophthalmic (polymyxin B-trimethoprim Opth Jennifer) 1 Drops Ophthalmic Every 3 hours Bacterial conjunctivitis Duration: 7 Days not to exceed 6 doses/ day. Use in RIGHT eye. Pickup at [facility] Unchanged acetaminophen-oxycodone (Percocet 5 mg-325 mg oral tablet) 1 Tablets By Mouth Every 6 hours Acute traumatic pain Strain of right knee Unchanged acetaminophen-oxycodone (Percocet 5 mg-325 mg oral tablet) 1 Tablets By Mouth 3 times a day as needed for as needed for pain Right knee pain Unchanged amlodipine (amLODIPine 2.5 mg Tab) TAKE 1 TABLET BY MOUTH DAILY Unchanged duloxetine (duloxetine 20 mg oral delayed release capsule) TAKE 1 CAPSULE BY MOUTH DAILY Unchanged ibuprofen (ibuprofen 600 mg Tab) 1 Tablets By Mouth 4 times a day as needed for for pain Unchanged lisinopril (lisinopril 2.5 mg Tab) 1 Tablets By Mouth Every day Unchanged multivitamin See instructions daily Pharmacy Information [facility]: [address] [facility] [address] [place], [place] [id number] [phone] Allergies Toradol (sick) gabapentin (Nausea and vomiting) guaiFENesin (vomiting) metoprolol (sickneess) traMADol (ill) Problems Ongoing - Any problem that you are currently receiving treatment for. Anxiety Hypertension Lower back pain Smoker Thrombosis Historical - Any problem that you are no longer receiving treatment for. Benign brain tumor Patient Survey You may receive a survey via text or e-mail asking about your office visit. Please share your experience with us by completing your survey. We appreciate your feedback and thank you for choosing us for your care. Pur[facility] Family Medicine Office/Clini c Noteon 08-27-2023 Family Medicine Office/Clinic Note Family Medicine Office/Clinic Note Chief Complaint EST right eye pain HPI Staff Ruthie is a 58 year old female here for right puffy eye pt. states she has been having irritation to the right eye, this morning she woke up and she was unable to open her right eye. patient, used a warm compress and was able to get it open characteristics- patient states swelling around the right eye Review of Systems PHQ Score Initial Depression Screen Score: 0 SCORE Physical Exam Vitals & Measurements T: 36.8 ?C(Oral) HR: 69(Peripheral) BP: 124/86 SpO2: 99% HT: 65 in HT: 164 cm WT: 74.5 kg WT: 163.9 lb BMI: 27.7 Assessment/Plan 1. Bacterial conjunctivitis (H10.9: Unspecified conjunctivitis) Ordered: polymyxin B-trimethoprim ophthalmic, 1 drop(s), OPTH, q3hr for 7 day(s), 10 mL, Refill(s) 0, not to exceed 6 doses/day. Use in RIGHT eye., [facility], 164, cm, 08/27/23 9:09:00 EDT, Height/Length Dosing, 74.5, kg, 08/27/23 9:09:00 EDT, Weight Dosing 2. Overweight (E66.3: Overweight) 3. BMI 27.0-27.9,adult (Z68.27: Body mass index [BMI] 27.0-27.9, adult) Follow-up With When Contact Information BRANDON BLANDON, [address] [address]- Additional Instructions: Patient Education BMI for Adults Exercising to Lose Weight Bacterial Conjunctivitis, Adult, [id number] Problem List/Past Medical History Ongoing Anxiety Hypertension Lower back pain Smoker Thrombosis Historical Benign brain tumor Procedure/Surgical History Injection of knee using fluoroscopic guidance (10/13/2022), Chronic pain following right total knee arthroplasty (06/14/2019), History of total knee arthroplasty (07/14/2018), BT - Brain tumor, Cholecystectomy. Medications amLODIPine 2.5 mg Tab duloxetine 20 mg oral delayed release capsule ibuprofen 600 mg Tab, 600 mg= 1 tab(s), Oral, QID, PRN lisinopril 2.5 mg Tab, 2.5 mg= 1 tab(s), Oral, Daily multivitamin, See Instructions Percocet 5 mg-325 mg oral tablet, 1 tab(s), Oral, q6hr Percocet 5 mg-325 mg oral tablet, 1 tab(s), Oral, TID, PRN polymyxin B-trimethoprim Opth Jennifer, 1 drop(s), OPTH, q3hr Allergies Toradol (sick) gabapentin (Nausea and vomiting) guaiFENesin (vomiting) metoprolol (sickneess) traMADol (ill) Social History Alcohol - Denies Alcohol Use, 10/31/2018 Substance Abuse - Denies Substance Abuse, 10/31/2018 Tobacco - Denies Tobacco Use, 07/10/2019 5-9 cigarettes (between 1/4 to 1/2 pack)/day in last 30 days Tobacco Use:., 09/07/2022 Former smoker, quit more than 30 days ago Tobacco Use:. Cigarettes, 07/10/2019 Family History Family history is negative Immunizations Vaccine Date Status Comments influenza virus vaccine, inactivated 11/11/2022 Recorded influenza virus vaccine, inactivated 02/11/2022 Recorded diphtheria/pertussis, acel/tetanus adult 10/28/2021 Given SARS-CoV-2 (COVID-19) mRNA BNT-162b2 vax 11/26/2020 Recorded SARS-CoV-2 (COVID-19) mRNA BNT-162b2 vax 05/24/2020 Given Prophylaxis SARS-CoV-2 (COVID-19) mRNA BNT-162b2 vax 04/26/2020 Given Prophylaxis diphtheria/pertussis, acel/tetanus adult 12/15/2018 Recorded hepatitis A adult vaccine 11/17/2018 Recorded hepatitis A adult vaccine 05/11/2018 Recorded hepatitis B adult vaccine 01/13/1991 Recorded hepatitis B adult vaccine 12/09/1990 Recorded Td(adult) unspecified formulation 06/06/1971 Recorded Normal [facility] Comment on above: Result Comment: Elec tronically Signed By: Octaviano PLEITEZ, Nancy\.br\Date and Time Signed: 08/27/23 09:44 EDT ED Note-Physicianon 06-07-19 ED Note-Physician Basic Information Time Seen: Dean Stiles PA-C 06/01/2023 19:04 Chief Complaint Pt presents to ED with complaints of left foot pain after injury last week. History of Present Illness 58-year-old female comes to the ED for evaluation of foot pain. The patient states she was initially seen here a couple weeks ago after she injured the left foot. She was cutting firewood when a log fell onto the dorsal aspect of the foot. She had negative x-rays and has had persistent pain since that time. She is in pain management takes Percocet chronically but states she is having difficulty controlling her pain. She has had no new trauma. Pain is made worse with ambulation. No acute weakness. No paresthesias. Review of Systems A 10 point review of systems is negative except as noted above. Medical and Surgical History: Reviewed and noted Social history: Lives at home Tobacco: Current Physical Exam Vitals & Measurements T: 37.1 ?C(Oral) HR: 98(Peripheral) RR: 18 BP: 121/85 SpO2: 99% HT: 167 cm WT: 78 kg BMI: 27.97 Nurses notes and vital signs reviewed and patient is not hypoxic. General: The patient appears well, resting comfortably. Skin: Warm, dry. Head: Atraumatic. Neck: No JVD. Eye: Normal conjunctiva. Ears, Nose, Mouth, and Throat: Moist mucous membranes. Cardiovascular: Strong distal pulses. Chest wall: Respiratory: Respirations are nonlabored. Back: Normal range of motion. Musculoskeletal: Tenderness to the dorsal aspect of the left foot. No soft tissue swelling, ecchymosis or erythema. No bony instability. Good pedal pulses. No tenderness of the ankle or calf. Gastrointestinal: Urological: Neurological: Awake and alert. No focal deficits. Follows commands. Psychiatric: Cooperative. Medical Decision Making Patient presents with left foot pain after an injury a couple of weeks ago. Repeat x-rays were obtained today, no acute fracture or dislocation. She is treated symptomatically with pain medications and postoperative shoe. She given referral to podiatry for definitive management. Patient was encouraged to return to the ED if symptoms worsen or change. Assessment/Plan Foot contusion (S90.30XA: Contusion of unspecified foot, initial encounter) Orders: morphine, 4 mg = 2 mL, Injection, IntraMuscular, Once, Stop date 06/01/23 19:21:00 EDT, STAT, Start date 06/01/23 19:21:00 EDT, 06/01/23 19:21:00 EDT ondansetron, 4 mg = 1 tab(s), Tab-Dis, Oral, Once, Stop date 06/01/23 19:21:00 EDT, STAT, Start date 06/01/23 19:21:00 EDT, 06/01/23 19:21:00 EDT Apply Post-Op Shoe XR Foot 3+ Views Left Disposition Plan Patient Discharge Condition Disposition: Discharged home Condition: Improved and stable Counseled: Patient and/or family were counseled to workup, results, treatment plan and follow-up recommendations Discharge Prescription List Prescriptions No active prescription medications Follow-up With When Contact Information Bertin Laguna In 3 days 06/04/2023 EDT [facility] [address] [place] [address]- 4 Business (1) Additional Instructions: Patient Education Foot Contusion Attestation I performed a substantive part of the MDM during the patient?s E/M visit. I personally made or approved the documented management plan and acknowledge its risk of complications. (Independent Interpretation) My (EKG/X-Ray/US/CT) interpretation as above. (Discussion) Management/test interpretation discussed with APC. This report was transcribed using voice recognition software. Every effort was made to ensure accuracy, however, inadvertently computerized educational adviser mistakes may be present. Appropriate healthcare PPE was used in evaluating this patient. Problem List/Past Medical History Ongoing Anxiety Hypertension Lower back pain Smoker Thrombosis Historical Benign brain tumor Procedure/Surgical History Injection of knee using fluoroscopic guidance (10/13/2022), Chronic pain following right total knee arthroplasty (06/14/2019), History of total knee arthroplasty (07/14/2018), BT - Brain tumor, Cholecystectomy. Medications Inpatient No active inpatient medications Home amLODIPine 2.5 mg Tab duloxetine 20 mg oral delayed release capsule ibuprofen 600 mg Tab, 600 mg= 1 tab(s), Oral, QID, PRN lisinopril 2.5 mg Tab, 2.5 mg= 1 tab(s), Oral, Daily multivitamin, See Instructions Percocet 5 mg-325 mg oral tablet, 1 tab(s), Oral, q6hr Percocet 5 mg-325 mg oral tablet, 1 tab(s), Oral, TID, PRN Allergies Toradol (sick) gabapentin (Nausea and vomiting) guaiFENesin (vomiting) metoprolol (sickneess) traMADol (ill) Social History Alcohol - Denies Alcohol Use, 10/31/2018 Substance Abuse - Denies Substance Abuse, 10/31/2018 Tobacco - Denies Tobacco Use, 07/10/2019 5-9 cigarettes (between 1/4 to 1/2 pack)/day in last 30 days Tobacco Use:., 09/07/2022 Former smoker, quit more than 30 days ago Tobacco Use: (more content not included)... Normal [facility] Comment on above: Result Comment: Elec tronically Signed By: Dean Stiles PA-C\.br\Date and Time Signed: 06/01/23 19:31 EDT\.br\Electronically Co-Signed By: Norman Chiu DO\.br\Date and Time Co-Signed: 06/07/23 07:19 EDT XR Foot 3+ Views Lefton 05-10 XR Foot 3+ Views Left Exam Date/Time: 06/01/2023 19:29 EDT Reason for Exam: Pain, Traumatic Report IMPRESSION: NO ACUTE OSSEOUS ABNORMALITY. EXAM: XR Foot 3+ Views Left COMPARISON: 05/14/2023 HISTORY: Foot pain TECHNIQUE: AP, lateral and oblique views of the foot obtained. FINDINGS: No acute fracture or dislocation. Mild degenerative changes of the midfoot. Small posterior and plantar calcaneal enthesophytes. Mild soft tissue edema. Ordering Provider: Dean Stiles FINAL REPORT Dictated: 06/02/2023 9:53 am Jose Gordon DO Signed (Electronic Signature): 06/02/2023 9:53 am Signed by: Jose Gordon DO Transcribed by: CALLIE Technologist: JUAN Technical Comments Radiation Dose: Ka,r in mGy = na DAP = na Normal [facility] Consent for Treatmenton 05-10 Consent for Treatment [id number] IFF Normal [facility] Discharge Instructionson Discharge Instructions [id number] IFF Normal [facility] ED Clinical Summaryon 2023 ED Clinical Summary (Inserted Image. Teresita ble to display) [place] [id number] ED Clinical Summary Person Information Name: RUTHIE CORDERO [facility] Age: 58 Years : 1965 Sex: Female Language: Citizen Of [place] PCP: GOOD TAYLOR CNP Marital Status: Visit Id: Visit Reason: Foot injury - Minor; Foot pain-swelling; LFT FOOT INJURY Speciality: Acuity: 4 Enc Type: Emergency Med Service: Emergency Arrival: 06/01/2023 18:27:02 Discharge: 06/01/2023 20:03:08 LOS: 000 01:36 Checkin: 06/01/2023 18:27:02 Checkout: 06/01/2023 20:03:08 Dispo Type: Home (Routine DC) EVENTS: Event Name Event Status Request Date/Time Start Date/Time Complete Date/Time Arrive Complete 06/01/2023 18:27:02 06/01/2023 18:27:02 06/01/2023 18:27:02 Document Home Meds Request 06/01/2023 18:27:02 Triage Complete 06/01/2023 18:27:02 06/01/2023 18:51:45 06/01/2023 18:51:45 X-Ray Complete 06/01/2023 18:40:17 06/01/2023 18:47:37 06/01/2023 19:29:46 Bed Assign Complete 06/01/2023 19:04:16 06/01/2023 19:04:16 06/01/2023 19:04:16 Dr Exam Complete 06/01/2023 19:04:16 06/01/2023 19:04:57 06/01/2023 19:04:57 RN Exam Complete 06/01/2023 19:04:16 06/01/2023 19:37:25 06/01/2023 19:37:25 Registration Request 06/01/2023 19:04:57 Dr Exam Complete 06/01/2023 19:06:22 06/01/2023 19:06:22 06/01/2023 19:06:22 Patient Care Request 06/01/2023 19:21:26 Meds Admin Complete 06/01/2023 19:21:26 06/01/2023 19:40:06 Wet Read Request 06/01/2023 19:29:46 Discharge Complete 06/01/2023 19:30:26 06/01/2023 20:03:13 06/01/2023 20:03:13 Patient Care Complete 06/01/2023 19:59:14 06/01/2023 20:02:33 Transfer Complete 06/01/2023 20:03:13 06/01/2023 20:03:13 06/01/2023 20:03:13 ADDRESS: [facility] [id number] [facility] NOTES: MEDICAL INFORMATION: Prescriptions Given: Medications to Continue with No Changes Other Medications acetaminophen-oxycodone (Percocet 5 mg-325 mg oral tablet) 1 Tablets By Mouth every 6 hours. Refills: 0. acetaminophen-oxycodone (Percocet 5 mg-325 mg oral tablet) 1 Tablets By Mouth 3 times a day as needed as needed for pain. Refills: 0. amlodipine (amLODIPine 2.5 mg Tab) TAKE 1 TABLET BY MOUTH DAILY. duloxetine (duloxetine 20 mg oral delayed release capsule) TAKE 1 CAPSULE BY MOUTH DAILY. ibuprofen (ibuprofen 600 mg Tab) 1 Tablets By Mouth 4 times a day as needed for pain. Refills: 0. lisinopril (lisinopril 2.5 mg Tab) 1 Tablets By Mouth every day. multivitamin daily. PATIENT EDUCATION INFORMATION: Instructions: Foot Contusion Follow up: With: Address: When: Bertin DUMONT - [facility], [facility], [address], [place] [address] 0 Business (1) In 3 days 06/04/2023 DIAGNOSIS: Foot contusion Normal [facility] ED Patient Education Noteon 06-01-2023 ED Patient Education Note Orthopedics Foot Contusion A foot contusion is a deep bruise to the foot. Contusions are the result of an injury to tissues and muscle fibers under the skin. The injury causes bleeding under the skin. The skin over the contusion may turn blue, purple, or yellow. Minor injuries will cause a painless contusion, but more severe contusions may stay painful and swollen for a few weeks. What are the causes? This condition is usually caused by a hard hit or direct force to your foot, such as having a heavy object fall on your foot. What are the signs or symptoms? Symptoms of this condition include: ? Swelling of the foot. ? Pain and tenderness of the foot. ? Discoloration of the foot. The area may have redness and then turn blue, purple, or yellow. How is this diagnosed? This condition may be diagnosed based on: ? Your medical history. ? A physical exam. In some cases, imaging tests may be done to check for other injuries. These may include: ? An X-ray to check for broken bones (fractures). ? CT scan or MRI to check for torn or injured ligaments. How is this treated? In general, the best treatment for a foot contusion is rest, ice, pressure (compression), and elevation. This is often called RICE therapy. An elastic wrap may be recommended to support your foot. Haod-xvz-rxlitvh anti-inflammatory medicines may also be recommended for pain control. If your swelling or pain is severe, you may be given crutches. Follow these instructions at home: RICE therapy ? Rest the injured area. Try to avoid standing or walking while your foot is painful. ? If directed, put ice on the injured area. ? Put ice in a plastic bag. ? Place a towel between your skin and the bag. ? Leave the ice on for 20 minutes, 2?3 times a day. ? If directed, apply light compression to the injured area using an elastic wrap. Make sure the wrap is not too tight. Remove and reapply the wrap as told by your health care provider. If your toes become numb, cold, or blue, take the wrap off and reapply it more loosely. ? Raise (elevate) the injured area above the level of your heart while you are sitting or lying down. General instructions ? Take ljyx-rlg-daxmeih and prescription medicines only as told by your health care provider. ? Use crutches as told by your health care provider, if this applies. Do not use the injured foot to support your body weight until your health care provider says that you can. ? Do not use any products that contain nicotine or tobacco, such as cigarettes, e-cigarettes, and chewing tobacco. These can delay healing. If you need help quitting, ask your health care provider. ? Keep all follow-up visits as told by your health care provider. This is important. Contact a health care provider if: ? Your symptoms do not improve after several days of treatment. ? You have redness, swelling, or pain in your foot or toes. ? You have difficulty moving the injured area. ? Your swelling or pain is not relieved with medicines. Get help right away if: ? You have severe pain. ? Your foot or toes become numb. ? Your foot or toes become pale or cold. ? You cannot move your foot or ankle. ? Your foot is warm to the touch. Summary ? A foot contusion is a deep bruise to the foot. ? This condition is usually caused by a hard hit or direct force to your foot. ? Symptoms include swelling, pain, and discoloration in the injured area. ? In general, the best treatment for a foot contusion is rest, ice, pressure (compression), and elevation. This information is not intended to replace advice given to you by your health care provider. Make sure you discuss any questions you have with your health care provider. Document Revised: 04/30/2021 Document Reviewed: 04/30/2021 Elsevier Patient Education ? 2022 [employer] Normal [facility] ED Patient Summaryon 024 ED Patient Summary (Inserted Image. Teresita ble to display) [address] [address] Patient Discharge Instructions Person Information Name: RUTHIE CORDERO Age: 58 Years Arrival Date: 06/01/2023 18:27:02 Discharge Diagnosis: Foot contusion Primary Care Physician: GOOD TAYLOR CNP Provider Information Primary Provider: Norman Chiu DO [employer] Aid Worker:Dean Stiles PA-C The exam and treatment you received in the Emergency Department were for an urgent problem and are not intended as complete care. It is important that you follow up with a doctor, nurse practitioner, or physician?s junior sales assistant for ongoing care. If your symptoms become worse or you do not improve as expected and you are unable to reach your usual health care provider, you should return to the Emergency Department. We are available 24 hours a day. RUTHIE CORDERO has been given the following list of patient education materials, prescriptions and follow-up instructions: Follow-up Instructions: With: Address: When: Bertin DUMONT - [facility], [facility], [address], [place] [address] 0 Business (1) In 3 days 06/04/2023 In the event that this physician does not participate in your insurance network, please consult with your insurance company to find a nearby participating provider. Patient Education Materials: Foot Contusion A MESSAGE TO ALL PATIENTS REGARDING OPIOIDS PRESCRIPTION OPIOIDS: WHAT YOU NEED TO KNOW Prescription opioids can be used to help relieve unlitgdi-nt-fmdndc pain and are often prescribed following a [...] with addiction, tell your health ocular care aide and ask for guidance or call [facility] Dee Dee (more content not included)... Normal [facility] Consent for Treatmenton Consent for Treatment [id number] IFF Normal [facility] Discharge Instructionson Discharge Instructions [id number] IFF Normal [facility] ED Clinical Summaryon 2023 ED Clinical Summary (Inserted Image. Teresita ble to display) [place] [id number] ED Clinical Summary Person Information Name: RUTHIE CORDERO [facility] Age: 57 Years : 1965 Sex: Female Language: Citizen Of [place] PCP: GOOD TAYLOR CNP Marital Status: Visit Id: Visit Reason: Foot pain-swelling; LEFT FOOT PAIN Speciality: Acuity: 4 Enc Type: Emergency Med Service: Emergency Arrival: 05/14/2023 11:44:19 Discharge: 05/14/2023 13:22:33 LOS: 000 01:38 Checkin: 05/14/2023 11:44:19 Checkout: 05/14/2023 13:22:33 Dispo Type: Home (Routine DC) EVENTS: Event Name Event Status Request Date/Time Start Date/Time Complete Date/Time Arrive Complete 05/14/2023 11:44:19 05/14/2023 11:44:19 05/14/2023 11:44:19 Document Home Meds Request 05/14/2023 11:44:19 Triage Complete 05/14/2023 11:44:19 05/14/2023 11:52:06 05/14/2023 11:52:06 Bed Assign Complete 05/14/2023 11:46:31 05/14/2023 11:46:31 05/14/2023 11:46:31 Dr Exam Complete 05/14/2023 11:46:31 05/14/2023 11:50:59 05/14/2023 11:50:59 RN Exam Complete 05/14/2023 11:46:31 05/14/2023 11:53:31 05/14/2023 11:53:31 Registration Complete 05/14/2023 11:50:59 05/14/2023 12:00:44 05/14/2023 12:00:44 Reg Complete Request 05/14/2023 12:00:44 Reg Bed Request Complete 05/14/2023 12:00:44 05/14/2023 12:00:44 05/14/2023 12:00:44 Meds Admin Complete 05/14/2023 12:01:42 05/14/2023 12:14:17 X-Ray Complete 05/14/2023 12:01:42 05/14/2023 12:15:10 05/14/2023 12:33:28 Wet Read Request 05/14/2023 12:33:28 Discharge Complete 05/14/2023 13:12:59 05/14/2023 13:22:38 05/14/2023 13:22:38 Transfer Complete 05/14/2023 13:22:38 05/14/2023 13:22:38 05/14/2023 13:22:38 ADDRESS: [id number] [address] [facility] [id number] [facility] NOTES: MEDICAL INFORMATION: Prescriptions Given: New Medications [facility], [address] [place], [place] [phone], [phone] methylPREDNISolone (Medrol 4 mg Tab) 1 Packets By Mouth As Directed for 6 Days. as directed on package labeling. Refills: 0. Medications to Continue with No Changes Other Medications acetaminophen-oxycodone (Percocet 5 mg-325 mg oral tablet) 1 Tablets By Mouth every 6 hours. Refills: 0. acetaminophen-oxycodone (Percocet 5 mg-325 mg oral tablet) 1 Tablets By Mouth 3 times a day as needed as needed for pain. Refills: 0. amlodipine (amLODIPine 2.5 mg Tab) TAKE 1 TABLET BY MOUTH DAILY. duloxetine (duloxetine 20 mg oral delayed release capsule) TAKE 1 CAPSULE BY MOUTH DAILY. ibuprofen (ibuprofen 600 mg Tab) 1 Tablets By Mouth 4 times a day as needed for pain. Refills: 0. lisinopril (lisinopril 2.5 mg Tab) 1 Tablets By Mouth every day. multivitamin daily. PATIENT EDUCATION INFORMATION: Instructions: Foot Pain Follow up: With: Address: When: GOOD TAYLOR [address] [place], [place] [id number] [facility] In 3 days 05/17/2023 Comments: Call the office of your primary care doctor to arrange for follow-up within the above-stated timeframe. Follow-up with your primary care doctor about this ED visit. You should review your labs, imaging, and diagnoses from this ED visit with your primary care physician. There are occasionally non-emergent findings that require additional follow-up after your ED visit. If you were prescribed medications you should discuss possible side-effects and drug interactions with your pharmacist. Call 911 or go to the nearest Emergency Department if you develop any new or worsening symptoms. DIAGNOSIS: Acute foot pain Normal [facility] ED Note-Physicianon 05-14-19 ED Note-Physician Basic Information Time Seen: Freddy Means DO 05/14/2023 11:50 Chief Complaint patient c/o left foot pain after dropping a log on it a few days ago. patient having trouble with ambulation History of Present Illness 57-year-old female to the emergency department chief complaint of pain across the top of her right foot. She reports she dropped a small log on top of the foot a few days ago. She reports it hurts worse with ambulation and range of motion. No bruising. No rash or lesions. No wounds. Review of Systems A 10 point review of systems is negative except as noted above. Medical and Surgical History: Reviewed and noted Social history: Lives at home Tobacco: Denies Physical Exam Vitals & Measurements T: 36.6 ?C(Oral) HR: 88(Peripheral) RR: 18 BP: 148/92 SpO2: 100% HT: 167 cm WT: 78 kg BMI: 27.97 Left foot: DP and PT pulses are intact. There is tenderness over the anterior lateral foot. No medial or lateral malleolus tenderness. Normal range of motion. No redness, warmth, erythema. Limb is similar color and temperature to the contralateral extremity. Medical Decision Making 57-year-old female with tenderness over the anterior foot. Likely foot contusion. X-ray imaging is negative. Reviewed with radiology. Medrol Dosepak. She is already on pain medication at home. Follow-up with hse manager. Return precautions were discussed. All questions were answered. Patient was discharged home. Assessment/Plan Acute foot pain (M79.673: Pain in unspecified foot) Orders: methylPREDNISolone, = 1 packet(s), Oral, As Directed, as directed on package labeling, X 6 day(s), # 21 tab(s), Refills(s) 0, Pharmacy: [facility], 167, cm, 05/14/23 11:52:00 EDT, Height/Length Dosing, 78, kg, 05/14/23 11:52:00 EDT, Weight Dosing morphine, 4 mg = 1 mL, Injection, IntraMuscular, Once, Stop date 05/14/23 12:01:00 EDT, STAT, Start date 05/14/23 12:01:00 EDT, 05/14/23 12:01:00 EDT XR Foot 3+ Views Left Medications Administered Given morphine 4 mg/mL Inj, 4 mg, IntraMuscular Disposition Plan Patient Discharge Condition Stable Discharge Disposition Home Discharge Prescription List Prescriptions Medrol 4 mg Tab, 1 packet(s), Oral, As Directed Follow-up With When Contact Information GOOD BRANDON In 3 days 05/17/[address] [place] [address] Business (1) Additional Instructions: Call the office of your primary care doctor to arrange for follow-up within the above-stated timeframe. Follow-up with your primary care doctor about this ED visit. You should review your labs, imaging, and diagnoses from this ED visit with your primary care physician. There are occasionally non-emergent findings that require additional follow-up after your ED visit. If you were prescribed medications you should discuss possible side-effects and drug interactions with your pharmacist. Call 911 or go to the nearest Emergency Department if you develop any new or worsening symptoms. Patient Education Foot Pain Problem List/Past Medical History Ongoing Anxiety Hypertension Lower back pain Smoker Thrombosis Historical Benign brain tumor Procedure/Surgical History Injection of knee using fluoroscopic guidance (10/13/2022), Chronic pain following right total knee arthroplasty (06/14/2019), History of total knee arthroplasty (07/14/2018), BT - Brain tumor, Cholecystectomy. Medications Inpatient No active inpatient medications Home amLODIPine 2.5 mg Tab duloxetine 20 mg oral delayed release capsule ibuprofen 600 mg Tab, 600 mg= 1 tab(s), Oral, QID, PRN lisinopril 2.5 mg Tab, 2.5 mg= 1 tab(s), Oral, Daily Medrol 4 mg Tab, 1 packet(s), Oral, As Directed multivitamin, See Instructions Percocet 5 mg-325 mg oral tablet, 1 tab(s), Oral, q6hr Percocet 5 mg-325 mg oral tablet, 1 tab(s), Oral, TID, PRN Allergies Toradol (sick) gabapentin (Nausea and vomiting) guaiFENesin (vomiting) metoprolol (sickneess) traMADol (ill) Social History Alcohol - Denies Alcohol Use, 10/31/2018 Substance Abuse - Denies Substance Abuse, 10/31/2018 Tobacco - Denies Tobacco Use, 07/10/2019 5-9 cigarettes (between 1/4 to 1/2 pack)/day in last 30 days Tobacco Use:., 09/07/2022 Former smoker, quit more than 30 days ago Tobacco Use:. Cigarettes, 07/10/2019 Family History Family history is negative Lab Results No qualifying data available. Diagnostic Results XR Foot 3+ Views Left 05/14/23 13:14:21 NEGATIVE: No fracture, dislocation or other acute abnormality Read By: Freddy Means DO 05/14/23 13:21:32 IMPRESSION: No acute osseous findings. EXAMINATION/TECHNIQUE: XR Foot 3+ Views Left HISTORY: Left foot pain. COMPARISON: 07/07/2020. RESULT: No evidence for acute fracture. No dislocation. Mild degenerative changes first MTP joint. Hypertrophic degenerative changes of the midfoot. Small plantar and posterior calcaneal enthesophytes. Mild soft tissue edema. No radiopaque for (more content not included)... Normal [facility] Comment on above: Result Comment: Tasia yañez Signed By: Freddy Means DO\.br\Date and Time Signed: 05/14/23 14:53 EDT ED Patient Education Noteon 05-14-2023 ED Patient Education Note Orthopedics Foot Pain Many things can cause foot pain. Some common causes are: ? An injury. ? A sprain. ? Arthritis. ? Blisters. ? Bunions. Follow these instructions at home: Managing pain, stiffness, and swelling If directed, put ice on the painful area: ? Put ice in a plastic bag. ? Place a towel between your skin and the bag. ? Leave the ice on for 20 minutes, 2?3 times a day. Activity ? Do not stand or walk for long periods. ? Return to your normal activities as told by your health care provider. Ask your health care provider what activities are safe for you. ? Do stretches to relieve foot pain and stiffness as told by your health care provider. ? Do not lift anything that is heavier than 10 lb (4.5 kg), or the limit that you are told, until your health care provider says that it is safe. Lifting a lot of weight can put added pressure on your feet. Lifestyle ? Wear comfortable, supportive shoes that fit you well. Do not wear high heels. ? Keep your feet clean and dry. General instructions ? Take mdub-ybt-mvvxznu and prescription medicines only as told by your health care provider. ? Rub your foot gently. ? Pay attention to any changes in your symptoms. ? Keep all follow-up visits as told by your health care provider. This is important. Contact a health care provider if: ? Your pain does not get better after a few days of self-care. ? Your pain gets worse. ? You cannot stand on your foot. Get help right away if: ? Your foot is numb or tingling. ? Your foot or toes are swollen. ? Your foot or toes turn white or blue. ? You have warmth and redness along your foot. Summary ? Common causes of foot pain are injury, sprain, arthritis, blisters, or bunions. ? Ice, medicines, and comfortable shoes may help foot pain. ? Contact your health care provider if your pain does not get better after a few days of self-care. This information is not intended to replace advice given to you by your health care provider. Make sure you discuss any questions you have with your health care provider. Document Revised: 04/30/2021 Document Reviewed: 04/30/2021 Elsevier Patient Education ? 2022 [employer] Normal [facility] ED Patient Summaryon 024 ED Patient Summary (Inserted Image. Teresita ble to display) [address] [address] Patient Discharge Instructions Person Information Name: RUTHIE CORDERO Age: 57 Years Arrival Date: 05/14/2023 11:44:19 Discharge Diagnosis: Acute foot pain Primary Care Physician: GOOD TAYLOR CNP Provider Information Primary Provider: Freddy Means DO Advanced [employer]' Aid Worker:None The exam and treatment you received in the Emergency Department were for an urgent problem and are not intended as complete care. It is important that you follow up with a doctor, nurse practitioner, or physician?s junior sales assistant for ongoing care. If your symptoms become worse or you do not improve as expected and you are unable to reach your usual health care provider, you should return to the Emergency Department. We are available 24 hours a day. RUTHIE CORDERO has been given the following list of patient education materials, prescriptions and follow-up instructions: Follow-up Instructions: With: Address: When: GOOD TAYLOR [address] [place], [place] [id number] [facility] In 3 days 05/17/2023 Comments: Call the office of your primary care doctor to arrange for follow-up within the above-stated timeframe. Follow-up with your primary care doctor about this ED visit. You should review your labs, imaging, and diagnoses from this ED visit with your primary care physician. There are occasionally non-emergent findings that require additional follow-up after your ED visit. If you were prescribed medications you should discuss possible side-effects and drug interactions with your pharmacist. Call 911 or go to the nearest Emergency Department if you develop any new or worsening symptoms. In the event that this physician does not participate in your insurance network, please consult with your insurance company to find a nearby participating provider. Patient Education Materials: Foot Pain A MESSAGE TO ALL PATIENTS REGARDING OPIOIDS PRESCRIPTION OPIOIDS: WHAT YOU NEED TO KNOW Prescription opioids can be used to help relieve gpvvbump-nc-klexjg pain and are often prescribed following a [...] reach of others (this may include visitors, (more content not included)... Normal [facility] XR Foot 3+ Views Lefton XR Foot 3+ Views Left Exam Date/Time: 05/14/2023 12:33 EDT Reason for Exam: Pain, Traumatic Report IMPRESSION: No acute osseous findings. EXAMINATION/TECHNIQUE: XR Foot 3+ Views Left HISTORY: Left foot pain. COMPARISON: 07/07/2020. RESULT: No evidence for acute fracture. No dislocation. Mild degenerative changes first MTP joint. Hypertrophic degenerative changes of the midfoot. Small plantar and posterior calcaneal enthesophytes. Mild soft tissue edema. No radiopaque foreign body. No other significant abnormality. Ordering Provider: Freddy Means FINAL REPORT Dictated: 05/14/2023 1:18 pm Demario Rosas MD. Signed (Electronic Signature): 05/14/2023 1:18 pm Signed by: Demario Rosas MD Transcribed by: CALLIE Technologist: SANTOS Technical Comments Radiation Dose: Ka,r in mGy = na DAP = na Normal [facility] COVID/FLU RT-PCRon 3 SARS-CoV-2 (COVID-19) RNA EDWIN+probe Ql (Unsp spec) Positive [employer] Other COVID/FLU RT-PCR [facility] Other Insurance Correspondence Off iceon 11-09-2022 Insurance Correspondence Office [id number] CD:127 Normal [facility] Consent for Treatmenton 10-09 Consent for Treatment [id number] CD:127 [facility] Consultation Noteon 10-27-19 23 Consultation [...] needed for pain, 21 tab(s), Refill(s) 0, [id number], 167, cm, 10/26/22 8:57:00 EDT, Height/Length Dosing, 74.8, kg, 10/26/22 8:57:00 EDT, Weight Dosing Percocet 5 mg-325 mg oral tablet: 1 tab(s), Oral, q6hr, 12 tab(s), Refill(s) 0, [facility], 167, cm, 05/16/22 10:57:00 EDT, Height/Length Dosing, 74.4, kg, 05/16/22 10:57:00 EDT, Weight Dosing ibuprofen 600 mg Tab: 600 mg = 1 tab(s), Oral, QID, PRN for pain, # 40 tab(s), Refills(s) 0, Pharmacy: [facility], 165, cm, 07/07/20 13:07:00 EDT, Height/Length [...] list: All Problems Smoker / SNOMED CT 910359613 / Confirmed Added secondary to documentation in Social History. Hypertension / SNOMED CT 7703135296 / Confirmed Anxiety / SNOMED CT 62462676 / Confirmed Thrombosis / SNOMED CT 3052211958 / Confirmed Lower back pain / SNOMED CT 693749739 / Confirmed Resolved: Benign brain tumor / SNOMED CT 0291791358 Objective Vital Signs 10/26/2022 8:50 EDT Peripheral [...] of the right knee Integumentary: Warm, Dry, [place]. Injection sites well-healed Neurologic: Alert, Oriented. Psychiatric: [...] on May (more content not included)... Normal [facility] Comment on above: Result Comment: Elec tronically Signed By: Mariama Mesa PA-C\.br\Date and Time Signed: 10/26/22 09:21 EDT\.br\Electronically Co-Signed By: Leidy JONES, Gerard Samuels\.br\Date and Time Co-Signed: 10/27/22 12:01 EDT Office/Clinic Note-Physician on 10-26-2022 Office/Clinic Note-Physician [id number] CD:127 Normal [facility] Patient Correspondenceon Patient Correspondence [id number] CD:127 Normal [facility] Patient Correspondence [id number] CD:127 [facility] [facility] Patient History Officeon Patient History Office [id number]#1.00 CD:127 [facility] Consent for Procedure/Surger yon 10-13-2022 Consent for Procedure/Surgery [id number]#1.00 CD:127 [facility] Consent for Treatmenton Consent for Treatment [id number]#1.00 CD:127 [facility] Discharge Instructionson Discharge Instructions [id number]#1.00 CD:127 [facility] IntraOperative Documentson 0 10-13-2022 IntraOperative Documents [id number]#1.00 CD:127 [facility] Main OR Intraoperative Recor don 10-13-2022 Main OR Intraoperative Record IntraOp Document Type FTPM Summary Primary Physician: Gerard Forbes MD Finalized Date/Time: 10/13/22 15:13:27 Pt. Name: RUTHIE CORDERO/Sex: 1965 Female Med Rec #: [id number] Physician: Gerard Forbes MD Financial #: [id number] Pt. Type: P Room/Bed: / Admit/Disch: 10/13/22 13:50:50 - Institution: Case Times FTPM Entry 1 Patient Times In Room 10/13/22 14:50:00 Out Room 10/13/22 14:58:00 Procedure Times Start 10/13/22 14:53:00 Stop 10/13/22 14:57:00 Anesthesia Times Last Modified By: Mar Javier RN 10/13/22 14:59:05 Case Attendance FTPM Entry 1 Entry 2 Entry 3 Case Attendee Leidy JONES, Gerard Mcgill RN, Mar Medrano RN Role Performed Surgeon - Primary Scrub - Primary Revenue Tax Specialist - Primary Time In 10/13/22 14:50:00 10/13/22 14:50:00 10/13/22 14:50:00 Time Out 10/13/22 14:58:00 10/13/22 14:58:00 10/13/22 14:58:00 Procedure GENICULAR NERVE GENICULAR NERVE GENICULAR NERVE BLOCK(Right) BLOCK(Right) BLOCK(Right) Comments Last Modified By: Mar Javier RN 10/13/22 Mar Javier RN 10/13/22 Mar Javier RN 10/13/22 14:59:05 14:59:05 14:59:05 Entry 4 Entry 5 Case Attendee Ender LEO, Ruthie Lam Role Performed Scrub - Relief Sole Filler Time In 10/13/22 14:50:00 10/13/22 14:50:00 Time Out 10/13/22 14:58:00 10/13/22 14:58:00 Procedure GENICULAR NERVE GENICULAR NERVE BLOCK(Right) BLOCK(Right) Comments Last Modified By: Yaya LEO Mar 10/13/22 Mar Javier RN 10/13/22 14:59:05 14:59:05 Perioperative Protocols FTPM Pre-Care [...] GENICULAR NB Primary Procedure Yes Primary Surgeon Gerard Forbes MD Start 10/13/22 14:53:00 Stop 10/13/22 14:57:00 Anesthesia [...] and tissue Entry 1 Skin Integrity Intact, Mosinee, Warm, and Skin Abnormality No Dry Outcomes [...] Yes La (more content not included)... Normal [facility] Main OR Preoperative Recordo n 10-13-2022 Main OR Preoperative Record Holding Area Document Type FTPM Summary Primary Physician: Gerard Forbes MD Finalized Date/Time: 10/13/22 14:22:01 Pt. Name: RUTHIE CORDERO/Sex: 1965 Female Med Rec #: [id number] Physician: Gerard Forbes MD Financial #: [id number] Pt. Type: P Room/Bed: / Admit/Disch: 10/13/22 [...] Antoinette Wiggins RN 10/13/22 14:21:56 General Comments: [place] [employer] at 0730 Finalized By: Antoinette Wiggins RN Document Signatures Signed By: Antoinette Wiggins RN 10/13/22 14:22 Normal [facility] Operative Reporton 3 Operative Report Patient: [...] EDT Respiratory Rate 15 br/min . Normal [facility] Comment on above: Result Comment: Elec tronically Signed By: Leidy JONES, Gerard Samuels\.br\Date and Time Signed: 10/13/22 14:57 EDT Consent for Treatmenton 09-08 Consent for Treatment [id number]#1.00 CD:127 Normal [facility] Consultation Noteon 09-23-19 Consultation Note Patient: [...] She is getting ready to leave for [place] in 10 days and she is just [...] day(s), # 21 tab(s), Refills(s) 0, Pharmacy: [facility], 167, cm, 09/22/22 9:26:00 EDT, Height/Length Dosing, 82.9, kg, 09/07/22 13:27:00 EDT, Weight Dosing Percocet 5 mg-325 mg oral tablet: 1 tab(s), Oral, TID as needed for pain, 21 tab(s), Refill(s) 0, [facility], 167, cm, 09/22/22 9:26:00 EDT, Height/Length Dosing, 82.9, kg, 09/07/22 13:27:00 EDT, Weight Dosing Percocet 5 mg-325 mg oral tablet: 1 tab(s), Oral, q6hr, 12 tab(s), Refill(s) 0, [facility], 167, cm, 05/16/22 10:57:00 EDT, Height/Length Dosing, 74.4, kg, 05/16/22 10:57:00 EDT, Weight Dosing ibuprofen 600 mg Tab: 600 mg = 1 tab(s), Oral, QID, PRN for pain, # 40 tab(s), Refills(s) 0, Pharmacy: [facility], 165, cm, 07/07/20 13:07:00 EDT, Height/Length Dosing, 75, kg, 07/07/20 13:07:00 EDT, Weight Dosing pregabalin 25 mg Cap: 25 mg = 1 cap(s), Oral, BID, # 60 cap(s), Refills(s) 0, Pharmacy: [facility], 167, cm, 05/16/22 10:57:00 [...] list: All Problems Smoker / SNOMED CT 026952538 / Confirmed Added secondary to documentation in Social History. Hypertension / SNOMED CT 9097182292 / Confirmed Anxiety / SNOMED CT 24843150 / Confirmed Thrombosis / SNOMED CT 7672706678 / Confirmed Lower back pain / SNOMED CT 278533465 / Confirmed Resolved: Benign brain tumor / SNOMED CT 8859505111 Objective Vital Signs 09/22/2022 9:23 EDT Peripheral [...] knee flexion and extension Integumentary: Warm, Dry, Mosinee. Neurologic: Alert, Oriented. Psychiatric: Cooperative, Appropriate mood & affect. Results Review * Final Report * Reason For Exam Pain, Traumatic POWERSCRIBE REPORT IMPRESSION: NO ACUTE OSSEOUS ABNORMALITY. EXAM: XR Knee Complete 4+ Views Right HISTORY: Pain after a fall TECHNIQUE: AP, lateral and oblique views of the k (more content not included)... Normal [facility] Comment on above: Result Comment: Elec tronically Signed By: Mariama Mesa PA-C\.br\Date and Time Signed: 09/22/22 09:46 EDT\.br\Electronically Co-Signed By: Leidy JONES, Gerard Samuels\.br\Date and Time Co-Signed: 10/13/22 07:49 EDT Office/Clinic Note-Physician on 09-22-2022 Office/Clinic Note-Physician [id number]#1.00 CD:127 Normal [facility] Patient Correspondenceon Patient Correspondence [id number]#1.00 CD:127 Normal [facility] Patient Correspondence [id number]#1.00 CD:127 Normal [facility] Patient History Officeon Patient History Office [id number]#1.00 CD:127 Normal [facility] Consent for Treatmenton 09-08 Consent for Treatment [id number]#1.00C D:127 Normal [facility] ED Clinical Summaryon 2022 ED Clinical Summary (Inserted Image. Teresita ble to display) [address] [address] ED Clinical Summary Person Information Name: RUTHIE CORDERO [place] Age: 57 Years : 1965 Sex: Female Language: Citizen Of [place] PCP: GOOD TAYLOR CNP Marital Status: Visit [...] 09/21/2022 10:12:23 09/21/2022 10:12:23 09/21/2022 10:12:23 AD[address]ESS: [id number] [place] [id number] [facility] DOC NOTES: MEDICAL INFORMATION: Prescriptions Given: Medications [...] EDUCATION INFORMATION: Instructions: Follow up: DIAGNOSIS: Normal [facility] ED Patient Education Noteon 09-21-2022 ED Patient Education Note Normal [facility] ED Patient Summaryon 023 ED Patient Summary (Inserted Image. Teresita ble to display) [place] [address] Patient Discharge Instructions Person Information Name: RUTHIE CORDERO Age: 57 Years Arrival Date: 09/21/2022 09:12:37 Discharge Diagnosis: Primary Care Physician: GOOD TAYLOR CNP Provider Information Primary Provider: Advanced Travelers' Aid Worker:None The exam and treatment you received in the Emergency Department were for an urgent problem and are not intended as complete care. It is important that you follow up with a doctor, nurse practitioner, or physician?s junior sales assistant for ongoing care. If your symptoms [...] opioids can be used to help relieve cgowbvyi-xk-yjmeqt pain and are often prescribed following a [...] from the Food and Drug Administration (www.fda.gov/Drugs/Reso jasoncesForYou). ? Visit www.cdc.gov/drugoverdos e to learn about the risks of opioids abuse and overdose. ? If you believe you may be struggling with addiction, tell your health ocular care aide and ask for guidance or call [employer]?S National Helpline at 6-021-575-JUPV. m Source: US Department of Health and Human Services/Center for Disease Control & Prevention [facility] Medications Given: Medication Dose Route No medications found. Medication Information: M (more content not included)... [facility] Patient Correspondenceon Patient Correspondence [id number]#1.00C D:127 [facility] Insurance Correspondence Off iceon 09-14-2022 Insurance Correspondence Office [id number]#1.00 CD:127 [facility] Laboratory Outside Office Co pyon 09-11-2022 Laboratory Outside Office Copy [id number]#1.00 CD:127 [facility] Outside Records Officeon Outside Records Office [id number]#1.00 CD:127 [facility] Consent for Treatmenton 08-10 Consent for Treatment [id number]#1.00 CD:127 [facility] Consent for Treatment [id number]#1.00 CD:127 [facility] Consultation Noteon 09-08-19 Consultation Note [...] list: All Problems Smoker / SNOMED CT 509571411 / Confirmed Added secondary to documentation in Social History. Hypertension / SNOMED CT 7836369823 / Confirmed Anxiety / SNOMED CT 83304808 / Confirmed Thrombosis / SNOMED CT 9320149027 / Confirmed Lower back pain / SNOMED CT 729261804 / Confirmed Resolved: Benign brain tumor / SNOMED CT 1820819246 Histories Past Medical History: Resolved Benign brain tumor (5826647645): Onset on 09/30/2012 at 47 years. Resolved. Family History: Entire family history is negative. Procedure history: History of total knee arthroplasty (SNOMED CT 5946253466) on 07/14/2018 at 53 Years. BT - Brain tumor (SNOMED CT 057293628). Cholecystectomy (SNOMED CT 86237601). Social History Social & Psychosocial Habits Alcohol [...] (SEP 07 13:06) SBP 118 mmHg (SEP 07 13:06) DBP 73 mmHg (SEP 07 13:06) Weight 82.9 kg (SEP 07 13:06) Height 167 cm (SEP 07 13:06) BMI 29.72 (SEP 07 13:06) General: Alert and oriented. Eye: Pupils are [...] Appropriate mood & affect. Integumentary: Warm, Dry, Mosinee. Review / Management Results review: No qualifying [...] limits. Ord (more content not included)... Normal [facility] Comment on above: Result Comment: Elec tronically Signed By: Moshe HARDY, Mariama\.br\Date and Time Signed: 09/07/22 13:42 EDT\.br\Electronically Co-Signed By: Leidy JONES, Gerard Samuels\.br\Date and Time Co-Signed: 09/15/22 14:21 EDT HIPAA Forms Officeon 023 HIPAA Forms Office [id number]#1.00 CD:127 Normal [facility] In office Testingon 09-08-19 23 In office Testing [id number]#1.00 CD:127 Normal [facility] Legal Correspondence Officeo n 09-07-2022 Legal Correspondence Office [id number]#1.00 CD:127 Normal [facility] Legal Correspondence Office [id number]#1.00 CD:127 Normal [facility] Office/Clinic Note-Physician on 09-07-2022 Office/Clinic Note-Physician [id number]#1.00 CD:127 Normal [facility] REFRACTORY MIXER Drug Screen-LCon 023 Test Name TOXASSURE FLEX Invalid Interpretation Code [facility] Comment on above: Performed By: #### 1 [id number] ####[facility] [address] [place] [address] Patient Correspondenceon Patient Correspondence [id number]#1.00 CD:127 Normal [facility] Patient Correspondence [id number]#1.00 CD:127 Normal [facility] Patient Correspondence [id number]#1.00 CD:127 Normal [facility] Patient Correspondence [id number]#1.00 CD:127 Normal [facility] Patient Correspondence [id number]#1.00 CD:127 Normal [facility] Patient Correspondence [id number]#1.00 CD:127 Normal [facility] Patient History Officeon Patient History Office [id number]#1.00 CD:127 Normal [facility] Physician Orderon 09-07-2022 Physician Order [id number]#1.00 CD:127 Normal [facility] Reference Laboratory Testing Ordered By: Elena Sierra on 09-07-2022 Test Name TOXASSURE FLEX Invalid Interpretation Code [facility] [employer] Release of Records Officeon 09-07-2022 Release of Records Office [id number]#1.00 CD:127 Normal [facility] MM screening mammo BI w/CADo n 05-16-2021 MM screening mammo BI w/CAD [facility] [place] [address] Mammography Report Signed Patient: Ruthie Cordero MR#: [id number] : 1965 Acct:[id number] Age/Sex: 55 / F ADM Date: 05/16/21 Loc: [place] Room: Type: [facility] Attending Dr: Pavithra Briseno ([facility]) CAROLYN Ordering Provider: Pavithra Briseno APRN, [facility] Date of Service: 05/16/21 MM/MM screening mammo BI w/CAD: Z12.31 [facility] Pav[facility] Briseno APRN, WHCNP Bilateral Screening Full Field digital mammogram with [...] Ryder Romero M.D.05/16/2021 9:05 AM Dictation Location: [facility] Transcribed By: [facility] 05/16/21904 Dictated By: Ryder Romero DO 05/16/21903 Signed By: 05/16/21904 [facility] CNOVon 07-25-2019 CNOV Office Visit (LOORRM ) RUTHIE CORDERO ([id number]) 1965 F Date Time Provider Department 07/25/19 9:20 AM SENA LICONA) LOORRM During your visit today, we recorded the following information about you: Sena Licona PA-C 07/25/2019 9:09 AM Signed Ortho Knee Follow Up Note Narrative Referring Provider: Miguel Angel Ponce MD [address] [place] [address] PCP: Estela Sorto MD ===== IMPRESSION/PLAN: ===== [...] by SENA LICONA PA-C on 07/25/19 Normal [facility] PROGRESSon 07-25-2019 PROGRESS HNO ID: [id number] Author: Sena Licona (Pa) Service: ? Author Type: Physician Security Sergeant Type: Progress Notes Filed: 07/25/2019 9:09 AM Note Text: Ortho Knee Follow Up Note Narrative Referring Provider: Miguel Angel Ponce MD [address] [facility] [address] PCP: Estela Sorto MD ===== IMPRESSION/PLAN: ===== [...] Lupus Erythematosus Discoid Dvt (Deep Venous Thrombosis) ([facility]) Htn (Hypertension) Status post op: Left Total [...] PA-C Completed by: Sena Licona PA-C Normal [facility] CNOVon 07-04-2019 CNOV Office Visit (LOORRM ) RUTHIE CORDERO ([id number]) 1965 F Date Time Provider Department 07/04/19 11:00 AM SENA LICONA) LOORRBecca During your visit today, we recorded the following information about you: Sena Licona PA-C 07/04/2019 11:23 AM Signed Ortho Knee Follow Up Note Narrative Referring Provider: Miguel Angel Ponce MD [address] [facility] [address] PCP: Estela Sorto MD ===== IMPRESSION/PLAN: ===== [...] Order(s):XR KNEE POST OP 3V AP/LAT/MERCHANT LT [2431895] Order #: [id number] FUTURE CONSULT TO PHYSICAL THERAPY [9025] Order #: [id number]: 1 FUTURE HYDROcodone-acetaminoph en (NORCO) 5-325 mg [...] Status:Closed by SENA LICONA PA-C on 07/04/19 [facility] PROGRESSon 07-04-2019 PROGRESS HNO ID: [id number] Author: Pretty Hudson (Rt) Service: ? Author Type: Para Machine Operator Type: Progress Notes Filed: 07/04/2019 11:00 AM [...] Rosa Olivo July 04, 2019 10:59 AM [facility] PROGRESS HNO ID: [id number] Author: Sena Licona (Pa) Service: ? Author Type: Physician Security Sergeant Type: Progress Notes Filed: 07/04/2019 11:23 AM Note Text: Ortho Knee Follow Up Note Narrative Referring Provider: Miguel Angel Ponce MD [address] [place] [address] PCP: Estela Sorto MD ===== IMPRESSION/PLAN: ===== [...] up 3 weeks No X-Rays Needed Ruthie Becca NIRANJANKWAMEShaji presents today for a a routine 1st [...] Licona PA-C Completed by: Sena Licona PA-C [facility] XR KNEE 3V AP/LAT/MERCHANT L Ton [...] Interval total left knee arthroplasty without complication. Aerial Gunner Superintendent: DESHAWN Transcribe Date/Time: Jul 04 2019 11:07A Dictated by : ONEAL ALONSO MD This examination was interpreted and the report reviewed and electronically signed by: JUSTINO URIBE MD on Jul 04 2019 2:01PM EST [id number] [facility] OBSOLETEon 06-27-2019 OBSOLETE Refill (LOORRM) RUTHIE CORDERO ([id number]) 1965 F Date Time Provider Department 06/27/19 MIGUEL ANGEL PONCE During your visit today, we recorded the following information about you: Tegan Kidney PSS 06/27/2019 8:36 AM Signed Patient has 3 left. Requestor:Patient Patient is identified by name and birthdate: Yes Patient reminded to check with pharmacy in 24-48 hours: Yes Prescriber Verified: Yes Pharmacy benefits have been verified: Yes Pharmacy updated in [facility]: Yes Is medication controlled substance: Yes Medication [...] Date Reviewed: 06/15/2019 Reviewed by: Brenda (Rn) Coral, RN - Fully Assessed Reason for Visit: [...] Encounter Status:Closed by LILY KISER on 06/27/19 [facility] OBSOLETEon 06-23-2019 OBSOLETE Refill (LOORRM) NIRANJANKWAMERUTHIE Girard ([id number]) 1965 F Date Time Provider Department 06/23/19 MIGUEL ANEGL PONCE During your visit today, we recorded the following information about you: Ryder Dougherty MOLD PARTER 06/23/2019 8:46 AM Signed Requestor:Patient Patient is identified by name and birthdate: Yes Patient reminded to check with pharmacy in 24-48 hours: Yes Prescriber Verified: Yes Pharmacy benefits have been verified: Yes Pharmacy updated in [facility]: Yes Is medication controlled substance: Yes Medication [...] Patient has 5 doses remaining. Pharmacy is [facility] [address] [place] [address] [address] [facility] E??- [phone]. Patient can be reached at [phone]. Please advise. Miguel Angel Ponce MD 06/23/2019 8:56 AM Signed PDMP website checked and validated. All prescriptions have been APPROPRIATELY filled. No suspicious activity was identified. 06/23/2019 by Miguel Angel Ponce MD Rx for [place] has been approved and sent to patient's [...] by MIGUEL ANGEL PONCE MD on 06/23/19 [facility] Fernando 06-19-2019 JAMIA Telephone (MYNOR) RUTHIE CORDERO ([id number]) 1965 F Date Time Provider Department 06/19/19 [...] soon after surgery. Please call [facility] at [phone] Sena Licona PA-C 06/19/2019 3:47 PM Signed the rx was sent already to the local pharmacy she should utilize ice for the first week. then heat before exercise and ice when she is done ANTONY Vazquez 06/19/2019 4:52 PM Signed Patient's [facility] calling [...] Narcotic medication dose and quantity may exceed [facility] limits due to the medical necessity for [...] Status:Closed by SENA LICONA PA-C on 06/19/19 [facility] OBSOLETEon 06-19-2019 OBSOLETE Refill (LOORRM) MARCELINARUTHIE ([id number]) 1965 F Date Time Provider Department 06/19/19 RENITA MIGUEL ANGEL EVANS During your visit today, we recorded [...] Narcotic medication dose and quantity may exceed [facility] limits due to the medical necessity for post operative pain control required for the surgical procedure performed on Ruthie CORDERO June 14, 2019. Route: ORAL Sig: Take 1-2 tablets by mouth every 3 hours as needed for up to 7 days. Disc: Reason for discontinue is not on file. Encounter Status:Closed by SENA LICONA PA-C on 06/19/19 Normal [facility] Basic Metabolic Panlon 06-14 Anion gap [Moles/Vol] 12 mmol/L Normal 9-18 [facility] Calcium [Mass/Vol] 8.5 mg/dL Normal 8.5-10.2 [facility] Chloride [Moles/Vol] 100 mmol/L Normal 97-105 [facility] CO2 [Moles/Vol] 26 mmol/L Normal 22-30 [facility] Creatinine [Mass/Vol] 0.72 mg/dL Normal 0.58-0.96 [facility] eGFR- Amer. >60 Normal [facility] GFR/1.73 sq M predicted among [...] ospital Comment on above: Result Comment: The [place] [employer] (ADA) provides guidance for cutoff [...] Standards of Medical Care in Diabetes 2016, [employer] [employer]. Diabetes Care. 2016.39(Suppl 1). Potassium [Moles/Vol] 4.0 mmol/L Normal 3.7-5.1 [facility] Sodium [Moles/Vol] 138 mmol/L Normal 136-144 [facility] Urea nitrogen [Mass/Vol] 7 mg/dL Normal 7-21 [facility] CASE MANAGEMon 06-15-2019 CASE MANAGEM HNO ID: [id number] Author: Kate (Rn) TASH Sanchez Service: Care Management Author Type: Registered Nurse Type: Care Mgt Progress Note Filed: 06/15/2019 12:58 PM Note Text: CARE MANAGEMENT DISCHARGE NOTE SERVICE DATE: 06/15/2019 SERVICE TIME: 12:57 PM LOS: 0 days Admission Date: 06/14/2019 DISCHARGE ARRANGEMENT (list agency and phone number) Discharge Arrangement: Home [facility] Care: PT CAREGIVER ASSESSMENT: Caregiver is ready, [...] Handoff to: Other Caregiver Other Caregiver Name/Phone: [facility] TRANSPORTATION ARRANGEMENTS: Transportation Arrangements: Car Discharge Information Row Name Admission (Discharged) from 06/14/[address] Agency [facility] SIGNATURE: Kate Sanchez RN PATIENT NAME: Ruthie CORDERO DATE: June 15, 2019 TIME: 12:57 PM PAGER/CONTACT #: [phone] [facility] CASE MANAGEM HNO ID: [id number] Author: Kate (Rn) TASH Sanchez Service: Care Management Author Type: Registered Nurse Type: Care Mgt Progress Note Filed: 06/15/2019 9:21 AM Note Text: CARE MANAGEMENT PROGRESS NOTE SERVICE DATE: 06/15/2019 SERVICE TIME: 9:21 AM LOS: 0 days [place] of Choice Given: Yes Level of Care Discussed: Home Care Financial Disclosure Provided: No Financial Disclosure Comments: [facility] unable to accept. pt would like to use [facility]. Referral sent. SIGNATURE: Kate Sanchez RN PATIENT NAME: Ruthie CORDERO DATE: June 15, 2019 TIME: 9:21 AM PAGER/CONTACT #: [phone] [facility] CBCon 06-15-2019 Absolute nRBC <0.01 [facility] (RBC) [Ratio] [...] NURSING PROGon 06-15-2019 NURSING PROG HNO ID: [id number] Author: Brenda (Rn) Coral RN Service: Nursing Author Type: Registered Nurse Type: Nursing Progress Note Filed: 06/15/2019 11:35 AM Note Text: Nursing Progress Note Patient Name: Ruthie CORDERO [facility] Daily Note:assumed care of pt, pt awake [...] note was completed by: Brenda Moncada RN Normal [facility] PLAN OF CAREon 06-15-2019 PLAN OF CARE HNO ID: [id number] Author: Michelle Handley (Office Chair Assembler) Service: ? Author Type: Para Machine Operator Type: Plan of Care Filed: 06/15/2019 3:12 [...] tablet Commonly known as: PERCOCET Michelle Handley ([employer]) PAGER: rajesh June 15, 2019 3:12 PM [facility] PROGRESSon 06-15-2019 PROGRESS HNO ID: [id number] Author: Sena Landers) Livan Service: Orthopaedic Surgery Author Type: Physician Security Sergeant Type: Progress Notes Filed: 06/15/2019 8:51 AM [...] Management for discharge planning - home with [facility] ED home after PT evaluation ACTIVE PROBLEM LIST [...] 06/26/19 1659 06/14/19 1215 pneumatic compression stockings ([place] 06/14/19 1215 graduated compression stockings ([place] VTE Prophylaxis: VTE prophylaxis appropriate POST OPERATIVE COMPLICATIONS: Complicated by: uneventful/none SIGNATURE: Sena Licona PA-C PATIENT NAME: Ruthie CORDERO DATE: June 15, 2019 TIME: 8:50 AM PAGER/CONTACT #: ETX#[phone] [facility] THERAPY on 06-15-2019 THERAPY NT HNO ID: [id number] Author: Chaka (PtShirlene Ramos Service: Physical Therapy Author Type: Physical Therapist Type: Therapy (PT/OT/Speech/Resp) Filed: 06/15/2019 11:31 AM Note Text: Physical Therapy Treatment SERVICE DATE: 06/15/2019 SERVICE TIME: 1025 to 1050 ROOM: [place] [address] Recommended Discharge Disposition: Home PT Anticipated Discharge [...] mobility-other;Muscle Weakness (generalized) Interventions Provided: Therapeutic Exercise (25105);Gait Training (55871) Therapeutic Exercise (03346) Treatment Minutes: 10 1 unit Skilled Intervention(s): [...] holding times as listed above. Gait Training (14692) Treatment Minutes: 15 1 unit Skilled Intervention(s): [...] decreased General Deviations/Observations : Flexed trunk posture -[facility]: 7: Walk 25 feet or more Please see discipline specific clinical documentation flowsheet for complete details for this therapy evaluation/treatment. SIGNATURE: Chaka Ramos PT PATIENT NAME: Ruthie CORDERO DATE: June 15, 2019 TIME: 11:02 AM Normal [facility] THERAPY NT HNO ID: [id number] Author: Nancy CoteOtShirlene Helm Service: ? Author Type: Occupational Therapist Type: Therapy (PT/OT/Speech/Resp) Filed: 06/15/2019 10:27 AM Note Text: Occupational Therapy Evaluation SERVICE DATE: 06/15/2019 SERVICE TIME: 844 to 929 ROOM: [place] [address] Recommended Discharge Disposition: Home Anticipated Discharge Needs: [...] symptoms and signs-other;Difficulty walking-musculoskeletal Interventions Provided: Evaluation;Self Usp Management (39436) $ Evaluation-Low (01755) Billed Units: 1 unit Self Usp Management (73513) Treatment Minutes: 30 2 units Skilled Intervention(s): [...] DATE: June 15, 2019 TIME: 9:58 AM [facility] ANES POSTPROC EVALon 020 ANES POSTPROC EVAL HNO ID: [id number] Author: Christy Gutierrez Service: ? Author Type: Anesthesiologist Type: Anesthesia Postprocedure Evaluation Filed: 06/14/2019 11:55 AM Note Text: POST ANESTHESIA EVALUATION NOTE : 1965 Procedure Summary Date: 06/14/19 Room / Location: AV OR02 / AV OR Anesthesia Start: 857 [...] June 14, 2019 TIME: 11:54 AM CSN: [id number] [facility] ANES PRE-OPon 06-14-2019 ANES PRE-OP HNO ID: [id number] Author: Christy Gutierrez Service: ? Author Type: [...] June 14, 2019 TIME: 7:53 AM CSN: [id number] [facility] BRIEF OP NOTon 06-14-2019 BRIEF OP NOT HNO ID: [id number] Author: Miguel Angel Ponce Service: Orthopaedic Surgery Author Type: Physician Type: Brief Op Note Filed: 06/14/2019 10:52 AM Note Text: TOTAL KNEE ARTHROPLASTY BRIEF OPERATIVE / PROCEDURE NOTE LOG ID: [id number] Surgery/Procedure Date: 06/14/2019 Incision/Procedure Start Time: 9:33 AM Incision Close/Procedure End Time: 10:47 AM Surgeon(s)/Proceduralis t(s) and Security Sergeant(s): Surgeon(s) and Role: * Miguel Angel Ponce - Primary Physician Security Sergeant: Sena Licona (Pa) Procedure(s): Procedure(s) (LRB): ARTHROPLASTY [...] 14, 2019 TIME: 10:50 AM PAGER/CONTACT #: [facility] CASE MGT INIT ASSESon 2019 CASE MGT INIT SHAINA HNO ID: [id number] Author: Kate CoteRnShirlene Sanchez RN Service: Care Management Author Type: Registered Nurse Type: Care Mgt Initial Assessment Filed: 06/14/2019 3:43 PM Note Text: CARE MANAGEMENT: ASSESSMENT AND DISCHARGE PLAN SERVICE DATE: June 14, 2019 SERVICE TIME: 3:42 PM PRIMARY CARE PHYSICIAN: Estela Sorto MD ADMISSION STATUS: Extended Recovery MEDICAL: [place] [employer] [place] 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 Last discharge within 30 days: No Advance Directive: Current Advance Directive: Health Care Power of Tax Preparer;Living Will In Chart: No Winding Department Supervisor Attempted to Assist with AD Completion: [...] Living Arrangements: Home Lives With: Other: See Comment(hanna's mother) Financial Resources: DisabledPrimary Contact: Extended Emergency Contact Information Primary Emergency Contact: Chapin Child Address: [address] [place] [id number] [facility] Mobile Relation: Significant other Supportive [...] Completely I feel financially burdened by my ird-gk-csqmef expenses for my prescription medication:: 0 - Disagree Completely Risk Score: 0 Patient is categorized as: Low risk < 2 Are you interested in bedside delivery of your medications? Yes Is Patient Psychosocially Complex?: No ASSESSMENT AND PLAN: Medical Needs: Medical Needs: None Psychosocial Needs: Psychosocial Needs: None FREEDOM OF CHOICE EXPLAINED: [place] of Choice Given: Yes Level of Care Discussed: Home Care Financial Disclosure Provided: No Financial Disclosure Comments: Pt would like to use [facility] Care. Declines list POTENTIAL TRANSITION PLANS Home Care Pt from home with deny and his mother. Pt independent. Pt has equipment. Referral to [facility] Care SIGNATURE: Kate Sanchez RN PATIENT NAME: Ruthie CORDERO DATE: June 14, 2019 TIME: 3:42 PM PAGER/CONTACT #: [phone] [facility] NURSING PROGon 06-14-2019 NURSING PROG HNO ID: [id number] Author: Ophelia Jones) TASH Savage Service: Nursing Author Type: Registered Nurse Type: Nursing Progress Note Filed: 06/14/2019 12:12 PM Note Text: Nursing Progress Note Patient Name: Rtuhie CORDERO Patient Location: [place] [address] [address] Transfer Note: Patient transferred into room/unit 06-13 in stable condition. Actions taken: Patient belongings with patient This note was completed by: Ophelia Savage RN [facility] OPERATIVE NOon 06-14-2019 OPERATIVE NO HNO ID: [id number] Author: Miguel Angel Ponce Service: Orthopaedic Surgery Author Type: Physician Type: Operative Report Filed: 06/15/2019 11:32 AM Note Text: [facility] - Operative Report RUTHIE CORDERO : 1965 AGE: 54. SEX: F PATIENT TYPE: A HOSP C: [facility] LOCATION: [facility] ATTENDING PHYSICIAN: Miguel Angel Ponce MD CSN NUMBER: [id number] DATE OF SURGERY/PROCEDURE: 06/14/2019 INCISION/PROCEDURE START TIME: 0933 hours. INCISION CLOSE/PROCEDURE END TIME: 1047 hours. PREOPERATIVE DIAGNOSIS: Left knee primary localized osteoarthritis. POSTOPERATIVE DIAGNOSIS: Left knee primary localized osteoarthritis. SURGEON: Miguel Angel Ponce MD IT PROGRAMMER: Sena Licona PAC. No qualified resident available. [...] patient was offered a surgery/procedure at a [facility]. The surgeon/proceduralist and patient have discussed in [...] a result of the 04/25/19 order by [facility] Director Ruthie Zhou M.D. to cancel [...] None. SPECIMENS: None. COMPLICATIONS: None apparent. IMPLANTS: [employer] uncemented knee system. A size #3 cruciate [...] with her family. Miguel Angel Ponce MD :[id number] /[id number] [facility] PT EDon 06-14-2019 PT ED HNO ID: [id number] Author: Lyubov Cortes (Rn) TASH Grace Service: ? Author Type: Registered [...] Signed By: Lyubov Grace RN In Department: [facility] SURGERY Normal [facility] THERAPY NTon 06-14-2019 THERAPY NT HNO ID: [id number] Author: Chaka (Pt) Richard Service: Physical Therapy Author Type: Physical Therapist Type: Therapy (PT/OT/Speech/Resp) Filed: 06/14/2019 2:27 PM Note Text: Physical Therapy Evaluation SERVICE DATE: 06/14/2019 SERVICE TIME: 1330 to 1405 ROOM: [place] [address] Recommended Discharge Disposition: Home PT Recommended Discharge [...] mobility-other;Muscle Weakness (generalized) Interventions Provided: Evaluation;Therapeutic Exercise (16060) $ Evaluation-Low (58572) Billed Units: 1 unit Therapeutic Exercise (38979) Treatment Minutes: 20 1 unit Skilled Intervention(s): [...] Diagnosis Date - DVT (deep venous thrombosis) ([facility]) 2012 s/p brain surgery left leg - [...] decreased General Deviations/Observations : Flexed trunk posture [facility]: 7: Walk 25 feet or more Please see discipline specific clinical documentation flowsheet for complete details for this therapy evaluation/treatment. SIGNATURE: Chaka Ramos PT PATIENT NAME: Ruthie CORDERO DATE: June 14, 2019 TIME: 2:23 PM Normal [facility] APTTon 06-12-2019 aPTT Coag (Bld) [Time] 26.5 s Normal 23.0-32.4 [facility] Comment on above: Result Comment: Unfr [...] laboratory APTT reagent in use throughout the [facility]. Basic Metabolic Panlon 06-11 Anion gap [Moles/Vol] 11 mmol/L Normal 9-18 [facility] Calcium [Mass/Vol] 9.4 mg/dL Normal 8.5-10.2 [facility] Chloride [Moles/Vol] 105 mmol/L Normal 97-105 [facility] CO2 [Moles/Vol] 24 mmol/L Normal 22-30 [facility] Creatinine [Mass/Vol] 0.73 mg/dL Normal 0.58-0.96 [facility] eGFR- Amer. >60 Normal [facility] GFR/1.73 sq M predicted among non-blacks MDRD (S/P/Bld) [Vol rate/Area] mL/min/{1.73_m2} Normal [facility] Comment on above: Result Comment: eGFR [...] GFR. Glucose [Mass/Vol] 98 mg/dL Normal 74-99 [facility] Comment on above: Result Comment: The [place] Diabetes Association (ADA) provides guidance for cutoff [...] Standards of Medical Care in Diabetes 2016, [place] Diabetes Association. Diabetes Care. 2016.39(Suppl 1). Potassium [Moles/Vol] 4.8 mmol/L Normal 3.7-5.1 [facility] Sodium [Moles/Vol] 140 mmol/L Normal 136-144 [facility] Urea nitrogen [Mass/Vol] 11 mg/dL Normal 7-21 [facility] CBC and Differentialon 06-11 Abs Baso 0.03 k/uL Normal <0.11 [facility] Abs Parke 0.63 k/uL Normal <0.87 [facility] Abs Neut 5.30 k/uL Normal 1.45-7.50 [facility] Absolute nRBC <0.01 Normal <0.01 [facility] Basophils/100 WBC (Bld) 0.4 % Normal [facility] DTYPE Auto Diff Normal [facility] Eosinophils (Bld) [#/Vol] 0.08 10*3/uL Normal <0.46 [facility] Eosinophils/100 WBC (Bld) 1.0 % Normal [facility] Erythrocyte distribution width (RBC) [Ratio] 12.4 % Normal 11.5-15.0 [facility] Hematocrit (Bld) [Volume fraction] 38.6 % Normal 36.0-46.0 [facility] Hemoglobin (Bld) [Mass/Vol] 12.6 g/dL Normal 11.5-15.5 [facility] Lymphocytes (Bld) [#/Vol] 2.31 10*3/uL Normal 1.00-4.00 [facility] Lymphocytes/100 WBC (Bld) 27.7 % Normal [facility] MCH (RBC) [Entitic mass] 30.4 pG Normal 26.0-34.0 [facility] MCHC (RBC) [Mass/Vol] 32.6 g/dL Normal 30.5-36.0 [facility] MCV (RBC) [Entitic vol] 93.2 fL Normal 80.0-100.0 [facility] Monocytes/100 WBC (Bld) 7.5 % Normal [facility] Neutrophils/100 WBC (Bld) 63.4 % Normal [facility] NRBCs 0.0 /100 WBC Normal 0 [facility] Platelet mean volume (Bld) [Entitic vol] 10.0 fL Normal 9.0-12.7 [facility] Platelets (Bld) [#/Vol] 324 10*3/uL Normal 150-400 [facility] RBC (Bld) [#/Vol] 4.14 10*6/uL Normal 3.90-5.20 [facility] WBC (Bld) [#/Vol] 8.35 10*3/uL Normal 3.70-11.00 [facility] Confirm Blood Typeon 020 ABO/RH(D) Negative Normal [facility] Comment on above: Performed By: #### C ONABO #### [facility] [address] [id number] Coronavirus 2019on 0 COVID 19 Result SUPERVISOR REWORK Negative Normal Negative for COVID19 (SARS CoV2) by PCR. [facility] Comment on above: Result Comment: This test was developed and its performance characteristics determined by [facility] Pathology and Laboratory Medicine [place]. This test has been authorized by FDA under an Emergency Use Authorization (EUA). This test has been validated in accordance with the FDA's Guidance Document Policy for Diagnostics Testing in Laboratories Certified to Perform High Complexity Testing under CLIA prior to Emergency use Authorization for Coronavirus Disease 2019 during the Public Health Emergency issued on April 08, 2019. Performed By: #### C OVID ####[facility] [address] [place], [place] [phone] COVID 19 Source SUPERVISOR REWORK Nasopharyngeal Swab Normal [facility] Comment on above: Performed By: #### C OVID ####[facility] [address] [place], [place] [phone] HISTORY PHYSICALon 0 HISTORY PHYSICAL HNO ID: [id number] Author: Sammi Noriega (Cns) Service: ? Author [...] Date - DVT (deep venous thrombosis) (HCC) 2012 s/p brain surgery - HTN (hypertension) [...] Prior to Admission medications as of 06/12/19 0893 Medication Sig Last Dose Taking oxyCODONE-acetaminophen (PERCOCET) [...] 30.6 Neuro: No history of TIA's, stroke, ENVIRONMENTAL EDUCATION SPECIALIST tumor, impaired sensorium, hemiplegia, paraplegia or quadraplegia. [...] or incontinence,, stones or chronic kidney disease MEDICAL REVIEWER: Negative for abnormal vaginal bleeding, abnormal vaginal [...] for: HBA1C Most recent labs results in [facility] of 03/31/19(Nasal Swab)(neg) Assessment/Plan HTN (hypertension) Assessment: [...] voices comprehension and compliance. SIGNATURE: Sammi Noriega APRN.ENVIRONMENTAL EDUCATION SPECIALIST PATIENT NAME: Ruthie CORDERO DATE: June 12, 2019 TIME: 8:12 AM PAGER/CONTACT #: [facility] NURSING PROGon 06-12-2019 NURSING PROG HNO ID: [id number] Author: Lois Nickerson (Rn) TASH Cruz Service: [...] (HCC) Assessment: had DVT left Leg in 2012 after Brain tumor surgery,had not had a DVT since that time ? ? Lupus erythematosus discoid Assessment: monitored per PCP ? H/O BRAIN TUMOR-surgery x2 in 2012,results benign Pre-op Considerations: N/A Chart Check: IN PROGRES-labs pending ekg tracing covid tbd Lois Cruz RN June 12, 2019 11:41 AM Normal [facility] Protimeon 06-12-2019 PT Coag (PPP) [Time] 9.8 s Normal 9.7-13.0 [facility] PT Coag (PPP) [Time] s Low 0.9-1.3 [facility] Comment on above: Result Comment: Lulu min K Antagonist (VKA) Therapeutic Range: INR 2 to 3 (Target INR of 2.5) Note: For patients treated with VKA drugs, such as warfarin, the [place] [employer]icians 2012 Guideline recommends [...] Chest 2012, 141:7S-47S Irvin RA, et al. JAC 2017, 70: 252-289 Type and SCR (30D)on 020 ABO/RH(D) Negative Normal [facility] Comment on above: Performed By: #### T SCR30 #### [facility] [address] [place] [phone] Urinalysis with Microscopico n 06-12-2019 Bilirubin, Urine Negative Normal Negative [facility] Comment on above: Performed By: #### U AWMIC ####[facility] [place] [phone] Clarity (U) Clear Normal Clear [facility] Comment on above: Performed By: #### U AWMIC ####[facility] [phone] Color (U) Light Yellow Critically abnormal Yellow [facility] Comment on above: Performed By: #### U AWMIC ####[facility] [phone] Comments SEE COMMENT Normal [facility] Comment on above: Result Comment: N/A Performed By: #### U AWMIC ####[facility] [phone] Epithelial cells LM.HPF (Urine sed) [#/Area] SEE COMMENT Normal [facility] Comment on above: Result Comment: Few Squamous Epithelial Cells Performed By: #### U AWMIC ####[facility] [phone] Glucose Ql (U) Negative Normal Negative [facility] Comment on above: Performed By: #### U AWMIC ####[facility] [phone] Hemoglobin/Blood,Ur Negative Normal Negative [facility] Comment on above: Performed By: #### U AWMIC ####[facility] [place] [phone] Ketones Ql (U) Negative Normal Negative [facility] Comment on above: Performed By: #### U AWMIC ####[place] [address] [address] [phone] Leukest Negative Normal Negative [facility] Comment on above: Performed By: #### U AWMIC ####[place] [address] [address] [phone] Nitrite Ql (U) Negative Normal Negative [facility] Comment on above: Performed By: #### U AWMIC ####[place] [phone] pH (Bld) 6.0 Normal 5.0-8.0 [facility] Comment on above: Performed By: #### U AWMIC ####[place] [phone] Protein (U) [Mass/Vol] Negative Normal Negative [facility] Comment on above: Performed By: #### U AWMIC ####[place] [phone] RBC (U) [#/Vol] 0-3 Normal 0-3 [facility] Comment on above: Performed By: #### U AWMIC ####[place] [phone] Specific [place], Ur 1.012 Normal 1.005-1.030 [facility] Comment on above: Performed By: #### U AWMIC ####[place] [address] [address] [place] [phone] Urine Christopher Comment SEE COMMENT Normal [facility] Comment on above: Result Comment: N/A Performed By: #### U AWMIC ####[place] [address] [address] [phone] Urobilinogen Qn (U) Negative Normal Negative [facility] Comment on above: Performed By: #### U AWMIC ####[facility] [address] [place], [place] [phone] WBC (Bld) [#/Vol] 0-5 Normal 0-5 [facility] Comment on above: Performed By: #### U AWMIC ####[facility] [place], [place] [phone] Urine Cultureon 06-12-2019 Bacteria identified Cx Nom (U) Sp. Request/Comment: - Specimen received in preservative Culture Result - No growth (<1,000 CFU/ml) Normal [facility] Comment on above: Performed By: #### U RCUL ####[facility] [address] [place], [place] [phone] CNPNon 06-08-2019 CNPN Telephone (ORAVON) RUTHIE CORDERO ([id number]) 1965 F Date Time Provider Department 06/08/19 MIGUEL ANGEL PONCE During your visit today, we recorded the following information about you: Lily Delarosacarlos 06/08/2019 12:38 PM Signed Patient was returning [...] travel to the [facility] at the [facility] several days prior to surgery and that they will be required to self quarantine following the COVID test. All questions were answered. The patient requests to proceed with the planned surgical procedure. As a result of the 04/25/19 order by [facility] Director Ruthie Zhou M.D. to cancel [...] knee [M17.12] Order(s):2019 CORONAVIRUS [SQCOVID] Order #: [id number] FUTURE CONSULT TO(TCI)PRE-OP CLEAR [5450984] Order #: [id number]: 1 TYPE + SCREEN,30 DAY [[id number]] Order #: [id number] FUTURE CONFIRM BLOOD TYPE [SQCONABO] Order #: [id number] FUTURE ACTIVATED PTT [SQPTT] Order #: [id number] FUTURE PROTHROMBIN TIME/PT [SQPT] Order #: [id number] FUTURE URINALYSIS WITH MICROSCOPIC [SQUAWMIC] Order #: [id number] FUTURE URINE CULTURE [SQURCUL] Order #: [id number] FUTURE CBC + DIFF [SQCBCDIF] Order #: [id number] FUTURE BASIC METABOLIC PNL [SQBMP] Order #: [id number] FUTURE Prescriptions as of 06/08/2019 Sig: OXYCODONE-ACETAMINOPHEN 5 MG-* LISINOPRIL 20 MG TABLET NAPROXEN 500 MG TABLET Problem List As Of Date 06/08/2019 Noted Resolved Internal derangement of left knee [M23.92] 05/22/2014 Primary osteoarthritis of left knee [M17.12] 12/11/2014 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 All questions were answered. The patient requests to proceed with the planned surgical procedure. As a result of the 04/25/19 order by [facility] Director Ruthie Zhou M.D. to [...] 06/09/2019 09:49 AM Modules accepted: [facility] [facility] Visit (LOORRM ) RUTHIE CORDERO ([id number]) 1965 F Date Time Provider Department 03/31/19 8:45 AM MIGUEL ANGEL PONCE During your visit today, we recorded the following information about you: Miguel Angel Ponce MD 03/31/2019 2:15 PM Signed Established Patient Ortho Knee Consult Note ASSESSMENT AND PLAN Impression: Left Knee Severe Degenerative Osteoarthritis, Primary Ruthie Becca MARCELINA has radiograph and physical exam evidence of [...] the pre-operative course, surgery itself and rehabilitation. Sraa-operative blood management and transfusion issues were discussed, [...] interfering with activities which include exercise, doing financial aid director, participating in family activities, enjoying hobbies, walking [...] TIME: 8:38 AM Referring Provider: ESTELA SORTO [[id number]] Allergies As of Date: 03/31/2019 Noted Allergy Reaction TRAMADOL 03/20/2014 4 - Hives 9 - Itching Date Reviewed: 03/31/2019 Reviewed by: Miguel Angel Ponce - Fully Assessed Reason for Visit: Follow Up [171] Primary Visit Diagnosis:Primary osteoarthritis of left knee [M17.12] Other Visit Diagnoses:Chondromalaci a of left patella [M22.42] Patellofemoral stress syndrome of both knees [M22.2X1, M22.2X2] Order(s):SURGICAL REQUEST - ELECTIVE [[id number]] Order #: [id number]: 1 CONSULT TO(TCI)PRE-OP CLEAR [0817578] Order #: [id number]: 1 PATIENT PLACED ON JESUS TKA CARE PATH [1156877] Order #: [id number]: 1 TYPE + SCREEN,30 DAY [NQOOXF21] Order #: [id number] FUTURE CONFIRM BLOOD TYPE [SQCONABO] Order #: [id number] FUTURE ACTIVATED PTT [SQPTT] Order #: [id number] FUTURE PROTHROMBIN TIME/PT [SQPT] Order #: [id number] FUTURE URINALYSIS WITH MICROSCOPIC [SQUAWMIC] Order #: [id number] FUTURE URINE CULTURE [SQURCUL] Order #: [id number] FUTURE CBC + DIFF [SQCBCDIF] Order #: [id number] FUTURE STAPH AUREUS PCR [SQSAPCR] Order #: [id number] FUTURE BASIC METABOLIC PNL [SQBMP] Order #: [id number] FUTURE WALKER - FOLDING [99591643] Order #: [id number] RAISED TOILET SEAT [[id number]] Order #: [id number] BATH/SHOWER CHAIR [[id number]] Order #: [id number] Prescriptions as of 03/31/2019 Sig: OXYCODONE-ACETAMINOPHEN 5 MG-* LISINOPRIL 20 MG TABLET NAPROXEN 500 MG TABLET Problem List As Of Date 03/31/2019 Noted Resolved Internal derangement of left knee [M23.92] 05/22/2014 Primary osteoarthritis of left knee [M17.12] 12/11/2014 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 Author [...] interfering with activities which include exercise, doing financial aid director, participating in family activities, enjoying hobbies, walking [...] Miguel Angel Ponce MD PATIENT NAME: Ruthie UREÑACAROLE DATE: March 31, 2019 TIME: 8:38 AM Normal [facility] Staph aureus PCRon 0 MRSA PCR Negative Normal [facility] Comment on above: Performed By: #### S APCR ####[address] [phone] S aureus Spec Source Nasal Normal [facility] Comment on above: Performed By: #### S APCR ####[address] [phone] Staph aureus PCR Negative Normal [facility] Comment on above: Performed By: #### S APCR ####[address] [phone] CNOVon 01-27-2019 CNOV Office Visit (LOORRM ) RUTHIE CORDERO ([id number]) 1965 F Date Time Provider Department 01/27/19 11:00 AM CAST TECH JAYRO EVANS During your visit today, we recorded the following information about you: Vielka Dick Ma 01/27/2019 2:11 PM Signed Dispensed Large Medial electronic scale subassembler OA Reaction brace for the Left knee. Dispensed by [employer] Surface Mount Technology Operator. Instructions were given on application/adjustments . Will [...] Status:Closed by VIELKA DICK MA on 01/27/19 Normal [facility] CN Office Visit (LOORRM ) RUTHIE CORDERO ([id number]) 1965 F Date Time Provider Department 01/27/19 [...] of these instructions. Referring Provider: ESTELA SORTO [[id number]] Allergies As of Date: 01/27/2019 Noted Allergy [...] M22.2X2] Order(s):Large Joint Arthro/Inj: L knee joint [KDE930] Order #: [id number] KNEE BRACE-J [[id number]] Order #: [id number] hylan G-F 20 48 mg/6 mL 48 [...] by MIGUEL ANGEL PONCE MD on 01/27/19 [facility] PROGRESSon 01-27-2019 PROGRESS HNO ID: [id number] Author: Vielka Dick Ma Service: ? Author Type: ? Type: Progress Notes Filed: 01/27/2019 2:11 PM Note Text: Dispensed Large Medial electronic scale subassembler OA Reaction brace for the Left knee. Dispensed by O Surface Mount Technology Operator. Instructions were given on application/adjustments . Will f/u as scheduled/prn. Vielka Dick MA,ROT Normal [facility] PROGRESS HNO ID: [id number] Author: Miguel Angel Ponce Service: Orthopaedic Surgery Author Type: Physician Type: Progress Notes Filed: 02/02/2019 11:25 AM Note Text: [facility] [address] [place], [place] [address] CLINIC NOTE Department of Orthopaedics - Natalio Ponce M.D. NAME: RUTHIE CORDERO CLINIC NO.: [id number] DATE OF SERVICE: 01/27/2019 HISTORY: Patient is [...] Ponce M.D. Date Dictated: 01/27/2019 Date Typed: lesia 01/27/2019 JOB# [id number] Normal [facility] PROGRESS HNO ID: [id number] Author: Miguel Angel Ponce Service: ? Author [...] the patient voiced understanding of these instructions. Normal [facility] PROGRESS HNO ID: [id number] Author: Vipul Ryder (Rt) Service: ? Author Type: Para Machine Operator Type: Progress Notes Filed: 01/27/2019 10:51 AM [...] RT Britni January 27, 2019 10:50 AM [facility] XR KNEE 4V AP/PA BOTH+LAT/ME R [...] CHANGES IS PROGRESSED SINCE THE PREVIOUS EXAM. Aerial Gunner Superintendent: PSCB Transcribe Date/Time: Jan 27 2019 3:49P Dictated by : CLIF MORALES MD This examination was interpreted and the report reviewed and electronically signed by: CLIF MORALES MD on Jan 27 2019 3:51PM EST [id number] Normal [facility] CNOVon 11-11-2018 CNOV Office Visit (LOORRM ) RUTHIE CORDERO ([id number]) 1965 F Date Time Provider Department 11/11/18 [...] MIGUEL ANGEL PONCE MD on 11/11/18 Normal [facility] PROGRESSon 11-11-2018 PROGRESS HNO ID: [id number] Author: Miguel Angel Ponce Service: Orthopaedic Surgery Author Type: Physician Type: Progress Notes Filed: 11/22/2018 8:34 AM Note Text: [facility] [address] [place], [place] [address] CLINIC NOTE Department of Orthopaedics - Natalio Ponce M.D. NAME: RUTHIE CORDERO CLINIC NO.: [id number] DATE OF SERVICE: 11/11/2018 HISTORY: Patient follows [...] Dictated: 11/11/2018 Date Typed: lesia 11/11/2018 JOB# [id number] Normal [facility] CNOVon 09-09-2018 CNOV Office Visit (LOORRM ) SEVERORUTHIE Girard ([id number]) 1965 F Date Time Provider Department 09/09/18 10:45 AM SENA LICONA (PA)ORRBecca During your visit [...] M22.42 PROCEDURE NOTE: Ruthie CORDERO Medical Record: [id number] ? Provider : Sena Licona PA-C [facility] ? Prior to the procedure, the [...] BUILDER 09/09/2018 09/09/2018 Class: Suppress Questions Route: [facility] Encounter Status:Closed by SENA LICONA PA-C on 09/09/18 Normal [facility] PROGRESSon 09-09-2018 PROGRESS HNO ID: [id number] Author: Sena Licona (Pa) Service: ? Author Type: Physician Security Sergeant Type: Progress Notes Filed: 09/09/2018 10:22 AM [...] M22.42 PROCEDURE NOTE: Ruthie CORDERO Medical Record: [id number] ? Provider : Sena Licona PA-C [facility] ? Prior to the procedure, the [...] as symptoms dictate. Sena Licona PA-C Normal [facility] Vital Signs Date Time Vital Sign Value Performing Clinician Facility 08-27-2023 09:05-0400 Blood Pressure Location Sammi Octaviano [facility] 08-27-2023 09:05-0400 Body temperature 98.24 [degF] Sammi Lorenaer [facility] 08-27-2023 09:05-0400 Diastolic blood pressure 86 mm[Hg] Sammi Octaviano [facility] 08-27-2023 09:05-0400 Heart rate 69 /min Sammi Novakjohnny [facility] 08-27-2023 09:05-0400 SaO2% (BldA) [Mass fraction] 99 % Sammi Brumfield [facility] 08-27-2023 09:05-0400 Systolic blood pressure 124 mm[Hg] Sammi Lorenaer [facility] 06-01-2023 18:49-0400 Body temperature 98.78 [degF] Norman Chiu [facility] 06-01-2023 18:49-0400 Diastolic blood pressure 85 mm[Hg] Norman Chiu [facility] 06-01-2023 18:49-0400 Heart rate 98 /min Norman Chiu [facility] 06-01-2023 18:49-0400 Respiratory rate 18 /min Norman Chiu [facility] 06-01-2023 18:49-0400 SaO2% (BldA) [Mass fraction] 99 % Norman Chiu [facility] 06-01-2023 18:49-0400 Systolic blood pressure 121 mm[Hg] Norman Chiu [facility] 05-14-2023 11:48-0400 Body temperature 97.88 [degF] Freddy Means [facility] 05-14-2023 11:48-0400 Diastolic blood pressure 92 mm[Hg] Freddy Means [facility] 05-14-2023 11:48-0400 Heart rate 88 /min Freddy Means [facility] 05-14-2023 11:48-0400 Respiratory rate 18 /min Freddy Means [facility] 05-14-2023 11:48-0400 SaO2% (BldA) [Mass fraction] 100 % Freddy Means [facility] 05-14-2023 11:48-0400 Systolic blood pressure 148 mm[Hg] Freddy Means [facility] 01-25-2023 09:25-0500 Body height 167.64 cm Jet Douglass Other [facility] Other 01-25-2023 09:25-0500 Body mass index (BMI) [Ratio] 26.63 kg/m2 Jet Douglass Other [facility] Other 01-25-2023 09:25-0500 Body temperature 98 [degF] Jet Douglass Other [facility] Other 01-25-2023 09:25-0500 Body weight 74.84 kg Jet Douglass Other [facility] Other 01-25-2023 09:25-0500 Respiratory rate 18 /min Jet Douglass Other [facility] Other 01-25-2023 09:25-0500 SaO2% (BldA) [Mass fraction] 97 % Jet Douglass Other [facility] Other 10-26-2022 08:50-0400 Diastolic blood pressure 103 mm[Hg] Mariama [employer]ware [facility] 10-26-2022 08:50-0400 Heart rate 62 /min Mariama [employer] [facility] 10-26-2022 08:50-0400 Mean blood pressure 116 mm[Hg] Mariama [employer] [facility] 10-26-2022 08:50-0400 Respiratory rate 18 /min Mariama [employer] [facility] 10-26-2022 08:50-0400 Systolic blood pressure 142 mm[Hg] Mariama [employer] [facility] 10-13-2022 15:00-0400 Heart rate 73 /min Gerard Forbes [facility] 10-13-2022 15:00-0400 SaO2% (BldA) [Mass fraction] 98 % Gerard Leidy [facility] 10-13-2022 15:00-0400 Diastolic blood pressure 83 mm[Hg] Greard Leidy [facility] 10-13-2022 15:00-0400 Mean blood pressure 100 mm[Hg] Gerardsheldon Forbes [facility] 10-13-2022 15:00-0400 Systolic blood pressure 135 mm[Hg] Gerard Leidy [facility] 10-13-2022 14:59-0400 Respiratory rate 16 /min Gerard Leidy [facility] 10-13-2022 14:53-0400 Diastolic blood pressure 91 mm[Hg] Gerard Leidy [facility] 10-13-2022 14:53-0400 Heart rate 85 /min Gerard Leidy [facility] 10-13-2022 14:53-0400 Respiratory rate 14 /min Gerard Leidy [facility] 10-13-2022 14:53-0400 SaO2% (BldA) [Mass fraction] 97 % Gerard Leidy [facility] 10-13-2022 14:53-0400 Systolic blood pressure 145 mm[Hg] Gerard Leidy [facility] 10-13-2022 14:21-0400 Heart rate 79 /min Gerard Leidy [facility] 10-13-2022 14:21-0400 SaO2% (BldA) [Mass fraction] 99 % Gerard Leidy [facility] 10-13-2022 14:20-0400 Diastolic blood pressure 88 mm[Hg] Gerard Leidy [facility] 10-13-2022 14:20-0400 Mean blood pressure 104 mm[Hg] Gerard Leidy [facility] 10-13-2022 14:20-0400 Systolic blood pressure 137 mm[Hg] Gerard Liedy [facility] 10-13-2022 14:20-0400 Body temperature 97.88 [degF] Gerard Forbes [facility] 10-13-2022 14:20-0400 Respiratory rate 15 /min Gerard Forbes [facility] 09-22-2022 09:23-0400 Diastolic blood pressure 88 mm[Hg] Mariama Mesa [facility] 09-22-2022 09:23-0400 Heart rate 69 /min Mariama Mesa [facility] 09-22-2022 09:23-0400 Mean blood pressure 105 mm[Hg] Mariama Mesa [facility] 09-22-2022 09:23-0400 Respiratory rate 15 /min Maraima Mesa [facility] 09-22-2022 09:23-0400 Systolic blood pressure 139 mm[Hg] Mariama Mesa [facility] 09-07-2022 13:06-0400 Diastolic blood pressure 73 mm[Hg] Mariama Mesa [facility] 09-07-2022 13:06-0400 Heart rate 91 /min Mariama Mesa [facility] 09-07-2022 13:06-0400 Mean blood pressure 88 mm[Hg] Mariama Mesa [facility] 09-07-2022 13:06-0400 Respiratory rate 14 /min Mariama Mesa [facility] 09-07-2022 13:06-0400 Systolic blood pressure 118 mm[Hg] Mariama Mesa [facility] 10-28-2021 14:09-0400 Body temperature 98.24 [degF] Angie Latrellmarah [facility] 10-28-2021 14:09-0400 Diastolic blood pressure 93 mm[Hg] [facility] 10-28-2021 14:09-0400 Heart rate 79 /min [facility] 10-28-2021 14:09-0400 Respiratory rate 18 /min [facility] 10-28-2021 14:09-0400 SaO2% (BldA) [Mass fraction] 97 % [facility] 10-28-2021 14:09-0400 Systolic blood pressure 141 mm[Hg] [facility] 06-16-2021 10:30-0400 Body height 167.64 cm Jet Douglass Other [employer] [facility] Other 06-16-2021 10:30-0400 Body mass index (BMI) [Ratio] 26.63 kg/m2 Jet Douglass Other [facility] Other 06-16-2021 10:30-0400 Body temperature 97.9 [degF] Jet Douglass Other [facility] Other 06-16-2021 10:30-0400 Body weight 74.84 kg Jet Douglass Other [facility] Other 06-16-2021 10:30-0400 Respiratory rate 18 /min Jet Douglass Other [facility] Other 06-16-2021 10:30-0400 SaO2% (BldA) [Mass fraction] 99 % Jet Douglass Other [employer] Other Encounters Encounter Date Encounter Type Care Provider Facility Start: 08-27-2023 End: 08-27-2023 ambulatory Sammi Brumfield Facility:[facility] Start: 08-27-2023 End: 08-27-2023 Patient encounter procedure Sammi Brumfield [facility] Start: 06-01-2023 End: 06-01-2023 Emergency department patient visit Norman Chiu [facility] Start: 05-14-2023 End: 05-14-2023 Emergency department patient visit Freddy Means [facility] Start: 02-15-2023 End: 02-16-2023 ambulatory Geovani Dias MD Facility: [facility] Start: 01-25-2023 End: 01-25-2023 ambulatory Jet Douglass Other [facility] Other Start: 01-25-2023 Office outpatient visit 15 minutes Jet Douglass [facility] Start: 12-14-2022 End: 12-15-2022 ambulatory Geovani Dias MD Facility: [facility] Start: 11-30-2022 End: 12-01-2022 ambulatory [facility] Start: 10-26-2022 End: 10-26-2022 ambulatory PA-C Mariama Mesa Facility:[facility] Start: 10-26-2022 End: 10-26-2022 Pain Management Mariama Mesa [facility] Start: 10-13-2022 End: 10-13-2022 ambulatory Gerard Forbes Facility:[facility] Start: 10-13-2022 End: 10-13-2022 Pain Management Gerard Forbes [facility] Start: 09-22-2022 End: 09-22-2022 ambulatory PA-C Mariama Mesa Facility:[facility] Start: 09-22-2022 End: 09-22-2022 Pain Management Mariama Mesa [facility] Start: 09-21-2022 End: 09-21-2022 Emergency department patient visit Norman Chiu Facility:[facility] Start: 09-07-2022 End: 09-07-2022 ambulatory Mariama Mesa Facility:[facility] Start: 09-07-2022 End: 09-07-2022 Patient encounter procedure Mariama Mesa [facility] Start: 09-07-2022 End: 09-07-2022 ambulatory Mariama Mesa Facility:[facility] Start: 09-07-2022 End: 09-07-2022 Pain Management Mariama Mesa [facility] Start: 10-28-2021 End: 10-28-2021 Emergency department patient visit Angie Samsmarah [facility] Start: 06-16-2021 End: 06-16-2021 ambulatory Jet Cowpens Other [employer] [facility] Other Start: 06-16-2021 Office outpatient visit 15 minutes Jet Cowpens [facility] Start: 05-16-2021 End: 05-16-2021 Patient encounter procedure [facility] Date Procedure Procedure Detail Performing Clinician Start: 10-13-2022 Injection of knee us ing fluoroscopic guidance Mariama Mesa Comment on above: Right Genicular Nerv e Block-75% relief x 4 days Start: 05-16-2021 Screening mammograph y of bilateral breasts [facility] Dept Work Phone: Start: 06-14-2019 Chronic pain followi ng right total knee arthroplasty Mariamafranc Mesa Start: 06-12-2019 Antibody screen Comment on above: Performed By: #### T [id number] #### [facility] [address] [place] [id number] Start: 06-12-2019 Electrocardiogram Start: 07-14-2018 History of total kne e arthroplasty Astrit Hajdari Cholecystectomy Astrit Haamadeoa ri Intracranial tumor (disorder) Astrit Hajdari Immunizations Immunization Date Immunization Notes Care Provider Fa cility 11-11-2022 influenza virus vaccine, unspecified formulation Sammi Bordner [facility] 02-11-2022 influenza virus vaccine, unspecified formulation Sammi Bordner [facility] 10-28-2021 tetanus toxoid, redu jerrell diphtheria toxoid, and acellular pertussis vaccine, adsorbed [facility] 11-26-2020 SARS-CoV-2 (COVID-19 ) mRNA BNT-162b2 vax Sammi Bordner [facility] 05-24-2020 COVID-19, mRNA, LNP- S, PF, 30 mcg/0.3 mL dose [facility] Comment on above: Reason for Medicatio n: Prophylaxis 04-26-2020 COVID-19, mRNA, LNP- S, PF, 30 mcg/0.3 mL dose [facility] Comment on above: Reason for Medicatio n: Prophylaxis 12-15-2018 tetanus toxoid, redu jerrell diphtheria toxoid, and acellular pertussis vaccine, adsorbed Sammi Bordner [facility] 11-17-2018 hepatitis A vaccine, adult dosage Sammi Bordner [facility] 05-11-2018 hepatitis A vaccine, adult dosage Sammi Bordner [facility] 01-13-1991 hepatitis B vaccine, adult dosage Sammi Bordner [facility] 12-09-1990 hepatitis B vaccine, adult dosage Sammi Brumfield [facility] 06-06-1971 Td(adult) unspecifie d formulation Sammi Brumfield [facility] Payers Date Payer Category Payer Medicaid [id number] 2. [id number] 2022 Unknown 1965 Unknown [id number] 2.16. [id number]. 1965 Unknown [id number] 2.16. [id number]. 1965 Unknown [id number] 2.16. [id number]. 1965 Unknown [id number] 2.16.8 40.1.162262.3.579.2. 1965 Unknown [id number] 2.16.8 40.1.698034.3.579.2. 1965 Unknown [id number] 2.16.8 40.1.800714.3.579.2.7 1965 Unknown [id number] 2.16.8 40.1.458994.3.579.2.7 1965 Unknown [id number] 2.16.8 40.1.683930.3.579.2. 1965 Unknown [id number] 2.16.8 40.1.406142.3.579.2.72 1965 Unknown [id number] 2.16.8 40.1.826043.3.579.2.7 1965 Unknown [id number] 2.16.8 [id number] 1965 Unknown [id number] 2.16.8 [id number] Self-pay Self Pay [id number] Unknown Self Pay [id number] Unknown [id number] 2.1 [id number] Social History Date Type Detail Facility Start: 10-12-2017 Tobacco smoking stat [facility] Smoker (finding) [facility] Start: 1965 Sex Assigned At Female F [facility] Sex Assigned At [employer] Other Start: 07-10-2019 Tobacco smoking status Ex-smoker (fi nding) [facility] Start: 09-07-2022 Tobacco smoking status Light t obacco smoker (finding) [facility] Functional Status Date Assessment Result Facility 08-27-2023 Functional Status N/A [facility] 06-01-2023 Functional Status N/A [facility] 05-14-2023 Functional Status N/A [facility] 10-26-2022 Functional Status N/A [facility] 10-13-2022 Functional Status N/A [facility] 09-22-2022 Functional Status N/A [facility] 09-07-2022 Functional Status N/A [facility] 10-28-2021 Functional Status N/A [facility] Clinical Notes 09-30-2012 to 08-27-2023 Note Date & Type Note Facility 08-27-2023 Hospital Discharg e instructions Patient Education 08/27/2023 09:38:18 BMI for Adults BMI for Adults What is BMI? Body mass index (BMI) is a number that is calculated from a person's weight and height. BMI can help estimate how much of a person's weight is composed of fat. BMI does not measure body fat directly. Rather, it is an alternative to procedures that directly measure body fat, which can be difficult and expensive. BMI can help identify people who may be at higher risk for certain medical problems. What are BMI measurements used for? BMI is used as a screening tool to identify possible weight problems. It helps determine whether a person is obese, overweight, a healthy weight, or underweight. BMI is useful for: Identifying a weight problem that may be related to a medical condition or may increase the risk for medical problems. Promoting changes, such as changes in diet and exercise, to help reach a healthy weight. BMI screening can be repeated to see if these changes are working. How is BMI calculated? BMI involves measuring your weight in relation to your height. Both height and weight are measured, and the BMI is calculated from those numbers. This can be done either in [place] or metric measurements. Note that charts and online BMI calculators are available to help you find your BMI quickly and easily without having to do these calculations yourself. To calculate your BMI in [place] measurements: 1.Measure your weight in pounds (lb). 2.Multiply the number of pounds by 703. For example, for a person who weighs 180 lb, multiply that number by 703, which equals 126,540. 3.Measure your height in inches. Then multiply that number by itself to get a measurement called inches squared. For example, for a person who is 70 inches tall, the inches squared measurement is 70 inches x 70 inches, which equals 4,900 inches squared. 4.Divide the total from step 2 (number of lb x 703) by the total from step 3 (inches squared): 126,540 4,900 = 25.8. This is your BMI. To calculate your BMI in metric measurements: 1.Measure your weight in kilograms (kg). 2.Measure your height in meters (m). Then multiply that number by itself to get a measurement called meters squared. For example, for a person who is 1.75 m tall, the meters squared measurement is 1.75 m x 1.75 m, which is equal to 3.1 meters squared. 3.Divide the number of kilograms (your weight) by the meters squared number. In this example: 70 3.1 = 22.6. This is your BMI. What do the results mean? BMI charts are used to identify whether you are underweight, normal weight, overweight, or obese. The following guidelines will be used: Underweight: BMI less than 18.5. Normal weight: BMI between 18.5 and 24.9. Overweight: BMI between 25 and 29.9. Obese: BMI of 30 or above. Keep these notes in mind: Weight includes both fat and muscle, so someone with a muscular build, such as an athlete, may have a BMI that is higher than 24.9. In cases like these, BMI is not an accurate measure of body fat. To determine if excess body fat is the cause of a BMI of 25 or higher, further assessments may need to be done by a health care provider. BMI is usually interpreted in the same way for men and women. Where to find more information For more information about BMI, including tools to quickly calculate your BMI, go to these websites: Centers for Disease Control and Prevention: www.cdc.gov [place] [employer]: www.heart.org National Heart, Lung, and Blood [place]: www.nhlbi.nih.gov Summary Body mass index (BMI) is a number that is calculated from a person's weight and height. BMI may help estimate how much of a person's weight is composed of fat. BMI can help identify those who may be at higher risk for certain medical problems. BMI can be measured using [place] measurements or metric measurements. BMI charts are used to identify whether you are underweight, normal weight, overweight, or obese. This information is not intended to replace advice given to you by your health care provider. Make sure you discuss any questions you have with your health care provider. Document Revised: 10/18/2019 Document Reviewed: 08/25/2019 Present Patient Education 2022 [employer]. 08/27/2023 09:38:16 Exercising to Lose Weight Exercising to Lose Weight Getting regular exercise is important for everyone. It is especially important if you are overweight. Being overweight increases your risk of heart disease, stroke, diabetes, high blood pressure, and several types of cancer. Exercising, and reducing the calories you consume, can help you lose weight and improve fitness and health. Exercise can be moderate or vigorous intensity. To lose weight, most people need to do a certain amount of moderate or vigorous-intensity exercise each week. How can exercise affect me? You lose weight when you exercise enough to burn more calories than you eat. Exercise also reduces body fat and builds muscle. The more muscle you have, the more calories you burn. Exercise also: Improves mood. Reduces stress and tension. Improves your overall fitness, flexibility, and endurance. Increases bone strength. Moderate-intensity exercise Moderate-intensity exercise is any activity that gets you moving enough to burn at least three times more energy (calories) than if you were sitting. Examples of moderate exercise include: Walking a mile in 15 minutes. Doing light yard work. Biking at an easy pace. Most people should get at least 150 minutes of moderate-intensity exercise a week to maintain their body weight. Vigorous-intensity exercise Vigorous-intensity exercise is any activity that gets you moving enough to burn at least six times more calories than if you were sitting. When you exercise at this intensity, you should be working hard enough that you are not able to carry on a conversation. Examples of vigorous exercise include: Running. Playing a team sport, such as football, basketball, and soccer. Jumping rope. Most people should get at least 75 minutes a week of vigorous exercise to maintain their body weight. What actions can I take to lose weight? The amount of exercise you need to lose weight depends on: Your age. The type of exercise. Any health conditions you have. Your overall physical ability. Talk to your health care provider about how much exercise you need and what types of activities are safe for you. Nutrition Make changes to your diet as told by your health care provider or diet and water treatment specialist (dietitian). This may include: ?Eating fewer calories. ?Eating more protein. ?Eating less unhealthy fats. ?Eating a diet that includes fresh fruits and vegetables, whole grains, low-fat dairy products, and lean protein. ?Avoiding foods with added fat, salt, and sugar. Drink plenty of water while you exercise to prevent dehydration or heat stroke. Activity Choose an activity that you enjoy and set realistic goals. Your health care provider can help you make an exercise plan that works for you. Exercise at a moderate or vigorous intensity most days of the week. ?The intensity of exercise may vary from person to person. You can tell how intense a workout is for you by paying attention to your breathing and heartbeat. Most people will notice their breathing and heartbeat get faster with more intense exercise. Do resistance training twice each week, such as: ?Push-ups. ?Sit-ups. ?Lifting weights. ?Using resistance bands. Getting short amounts of exercise can be just as helpful as long, structured periods of exercise. If you have trouble finding time to exercise, try doing these things as part of your daily routine: ?Get up, stretch, and walk around every 30 minutes throughout the day. ?Go for a walk during your lunch break. ?Park your car farther away from your destination. ?If you take public transportation, get off one stop early and walk the rest of the way. ?Make phone calls while standing up and walking around. ?Take the stairs instead of elevators or escalators. Wear comfortable clothes and shoes with good support. Do not exercise so much that you hurt yourself, feel dizzy, or get very short of breath. Where to find more information [place] Department of Health and Human Services: www.hhs.gov Centers for Disease Control and Prevention: www.cdc.gov Contact a health care provider: Before starting a new exercise program. If you have questions or concerns about your weight. If you have a medical problem that keeps you from exercising. Get help right away if: You have any of the following while exercising: ?Injury. ?Dizziness. ?Difficulty breathing or shortness of breath that does not go away when you stop exercising. ?Chest pain. ?Rapid heartbeat. These symptoms may represent a serious problem that is an emergency. Do not wait to see if the symptoms will go away. Get medical help right away. Call your local emergency services (911 in the [place] Do not drive yourself to the hospital. Summary Getting regular exercise is especially important if you are overweight. Being overweight increases your risk of heart disease, stroke, diabetes, high blood pressure, and several types of cancer. Losing weight happens when you burn more calories than you eat. Reducing the amount of calories you eat, and getting regular moderate or vigorous exercise each week, helps you lose weight. This information is not intended to replace advice given to you by your health care provider. Make sure you discuss any questions you have with your health care provider. Document Revised: 03/23/2021 Document Reviewed: 03/23/2021 Present Patient Education 2022 [employer] 08/27/2023 09:38:14 Bacterial Conjunctivitis, Adult, Epul-kd-Nyki Bacterial Conjunctivitis, Adult Bacterial conjunctivitis is an infection of your conjunctiva. This is the clear membrane that covers the white part of your eye and the inner part of your eyelid. This infection can make your eye: Red or pink. Itchy or irritated. This condition spreads easily from person to person (is contagious) and from one eye to the other eye. What are the causes? This condition is caused by germs (bacteria). You may get the infection if you come into close contact with: A person who has the infection. Items that have germs on them (are contaminated), such as face towels, contact lens solution, or eye makeup. What increases the risk? You are more likely to get this condition if: You have contact with people who have the infection. You wear contact lenses. You have a sinus infection. You have had a recent eye injury or surgery. You have a weak body defense system (immune system). You have dry eyes. What are the signs or symptoms? Thick, yellowish discharge from the eye. Tearing or watery eyes. Itchy eyes. Burning feeling in your eyes. Eye redness. Swollen eyelids. Blurred vision. How is this treated? Antibiotic eye drops or ointment. Antibiotic medicine taken by mouth. This is used for infections that do not get better with drops or ointment or that last more than 10 days. Cool, wet cloths placed on the eyes. Artificial tears used 2 6 times a day. Follow these instructions at home: Medicines Take or apply your antibiotic medicine as told by your doctor. Do not stop using it even if you start to feel better. Take or apply nnyz-irf-txbnqhp and prescription medicines only as told by your doctor. Do not touch your eyelid with the eye-drop bottle or the ointment tube. Managing discomfort Wipe any fluid from your eye with a warm, wet washcloth or a cotton ball. Place a clean, cool, wet cloth on your eye. Do this for 10 20 minutes, 3 4 times a day. General instructions Do not wear contacts until the infection is gone. Wear glasses until your doctor says it is okay to wear contacts again. Do not wear eye makeup until the infection is gone. Throw away old eye makeup. Change or wash your pillowcase every day. Do not share towels or washcloths. Wash your hands often with soap and water for at least 20 seconds and especially before touching your face or eyes. Use paper towels to dry your hands. Do not touch or rub your eyes. Do not drive or use heavy machinery if your vision is blurred. Contact a doctor if: You have a fever. You do not get better after 10 days. Get help right away if: You have a fever and your symptoms get worse all of a sudden. You have very bad pain when you move your eye. Your face: ?Hurts. ?Is red. ?Is swollen. You have sudden loss of vision. Summary Bacterial conjunctivitis is an infection of your conjunctiva. This infection spreads easily from person to person. Wash your hands often with soap and water for at least 20 seconds and especially before touching your face or eyes. Use paper towels to dry your hands. Take or apply your antibiotic medicine as told by your doctor. Contact a doctor if you have a fever or you do not get better after 10 days. This information is not intended to replace advice given to you by your health care provider. Make sure you discuss any questions you have with your health care provider. Document Revised: 05/07/2021 Document Reviewed: 05/07/2021 Present Patient Education 2022 [employer]. Follow Up Care 08/27/2023 08:59:24 With:GOOD TAYLOR CNP Address: [address] [place] [address]- When: Unknown [facility] 08-27-2023 Note Patient Education Infectious Disease Bacterial Conjunctivitis, Adult Bacterial conjunctivitis is an infection of your conjunctiva. This is the clear membrane that covers the white part of your eye and the inner part of your eyelid. This infection can make your eye: ? Red or pink. ? Itchy or irritated. This condition spreads easily from person to person (is contagious) and from one eye to the other eye. What are the causes? This condition is caused by germs (bacteria). You may get the infection if you come into close contact with: ? A person who has the infection. ? Items that have germs on them (are contaminated), such as face towels, contact lens solution, or eye makeup. What increases the risk? You are more likely to get this condition if: ? You have contact with people who have the infection. ? You wear contact lenses. ? You have a sinus infection. ? You have had a recent eye injury or surgery. ? You have a weak body defense system (immune system). ? You have dry eyes. What are the signs or symptoms? ? Thick, yellowish discharge from the eye. ? Tearing or watery eyes. ? Itchy eyes. ? Burning feeling in your eyes. ? Eye redness. ? Swollen eyelids. ? Blurred vision. How is this treated? ? Antibiotic eye drops or ointment. ? Antibiotic medicine taken by mouth. This is used for infections that do not get better with drops or ointment or that last more than 10 days. ? Cool, wet cloths placed on the eyes. ? Artificial tears used 2?6 times a day. Follow these instructions at home: Medicines ? Take or apply your antibiotic medicine as told by your doctor. Do not stop using it even if you start to feel better. ? Take or apply snon-gyi-dqzerkr and prescription medicines only as told by your doctor. ? Do not touch your eyelid with the eye-drop bottle or the ointment tube. Managing discomfort ? Wipe any fluid from your eye with a warm, wet washcloth or a cotton ball. ? Place a clean, cool, wet cloth on your eye. Do this for 10?20 minutes, 3?4 times a day. General instructions ? Do not wear contacts until the infection is gone. Wear glasses until your doctor says it is okay to wear contacts again. ? Do not wear eye makeup until the infection is gone. Throw away old eye makeup. ? Change or wash your pillowcase every day. ? Do not share towels or washcloths. ? Wash your hands often with soap and water for at least 20 seconds and especially before touching your face or eyes. Use paper towels to dry your hands. ? Do not touch or rub your eyes. ? Do not drive or use heavy machinery if your vision is blurred. Contact a doctor if: ? You have a fever. ? You do not get better after 10 days. Get help right away if: ? You have a fever and your symptoms get worse all of a sudden. ? You have very bad pain when you move your eye. ? Your face: ? Hurts. ? Is red. ? Is swollen. ? You have sudden loss of vision. Summary ? Bacterial conjunctivitis is an infection of your conjunctiva. ? This infection spreads easily from person to person. ? Wash your hands often with soap and water for at least 20 seconds and especially before touching your face or eyes. Use paper towels to dry your hands. ? Take or apply your antibiotic medicine as told by your doctor. ? Contact a doctor if you have a fever or you do not get better after 10 days. This information is not intended to replace advice given to you by your health care provider. Make sure you discuss any questions you have with your health care provider. Document Revised: 05/07/2021 Document Reviewed: 05/07/2021 Elsevier Patient Education ? 2022 [employer]. Nutrition BMI for Adults What is BMI? Body mass index (BMI) is a number that is calculated from a person's weight and height. BMI can help estimate how much of a person's weight is composed of fat. BMI does not measure body fat directly. Rather, it is an alternative to procedures that directly measure body fat, which can be difficult and expensive. BMI can help identify people who may be at higher risk for certain medical problems. What are BMI measurements used for? BMI is used as a screening tool to identify possible weight problems. It helps determine whether a person is obese, overweight, a healthy weight, or underweight. BMI is useful for: ? Identifying a weight problem that may be related to a medical condition or may increase the risk for medical problems. ? Promoting changes, such as changes in diet and exercise, to help reach a healthy weight. BMI screening can be repeated to see if these changes are working. How is BMI calculated? BMI involves measuring your weight in relation to your height. Both height and weight are measured, and the BMI is calculated from those numbers. This can be done either in [place] or metric measurements. Note that charts and online BMI calculators are available to (more content not included)... [facility] 06-01-2023 Hospital Discharg e instructions Patient Education 06/01/2023 20:03:13 Foot Contusion Foot Contusion A foot contusion is a deep bruise to the foot. Contusions are the result of an injury to tissues and muscle fibers under the skin. The injury causes bleeding under the skin. The skin over the contusion may turn blue, purple, or yellow. Minor injuries will cause a painless contusion, but more severe contusions may stay painful and swollen for a few weeks. What are the causes? This condition is usually caused by a hard hit or direct force to your foot, such as having a heavy object fall on your foot. What are the signs or symptoms? Symptoms of this condition include: Swelling of the foot. Pain and tenderness of the foot. Discoloration of the foot. The area may have redness and then turn blue, purple, or yellow. How is this diagnosed? This condition may be diagnosed based on: Your medical history. A physical exam. In some cases, imaging tests may be done to check for other injuries. These may include: An X-ray to check for broken bones (fractures). CT scan or MRI to check for torn or injured ligaments. How is this treated? In general, the best treatment for a foot contusion is rest, ice, pressure (compression), and elevation. This is often called RICE therapy. An elastic wrap may be recommended to support your foot. Icqf-gnc-nkfjbmy anti-inflammatory medicines may also be recommended for pain control. If your swelling or pain is severe, you may be given crutches. Follow these instructions at home: RICE therapy Rest the injured area. Try to avoid standing or walking while your foot is painful. If directed, put ice on the injured area. ?Put ice in a plastic bag. ?Place a towel between your skin and the bag. ?Leave the ice on for 20 minutes, 2 3 times a day. If directed, apply light compression to the injured area using an elastic wrap. Make sure the wrap is not too tight. Remove and reapply the wrap as told by your health care provider. If your toes become numb, cold, or blue, take the wrap off and reapply it more loosely. Raise (elevate) the injured area above the level of your heart while you are sitting or lying down. General instructions Take pwsf-ioe-hwjqeul and prescription medicines only as told by your health care provider. Use crutches as told by your health care provider, if this applies. Do not use the injured foot to support your body weight until your health care provider says that you can. Do not use any products that contain nicotine or tobacco, such as cigarettes, e-cigarettes, and chewing tobacco. These can delay healing. If you need help quitting, ask your health care provider. Keep all follow-up visits as told by your health care provider. This is important. Contact a health care provider if: Your symptoms do not improve after several days of treatment. You have redness, swelling, or pain in your foot or toes. You have difficulty moving the injured area. Your swelling or pain is not relieved with medicines. Get help right away if: You have severe pain. Your foot or toes become numb. Your foot or toes become pale or cold. You cannot move your foot or ankle. Your foot is warm to the touch. Summary A foot contusion is a deep bruise to the foot. This condition is usually caused by a hard hit or direct force to your foot. Symptoms include swelling, pain, and discoloration in the injured area. In general, the best treatment for a foot contusion is rest, ice, pressure (compression), and elevation. This information is not intended to replace advice given to you by your health care provider. Make sure you discuss any questions you have with your health care provider. Document Revised: 04/30/2021 Document Reviewed: 04/30/2021 Present Patient Education 2022 [employer]. Follow Up Care 06/01/2023 18:28:13 With:Bertin Laguna Address: [facility] [place] [address] [place] [address]- 0 Business (1) When:06/04/2023 19:21:[address] [facility] 05-14-2023 Hospital Discharg e instructions Patient Education 05/14/2023 13:13:46 Foot Pain Foot Pain Many things can cause foot pain. Some common causes are: An injury. A sprain. Arthritis. Blisters. Bunions. Follow these instructions at home: Managing pain, stiffness, and swelling If directed, put ice on the painful area: Put ice in a plastic bag. Place a towel between your skin and the bag. Leave the ice on for 20 minutes, 2 3 times a day. Activity Do not stand or walk for long periods. Return to your normal activities as told by your health care provider. Ask your health care provider what activities are safe for you. Do stretches to relieve foot pain and stiffness as told by your health care provider. Do not lift anything that is heavier than 10 lb (4.5 kg), or the limit that you are told, until your health care provider says that it is safe. Lifting a lot of weight can put added pressure on your feet. Lifestyle Wear comfortable, supportive shoes that fit you well. Do not wear high heels. Keep your feet clean and dry. General instructions Take zxdh-vxj-jhfqwrp and prescription medicines only as told by your health care provider. Rub your foot gently. Pay attention to any changes in your symptoms. Keep all follow-up visits as told by your health care provider. This is important. Contact a health care provider if: Your pain does not get better after a few days of self-care. Your pain gets worse. You cannot stand on your foot. Get help right away if: Your foot is numb or tingling. Your foot or toes are swollen. Your foot or toes turn white or blue. You have warmth and redness along your foot. Summary Common causes of foot pain are injury, sprain, arthritis, blisters, or bunions. Ice, medicines, and comfortable shoes may help foot pain. Contact your health care provider if your pain does not get better after a few days of self-care. This information is not intended to replace advice given to you by your health care provider. Make sure you discuss any questions you have with your health care provider. Document Revised: 04/30/2021 Document Reviewed: 04/30/2021 Present Patient Education 2022 [employer]. Follow Up Care 05/14/2023 11:46:17 With:GOOD TAYLOR Address: [address] [place], [place] [id number] Business (1) When:05/17/2023 13:12:55 Comments:Call the office of your primary care doctor to arrange for follow-up within the above-stated timeframe. Follow-up with your primary care doctor about this ED visit. You should review your labs, imaging, and diagnoses from this ED visit with your primary care physician. There are occasionally non-emergent findings that require additional follow-up after your ED visit. If you were prescribed medications you should discuss possible side-effects and drug interactions with your pharmacist. Call 911 or go to the nearest Emergency Department if you develop any new or worsening symptoms. [facility] 05-14-2023 Evaluation + Plan note Extrac philippe from: Title:ED Note Author:Freddy Means DO Date: Acute foot pain (M79.673: Pa in in unspecified foot) Orders: methylPREDNISolone, = 1 packet(s), Oral, As Directed, as directed on package labeling, X 6 day(s), # 21 tab(s), Refills(s) 0, Pharmacy: [id number], 167, cm, 05/14/23 11:52:00 EDT, Height/Length Dosing, 78, kg, 05/14/23 11:52:00 EDT, Weight Dosing morphine, 4 mg = 1 mL, Injection, IntraMuscular, Once, Stop date 05/14/23 12:01:00 EDT, STAT, Start date 05/14/23 12:01:00 EDT, 05/14/23 12:01:00 EDT XR Foot 3+ Views Left [facility]12-18-2023 Evaluation note* Encounter Date Diagnosis Assessment Notes Treatment Notes Treatment Clinical Notes Jan, Cough (ICD-10 - R05.9) Jan, [...] see your pcp. Take tylenol as needed. [facility] Other 09-18-2023 Evaluation + Plan noteExtracted from: [...] clinic sooner if necessary. CADENCE score: 36% [facility]09-05-2023 Note [id number]:[email or web address] 09-22-2022 Evaluation + Plan noteExtracted from: [...] she is supposed to be going to [place] for a baby shower. She is going [...] Appointments Appointment Date:10/13/2022 03:15:00 PM Scheduled Provider: Location:[facility] Pain Management Appointment Type:Surgery FT Appointment Date:10/26/2022 09:00:00 AM Scheduled Provider:Mariama Mesa PA-C Location:.[facility] Mgmt [place] Appointment Type:Pain Management - Follow Up (FT) [facility]07-31-2023 Evaluation + Plan noteExtracted from: Title:Pain [...] will obtain a UDS. CADENCE score: 38% [facility]09-20-2022 Hospital Discharge instructions Patient Education 10/28/2021 15:07:50 Corneal Abrasion, Qycs-jv-Suzm Corneal Abrasion A corneal abrasion is a scratch or injury to the clear covering over the front of your eye (cornea). This can be painful. It is important to get treatment for a corneal abrasion. If this problem is not treated, it can affect your eyesight (vision). What are the causes? A urinalysis technician the eye. An object in the eye. [...] who specializes in conditions of the eye (rate examiner). This condition may be diagnosed based on [...] if you start to feel better. Take wzbb-ktb-ekftsis and prescription medicines only as told by your doctor. Ask your doctor if the medicine prescribed to you: ?Requires you to avoid driving or using heavy machinery. ?Can cause trouble pooping (constipation). You may need to take these actions to prevent or treat trouble pooping: ?Drink enough fluid to keep your pee (urine) pale yellow. ?Take yraw-aft-lbjcjsx or prescription medicines. ?Eat foods that are [...] Document Reviewed: 06/02/2019 Elsevier Patient Education 2020 [employer] Follow Up Care 10/28/2021 14:09:12 With:Live Godinez DO Address: [place] [address] [address], [address] [address]- When:3 to [address] [facility]09-20-2022 Evaluation + Plan noteExtracted from: Title:ED Note Author:Sarah Olmstead PA-C ate:10/28/21 1. Right corneal abrasion (S 05.01XA: Injury of conjunctiva and corneal abrasion without foreign body, right eye, initial encounter) Ordered: polymyxin B-trimethoprim ophthalmic, 1 drop(s), Eye-Right, q3hr for 7 day(s), 10 mL, Refill(s) 0, q3 hr while awake not to exceed 6 doses/day, [facility], 165, cm, 10/28/21 14:14:00 EDT, Height/Length [...] date 10/28/21 14:24:00 EDT Visual Acuity Screening [facility]05-09-2022 Evaluation note* Encounter Date Diagnosis Assessment [...] the plan. June, Cough (ICD-10 - R05.9) [facility] Other 08-23-2013 History general Narrative - Reported* Type Description Date Medical History CHRONIC KNEE PAIN Medical History ANXIETY Medical History CHOLECYSTECTOMY Medical History LT SIDED HEMIPARESIS Medical History stroke Medical History 09/30/12 CRANIECTOMY-DR. BURNETT Surgical History DR. BURNETT -CRANIECTOMY 09/30/12 Surgical History CHOLECYSTECTOMY 1998 Surgical History pyloric stenosis Dr Benavides thre e days old 1966 Hospitalization History SEE ABOVE SUREGRY [facility] Other Evaluation + Plan note Future Appointments Appointment Date:10/26/2022 09:00:00 AM Scheduled Provider:Mariama Mesa PA-C Location:FT.[facility] Appointment Type:[facility] information available [facility] Work Phone: Hospital course Narrative No data available for this section [facility] Discharge instructions No data available for this section [facility] No data available for this section [facility] Summary Purpose Family History No Family History Records FoundNo Family History Records FoundNo Family History Records FoundNo Family History Records Found No data available for this section No data available for this section No data available for this section No Family History Records Found Advance Directives No Advanced Directives Records Found Advance Directive Response Recorded Date/ Time Advance Directives No October 4:07pm Hospital Course Note HNO ID: [id number] Author: Britni Licona ([place]) Service: Orthopaedic Surgery Author Type: Physician Security Sergeant Type: Discharge Summary Filed: 06/15/2019 11:22 AM [...] (more content not included)... Note HNO ID: [id number] Author: Arvind Ayala Service: ? Author Type: Nurse Tangled Yarn Worker Type: Anesthesia Procedure Notes Filed: 06/14/2019 9:14 AM Note Text: ANESTHESIOLOGY PROCEDURE NOTE Spinal Block General Information SIGNATURE: Maria Del Rosario Ayala, ZAIRE PATIENT NAME: Ruthie CORDERO DATE: June 14, 2019 TIME: 9:12 AM CSN: [id number] Note HNO ID: [id number] Author: Arvind Ayala Service: ? Author Type: Nurse Tangled Yarn Worker Type: Anesthesia Procedure Notes Filed: 06/14/2019 9:17 AM Note Text: ANESTHESIOLOGY PROCEDURE NOTE Spinal Block General Information Procedure Start Time/Medication Administration: 06/14/2019 9:03 AM Staffing CONTINUOUS IMPROVEMENT DIRECTOR: Maria Del Rosario Ayala SIGNATURE: Maria Del Rosario Ayala, CAROLYN.CHEL PATIENT NAME: Ruthie CORDERO DATE: June 14, 2019 TIME: 9:16 AM CSN: [id number] Note HNO ID: [id number] Author: Arvind Ayala Service: ? Author Type: Nurse Tangled Yarn Worker Type: Anesthesia Procedure Notes Filed: 06/14/2019 9:19 AM Note Text: ANESTHESIOLOGY PROCEDURE NOTE Spinal Block General Information Procedure Start Time/Medication Administration: 06/14/2019 9:05 AM Patient location during procedure: ORTimeout Performed Pre-procedure: timeout performed Consent Obtained: Yes (via Surgical Consent) Patient identity confirmed: arm band Reason for Block: primary surgical anesthetic Staffing CONTINUOUS IMPROVEMENT DIRECTOR: Maria Del Rosario Ayala Preparation Sterility Preparation: [...] (more content not included)... Note HNO ID: [id number] Author: Arvind Ayala Service: ? Author Type: Nurse Tangled Yarn Worker Type: Anesthesia Procedure Notes Filed: 06/14/2019 9:32 [...] (more content not included)... Note HNO ID: [id number] Author: Arvind Ayala Service: ? Author Type: Nurse Tangled Yarn Worker Type: Anesthesia Procedure Notes Filed: 06/14/2019 9:49 AM Note Text: ANESTHESIOLOGY PROCEDURE NOTE Spinal Block General Information Procedure Start Time/Medication Administration: 06/14/2019 9:03 AM Patient location during procedure: ORTimeout Performed Pre-procedure: timeout performed Consent Obtained: Yes (via Surgical Consent) Patient identity confirmed: arm band Reason for Block: primary surgical anesthetic Staffing CONTINUOUS IMPROVEMENT DIRECTOR: Maria Del Rosario Ayala Preparation Sterility Preparation: [...] (more content not included)... Note HNO ID: [id number] Author: Arvind Ayala Service: ? Author Type: Nurse Tangled Yarn Worker Type: Anesthesia Procedure Notes Filed: 06/14/2019 10:06 AM Note Text: ANESTHESIOLOGY PROCEDURE NOTE Spinal Block General Information Procedure Start Time/Medication Administration: 06/14/2019 9:03 AM Patient location during procedure: ORTimeout Performed Pre-procedure: timeout performed Consent Obtained: Yes Patient identity confirmed: arm band Reason for Block: primary surgical anesthetic Staffing CONTINUOUS IMPROVEMENT DIRECTOR: Maria Del Rosario Ayala Performed by: CONTINUOUS IMPROVEMENT DIRECTOR Preparation Sterility Preparation: hand hygiene performed prior [...] not included)... Procedure Findings Note HNO ID: [id number] Author: Arvind Ayala Service: ? Author Type: Nurse Tangled Yarn Worker Type: Anesthesia Procedure Notes Filed: 06/14/2019 9:14 AM Note Text: ANESTHESIOLOGY PROCEDURE NOTE Spinal Block General Information SIGNATURE: Maria Del Rosario Ayala APRN.CRNA PATIENT NAME: Ruthie CORDERO DATE: June 14, 2019 TIME: 9:12 AM CSN: [id number] Note HNO ID: [id number] Author: Arvind Ayala Service: ? Author Type: Nurse Tangled Yarn Worker Type: Anesthesia Procedure Notes Filed: 06/14/2019 9:17 AM Note Text: ANESTHESIOLOGY PROCEDURE NOTE Spinal Block General Information Procedure Start Time/Medication Administration: 06/14/2019 9:03 AM Staffing CONTINUOUS IMPROVEMENT DIRECTOR: Maria Del Rosario Ayala SIGNATURE: Maria Del Rosario Ayala APRN.CRNA PATIENT NAME: Ruthie CORDERO DATE: June 14, 2019 TIME: 9:16 AM CSN: [id number] Note HNO ID: [id number] Author: Arvind Ayala Service: ? Author Type: Nurse Tangled Yarn Worker Type: Anesthesia Procedure Notes Filed: 06/14/2019 9:19 AM Note Text: ANESTHESIOLOGY PROCEDURE NOTE Spinal Block General Information Procedure Start Time/Medication Administration: 06/14/2019 9:05 AM Patient location during procedure: ORTimeout Performed Pre-procedure: timeout performed Consent Obtained: Yes (via Surgical Consent) Patient identity confirmed: arm band Reason for Block: primary surgical anesthetic Staffing CONTINUOUS IMPROVEMENT DIRECTOR: Maria Del Rosario Ayala Preparation Sterility Preparation: [...] (more content not included)... Note HNO ID: [id number] Author: Arvind Ayala Service: ? Author Type: Nurse Tangled Yarn Worker Type: Anesthesia Procedure Notes Filed: 06/14/2019 9:32 [...] (more content not included)... Note HNO ID: [id number] Author: Arvind Ayala Service: ? Author Type: Nurse Tangled Yarn Worker Type: Anesthesia Procedure Notes Filed: 06/14/2019 9:49 AM Note Text: ANESTHESIOLOGY PROCEDURE NOTE Spinal Block General Information Procedure Start Time/Medication Administration: 06/14/2019 9:03 AM Patient location during procedure: ORTimeout Performed Pre-procedure: timeout performed Consent Obtained: Yes (via Surgical Consent) Patient identity confirmed: arm band Reason for Block: primary surgical anesthetic Staffing CONTINUOUS IMPROVEMENT DIRECTOR: Maria Del Rosario Ayala Preparation Sterility Preparation: [...] (more content not included)... Note HNO ID: [id number] Author: Arvind Ayala Service: ? Author Type: Nurse Tangled Yarn Worker Type: Anesthesia Procedure Notes Filed: 06/14/2019 10:06 AM Note Text: ANESTHESIOLOGY PROCEDURE NOTE Spinal Block General Information Procedure Start Time/Medication Administration: 06/14/2019 9:03 AM Patient location during procedure: ORTimeout Performed Pre-procedure: timeout performed Consent Obtained: Yes Patient identity confirmed: arm band Reason for Block: primary surgical anesthetic Staffing CONTINUOUS IMPROVEMENT DIRECTOR: Maria Del Rosario Ayala Performed by: CONTINUOUS IMPROVEMENT DIRECTOR Preparation Sterility Preparation: hand hygiene performed prior [...] DATE CREATED AUTHOR AUTHOR'S ORGANIZ ATION 07/25/2019 [facility] DATE CREATED AUTHOR AUTHOR'S ORGANIZ ATION 05/30/2021 [facility] DATE CREATED AUTHOR AUTHOR'S ORGANIZ ATION 02/17/2023 [facility] DATE CREATED AUTHOR AUTHOR'S ORGANIZ ATION 08/30/2023 [facility] Care Teams (unrecognized sec tion and content) Team Status: Inactive Member Role Status Dates [facility] Provider Active Pavithra Briseno ([facility]) , KENNEL HAND Attending Provider Active Team Status: Active Member Role Status Dates [facility] Primary Care Provider Active Goals (unrecognized section and content) Goals may be documented in a n alternate sectionNo Information No data available for this section No data available for this section No data available for this section No data available for this section No data available for this section No data available for this sectionNo Information No data available for this section No data available for this section No data available for this section REASON FOR VISIT (unrecogniz ed section and [...] BE BASED ON THE PRIMARY CLINICAL RECORDS. [employer] [facility]. provides no warranty or guarantee of the accuracy or completeness of information in this document.
--- NOTE | 2023-09-23 08:47 | P.CN_ITS ---
Consult Note: HPI Data of Consult Patient: known to practice within the last 3 years Consult date: 02/15/23 Requesting Physician: Lauren Ag NP Primary Care Provider: Non-Staff Physician, MD Consult Narrative Reason for consult: Right knee pain Narrative: Ruthie Thompson a pleasant 58 year old female presents for evaluation and management of chronic knee pain with moderate to severe OA. Patient had 100% relief for 3.5 weeks as a result of right knee injection with Dr Dias and recently had right synvsic injection with 70% improvement for 2 weeks. Patient rating pain 7-8/10 now, returned to baseline. At this time patient noticing moderate improvement in pain and functional ability with percocet 5-325mg BID PRN and diclofenac 50mg BID, however she has noticed that she is having declined functional ability and increased pain since decreasing percocet to BID from TID PRN. Patient interested in surgical intervention this fall, no upcoming appointment at this time. cc:: CC: Lauren Ag NP Review of Systems ROS Status of ROS 10 or more systems reviewed and unremark able except as noted in history and below Musculoskeletal Reports: joint pain Meds Home Medications and Allergies Home Medications ?Medication ?Instructions ?Recorded ?Confirmed ?Type amlodipine 2.5 mg tablet 2.5 mg PO DAILY 11/30/22 11/30/22 History duloxetine 20 mg capsule,delayed 20 mg PO DAILY 11/30/22 11/30/22 History release (Cymbalta) lisinopril 40 mg tablet 40 mg PO DAILY 11/30/22 11/30/22 History oxycodone-acetaminophen 5 mg-325 1 tab PO TID 11/30/22 11/30/22 History mg tablet (Percocet) oxycodone-acetaminophen 5 mg-325 1 tab PO TID PRN pain #90 tabs 11/30/22 Rx mg tablet (Percocet) oxycodone-acetaminophen 5 mg-325 1 tab PO TID PRN pain #90 tabs 12/24/22 Rx mg tablet (Percocet) diclofenac sodium 50 mg 50 mg PO BID PRN pain #60 tabs 01/20/23 Rx tablet,delayed release oxycodone-acetaminophen 5 mg-325 1 tab PO TID PRN pain #90 tabs 01/20/23 Rx mg tablet (Percocet) oxycodone-acetaminophen 5 mg-325 1 tab PO TID PRN pain #90 tabs 02/25/23 Rx mg tablet (Percocet) oxycodone-acetaminophen 5 mg-325 1 tab PO TID PRN pain #90 tabs 03/26/23 Rx mg tablet (Percocet) oxycodone-acetaminophen 5 mg-325 1 tab PO TID PRN pain #90 tabs 04/27/23 Rx mg tablet (Percocet) oxycodone-acetaminophen 5 mg-325 1 tab PO TID PRN pain #90 tabs 05/27/23 Rx mg tablet (Endocet) oxycodone-acetaminophen 5 mg-325 1 tab PO TID PRN pain #90 tabs 06/23/23 Rx mg tablet (Percocet) diclofenac sodium 50 mg 50 mg PO BID #180 tabs 06/30/23 Rx tablet,delayed release oxycodone-acetaminophen 5 mg-325 1 tab PO Q8H PRN pain #60 tabs 07/23/23 Rx mg tablet (Percocet) oxycodone-acetaminophen 5 mg-325 1 tab PO Q8H PRN pain #60 tabs 24 Rx mg tablet (Percocet) Allergies Allergy/AdvReac Type Severity Reaction Status Date / Time No Known Drug Allergies Allergy Verified 11/30/22 14:33 Exam Narrative Exam Narrative: Psych-alert and oriented x 3.? Attentive and appropriate, constitutionally normal, displays normal mood and affect per situation.? There are no obvious deficits in memory, reasoning, or intellect. Extremities-lower extremities are warm with minimal edema and palpable pulses. Knee-examination of the right knee reveals tenderness to palpation over the superior, inferior, lateral, and medial aspect of the knee.? Some swelling is noted without erythema. Pain is elicited with flexion and extension of the knee both actively and passively.? Some grinding is noted with these motions.? There is no notable ligamental laxity or instability.? Coordination remains intact.? Gait remains antalgic. Constitutional Documenting provider has reviewed patient's vital signs: yes Common normals: no apparent distress, oriented x3, healthy appearing, alert and well nourished General appearance: cooperative HENTX Common normals: normocephalic, hearing grossly normal bilaterally and moist oral mucous membranes Head and scalp: normocephalic Eye Common normals: PERRL Pupil: PERRL Neck & C-Spine Common normals: full ROM General: normal visual inspection Chest Common normals: inspection of chest normal Respiratory Common normals: normal respiratory effort, no retractions and no use of accessory muscles Neuro Common normals: oriented x3, CN's II-XII intact bilaterally, moves all extremities, no focal motor deficits, no sensory deficits noted and deep tendon reflexes 2+ bilaterally Sensorium/orientation: alert Motor exam: strength 5/5 throughout and no movement abnormalities noted Psych Common normals: mental status grossly normal, thought process normal, cooperative, affect normal, speech normal and activity/motor behavior normal Speech: normal speech Thought process: normal thought process Results Additional Findings Additional findings: If on a controlled substance or opioids, I have checked an [place] report on this patient and there are no aberrancies noted in the prescribing history.??If on a controlled substance or opioid a drug screen was completed and reviewed within the last year, and if there has not been a drug screen completed we ordered one today to monitor higher risk, state monitored pain medication use. As part of providing excellent, safe, comprehensive care, the following was completed at our patient's visit: 1. A medication reconciliation and review to ensure accurate knowledge of curren t/active medications, including asking our patients to inform us about any [id number] medications or herbal remedies/nutritional supplements/alternative remedies. 2. A review to specifically ensure our patients have had annual screening for screening for depression, screening for tobacco use, and screening for unhealthy alcohol use. For concerning screenings had a discussion with the patient, provided patient education, and recommended follow-up with primary care provider when appropriate. If patient noted with a risk of falling, they received education on strength, gait, and balance training to prevent future risk of falling. Assessment and Plan Assessment and Plan (1) Osteoarthritis of right knee: Qualifiers: Osteoarthritis type: primary Qualified Code(s): M17.11 - Unilateral primary osteoarthritis, right knee (2) Chronic prescription opiate use: Assessment and Plan: I feel these medications are improving the patient's quality of life and allow them to tolerate activities of daily living as well as participate in recreational activity.? The patient does not report intolerable side effects. The patient is NOT opioid naive and non-pharmacologic and non-opioid treatment has failed to significantly relieve the patient's pain and improve functionality. The patient has a diagnosis that is related to a somatic or visceral pain etiology. ? ?? I reviewed with the patient the potential risks and side effects with the use of? opioid medications including but not limited to respiratory depression,? sedation, and even . I verified the patient has access to naloxone should? these effects occur. I advised the patient to avoid the use of any other? sedation substances including alcohol, THC, and benzodiazepines while? taking opioid medications due to the risk of compounding side effects and? detrimental outcomes. I reviewed the PROFESSOR [employer] EXERCISE SCIENCE, pain treatment agreement, urine? drug screen, and opioid start talking forms. The patient was advised to let? their family know they had Naloxone in case they would need to administer? the medication.? ?? A drug screen was completed within the last year, and no aberrancies were noted regarding their use of controlled substances. The patient understands they are subject to the terms and conditions of the pain contract that they have signed. ? ?? I have checked an [place]AR[place] report on this patient today and there are no aberrancies noted in the prescribing history.? Plan increase percocet 5-325mg TID PRN moderate to severe pain, noticing significant improvement in pain and functional ability without side effect however since decreasing to BID PRN she has noticed decline in functional ability and increased pain continue diclofenac 50mg BID PRN, tolerating well without side effect patient to call if she has surgical intervention planned to discuss medication management f/u 3 months for medication management
== END 2023-09-23 08:24 | disposition home or self-care (01) ==
PROVIDERS: Visit Provider Nurse Practitioner
DX: M17.11 Unilateral primary osteoarthritis, right knee (principal); Z79.891 Long term (current) use of opiate analgesic
CPT/HCPCS: G0463

== ENCOUNTER 2023-12-23 08:18 | Outpatient (OUT) | payer MEDICAID, SELFPAY ==
--- OUTSIDE RECORDS SUMMARY | 2023-12-23 08:29 | XMS_ITS | CCD ---
Author Organization [facility] Care Team Providers Care Signwriter Name Role Phone Health DeptRolf Primary Care Provider Finn ([facility])CAROLYN Attending Provider Jet Douglass Unavailable LILY OLIVEIRA Primary Care Physician GOOD TAYLOR Primary Care Physician Larissa JONES, Geovani Brar Attending Unavailable Larissa JONES, Geovani Brar Attending Unavailable Larissa JONES, Geovani Brar Attending Unavailable Jet JONES, Estela Duarte Primary Care Provider Freddy Means Attending Unavailable Angie Rosario Attending Unavailable Sammi Brumfield Attending Unavailable Norman Chiu Attending Unavailable Allergies Allergy Classification Reported Allergen(s) Allergy Type Date of Onset Reaction(s) Facility (12 sources) Ketorolac; Translations: [Ketorolac] Drug Allergy 10-13-19 18 Itching [facility] (15 sources) traMADol; Translations: [Tramadol] Drug Allergy 03-20-19 15 rash, Hives, Itching [facility] (2 sources) Dextromethorphan / guaiFENesin Drug Allergy Unknown Adiana Other (12 sources) guaiFENesin; Translations: [guaifenesin] Drug Allergy 05-02-19 20 Swelling [facility] (11 sources) Metoprolol; Translations: [metoprolol] Drug Allergy sickneess [facility] (10 sources) gabapentin; Translations: [gabapentin] Drug Allergy Nausea and vomiting (disorder) [facility] (1 source) Ketorolac; Translations: [Toradol] Drug Allergy [facility] Repository Medications Current Medications Medication Drug Class(es) Dates Sig (Normalized) Sig (Original) acetaminophen 325 mg / oxyCODONE hydrochloride 5 mg oral tablet (16 sources) Opioid Agonist Start: 11-10-2022 take 1 tablet by mouth three times daily as needed for pain Percocet 5 mg-325 mg oral tablet 1 tab(s), Oral, TID as needed for pain, 21 tab(s), Refill(s) 0, [facility], 167, cm, 10/26/22 8:57:00 EDT, Height/Length Dosing, 74.8, kg, 10/26/22 8:57:00 EDT, Weight Dosing Start Date: 11/10/22 Status: Ordered Start: 10-26-2022 take 1 tablet by blaine th three times daily as needed for pain Percocet 5 mg-325 mg oral tablet 1 tab(s), Oral, TID as needed for pain, 21 tab(s), Refill(s) 0, [facility], 167, cm, 10/26/22 8:57:00 EDT, Height/Length Dosing, 74.8, kg, 10/26/22 8:57:00 EDT, Weight Dosing Start Date: 10/26/22 Status: Ordered Start: 09-22-2022 take 1 tablet by blaine th three times daily as needed for pain Percocet 5 mg-325 mg oral tablet 1 tab(s), Oral, TID as needed for pain, 21 tab(s), Refill(s) 0, [facility], 167, cm, 09/22/22 9:26:00 EDT, Height/Length Dosing, 82.9, kg, 09/07/22 13:27:00 EDT, Weight Dosing Start Date: 09/22/22 Status: Ordered Start: 05-16-2022 Percocet 5 mg- 325 mg oral tablet 1 tab(s), Oral, q6hr, 12 tab(s), Refill(s) 0, [facility], 167, cm, 05/16/22 10:57:00 EDT, Height/Length Dosing, 74.4, kg, 05/16/22 10:57:00 EDT, Weight Dosing Start Date: 05/16/22 Status: Ordered amLODIPine 2.5 mg oral tablet (10 sources) Dihydropyridine Calcium Channel Radha Start: 09-07-2022 take 1 tablet by mouth once daily amLODIPine 2.5 mg Tab TAKE 1 TABLET BY MOUTH DAILY Start Date: 09/07/22 Status: [facility]four [facility] amLODIPine Besylate [...] Active Start: 06-16-2021 take 1 capsule by [facility] three times daily as needed Benzonatate 200 MG 1 capsule Orally Three times a day as needed for 5 day(s) June, Active dextromethorphan hydrobromide 1.5 mg/ml / pyrilamine maleate 1.5 mg/ml oral solution (2 sources) Uncompetitive U-qxdvcc-V-aspartate Receptor Antagonist, Sigma-1 Agonist Start: 01-25-2023 take 20 mL by mouth every eight hours as needed for cough Ensign DM 7.5-7.5 MG/5ML 20 ml Orally May take every 8 hours as needed for cough for 3 days Jan, Active Start: 06-16-2021 take 20 mL by mouth once daily at bedtime as needed Ensign DM 7.5-7.5 MG/5ML 20 ml Orally QHS as needed for 5 days June, Active DULoxetine 20 mg delayed release oral capsule (10 sources) Serotonin and Norepinephrine Reuptake Inhibitor Start: 09-07-2022 take 1 capsule by mouth once daily duloxetine 20 mg oral delayed release capsule TAKE 1 CAPSULE BY MOUTH DAILY Start Date: 09/07/22 Status: Ordered take 1 capsule by [facility] every twenty-four hours DULoxetine HCl 30 MG 1 capsule Orally Once a day Active Hydroxychloroquine (1 source) Antimalarial, Antirheumatic Agent Hydroxychloroquine Sulfate Active ibuprofen 600 mg oral tablet (10 sources) Nonsteroidal Anti-inflammatory Drug Start: 2020 take 1 tablet by mouth four times daily as needed for pain ibuprofen 600 mg Tab 600 mg = 1 tab(s), Oral, QID, PRN for pain, # 40 tab(s), Refills(s) 0, Pharmacy: [facility], 165, cm, 07/07/20 13:07:00 EDT, Height/Length Dosing, 75, kg, 07/07/20 13:07:00 EDT, Weight Dosing Start Date: 07/07/20 Status: Ordered lisinopril 2.5 mg oral tablet (14 sources) Angiotensin Converting Enzyme Inhibitor Start: 2017 take 1 tablet by mouth once daily lisinopril 2.5 mg Tab 2.5 mg = 1 tab(s), Oral, Daily, Refills(s) 0 Start Date: 07/10/19 Status: Ordered Start: 11-26-2015 lisinopril (ZE STRIL, PRINIVIL) 20 mg tablet 11/26/2015 Active take 1 tablet by [facility] every twenty-four hours Lisinopril 5 MG 1 tablet Orally Once a day Active methylPREDNISolone 4 mg oral tablet (2 sources) Corticosteroid Start: 05-14-2023 End: 05-20-2023 Medrol 4 mg Tab = 1 packet(s), Oral, As Directed, as directed on package labeling, X 6 day(s), # 21 tab(s), Refills(s) 0, Pharmacy: [facility], 167, cm, 05/14/23 11:52:00 EDT, Height/Length Dosing, 78, kg, 05/14/23 11:52:00 EDT, Weight Dosing Start Date: 05/14/23 Stop Date: 05/20/23 Status: Ordered Start: 09-22-2022 End: 09-28-2022 Medrol 4 mg Tab = 1 packet(s ), Oral, As Directed, as directed on package labeling, X 6 day(s), # 21 tab(s), Refills(s) 0, Pharmacy: [facility], 167, cm, 09/22/22 9:26:00 EDT, Height/Length Dosing, 82.9, kg, 09/07/22 13:27:00 EDT, Weight Dosing Start Date: 09/22/22 Stop Date: 09/28/22 Status: Ordered Multivitamin preparation (9 sources) Start: 09-07-2022 multivitamin See Instructions, Refill(s) 0, daily Start Date: 09/07/22 Status: Ordered polymyxin b 76127 unt/ml / trimethoprim 1 mg/ml ophthalmic solution (2 sources) Dihydrofolate Reductase Inhibitor Antibacterial, Polymyxin-class Antibacterial Start: 08-27-2023 End: 09-03-2023 take 1 drop(s) into the eye(s) every three hours polymyxin B-trimethoprim Opth Jennifer 1 drop(s), OPTH, q3hr for 7 day(s), 10 mL, Refill(s) 0, not to exceed 6 doses/day. Use in RIGHT eye., [facility], 164, cm, 08/27/23 9:09:00 EDT, Height/Length Dosing, 74.5, kg, 08/27/23 9:09:00 EDT, Weight Dosing Start Date: 08/27/23 Stop Date: 09/03/23 Status: Ordered Start: 10-28-2021 End: 11-04-2021 Polytrim 10 mL Soln-Opth 1 d rop(s), Eye-Right, q3hr for 7 day(s), 10 mL, Refill(s) 0, q3 hr while awake not to exceed 6 doses/day, [facility] #[facility], 165, cm, 10/28/21 14:14:00 EDT, Height/Length Dosing, 75.8, kg, 10/28/21 14:14:00 EDT, Weight Dosing Start Date: 10/28/21 Stop Date: 11/04/21 Status: Ordered pregabalin 25 mg oral capsule (2 sources) Start: 09-07-2022 take 1 capsule by mouth twice daily pregabalin 25 mg Cap 25 mg = 1 cap(s), Oral, BID, # 60 cap(s), Refills(s) 0, Pharmacy: [facility], 167, cm, 05/16/22 10:57:00 EDT, Height/Length Dosing, 82.9, kg, 09/07/22 13:27:00 EDT, Weight Dosing Start Date: 09/07/22 Status: Ordered Problems Active Problems Problem Classification Problem Date Documented Da te Episodic/Chronic Anxiety disorders (9 sources) Anxiety 09-07-2022 Chronic E Codes: Fall (1 source) Fall; Translations: [Unspecified fall, initial encounter] Onset: 12-08-2023 Episodic Essential hypertension (10 sources) Hypertensive disorder; Translations: [Essential (primary) hypertension] 09-07-2022 Chronic Immunizations and screening for infectious disease (1 source) Vaccination given; Translations: [Encounter for immunization] Onset: 10-28-2021 Episodic Inflammation; infection of eye (except that caused by tuberculosis or sexually transmitteddisease) (1 source) Conjunctivitis; Translations: [Unspecified conjunctivitis] Onset: 08-27-2023 Episodic Joint disorders and dislocations; trauma-related (3 sources) Derangement of left knee; Translations: [Unspecified internal derangement of left knee] Onset: 05-22-2014 05-22-2014 Chronic Osteoarthritis (1 source) Osteoarthritis of left knee joint; Translations: [Unilateral primary osteoarthritis, left knee] Onset: 12-11-2014 06-14-2019 Chronic Other and unspecified benign neoplasm (10 sources) Benign neoplasm of brain Onset: 09-30-2012 07-10-2019 Chronic Other connective tissue disease (1 source) Foot pain; Translations: [Pain in unspecified foot] Onset: 05-14-2023 Episodic Other inflammatory condition of skin (1 source) Discoid lupus erythematosus; Translations: [Discoid lupus erythematosus] 06-12-2019 Chronic Other nutritional; endocrine; and metabolic disorders (1 [...] Resolved: 06-16-2021 Episodic Phlebitis; thrombophlebitis and thromboembolism (10 sources) Thrombosis; Translations: [Deep venous thrombosis] Onset: 02-09-2012 09-07-2022 Episodic Spondylosis; intervertebral disc disorders; other back problems (9 sources) Low back pain 09-07-2022 Episodic Substance-related disorders (10 sources) Smoker 10-31-2018 Chronic Comment on above: Added secondary to d ocumentation in Social History. Superficial injury; contusion (7 sources) Injury of eye region; Translations: [Injury of conjunctiva and corneal abrasion without foreign body, right eye, initial encounter] Onset: 10-28-2021 Episodic Past or Other Problems Problem Classification Problem Date Documented Da te Episodic/Chronic Unclassified (2 sources) Cough R05.9 Onset: 06-16-2021 Resolved: 06-16-2021 Results Test Name Value Interpretation Reference Range Facility ED Clinical Summaryon 2023 ED Clinical Summary ED Clinical Summary [place] [id number] ED Clinical Summary Person Information Name: RUTHIE CORDERO [facility] Age: 58 Years : 1965 Sex: Female Language: Scottish PCP: GOOD TAYLOR CNP Marital Status: Phone: [phone] Visit Id: Visit Reason: Fall; Shoulder pain-swelling; Knee pain-swelling; FELL - BOTH KNEE PAIN, & RT SHOULDER PAIN, NO LOC, NO THINNERS Speciality: Acuity: 4 Enc Type: Emergency Med Service: Emergency Arrival: 12/08/2023 12:46:45 Discharge: 12/08/2023 14:58:18 LOS: 000 02:12 Checkin: 12/08/2023 12:46:45 Checkout: 12/08/2023 14:58:18 Dispo Type: Home (Routine DC) EVENTS: Event Name Event Status Request Date/Time Start Date/Time Complete Date/Time Arrive Complete 12/08/2023 12:46:45 12/08/2023 12:46:45 12/08/2023 12:46:45 Document Home Meds Request 12/08/2023 12:46:45 Triage Complete 12/08/2023 12:46:45 12/08/2023 12:54:02 12/08/2023 12:54:02 Bed Assign Complete 12/08/2023 12:49:08 12/08/2023 12:49:08 12/08/2023 12:49:08 Dr Exam Complete 12/08/2023 12:49:08 12/08/2023 12:49:31 12/08/2023 12:49:31 RN Exam Complete 12/08/2023 12:49:08 12/08/2023 12:59:13 12/08/2023 12:59:13 Registration Complete 12/08/2023 12:49:31 12/08/2023 12:50:53 12/08/2023 12:50:53 Reg Complete Request 12/08/2023 12:50:53 Reg Bed Request Complete 12/08/2023 12:50:53 12/08/2023 12:50:53 12/08/2023 12:50:53 Dr Exam Complete 12/08/2023 12:52:38 12/08/2023 12:52:38 12/08/2023 12:52:38 Registration Request 12/08/2023 12:52:38 Meds Admin Complete 12/08/2023 12:59:23 12/08/2023 13:05:36 X-Ray Complete 12/08/2023 12:59:23 12/08/2023 13:03:53 12/08/2023 13:39:33 Wet Read Request 12/08/2023 13:39:33 Discharge Complete 12/08/2023 14:49:12 12/08/2023 14:58:24 12/08/2023 14:58:24 Transfer Complete 12/08/2023 14:58:24 12/08/2023 14:58:24 12/08/2023 14:58:24 ADDRESS: [id number] [facility] [id number] [facility] NOTES: MEDICAL INFORMATION: Prescriptions Given: Medications [...] day. multivitamin daily. PATIENT EDUCATION INFORMATION: Instructions: Rib Contusion; RICE Therapy for Routine Care of Injuries, Wygn-[id number]-[id number]; Contusion Follow up: With: Address: When: GOOD TAYLOR [address] [place] [address] [facility] () In 3 days 12/11/2023 Comments: Call Dr for diagnosis based follow up DIAGNOSIS: Contusion of left knee; Contusion of rib on right side; Contusion of right knee; Contusion of right shoulder; Fall Normal [facility] ED Note-Physicianon 12-08-19 ED Note-Physician ED Note-Physician Basic Information Time Seen: Danie HARDY, Tj Reyes. 12/08/2023 12:49 Chief Complaint Pt presents to ED with complaints of bilateral knee pain and right shoulder pain after tripping and falling. NO LOC or thinner History of Present Illness 58-year-old female reports to the emergency room with complaints of a fall. Reports that she fell and had a both knees as well as right shoulder and having some right rib pain. Denies any her head. denies any LOC. States that she denies any blood thinners. This was a week evaluated. Reports that she does take Percocet chronically at home. She states would like something here for pain. Reports up-to-date on her tetanus vaccine. Review of Systems no other aggravating or relieving factors no other associated symptoms no other prior treatments or complaints. Family: Reviewed and noncontributory Social: lives at home Review of systems negative unless otherwise specified in the HPI. Physical Exam Vitals & Measurements T: 36.5 ???C(Oral) HR: 87(Peripheral) RR: 18 BP: 148/88 SpO2: 99% HT: 164 cm WT: 72 kg BMI: 26.77 General: The patient appears well and in no apparent distress. Patient is resting comfortably on bed. Afebrile Skin: Warm, dry, no pallor noted. Small abrasion of the left knee noted. Head: Normocephalic, atraumatic Neck: No JVD Eye: PERRLA, EOMI ENT: Moist mucus membranes Cardiovascular: Regular rate normal peripheral perfusion. Radial pulses +2 bilaterally. Pedal pulses +2 bilaterally Respiratory: No respiratory distress no accessory muscle use no obvious audible wheezing Chest Wall: no deformity. Fifth and sixth rib on the right lateral rib cage. Musculoskeletal: normal ROM, no deformity, no swelling. Normal range of motion of right shoulder with mild tenderness to palpation. Normal range of motion of bilateral knees, mild tenderness to palpation over anterior aspects bilaterally. GI: No obvious distention soft nontender nondistended no guarding rebounding or rigidity Neurological: A&O moves all extremities equal strength and symmetry Psychiatric: Cooperative and appropriate Medical Decision Making MEDICAL DECISION MAKING Number and Complexity of Problems Differential Diagnosis: [] [facility] Data External documents reviewed: [] My EKG interpretation: [] My CT interpretation: [] My X-ray interpretation: reviewed My Ultrasound interpretation: [] Decision rules/scores evaluated: [] Discussed with: [] Treatment and Disposition ED Course: 58-year-old female reports emerged department after a fall. Reports tripped while walking out of a gas station. Denies hitting her head. Denies any loss conscious. Really only complaint of right shoulder pain, right rib pain and bilateral knee pain. Denies any blood thinners. She is up-to-date on her tetanus shot. Due to concerns, I did do x-rays of the areas. X-rays were negative for any acute fractures. Discussed with patient was happy. Continue to rest, ice, compress, and elevate your affected joint to relieve inflammation and swelling. You may also take ibuprofen and Tylenol to help with pain. Follow-up with your primary care provider in 3 to 5 days. If symptoms worsen, do not improve, or new symptoms arise please report back to emergency department for further evaluation. The patient was understanding and agreeable to plan moving forward. Shared decision making: [] Code status: [] Assessment/Plan Contusion of left knee (S80.02XA: Contusion of left knee, initial encounter) Contusion of rib on right side (S20.211A: Contusion of right front wall of thorax, initial encounter) Contusion of right knee (S80.01XA: Contusion of right knee, initial encounter) Contusion of right shoulder (S40.011A: Contusion of right shoulder, initial encounter) Fall (W19.XXXA: Unspecified fall, initial encounter) Orders: morphine, 4 mg = 1 mL, Injection, IntraMuscular, Once, Stop date 12/08/23 12:58:00 EDT, STAT, Start date 12/08/23 12:58:00 EDT, 12/08/23 12:58:00 EDT ondansetron, 4 mg = 1 tab(s), Tab-Dis, Oral, Once, Stop date 12/08/23 12:58:00 EDT, STAT, Start date 12/08/23 12:58:00 EDT, 12/08/23 12:58:00 EDT XR Knee Complete 4+ Views Left XR Knee Complete 4+ Views Right XR Ribs Unilat 3 Views Right w/ PA Chest XR Shoulder Complete Right Medications Administered Given morphine 4 mg/mL Inj, 4 mg, IntraMuscular Zofran ODT 4 mg Tab-Dis, 4 mg, Oral Disposition Plan Patient Discharge Condition Stable Discharge Disposition To home Discharge Prescription List Prescriptions No active prescription medications Follow-up With When Contact Information GOOD TAYLOR In 3 days 12/11/2023 EDT [address] [place] [address] [facility] (1) Additional Instructions: Call Dr for diagnosis based follow up Patient Education Rib Contusion RICE Therapy for Routine Care of Injuries, Bija-tl-Xued Contusion Attestation Patient seen and evaluated by the physi (more content not included)... Normal [facility] Comment on above: Result Comment: Elec tronically Signed By: Danie HARDY, Tj Camp\.br\Date and Time Signed: 12/08/23 15:05 EDT\.br\Electronically Co-Signed By: Abraham Vega, Angie Mcgee\.br\Date and Time Co-Signed: 12/08/23 15:46 EDT ED Patient Summaryon 024 ED Patient Summary ED Patient Summary [place] [id number] Patient Discharge Instructions Person Information Name: RUTHIE CORDERO Age: 58 Years Arrival Date: 12/08/2023 12:46:45 Discharge Diagnosis: Contusion of left knee; Contusion of rib on right side; Contusion of right knee; Contusion of right shoulder; Fall Primary Care Physician: GOOD TAYLOR CNP Provider Information Primary Provider: Angie Rosario M.D. Advanced Sales Agent Protective Service:None The exam and treatment you received in the Emergency Department were for an urgent problem and are not intended as complete care. It is important that you follow up with a doctor, nurse practitioner, or physician???s construction administrative assistant for ongoing care. If your symptoms become worse or you do not improve as expected and you are unable to reach your usual health care provider, you should return to the Emergency Department. We are available 24 hours a day. NIRANJANRUTHIE LAM has been given the following list of patient education materials, prescriptions and follow-up instructions: Follow-up Instructions: With: Address: When: GOOD TAYLOR [address] [place], [place] [id number] [facility] (1) In 3 days 12/11/2023 Comments: Call Dr for diagnosis based follow up In the event that this physician does not participate in your insurance network, please consult with your insurance company to find a nearby participating provider. Patient Education Materials: Rib Contusion; RICE Therapy for Routine Care of Injuries, Ekvy-ce-Jzfy; Contusion A MESSAGE TO ALL PATIENTS REGARDING OPIOIDS PRESCRIPTION OPIOIDS: WHAT YOU NEED TO KNOW Prescription opioids can be used to help relieve sexbtaxo-tn-cvbgqs pain and are often prescribed following a [...] as well, even when taken as directed: ??? Tolerance???meaning you might need to take more of the medication for the same pain relief ??? Physical dependence???meaning you have symptoms of withdrawal when a medication is stopped ??? Increased sensitivity to pain ??? Constipation ??? Nausea, vomiting, and dry mouth ??? Sleepiness and dizziness ??? Confusion ??? Depression ??? Low levels of testosterone that can result in lower sex drive, energy, and strength ??? Itching and sweating RISKS ARE GREATER WITH: ??? History of drug misuse, substance use disorder, or overdose ??? Mental health conditions (such as depression or anxiety) ??? Sleep apnea ??? Older age (65 years and older) ??? Avoid alcohol while taking prescription opioids. Also, unless specifically advised by your health care provider, medications to avoid include: ??? Benzodiazepines (such as Xanax or Valium) ??? Muscle relaxants (such as Soma or Flexeril) ??? Hypnotics (such as Ambien or Lunesta) ??? Other prescription opioids KNOW YOUR OPTIONS Talk to your health care provider about ways to manage your pain that don???t involve prescription opioids. Some of these options may actually work better and have fewer risks and side effects. Options may include: ??? Pain relievers such as acetaminophen, ibuprofen, and naproxen ??? Some medication that are also used for depression or seizures ??? Physical therapy and exercise ??? Cognitive behavioral therapy, a psychological, goal-directed approach, in which patients learn how to modify physical, behavioral, and emotional triggers of pain and stress. IF YOU ARE PRESCRIBED OPIOIDS FOR PAIN: ??? Never take opioids in greater amounts or more often than prescribed. ??? Follow up with your primary health care provider. o Work together to create a plan on how to manage your pain. o Talk about ways to help manage your pain that don???t involve prescription opioids. o Talk about any and all concerns and side effects. ??? Help prevent misuse and abuse o Never sell or share prescription opioids. o Never use another person???s prescription opioids. ??? Store prescription opioids in a secure place and out of reach of others (this may include visitors, children, friends, and family). ??? Safely dispose of unused prescription opioids: Find your community drug take-back program or your pharmacy mail-back program, or flush them down the toilet, following guidance from the Food and Drug Administration (www.fda.gov/Drugs/Reso urcesForYo (more content not included)... Normal [facility] XR Knee Complete 4+ Views Le fton 12-08-2023 XR Knee Complete 4+ Views Left Exam Date/Time: 12/08/2023 13:39 EDT Reason for Exam: Fall Report IMPRESSION: NEGATIVE POSTOPERATIVE LEFT KNEE. CLINICAL HISTORY: Fall COMPARISON: NONE. FINDINGS: 4 views of the left knee. Bipolar noncemented knee replacement. No fracture. No abnormal lucency bone prosthetic interface. Ordering Provider: Tj Helton FINAL REPORT Dictated: 12/08/2023 1:53 pm De Christy MD Signed (Electronic Signature): 12/08/2023 1:53 pm Signed by: De Christy MD Transcribed by: DP Technologist: CALLIER Technical Comments Radiation Dose: Ka,r in mGy = na DAP = na Normal [facility] XR Knee Complete 4+ Views Ri ghton 12-08-2023 XR Knee Complete 4+ Views Right Exam Date/Time: 12/08/2023 13:39 EDT Reason for Exam: Fall Report IMPRESSION: NO FRACTURE. MODERATE TO MARKED DEGENERATIVE, RIGHT KNEE. CLINICAL HISTORY: Fall COMPARISON: NONE. FINDINGS: 4 views of the right knee. Narrowing medial compartment and patellofemoral compartment. Osteophyte formation anterior femoral condyle and superior aspect patella. No fracture, dislocation, bone lesion, effusion. Ordering Provider: Tj Helton FINAL REPORT Dictated: 12/08/2023 1:52 pm De Christy MD Signed (Electronic Signature): 12/08/2023 1:52 pm Signed by: De Christy MD Transcribed by: DP Technologist: DPR Technical Comments Radiation Dose: Ka,r in mGy = na DAP = na Normal [facility] XR Ribs Unilat 3 Views Right w/ PA Cheston 12-08-2023 XR Ribs Unilat 3 Views Right w/ PA Chest Exam Date/Time: 12/08/2023 13:39 EDT Reason for Exam: Fall Report IMPRESSION: No acute displaced rib fracture. No pneumothorax. EXAMINATION/TECHNIQUE: XR Ribs Unilat 3 Views Right w/ PA Chest HISTORY: Fall. Rib pain. COMPARISON: None RESULT: No consolidation. No pleural effusion. No pneumothorax. Normal pulmonary vascular pattern. Normal cardiomediastinal silhouette. No displaced rib fracture. No acute osseous findings. Degenerative changes. Surgical clips right upper quadrant. No other significant abnormality. Ordering Provider: Tj Helton FINAL REPORT Dictated: 12/08/2023 3:51 pm Demario Rosas MD. Signed (Electronic Signature): 12/08/2023 3:51 pm Signed by: Demario Rosas MD Transcribed by: CALLIE Technologist: CALLIER Technical Comments Radiation Dose: Ka,r in mGy = na DAP = na Normal [facility] XR Shoulder Complete Righton 12-08-2023 XR Shoulder Complete Right Exam Date/Time: 12/08/2023 13:39 EDT Reason for Exam: Fall Report IMPRESSION: DEGENERATIVE CHANGE RIGHT SHOULDER DISCUSSED. NO FRACTURE. CLINICAL HISTORY: Fall COMPARISON: NONE FINDINGS: AP, internal, external rotation, Y and axillary views of the right shoulder demonstrate no evidence of a fracture or dislocation. Narrowing right acromioclavicular joint. Right acromial humeral interval maintained. Right glenohumeral joint without anomaly. Ordering Provider: Tj Helton FINAL REPORT Dictated: 12/08/2023 1:51 pm De Christy MD Signed (Electronic Signature): 12/08/2023 1:51 pm Signed by: De Christy MD Transcribed by: CALLIE Technologist: JAXON Technical Comments Radiation Dose: Ka,r in mGy = na DAP = na Normal [facility] Ambulatory Visit Summaryon 0 08-27-2023 Ambulatory Visit [...] day. Use in RIGHT eye. Pickup at [facility] 4736 Unchanged acetaminophen-oxycodone (Percocet 5 mg-325 mg oral [...] Unchanged multivitamin See instructions daily Pharmacy Information [facility] 162: [address] [facility] [address] [place], [place] [phone] Allergies Toradol (sick) gabapentin (Nausea and vomiting) [...] you for choosing us for your care. Normal [facility] Medicine Office/Clini c Noteon 08-27-2023 Family Medicine [...] exceed 6 doses/day. Use in RIGHT eye., [facility] 1628, 164, cm, 08/27/23 9:09:00 EDT, Height/Length Dosing, 74.5, kg, 08/27/23 9:09:00 EDT, Weight Dosing 2. Overweight (E66.3: Overweight) 3. BMI 27.0-27.9,adult (Z68.27: Body mass index [BMI] 27.0-27.9, adult) Follow-up With When Contact Information GOOD TAYLOR CNP [address] [place] [address]- Additional Instructions: Patient Education BMI for Adults Exercising to Lose Weight Bacterial Conjunctivitis, Adult, Lxsf-wa-Pgjx Problem List/Past Medical History Ongoing Anxiety Hypertension [...] Td(adult) unspecified formulation 06/06/1971 Recorded Normal [facility] Comment on above: Result Comment: Elec tronically Signed By: Octaviano PLEITEZ, Nancy\.jean-paul\Date and Time Signed: 08/27/23 09:44 EDT ED Note-Physicianon 06-07-19 ED Note-Physician Basic Information Time Seen: Go HARDY Elmore 06/01/2023 19:04 Chief Complaint Pt presents to [...] Bertin Laguna In 3 days 06/04/2023 EDT [facility] [address] [place] [address] 8 Business (1) Additional Instructions: Patient Education Foot [...] made to ensure accuracy, however, inadvertently computerized two way radio installer mistakes may be present. Appropriate healthcare PPE [...] ago Tobacco Use: (more content not included)... [facility] Comment on above: Result Comment: Elec tronically [...] Stiles FINAL REPORT Dictated: 06/02/2023 9:53 am Jsoe Gordon DO Signed (Electronic Signature): 06/02/2023 9:53 am Signed by: Jose Gordon DO Transcribed by: CALLIE Technologist: JUAN Technical Comments Radiation Dose: Kar in mGy = na DAP = na Normal [facility] Consent for Treatmenton 05-10 Consent for Treatment [id number] IFF Normal [facility] Discharge Instructionson Discharge Instructions [id number]#1.00T IFF Normal [facility] ED Clinical Summaryon 2023 ED Clinical Summary [place] [id number] ED Clinical Summary Person Information Name: RUTHIE CORDERO [facility] Age: 58 Years : 1965 Sex: Female Language: Scottish PCP: GOOD TAYLOR CNP Marital Status: Visit [...] 06/01/2023 20:03:13 06/01/2023 20:03:13 06/01/2023 20:03:13 ADDRESS: [id number] [facility] [id number] [facility] DOC NOTES: MEDICAL INFORMATION: Prescriptions Given: [...] up: With: Address: When: Bertin DUMONT - [facility], [facility], [facility] [address], [place] [address] 0 Business (1) In 3 days 06/04/2023 DIAGNOSIS: Foot contusion Normal [facility] ED Patient Education Noteon 06-01-2023 ED Patient [...] may be recommended to support your foot. Zydg-idd-mgxeixr anti-inflammatory medicines may also be recommended for [...] or lying down. General instructions ? Take teva-kud-ahsssct and prescription medicines only as told by [...] Reviewed: 04/30/2021 Elsevier Patient Education ? 2022 [employer] Normal [facility] ED Patient Summaryon 024 ED Patient Summary (Inserted Image. Teresita ble to display) [address] [address] Patient Discharge Instructions Person Information Name: RUTHIE CORDERO Age: 58 Years Arrival Date: 06/01/2023 18:27:02 Discharge Diagnosis: Foot contusion Primary Care Physician: GOOD TAYLOR CNP Provider Information Primary Provider: Norman Chiu DO Advanced Sales Agent Protective Service:Dean Stiles PA-C The exam and treatment you received in the Emergency Department were for an urgent problem and are not intended as complete care. It is important that you follow up with a doctor, nurse practitioner, or physician?s construction administrative assistant for ongoing care. If your symptoms [...] Instructions: With: Address: When: Bertin DUMONT - [facility], [facility], [facility] [address], [place] [address] 0 Business (1) In 3 days 06/04/2023 In the event that this physician does not participate in your insurance network, please consult with your insurance company to find a nearby participating provider. Patient Education Materials: Foot Contusion A MESSAGE TO ALL PATIENTS REGARDING OPIOIDS PRESCRIPTION OPIOIDS: WHAT YOU NEED TO KNOW Prescription opioids can be used to help relieve rwrlqneq-uj-ufjipp pain and are often prescribed following a [...] be struggling with addiction, tell your health hearing healthcare practitioner and ask for guidance or call [facility]?Daily Funez (more content not included)... Normal [facility] Consent for Treatmenton Consent for Treatment [id number]#1.00T IFF Normal [facility] Discharge Instructionson Discharge Instructions [id number]#1.00T IFF Normal [facility] ED Clinical Summaryon 2023 ED Clinical Summary [address] [address] ED Clinical Summary Person Information Name: RUTHIE CORDERO [facility] Age: 57 Years : 1965 Sex: Female Language: Scottish PCP: GOOD TAYLOR CNP Marital Status: Visit [...] 05/14/2023 13:22:38 05/14/2023 13:22:38 05/14/2023 13:22:38 ADDRESS: [id number] [facility] [id number] PHYS DOC NOTES: MEDICAL INFORMATION: Prescriptions Given: New Medications [facility], [address] [place], [place] [phone], [phone] methylPREDNISolone (Medrol 4 mg Tab) 1 Packets [...] Follow up: With: Address: When: GOOD TAYLOR [address] [place] [address] Business (1) In 3 days 05/17/2023 Comments: Call the [...] symptoms. DIAGNOSIS: Acute foot pain Normal [facility] ED Note-Physicianon 05-14-19 ED Note-Physician Basic Information [...] on pain medication at home. Follow-up with deck cadet. Return precautions were discussed. All questions were answered. Patient was discharged home. Assessment/Plan Acute foot pain (M79.673: Pain in unspecified foot) Orders: methylPREDNISolone, = 1 packet(s), Oral, As Directed, as directed on package labeling, X 6 day(s), # 21 tab(s), Refills(s) 0, Pharmacy: [facility], 167, cm, 05/14/23 11:52:00 EDT, Height/Length [...] Directed Follow-up With When Contact Information GOOD TAYLOR In 3 days 05/17/[address] [place], [place] [phone] Business (1) Additional Instructions: Call the office [...] for (more content not included)... Normal [facility] Comment on above: Result Comment: Elec tronically Signed By: Freddy Means DO\.br\Date and Time [...] clean and dry. General instructions ? Take xbqe-gnl-ffheyec and prescription medicines only as told by [...] provider. Document Revised: 04/30/2021 Document Reviewed: 04/30/2021 LiquidSpace Patient Education ? 2022 [employer]. Normal [facility] ED Patient Summaryon 024 ED Patient Summary (Inserted Image. Teresita ble to display) [address] [address] Patient Discharge Instructions Person Information Name: RUTHIE CORDERO Age: 57 Years Arrival Date: 05/14/2023 11:44:19 Discharge Diagnosis: Acute foot pain Primary Care Physician: GOOD TAYLOR CNP Provider Information Primary Provider: Freddy Means DO Advanced Sales Agent Protective Service:None The exam and treatment you received in the Emergency Department were for an urgent problem and are not intended as complete care. It is important that you follow up with a doctor, nurse practitioner, or physician?s construction administrative assistant for ongoing care. If your symptoms [...] Follow-up Instructions: With: Address: When: GOOD TAYLOR [address] [place], [place] [phone] [facility] ([facility] In 3 days 05/17/2023 Comments: Call the [...] opioids can be used to help relieve blglxrzq-gp-coalun pain and are often prescribed following a [...] visitors, (more content not included)... Normal [facility] XR Foot 3+ Views Lefton 04-0 XR Foot 3+ Views Left Exam Date/Time: [...] mGy = na DAP = na Normal [facility] COVID/FLU RT-PCRon 3 SARS-CoV-2 (COVID-19) RNA EDWIN+probe Ql (Unsp spec) Positive Adiana Other COVID/FLU RT-PCR Outright [facility] Other Reference Laboratory Testing Ordered By: Elena Sierra on 09-07-2022 Test Name TOXASSURE FLEX Invalid Interpretation Code [facility] SendOutsSS XR Knee - right Single viewo n 06-26-2022 Radiology Study observation (narrative) [facility] IMPRESSION: Moderate to severe right patellofemoral degenerative arthritis. 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: DESHAWN Transcribe Date/Time: Jun 26 2022 2:51P Dictated by : YADI CANAS MD This examination was interpreted and the report reviewed and electronically signed by: YADI CANAS MD on Jun 26 2022 2:52PM [facility] DIVISION OF RADIOLOGY * * *Final Report* * * DATE OF EXAM: Jun 26 2022 2:46PM LZX 5211 - XR KNEE SPECIFY 1V RT / PROCEDURE REASON: Contusion of right knee, initial encounter * * * * Physician Interpretation * * * * HISTORY: Contusion of right knee, initial encounter . TECHNIQUE: XR KNEE SPECIFY 1V RT Laterality: BILATERAL Number of different views (projections): 1 COMPARISON: Radiographs dated 07/04/2019 RESULT: Incomplete evaluation of the left total knee arthroplasty. There is no acute fracture or dislocation. There has been no appreciable progression of the right patellofemoral degenerative arthritis with moderate to severe joint space narrowing and marginal osteophytes. There is no soft tissue swelling. No other significant abnormality. DIVISION OF RADIOLOGY Provider, Omar Ahn - 06/26/2022 * * *Final Report* * * DATE OF EXAM: Jun 26 2022 2:46PM LZX 5211 - XR KNEE SPECIFY 1V RT / PROCEDURE REASON: Contusion of right knee, initial encounter * * * * Physician Interpretation * * * * HISTORY: Contusion of right knee, initial encounter . TECHNIQUE: XR KNEE SPECIFY 1V RT Laterality: BILATERAL Number of different views (projections): 1 COMPARISON: Radiographs dated 07/04/2019 RESULT: Incomplete evaluation of the left total knee arthroplasty. There is no acute fracture or dislocation. There has been no appreciable progression of the right patellofemoral degenerative arthritis with moderate to severe joint space narrowing and marginal osteophytes. There is no soft tissue swelling. No other significant abnormality. IMPRESSION IMPRESSION: Moderate to severe right patellofemoral degenerative arthritis. 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: PSCBritni Transcribe Date/Time: Jun 26 2022 2:51P Dictated by : YADI CANAS MD This examination was interpreted and the report reviewed and electronically signed by: YADI CANAS MD on Jun 26 2022 2:52PM [facility] XR Knee - right Single viewO rdered By: Cc Provider on 06-26-2022 [facility] MM screening mammo BI w/CADo n 05-16-2021 MM screening mammo BI w/[place] [address] Mammography Report Signed Patient: Ruthie Cordero MR#: [id number] : 1965 Acct:[id number] Age/Sex: 55 / F ADM Date: 05/16/21 Loc: [place] Room: Type: [facility] Attending Dr: Pavithra Briseno ([facility]) CAROLYN Ordering Provider: Pavithra Briseno APRN, [facility] Date of Service: 05/16/21 MM/MM screening mammo BI w/CAD: Z12.31 [facility], [facility] B[facility] Screening Full Field digital mammogram with [...] Ryder Romero M.D.05/16/2021 9:05 AM Dictation Location: [facility] Transcribed By: JIM 05/16/21904 Dictated By: Ryder Romero DO 05/16/21903 Signed By: 05/16/21904 [facility] CNOVon 07-25-2019 CNOV Office Visit (LOORRM ) RUTHIE CORDERO ([id number]) 1965 F Date Time Provider Department 07/25/19 9:20 AM SENA LICONA) CRISTINA During your visit today, we recorded the following information about you: Sena Licona PA-C 07/25/2019 9:09 AM Signed Ortho Knee Follow Up Note Narrative Referring Provider: Miguel Angel Ponce MD [address] [facility] [address] PCP: Estela Sorto MD ===== IMPRESSION/PLAN: ===== [...] Status:Closed by SENA LICONA PA-C on 07/25/19 [facility] PROGRESSon 07-25-2019 PROGRESS HNO ID: [id number] Author: Sena Licona (Pa) Service: ? Author Type: Physician Diagnostic Technician Type: Progress Notes Filed: 07/25/2019 9:09 AM Note Text: Ortho Knee Follow Up Note Narrative Referring Provider: Miguel Angel Ponce MD [address] [facility] [place] [address] PCP: Estela Sorto MD ===== IMPRESSION/PLAN: ===== [...] today. Provider: Sena Licona PA-C Completed by: ANTONY Vazquez [facility] Tanya 07-04-2019 CNOV Office Visit (LOORRM ) MARCELINARUTHIE Hudson ([id number]) 1965 F Date Time Provider Department 07/04/19 11:00 AM SENA LICONA) LOORRM During your visit today, we recorded the following information about you: Sena Licona PA-C 07/04/2019 11:23 AM Signed Ortho Knee Follow Up Note Narrative Referring Provider: Miguel Angel Ponce MD [address] [place] [address] PCP: Estela Sorto MD ===== IMPRESSION/PLAN: ===== [...] state [Z98.890] Order(s):XR KNEE POST OP 3V AP/LAT/ LT [4720584] Order #: [id number] FUTURE CONSULT TO PHYSICAL THERAPY [9066] Order #: [id number]: 1 FUTURE HYDROcodone-acetaminoph en (NORCO) 5-325 mg [...] Status:Closed by SENA LICONA PA-C on 07/04/19 Normal [facility] PROGRESSon 07-04-2019 PROGRESS HNO ID: [id number] Author: Pretty Hudson (Rt) Service: ? Author Type: Parts Manager Type: Progress Notes Filed: 07/04/2019 11:00 AM [...] Rosa Olivo July 04, 2019 10:59 AM [facility] PROGRESS HNO ID: [id number] Author: Sena Licona (Pa) Service: ? Author Type: Physician Diagnostic Technician Type: Progress Notes Filed: 07/04/2019 11:23 AM Note Text: Ortho Knee Follow Up Note Narrative Referring Provider: Miguel Angel Ponce MD [address] [facility] [address] PCP: Estela Sorto MD ===== IMPRESSION/PLAN: ===== [...] PA-C Completed by: Sena Licona PA-C Normal [facility] XR KNEE 3V AP/LAT/MERCHANT L Ton [...] Interval total left knee arthroplasty without complication. 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: PSCB Transcribe Date/Time: Jul 04 2019 11:07A Dictated by : ONEAL ALONSO MD This examination was interpreted and the report reviewed and electronically signed by: JUSTINO URIBE MD on Jul 04 2019 2:01PM EST [id number] Normal [facility] OBSOLETEon 06-27-2019 OBSOLETE Refill (LOORRM) RUTHIE CORDERO Becca ([id number]) 1965 F Date Time Provider Department 06/27/19 [...] Encounter Status:Closed by LILY KISER on 06/27/19 [facility] OBSOLETEon 06-23-2019 OBSOLETE Refill (LOORRM) RUTHIE CORDERO ([id number]) 1965 F Date Time Provider Department 06/23/19 MIGUEL ANGEL PONCE During your visit today, we recorded the following information about you: Ryder Dougherty 06/23/2019 8:46 AM Signed Requestor:Patient Patient is [...] Patient has 5 doses remaining. Pharmacy is [facility] [place] [address] [address] [facility] E??- [phone]. Patient can be reached at [phone]. Please advise. Miguel Angel Ponce MD 06/23/2019 8:56 AM Signed PDMP website checked and validated. All prescriptions have been APPROPRIATELY filled. No suspicious activity was identified. 06/23/2019 by Miguel Angel Ponce MD Rx for [place] has been approved and sent to patient's preferred pharmacy. Allergies As of Date: 06/23/2019 Noted Allergy Reaction GUAIFENESIN 05/02/2019 7 - Swelling TORADOL (KETOROLAC) 05/02/2019 9 - Itching TRAMADOL 03/20/2014 4 - Hives 9 - Itching Date Reviewed: 06/15/2019 Reviewed by: Brenda (Rn) Muc, RN - Fully Assessed Reason for Visit: [...] by MIGUEL ANGEL PONCE MD on 06/23/19 [facility] Fernando [facility]-19-[facility] RUTHIE CORDERO ([id number]) 1965 F Date Time Provider Department 06/19/19 [...] soon after surgery. Please call [facility] at [phone] Sena Licona PA-C 06/19/2019 3:47 PM Signed [...] discoid [L93.0] More... DVT (deep venous thrombosis) ([facility]) [I82.409] 2012 More... HTN (hypertension) [I10] More... [...] Narcotic medication dose and quantity may exceed [facility] limits due to the medical necessity for [...] Status:Closed by SENA LICONA PA-C on 06/19/19 [facility] OBSOLETEon 06-19-2019 OBSOLETE Refill (LOORRM) RUTHIE CORDERO ([id number]) 1965 F Date Time Provider Department 06/19/19 [...] Narcotic medication dose and quantity may exceed [facility] limits due to the medical necessity for post operative pain control required for the surgical procedure performed on Ruthie CORDERO June 14, 2019. Route: ORAL Sig: Take 1-2 tablets by mouth every 3 hours as needed for up to 7 days. Disc: Reason for discontinue is not on file. Encounter Status:Closed by SENA LICONA PA-C on 06/19/19 Normal [facility] Basic Metabolic Panlon 06-14 Anion gap [Moles/Vol] 12 mmol/L Normal 9-18 [facility] Calcium [Mass/Vol] 8.5 mg/dL Normal 8.5-10.2 [facility] Chloride [Moles/Vol] 100 mmol/L Normal 97-105 [facility] CO2 [Moles/Vol] 26 mmol/L Normal 22-30 [facility] Creatinine [Mass/Vol] 0.72 mg/dL Normal 0.58-0.96 [facility] eGFR- Amer. >60 Normal [facility] GFR/1.73 sq M predicted among non-blacks MDRD (S/P/Bld) [Vol rate/Area] mL/min/{1.73_m2} Normal [facility] Comment on above: Result Comment: eGFR [...] GFR. Glucose [Mass/Vol] 117 mg/dL High 74-99 [facility] Comment on above: Result Comment: The [place] Diabetes Association (ADA) provides guidance for cutoff [...] Standards of Medical Care in Diabetes 2016, [place] [employer] Association. Diabetes Care. 2016.39(Suppl 1). Potassium [Moles/Vol] 4.0 mmol/L Normal 3.7-5.1 [facility] Sodium [Moles/Vol] 138 mmol/L Normal 136-144 [facility] Urea nitrogen [Mass/Vol] 7 mg/dL Normal 7-21 [facility] CASE MANAGEMon 06-15-2019 CASE MANAGEM HNO ID: [id number] Author: Kate CoteRn) FELIPA Sanchez Service: Care Management Author Type: Registered Nurse Type: Care Mgt Progress Note Filed: 06/15/2019 12:58 PM Note Text: CARE MANAGEMENT DISCHARGE NOTE SERVICE DATE: 06/15/2019 SERVICE TIME: 12:57 PM LOS: 0 days Admission Date: 06/14/2019 DISCHARGE ARRANGEMENT (list agency and phone number) Discharge Arrangement: Home Chcf Care: PT CAREGIVER ASSESSMENT: Caregiver is ready, [...] Handoff to: Other Caregiver Other Caregiver Name/Phone: [employer] TRANSPORTATION ARRANGEMENTS: Transportation Arrangements: Car Discharge Information Row Name Admission (Discharged) from 06/14/[address] [facility] SIGNATURE: Kate Sanchez RN PATIENT NAME: Ruthie CORDERO DATE: June 15, 2019 TIME: 12:57 PM PAGER/CONTACT #: [phone] [facility] CASE MANAGEM HNO ID: [id number] Author: Kate (Rn) FELIPA Sanchez Service: Care Management Author Type: Registered Nurse Type: Care Mgt Progress Note Filed: 06/15/2019 9:21 AM Note Text: CARE MANAGEMENT PROGRESS NOTE SERVICE DATE: 06/15/2019 SERVICE TIME: 9:21 AM LOS: 0 days [place] [facility] Choice Given: Yes Level of Care Discussed: Home Care Financial Disclosure Provided: No Financial Disclosure Comments: Count Includes [facility] unable to accept. pt would like to use [facility]. Referral sent. SIGNATURE: Kate Sanchez RN PATIENT NAME: Ruthie CORDERO DATE: June 15, 2019 TIME: 9:21 AM PAGER/CONTACT #: [phone] [facility] CBCon 06-15-2019 Absolute nRBC <0.01 [facility] width (RBC) [Ratio] 12.5 % Normal 11.5-15.0 [facility] Hematocrit (Bld) [Volume fraction] 32.8 % Low 36.0-46.0 [facility] Hemoglobin (Bld) [Mass/Vol] 10.9 g/dL Low 11.5-15.5 [facility] MCH (RBC) [Entitic mass] 31.0 pG Normal 26.0-34.0 [facility] MCHC (RBC) [Mass/Vol] 33.2 g/dL Normal 30.5-36.0 [facility] MCV (RBC) [Entitic vol] 93.2 fL Normal 80.0-100.0 [facility] Platelet mean volume (Bld) [Entitic vol] 10.7 fL Normal 9.0-12.7 [facility] Platelets (Bld) [#/Vol] 263 10*3/uL Normal 150-400 [facility] RBC (Bld) [#/Vol] 3.52 10*6/uL Low 3.90-5.20 [facility] WBC (Bld) [#/Vol] 8.63 10*3/uL Normal 3.70-11.00 [facility] NURSING PROGon 06-15-2019 NURSING PROG HNO ID: [id number] Author: Brenda (Rn) Coral RN Service: Nursing Author Type: Registered Nurse Type: Nursing Progress Note Filed: 06/15/2019 11:35 AM Note Text: Nursing Progress Note Patient Name: Ruthie CORDERO [facility] Daily Note:assumed care of pt, pt awake alert x 3, pt medicated for pain shift change, aquacell dressing left knee dry intact,slight weakness noted left upper extremity baseline per pt, pt up to bathroom assist of walker, now up in chair working with OT, will continue to monitor pt 1134 discharge instructions completed pt waiting for ride This note was completed by: Brenda Moncada, RN Normal [facility] PLAN OF CAREon 06-15-2019 PLAN OF CARE HNO ID: [id number] Author: Michelle Handley (Gold Reclaimer) Service: ? Author Type: Parts Manager Type: Plan of Care Filed: 06/15/2019 3:12 [...] tablet Commonly known as: PERCOCET Michelle Handley ([place]) PAGER: rajesh June 15, 2019 3:12 PM [facility] PROGRESSon 06-15-2019 PROGRESS HNO ID: [id number] Author: Sena Landers) Livan Service: Orthopaedic Surgery Author Type: Physician Diagnostic Technician Type: Progress Notes Filed: 06/15/2019 8:51 AM [...] Management for discharge planning - home with [facility] home after PT evaluation ACTIVE PROBLEM LIST [...] 06/26/19 1659 06/14/19 1215 pneumatic compression stockings (in,hi) 06/14/19 1215 graduated compression stockings (in,hi) VTE Prophylaxis: VTE prophylaxis appropriate POST OPERATIVE COMPLICATIONS: Complicated by: uneventful/none SIGNATURE: Sena Licona PA-C PATIENT NAME: Ruthie CORDERO DATE: June 15, 2019 TIME: 8:50 AM PAGER/CONTACT #: [phone] [facility] THERAPY NTon 06-15-2019 THERAPY NT HNO ID: [id number] Author: Chaka Ramos Service: Physical Therapy Author Type: Physical Therapist Type: Therapy (PT/OT/Speech/Resp) Filed: 06/15/2019 11:31 AM Note Text: Physical Therapy Treatment SERVICE DATE: 06/15/2019 SERVICE TIME: 1025 to 1050 ROOM: [place] [address] Recommended Discharge Disposition: Home PT Anticipated Discharge [...] mobility-other;Muscle Weakness (generalized) Interventions Provided: Therapeutic Exercise (18167);Gait Training (24668) Therapeutic Exercise (83789) Treatment Minutes: 10 1 unit Skilled Intervention(s): [...] holding times as listed above. Gait Training (61739) Treatment Minutes: 15 1 unit Skilled Intervention(s): [...] June 15, 2019 TIME: 11:02 AM Normal [facility] THERAPY NT HNO ID: [id number] Author: Nancy (Ot) Alicja Service: ? Author Type: Occupational Therapist Type: Therapy (PT/OT/Speech/Resp) Filed: 06/15/2019 10:27 AM Note Text: Occupational Therapy Evaluation SERVICE DATE: 06/15/2019 SERVICE TIME: 844 to 929 ROOM: [place] [address] Recommended Discharge Disposition: Home Anticipated Discharge Needs: [...] symptoms and signs-other;Difficulty walking-musculoskeletal Interventions Provided: Evaluation;Self Chcf Management (48066) $ Evaluation-Low (89099) Billed Units: 1 unit Self Chcf Management (36113) Treatment Minutes: 30 2 units Skilled Intervention(s): [...] DATE: June 15, 2019 TIME: 9:58 AM [facility] ANES POSTPROC EVALon 020 ANES POSTPROC EVAL HNO ID: [id number] Author: Christy Gutierrez Service: ? Author Type: [...] June 14, 2019 TIME: 11:54 AM CSN: [id number] [facility] ANES PRE-OPon 06-14-2019 ANES PRE-OP HNO ID: [id number] Author: Christy Gutierrez Service: ? Author Type: [...] June 14, 2019 TIME: 7:53 AM CSN: [id number] [facility] BRIEF OP NOTon 06-14-2019 BRIEF OP NOT HNO ID: [id number] Author: Miguel Angel Ponce Service: Orthopaedic Surgery Author Type: Physician Type: Brief Op Note Filed: 06/14/2019 10:52 AM Note Text: TOTAL KNEE ARTHROPLASTY BRIEF OPERATIVE / PROCEDURE NOTE LOG ID: [id number] Surgery/Procedure Date: 06/14/2019 Incision/Procedure Start Time: 9:33 AM Incision Close/Procedure End Time: 10:47 AM Surgeon(s)/Proceduralis t(s) and Diagnostic Technician(s): Surgeon(s) and Role: * Miguel Angel Ponce - Primary Physician Diagnostic Technician: Sena Licona (Pa) Procedure(s): Procedure(s) (LRB): ARTHROPLASTY [...] 14, 2019 TIME: 10:50 AM PAGER/CONTACT #: [facility] CASE MGT INIT ASSES 2019 CASE MGT INIT ASS HNO ID: [id number] Author: Kate Jones) Laura, RN Service: Care Management Author Type: Registered Nurse Type: Care Mgt Initial Assessment Filed: 06/14/2019 3:43 PM Note Text: CARE MANAGEMENT: ASSESSMENT AND DISCHARGE PLAN SERVICE DATE: June 14, 2019 SERVICE TIME: 3:42 PM PRIMARY CARE PHYSICIAN: Estela Sorto MD ADMISSION STATUS: Extended Recovery MEDICAL: [employer] MEDICAID Patient/Supervisor Plate Pasting Stated Goals: To have reduction in pain;To have reduction in symptoms;To improve my functional status;To return home to life as it was Health Insurance: None Health Issues Impacting Discharge Plan: Newly diagnosed Newly Diagnosed: knee replacement Last Discharge Date: N/A Is this Within the Past 30 days? Last discharge within 30 days: No Advance Directive: Current Advance Directive: Health Care Power of Pick Up Truck Driver;Living Will In Chart: No Rack Loader Attempted to Assist with AD Completion: Yes [...] Information Primary Emergency Contact: Chapin Child Address: [address] [place] [address] [facility] Mobile Relation: Significant other Supportive Patient Contact:: Yes Contact Resources: (Chuchris) Social Needs Food insecurity Worry: Never true [...] Completely I feel financially burdened by my gqr-es-oxwvct expenses for my prescription medication:: 0 - Disagree Completely Risk Score: 0 Patient is categorized as: Low risk < 2 Are you interested in bedside delivery of your medications? Yes Is Patient Psychosocially Complex?: No ASSESSMENT AND PLAN: Medical Needs: Medical Needs: None Psychosocial Needs: Psychosocial Needs: None FREEDOM OF CHOICE EXPLAINED: [place] of Choice Given: Yes Level of Care Discussed: Home Care Financial Disclosure Provided: No Financial Disclosure Comments: Pt would like to use [facility]. Declines list POTENTIAL TRANSITION PLANS Home Care Pt from home with gerardo and his mother. Pt independent. Pt has equipment. Referral to [facility] SIGNATURE: Kate Sanchez RN PATIENT NAME: Ruthie CORDERO DATE: June 14, 2019 TIME: 3:42 PM PAGER/CONTACT #: [phone] [facility] NURSING PROGon 06-14-2019 NURSING PROG HNO ID: [id number] Author: Ophelia Jones) FELIPA Savage Service: Nursing Author Type: Registered Nurse Type: Nursing Progress Note Filed: 06/14/2019 12:12 PM Note Text: Nursing Progress Note Patient Name: Ruthie CORDERO [facility] Transfer Note: Patient transferred into room/unit 06-13 in stable condition. Actions taken: Patient belongings with patient This note was completed by: Ophelia Savage RN [facility] OPERATIVE NOon 06-14-2019 OPERATIVE NO HNO ID: [id number] Author: Miguel Angel Ponce Service: Orthopaedic Surgery Author Type: Physician Type: Operative Report Filed: 06/15/2019 11:32 AM Note Text: [facility] - Operative Report RUTHIE CORDERO : 1965 AGE: 54. SEX: F PATIENT TYPE: A HOSP SVC: [facility] LOCATION: [facility] ATTENDING PHYSICIAN: Miguel Angel Ponce MD CSN NUMBER: [id number] DATE OF SURGERY/PROCEDURE: 06/14/2019 INCISION/PROCEDURE START TIME: 0933 hours. INCISION CLOSE/PROCEDURE END TIME: 1047 hours. PREOPERATIVE DIAGNOSIS: Left knee primary localized osteoarthritis. POSTOPERATIVE DIAGNOSIS: Left knee primary localized osteoarthritis. SURGEON: Miguel Angel Ponce MD HEAD RESIDENT: Sena MONSIVAIS. No qualified resident available. Ms. [...] patient was offered a surgery/procedure at a [facility]. The surgeon/proceduralist and patient have [...] result of the 04/25/19 order by [facility] Director Ruthie Zhou M.D. to cancel [...] None. SPECIMENS: None. COMPLICATIONS: None apparent. IMPLANTS: [employer] Triathlon uncemented knee system. A size #3 [...] with her family. Miguel Angel Ponce MD :[id number] /[id number] [facility] PT EDon 06-14-2019 PT ED HNO ID: [id number] Author: Lyubov Cortes (Rn) Sanjay RN Service: ? Author Type: Registered Nurse Type: [...] Signed By: Lyubov Grace RN In Department: [facility] SURGERY Normal [facility] THERAPY NTon 06-14-2019 THERAPY NT HNO ID: [id number] Author: Chaka (Pt) Richard Service: Physical Therapy Author Type: Physical Therapist Type: Therapy (PT/OT/Speech/Resp) Filed: 06/14/2019 2:27 PM Note Text: Physical Therapy Evaluation SERVICE DATE: 06/14/2019 SERVICE TIME: 1330 to 1405 ROOM: [place] [address] Recommended Discharge Disposition: Home PT Recommended Discharge [...] mobility-other;Muscle Weakness (generalized) Interventions Provided: Evaluation;Therapeutic Exercise (90664) $ Evaluation-Low (97050) Billed Units: 1 unit Therapeutic Exercise (79718) Treatment Minutes: 20 1 unit Skilled Intervention(s): [...] Diagnosis Date - DVT (deep venous thrombosis) ([facility]) 2012 s/p brain surgery left [...] June 14, 2019 TIME: 2:23 PM Normal [facility] APTTon 06-12-2019 aPTT Coag (Bld) [Time] 26.5 s Normal 23.0-32.4 [facility] Comment on above: Result Comment: Unfr [...] laboratory APTT reagent in use throughout the [facility]. Basic Metabolic Panlon 06-11 Anion gap [Moles/Vol] 11 mmol/L Normal 9-18 [facility] Calcium [Mass/Vol] 9.4 mg/dL Normal 8.5-10.2 [facility] Chloride [Moles/Vol] 105 mmol/L Normal 97-105 [facility] CO2 [Moles/Vol] 24 mmol/L Normal 22-30 [facility] Creatinine [Mass/Vol] 0.73 mg/dL Normal 0.58-0.96 [facility] eGFR- Amer. >60 Normal [facility] GFR/1.73 sq M predicted among non-blacks MDRD (S/P/Bld) [Vol rate/Area] mL/min/{1.73_m2} Normal [facility] Comment on above: Result Comment: eGFR [...] GFR. Glucose [Mass/Vol] 98 mg/dL Normal 74-99 [facility] Comment on above: Result Comment: The [place] Diabetes Association (ADA) provides guidance for cutoff [...] Standards of Medical Care in Diabetes 2016, [place] [employer]. Diabetes Care. 2016.39(Suppl 1). Potassium [Moles/Vol] 4.8 mmol/L Normal 3.7-5.1 [facility] Sodium [Moles/Vol] 140 mmol/L Normal 136-144 [facility] Urea nitrogen [Mass/Vol] 11 mg/dL Normal 7-21 [facility] CBC and Differentialon 06-11 Abs Baso 0.03 k/uL Normal <0.11 [facility] Abs [place] 0.63 k/uL Normal <0.87 [facility] Abs Neut 5.30 k/uL Normal 1.45-7.50 [facility] Absolute nRBC <0.01 Normal <0.01 [facility] Basophils/100 WBC (Bld) 0.4 % Normal [facility] DTYPE Auto Diff Normal [facility] Eosinophils (Bld) [#/Vol] 0.08 10*3/uL Normal <0.46 [facility] Eosinophils/100 WBC (Bld) 1.0 % Normal [facility] Erythrocyte distribution width (RBC) [Ratio] 12.4 % Normal 11.5-15.0 [facility] Hematocrit (Bld) [Volume fraction] 38.6 % Normal 36.0-46.0 [facility] Hemoglobin (Bld) [Mass/Vol] 12.6 g/dL Normal 11.5-15.5 [facility] Lymphocytes (Bld) [#/Vol] 2.31 10*3/uL Normal 1.00-4.00 [facility] Lymphocytes/100 WBC (Bld) 27.7 % Normal [facility] MCH (RBC) [Entitic mass] 30.4 pG Normal 26.0-34.0 [facility] MCHC (RBC) [Mass/Vol] 32.6 g/dL Normal 30.5-36.0 [facility] MCV (RBC) [Entitic vol] 93.2 fL Normal 80.0-100.0 [facility] Monocytes/100 WBC (Bld) 7.5 % Normal [facility] Neutrophils/100 WBC (Bld) 63.4 % Normal [facility] NRBCs 0.0 /100 WBC Normal 0 [facility] Platelet mean volume (Bld) [Entitic vol] 10.0 fL Normal 9.0-12.7 [facility] Platelets (Bld) [#/Vol] 324 10*3/uL Normal 150-400 [facility] RBC (Bld) [#/Vol] 4.14 10*6/uL Normal 3.90-5.20 [facility] WBC (Bld) [#/Vol] 8.35 10*3/uL Normal 3.70-11.00 [facility] Confirm Blood Typeon 020 ABO/RH(D) Negative Normal [facility] Comment on above: Performed By: #### C ONABO #### [facility] [address] [place], [place] [address] Coronavirus 2019on 0 COVID 19 Result CODE OFFICIAL Negative Normal Negative for COVID19 (SARS CoV2) by PCR. [facility] Comment on above: Result Comment: This test was developed and its performance characteristics determined by [facility]'s [facility] [place]. This test has been authorized by FDA under an Emergency Use Authorization (EUA). This test has been validated in accordance with the FDA's Guidance Document Policy for Diagnostics Testing in Laboratories Certified to Perform High Complexity Testing under CLIA prior to Emergency use Authorization for Coronavirus Disease 2019 during the Public Health Emergency issued on April 08, 2019. Performed By: #### C OVID ####[facility] [place], [place] [phone] COVID 19 Source CODE OFFICIAL Nasopharyngeal Swab Normal [facility] Comment on above: Performed By: #### C OVID ####[facility] [place], [place] [phone] HISTORY PHYSICALon 0 HISTORY PHYSICAL HNO ID: [id number] Author: Sammi Espinoza) Leann Service: ? Author Type: Nurse Specialist Type: [...] 30.6 Neuro: No history of TIA's, stroke, FITTER HAND tumor, impaired sensorium, hemiplegia, paraplegia or quadraplegia. 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 No history of respiratory/pulmonary symptoms or problems. Cardiovascular: Positive for: DVT/PE Left leg 2012 after brain surgery HTN takes med daily GI: No history of GI symptoms or problems. No history of esophageal varices, recent ascites, or ETOH greater than 2 drinks per day. : No history of dysuria, frequency or incontinence,, stones or chronic kidney disease STATIC BALANCER: Negative for abnormal vaginal bleeding, abnormal vaginal [...] voices comprehension and compliance. SIGNATURE: Sammi Noriega APRN.FITTER HAND PATIENT NAME: Ruthie CORDERO DATE: June 12, 2019 TIME: 8:12 AM PAGER/CONTACT #: [facility] NURSING PROGon 06-12-2019 NURSING PROG HNO ID: [id number] Author: Lois Nickerson (Rn) FELIPA Cruz Service: ? Author Type: Registered Nurse Type: Nursing Progress Note Filed: 06/12/2019 12:53 PM Note Text: PACC Nurse Progress Note History AND Physical: PACC Visit Date:06/12/2019 Original HANDP Date: N/A ED visit Date: N/A Outside HANDP Scanned Date: N/A Labs Within Last 6 Months: CBC: Date 06/11 BMP/CMP: Date 06/11 PT: Date 06/11 PTT: Date 06/11 UA: 06/11 Urine C+S: 06/11 TYPE AND SCREEN: 06/11 [place]: 06/11 OTHER TEST: COVID-scheduled to be done [...] Chart Check: IN PROGRES-labs pending ekg tracing braden Cruz RN June 12, 2019 11:41 AM Normal [facility] Protimeon 06-12-2019 PT Coag (PPP) [Time] 9.8 s Normal 9.7-13.0 [facility] PT Coag (PPP) [Time] s Low 0.9-1.3 [facility] Comment on above: Result Comment: Lulu min K Antagonist (VKA) Therapeutic Range: INR 2 to 3 (Target INR of 2.5) Note: For patients treated with VKA drugs, such as warfarin, the [place] [employer] 2012 Guideline recommends [...] Type and SCR (30D)on 020 ABO/RH(D) Negative [facility] Comment on above: Performed By: #### T SCR30 #### [facility] [address] [place] [phone] Urinalysis with Microscopico n 06-12-2019 Bilirubin, Urine Negative Normal Negative [facility] Comment on above: Performed By: #### U AWMIC ####[facility] [place] [phone] Clarity (U) Clear Normal Clear [facility] Comment on above: Performed By: #### U AWMIC ####[facility] [place] [phone] Color (U) Light Yellow Critically abnormal Yellow [facility] Comment on above: Performed By: #### U AWMIC ####[facility] [place], [place] [phone] Comments SEE COMMENT Normal [facility] Comment on above: Result Comment: N/A Performed By: #### U AWMIC ####[facility] [place] [phone] Epithelial cells LM.HPF (Urine sed) [#/Area] SEE COMMENT Normal [facility] Comment on above: Result Comment: Few Squamous Epithelial Cells Performed By: #### U AWMIC ####[facility] [phone] Glucose Ql (U) Negative Normal Negative [facility] Comment on above: Performed By: #### U AWMIC ####[facility] [place] [phone] Hemoglobin/Blood,U r Negative Normal Negative [facility] Comment on above: Performed By: #### U AWMIC ####[facility], [place] [phone] Ketones Ql (U) Negative Normal Negative [facility] Comment on above: Performed By: #### U AWMIC ####[facility] [phone] Leukest Negative Normal Negative [facility] Comment on above: Performed By: #### U AWMIC ####[facility]leveland[address] [place] [phone] Nitrite Ql (U) Negative Normal Negative [facility] Comment on above: Performed By: #### U AWMIC ####[place] [address] [place] [phone] pH (Bld) 6.0 Normal 5.0-8.0 [facility] Comment on above: Performed By: #### U AWMIC ####[place] [address] [address] [place] [phone] Protein (U) [Mass/Vol] Negative Normal Negative [facility] Comment on above: Performed By: #### U AWMIC ####[facility] [place] [phone] RBC (U) [#/Vol] 0-3 Normal 0-3 [facility] Comment on above: Performed By: #### U AWMIC ####[facility] [place] [phone] Specific [place], Ur 1.012 Normal 1.005-1.030 [facility] Comment on above: Performed By: #### U AWMIC ####[facility] [address]omin[address] [place] [phone] Urine Christopher Comment SEE COMMENT Normal [facility] Comment on above: Result Comment: N/A Performed By: #### U AWMIC ####[facility] [place], [place] [phone] Urobilinogen Qn (U) Negative Normal Negative [facility] Comment on above: Performed By: #### U AWMIC ####[facility] [place], [place] [phone] WBC (Bld) [#/Vol] 0-5 Normal 0-5 [facility] Comment on above: Performed By: #### U AWMIC ####[address] [phone] Urine Cultureon 06-12-2019 Bacteria identified Cx Nom (U) Sp. Request/Comment: - Specimen received in preservative Culture Result - No growth (<1,000 CFU/ml) Normal [facility] Comment on above: Performed By: #### U RCUL ####[facility] [place] [address] [phone] CNPNeena 06-08-2019 CNPN Telephone (ORAVON) RUTHIE CORDERO ([id number]) 1965 F Date Time Provider Department 06/08/19 [...] a result of the 04/25/19 order by [facility] Director Ruthie Zhou M.D. to cancel [...] knee [M17.12] Order(s):2019 CORONAVIRUS [SQCOVID] Order #: [id number] FUTURE CONSULT TO(TCI)PRE-OP CLEAR [8682013] Order #: [id number]: 1 TYPE + SCREEN,30 DAY [UDENRK38] Order #: [id number] FUTURE CONFIRM BLOOD TYPE [SQCONABO] Order #: [id number] FUTURE ACTIVATED PTT [SQPTT] Order #: [id number] FUTURE PROTHROMBIN TIME/PT [SQPT] Order #: [id number] FUTURE URINALYSIS WITH MICROSCOPIC [SQUAWMIC] Order #: [id number] FUTURE URINE CULTURE [SQURCUL] Order #: [id number] FUTURE CBC + DIFF [SQCBCDIF] Order #: [id number] FUTURE BASIC METABOLIC PNL [SQBMP] Order #: [id number] FUTURE Prescriptions as of 06/08/2019 Sig: OXYCODONE-ACETAMINOPHEN 5 MG-* LISINOPRIL 20 MG TABLET NAPROXEN 500 MG TABLET Problem List As Of Date 06/08/2019 Noted Resolved Internal derangement of left knee [M23.92] 05/22/2014 Primary osteoarthritis of left knee [M17.12] 12/11/2014 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 to [...] 06/09/2019 09:49 AM Modules accepted: [facility] ) RUTHIE CORDERO ([id number]) 1965 F Date Time Provider Department 03/31/19 8:45 AM MIGUEL ANGEL PONCE During your visit today, we recorded the following information about you: Miguel Angel Ponce MD 03/31/2019 2:15 PM Signed Established Patient Ortho Knee Consult Note ASSESSMENT AND PLAN Impression: Left Knee Severe Degenerative Osteoarthritis, Primary Ruthie Hudson SEVEROShaji has radiograph and physical exam evidence of [...] interfering with activities which include exercise, 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, participating in family activities, enjoying hobbies, walking [...] TIME: 8:38 AM Referring Provider: ESTELA SORTO [[id number]] Allergies As of Date: 03/31/2019 Noted Allergy Reaction TRAMADOL 03/20/2014 4 - Hives 9 - Itching Date Reviewed: 03/31/2019 Reviewed by: Miguel Angel Ponce - Fully Assessed Reason for Visit: Follow Up [171] Primary Visit Diagnosis:Primary osteoarthritis of left knee [M17.12] Other Visit Diagnoses:Chondromalaci a of left patella [M22.42] Patellofemoral stress syndrome of both knees [M22.2X1, M22.2X2] Order(s):SURGICAL REQUEST - ELECTIVE [[id number]] Order #: [id number]: 1 CONSULT TO(TCI)PRE-OP CLEAR [4030293] Order #: [id number]: 1 PATIENT PLACED ON JESUS TKA CARE PATH [[id number]] Order #: [id number]: 1 TYPE + SCREEN,30 DAY [RRULIW22] Order #: [id number] FUTURE CONFIRM BLOOD TYPE [SQCONABO] Order #: [id number] FUTURE ACTIVATED PTT [SQPTT] Order #: [id number] FUTURE PROTHROMBIN TIME/PT [SQPT] Order #: [id number] FUTURE URINALYSIS WITH MICROSCOPIC [SQUAWMIC] Order #: [id number] FUTURE URINE CULTURE [SQURCUL] Order #: [id number] FUTURE CBC + DIFF [SQCBCDIF] Order #: [id number] FUTURE STAPH AUREUS PCR [SQSAPCR] Order #: [id number] FUTURE BASIC METABOLIC PNL [SQBMP] Order #: [id number] FUTURE WALKER - FOLDING [59001596] Order #: [id number] RAISED TOILET SEAT [[id number]] Order #: [id number] BATH/SHOWER CHAIR [[id number]] Order #: [id number] Prescriptions as of 03/31/2019 Sig: OXYCODONE-ACETAMINOPHEN 5 MG-* LISINOPRIL 20 MG TABLET NAPROXEN 500 MG TABLET Problem List As Of Date 03/31/2019 Noted Resolved Internal derangement of left knee [M23.92] 05/22/2014 Primary osteoarthritis of left knee [M17.12] 12/11/2014 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, participating in family activities, enjoying hobbies, walking [...] Miguel Angel Ponce MD PATIENT NAME: Ruthie UREÑAKWAMEShaji DATE: March 31, 2019 TIME: 8:38 AM Normal [facility] Staph aureus PCRon 0 MRSA PCR Negative Normal [facility] Comment on above: Performed By: #### S APCR ####[place] [address] [place], [place] [phone] S aureus Spec Source Nasal Normal [facility] Comment on above: Performed By: #### S APCR ####[facility] [address] [place], [place] [phone] Staph aureus PCR Negative Normal [facility] Comment on above: Performed By: #### S APCR ####[facility] [address] [place], [place] [phone] CNOVon 01-27-2019 [facility] Office Visit (LOORRM ) RUTHIE CORDERO ([id number]) 1965 F Date Time Provider Department 01/27/19 11:00 AM [facility] JAYRO EVANS During your visit today, we recorded the following information about you: Vielka Dick Ma 01/27/2019 2:11 PM Signed Dispensed Large Medial housekeeping coordinator OA Reaction brace for the Left knee. Dispensed by [facility] Supervisor Plate Pasting. Instructions were given on application/adjustments . Will [...] Status:Closed by VIELKA DICK MA on 01/27/19 [facility] CNOV Office Visit (LOORRM ) RUTHIE CORDERO ([id number]) 1965 F Date Time Provider Department 01/27/19 [...] of these instructions. Referring Provider: ESTELA SORTO [[id number]] Allergies As of Date: 01/27/2019 Noted Allergy [...] M22.2X2] Order(s):Large Joint Arthro/Inj: L knee joint [[id number]] Order #: [id number] KNEE BRACE-J [[id number]] Order #: [id number] hylan G-F 20 48 mg/6 mL 48 [...] Status:Closed by MIGUEL ANGEL PONCE MD on 12/20/19 Normal [facility] PROGRESSon 12-20-2019 PROGRESS HNO ID: [id number] Author: Vielka Dick Ma Service: ? Author Type: ? Type: Progress Notes Filed: 01/27/2019 2:11 PM Note Text: Dispensed Large Medial housekeeping coordinator OA Reaction brace for the Left knee. Dispensed by [facility] Supervisor Plate Pasting. Instructions were given on application/adjustments . Will f/u as scheduled/prn. Vielka Dick MA,ROT Normal [facility] PROGRESS HNO ID: [id number] Author: Miguel Angel Ponce Service: Orthopaedic Surgery Author Type: Physician Type: Progress Notes Filed: 02/02/2019 11:25 AM Note Text: [facility] [address] [place], [place] [address] CLINIC NOTE Department of Orthopaedics - Chel Ponce M.D. NAME: RUTHIE CORDERO CLINIC NO.: [id number] DATE OF SERVICE: 01/27/2019 HISTORY: Patient is [...] Ponce M.D. Date Dictated: 01/27/2019 Date Typed: [facility] 01/27/2019 JOB# [id number] [facility] PROGRESS HNO ID: [id number] Author: Miguel Angel Ponce Service: ? Author [...] the patient voiced understanding of these instructions. [facility] PROGRESS HNO ID: [id number] Author: Vik (Rt) Vipul Li Service: ? Author Type: Parts Manager Type: Progress Notes Filed: 01/27/2019 10:51 AM [...] RT Britni January 27, 2019 10:50 AM [facility] XR KNEE 4V AP/PA BOTH+LAT/ME R [...] CHANGES IS PROGRESSED SINCE THE PREVIOUS EXAM. 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: [employer] Transcribe Date/Time: Jan 27 2019 3:49P Dictated by : CLIF MORALES MD This examination was interpreted and the report reviewed and electronically signed by: CLIF MORALES MD on Jan 27 2019 3:51PM EST [id number] Normal [facility] CNOVon 11-11-2018 CNOV Office Visit (LOORRM ) RUTHIE CORDERO ([id number]) 1965 F Date Time Provider Department 11/11/18 [...] MIGUEL ANGEL PONCE MD on 11/11/18 Normal [facility] PROGRESSon 11-11-2018 PROGRESS HNO ID: [id number] Author: Miguel Angel Ponce Service: Orthopaedic Surgery Author Type: Physician Type: Progress Notes Filed: 11/22/2018 8:34 AM Note Text: [facility] [address] [place] [address] CLINIC NOTE Department of Orthopaedics - Chel Ponce M.D. NAME: RUTHIE CORDERO CLINIC NO.: [id number] DATE OF SERVICE: 11/11/2018 HISTORY: Patient follows [...] Ponce M.D. Date Dictated: 11/11/2018 Date Typed: [facility] 11/11/2018 JOB# [id number] [facility] CNOVon 09-09-2018 CNOV Office Visit (LOORRM ) MARCELINARUTHIE ([id number]) 1965 F Date Time Provider Department 09/09/18 10:45 AM SENA LICONA (TESS) LOORRBecca During your visit today, we recorded [...] M22.42 PROCEDURE NOTE: Ruthie CORDERO Medical Record: [id number] ? Provider : Sena Liocna PA-C [facility] ? Prior to the procedure, the [...] BUILDER 09/09/2018 09/09/2018 Class: Suppress Questions Route: [facility] Encounter Status:Closed by SENA LICONA PA-C on 09/09/18 Normal [facility] PROGRESSon 09-09-2018 PROGRESS HNO ID: [id number] Author: Sena Licona (Pa) Service: ? Author Type: Physician Diagnostic Technician Type: Progress Notes Filed: 09/09/2018 10:22 AM [...] M22.42 PROCEDURE NOTE: Ruthie CORDERO Medical Record: [id number] ? Provider : Sena Licona PA-C [facility] ? Prior to the procedure, the [...] as symptoms dictate. Sena Licona PA-C Normal [facility] Vital Signs Date Time Vital Sign Value Performing Clinician Facility 12-08-2023 12:51-0400 Body temperature 97.7 [degF] [facility] 12-08-2023 12:51-0400 Diastolic blood pressure 88 mm[Hg] [facility] 12-08-2023 12:51-0400 Heart rate 87 /min [facility] 12-08-2023 12:51-0400 Respiratory rate 18 /min [facility] 12-08-2023 12:51-0400 SaO2% (BldA) [Mass fraction] 99 % [facility] 12-08-2023 12:51-0400 Systolic blood pressure 148 mm[Hg] [facility] 08-27-2023 09:05-0400 Blood Pressure Location Sammi Brumfield [facility] 08-27-2023 09:05-0400 Body temperature 98.24 [degF] Sammi Brumfield [facility] 08-27-2023 09:05-0400 Diastolic blood pressure 86 mm[Hg] Sammi Brumfield [facility] 08-27-2023 09:05-0400 Heart rate 69 /min Sammi Brumfield [facility] 08-27-2023 09:05-0400 SaO2% (BldA) [Mass fraction] 99 % Sammi Brumfield [facility] 08-27-2023 09:05-0400 Systolic blood pressure 124 mm[Hg] Sammi Brumfield [facility] 06-01-2023 18:49-0400 Body temperature 98.78 [degF] Norman Chiu [facility] 06-01-2023 18:49-0400 Diastolic blood pressure 85 mm[Hg] Norman hCiu [facility] 06-01-2023 18:49-0400 Heart rate 98 /min Norman Chiu [facility] 06-01-2023 18:49-0400 Respiratory rate 18 /min Norman Chiu [facility] 06-01-2023 18:49-0400 SaO2% (BldA) [Mass fraction] 99 % Norman Chiu [facility] 06-01-2023 18:49-0400 Systolic blood pressure 121 mm[Hg] Norman Chiu [facility] 05-14-2023 11:48-0400 Body temperature 97.88 [degF] Freddy Means [facility] 05-14-2023 11:48-0400 Diastolic blood pressure 92 mm[Hg] Freddy Means [facility] 05-14-2023 11:48-0400 Heart rate 88 /min Freddy Means [facility] 05-14-2023 11:48-0400 Respiratory rate 18 /min Freddy Means [facility] 05-14-2023 11:48-0400 SaO2% (BldA) [Mass fraction] 100 % Freddy Miguelangel [facility] 05-14-2023 11:48-0400 Systolic blood pressure 148 mm[Hg] Freddy Miguelangel [facility] 01-25-2023 09:25-0500 Body height 167.64 cm Jet Peresaker Other [facility] 01-25-2023 09:25-0500 Body mass index (BMI) [Ratio] 26.63 kg/m2 Jet Peresaker Other [facility] 01-25-2023 09:25-0500 Body temperature 98 [degF] Jet Peresaker Other [facility] 01-25-2023 09:25-0500 Body weight 74.84 kg Jet Peresaker Other [facility] 01-25-2023 09:25-0500 Respiratory rate 18 /min Jet Peresaker Other [facility] 01-25-2023 09:25-0500 SaO2% (BldA) [Mass fraction] 97 % Jet Peresaker Other [facility] 10-26-2022 08:50-0400 Diastolic blood pressure 103 mm[Hg] Mariama Wheebox [facility] 10-26-2022 08:50-0400 Heart rate 62 /min Mariama Wheebox [facility] 10-26-2022 08:50-0400 Mean blood pressure 116 mm[Hg] Mariama Wheebox [facility] 10-26-2022 08:50-0400 Respiratory rate 18 /min Mariama Mesa [facility] 10-26-2022 08:50-0400 Systolic blood pressure 142 mm[Hg] Mariama Mesa [facility] 10-13-2022 15:00-0400 Heart rate 73 /min Gerard Leidy [facility] 10-13-2022 15:00-0400 SaO2% (BldA) [Mass fraction] 98 % Gerard Leidy [facility] 10-13-2022 15:00-0400 Diastolic blood pressure 83 mm[Hg] Gerard Leidy [facility] 10-13-2022 15:00-0400 Mean blood pressure 100 mm[Hg] Gerard Leidy [facility] 10-13-2022 15:00-0400 Systolic blood pressure 135 mm[Hg] Gerard Leidy [facility] 10-13-2022 14:59-0400 Respiratory rate 16 /min Gerard Leidy [facility] 10-13-2022 14:53-0400 Diastolic blood pressure 91 mm[Hg] Gerard Leidy [facility] 10-13-2022 14:53-0400 Heart rate 85 /min Gerard Leidy [facility] 10-13-2022 14:53-0400 Respiratory rate 14 /min Gerard Leidy [facility] 10-13-2022 14:53-0400 SaO2% (BldA) [Mass fraction] 97 % Gerard Leidy [facility] 10-13-2022 14:53-0400 Systolic blood pressure 145 mm[Hg] Gerard Leidy [facility] 10-13-2022 14:21-0400 Heart rate 79 /min Gerard Forbes [facility] 10-13-2022 14:21-0400 SaO2% (BldA) [Mass fraction] 99 % Gerard Forbes [facility] 10-13-2022 14:20-0400 Diastolic blood pressure 88 mm[Hg] Gerard Forbes [facility] 10-13-2022 14:20-0400 Mean blood pressure 104 mm[Hg] Gerard Forbes [facility] 10-13-2022 14:20-0400 Systolic blood pressure 137 mm[Hg] Gerard Forbes [facility] 10-13-2022 14:20-0400 Body temperature 97.88 [degF] Gerard Forbes [facility] 10-13-2022 14:20-0400 Respiratory rate 15 /min Gerard Forbes [facility] 09-22-2022 09:23-0400 Diastolic blood pressure 88 mm[Hg] Mariama Wheebox [facility] 09-22-2022 09:23-0400 Heart rate 69 /min Mariama Wheebox [facility] 09-22-2022 09:23-0400 Mean blood pressure 105 mm[Hg] Mariama Wheebox [facility] 09-22-2022 09:23-0400 Respiratory rate 15 /min Mariama Wheebox [facility] 09-22-2022 09:23-0400 Systolic blood pressure 139 mm[Hg] Mariama Wheebox [facility] 09-07-2022 13:06-0400 Diastolic blood pressure 73 mm[Hg] Mariama Wheebox [facility] 09-07-2022 13:06-0400 Heart rate 91 /min Mariama Mesa [facility] 09-07-2022 13:06-0400 Mean blood pressure 88 mm[Hg] Mariama Mesa [facility] 09-07-2022 13:06-0400 Respiratory rate 14 /min Mariama Smithton [facility] 09-07-2022 13:06-0400 Systolic blood pressure 118 mm[Hg] Mariama Mesa Ferevo [facility] 10-28-2021 14:09-0400 Body temperature 98.24 [degF] [facility] 10-28-2021 14:09-0400 Diastolic blood pressure 93 mm[Hg] [facility] 10-28-2021 14:09-0400 Heart rate 79 /min [facility] 10-28-2021 14:09-0400 Respiratory rate 18 /min [facility] 10-28-2021 14:09-0400 SaO2% (BldA) [Mass fraction] 97 % [facility] 10-28-2021 14:09-0400 Systolic blood pressure 141 mm[Hg] [facility] 06-16-2021 10:30-0400 Body height 167.64 cm Jet Douglass Other [facility] Other 06-16-2021 10:30-0400 Body mass index (BMI) [Ratio] 26.63 kg/m2 Jet Douglass Other [facility] Other 06-16-2021 10:30-0400 Body temperature 97.9 [degF] Jet Douglass Other [facility] Other 06-16-2021 10:30-0400 Body weight 74.84 kg Jet Douglass Other [facility] Other 06-16-2021 10:30-0400 Respiratory rate 18 /min Jet Douglass Other [facility] Other 06-16-2021 10:30-0400 SaO2% (BldA) [Mass fraction] 99 % Jet Douglass Other [facility] Other Encounters Encounter Date Encounter Type Care Provider Facility Start: 12-08-2023 End: 12-08-2023 Emergency department patient visit Carolelesly Arely Rosario [facility] Start: 08-27-2023 End: 08-27-2023 ambulatory Sammi Brumfield Facility:[facility] Start: 08-27-2023 End: 08-27-2023 Patient encounter procedure Sammi Brumfield [facility] Start: 06-01-2023 End: 06-01-2023 Emergency department patient visit Norman Chiu [facility] Start: 05-14-2023 End: 05-14-2023 Emergency department patient visit Freddy Means [facility] Start: 02-15-2023 End: 02-16-2023 ambulatory Geovani Dias MD Facility: [facility] Start: 01-25-2023 End: 01-25-2023 ambulatory Jet Douglass Other [facility] Other Start: 01-25-2023 Office outpatient visit 15 minutes Jet Douglass [facility] Start: 12-14-2022 End: 12-15-2022 ambulatory Geovani Dias MD Facility:[facility] Start: 11-30-2022 End: 12-01-2022 ambulatory Geovani Dias MD Facility: [facility] Start: 10-26-2022 End: 10-26-2022 Pain Management Mariama Mesa [facility] Start: 10-13-2022 End: 10-13-2022 Pain Management Gerard Forbes [facility] Start: 09-22-2022 End: 09-22-2022 Pain Management Mariama Mesa [facility] Start: 09-07-2022 End: 09-07-2022 Patient encounter procedure Mariamafranc Mesa [facility] Start: 09-07-2022 End: 09-07-2022 Pain Management Mariamafranc Mesa [facility] Start: 06-26-2022 End: 06-26-2022 Subsequent hospital visit by physician Jac Cervantes Work Phone: Radiology Comment on above: Contusion of right k nee, initial encounter [S80.01XA] Start: 10-28-2021 End: 10-28-2021 Emergency department patient visit Angie Rosario [facility] Start: 06-16-2021 End: 06-16-2021 ambulatory Jet Rafat Other [facility] Other Start: 06-16-2021 Office outpatient visit 15 minutes Jet Douglass [facility] Start: 05-16-2021 End: 05-16-2021 Patient encounter [facility] Work Phone: [facility] Procedures Date Procedure Procedure Detail Performing Clinician Start: 10-13-2022 Injection of knee us ing fluoroscopic guidance Mariama Mesa Comment on above: Right Genicular Nerv e Block-75% relief x 4 days Start: 06-26-2022 Radiologic examinati on knee 1/2 views Mike Bean PA-C Work Phone: Start: 05-16-2021 Screening mammograph y of bilateral breasts [facility] Work Phone: Start: 06-14-2019 Chronic pain followi ng right total knee arthroplasty Mariama Mesa Start: 06-12-2019 Antibody screen Comment on above: Performed By: #### T [id number] #### [place] [id number] Start: 06-12-2019 Electrocardiogram Start: 07-14-2018 History of total kne e arthroplasty Angie Rosario Cholecystectomy Caroleit Tamar ri Intracranial tumor (disorder) Angie Rosario Plan of Treatment Date Care Activity Detail Author Start: 10-29-2031 Urine microalbumin profile DTa P,Tdap,Td Vaccine (8 - Td or Tdap) [facility] Start: 10-10-2023 Covid-19 Vaccine ( season) Covid-19 Vaccine ( season) [facility] Start: 10-10-2023 Influenza vaccination Influenza Vacc ine (#1) [facility] Start: 06-14-2022 Diabetes Screening Diabetes Screenin g [facility] Start: 05-20-2015 Shingrix Vaccine (1 of 2) Godfrey grix Vaccine (1 of 2) [facility] Start: 2010 Lipid panel Lipid Screening [facility] Start: 2010 Screening for malign ant neoplasm of colon [facility] Start: 2005 Screening for malign ant neoplasm of breast Mammogram Screening [facility] Start: 06-09-1991 Hepatitis B Vaccine (3 of 3 - 19+ 3-dose series) Hepatitis B Vaccine (3 of 3 - 19+ 3-dose series) [facility] Start: 1986 Screening for malign ant neoplasm of cervix Cervical Cancer Screening [facility] Start: 05-20-1983 Annual PCP Team Mat Gauger paulo Disease Visit Annual PCP Team Chronic Disease Visit [facility] Start: 05-20-1983 Anxiety Screening Anxiety Screening [facility] Start: 05-20-1983 BP Controlled (<130/80) BP Controlle d (<130/80) [facility] Start: 05-20-1983 Depression Screening Depression Scre ening [facility] Start: 05-20-1983 Hepatitis C screening Hepatitis C Sc reening [facility] Start: 05-20-1983 HIV screening HIV Screening [facility] Immunizations Immunization Date Immunization Notes Care Provider Fa jocelinety 11-11-2022 influenza virus vaccine, unspecified formulation Sammi Lorenaer [facility] 02-11-2022 influenza virus vaccine, unspecified formulation Sammi Bordner [facility] 10-28-2021 tetanus toxoid, redu jerrell diphtheria toxoid, and acellular pertussis vaccine, adsorbed [facility] 11-26-2020 SARS-CoV-2 (COVID-19 ) mRNA BNT-162b2 vax Sammi Kishorednmaria del rosario [facility] 05-24-2020 COVID-19, mRNA, LNP- S, PF, 30 mcg/0.3 mL dose [facility] Comment on above: Reason for Medicatio n: Prophylaxis 04-26-2020 COVID-19, mRNA, LNP- S, PF, 30 mcg/0.3 mL dose [facility] Comment on above: Reason for Medicatio n: Prophylaxis 12-15-2018 tetanus toxoid, redu jerrell diphtheria toxoid, and acellular pertussis vaccine, adsorbed Sammi Bordner [facility] 11-17-2018 hepatitis A vaccine, adult dosage Sammi Octaviano [facility] 05-11-2018 hepatitis A vaccine, adult dosage Sammi Bordner [facility] 01-13-1991 hepatitis B vaccine, adult dosage Sammi Bordner [facility] 12-09-1990 hepatitis B vaccine, adult dosage Sammi Bordner [facility] 06-06-1971 Td(adult) unspecifie d formulation Sammi Bordner [facility] Payers Date Payer Category Payer Medicaid [id number] 2022 Medicaid [facility] MEDICAID ANTHEM BCBS MEDICA[place] [id number] 2022-[facility] [phone] [address] [place] [address] Medicaid [id number] 2022 Unknown 1965 Unknown [id number] 1965 Unknown [id number] 1965 Unknown [id number] 1965 Unknown [id number] 1965 Unknown [id number] 1965 Unknown [id number] 1965 Unknown [id number] Self-pay Self Pay [id number] Unknown Self Pay [id number] Unknown [id number] Social History Date Type Detail Facility Start: 02-08-1982 End: 02-09-2012 Tobacco smoking status NHIS Smoker (finding) [facility] Start: 1965 Sex Assigned At Female F [facility] Start: 06-14-2019 End: 06-26-2022 Sex Assigned At [facility] [employer] Other Start: 05-02-2019 End: 07-10-2019 Tobacco smoking status Ex-smoker (finding) [facility] Start: 09-07-2022 Tobacco smoking status Light t obacco smoker (finding) [facility] Start: 02-08-1982 End: 02-09-2012 History of tobacco use Cigarette Smoker [facility] Start: 05-02-2019 End: 06-26-2022 Cigarettes smoked current (pack per day) - Reported 0.5 [facility] Start: 05-02-2019 Tobacco use and exposure Smokeless tobacco non-user [facility] Start: 06-14-2019 Alcoholic beverage intake Ex-drinker (finding) [facility] How hard is it for y ou to pay for the very basics like food, housing, medical care, and heating Not hard at all [facility] (I/We) worried joel er (my/our) food would run out before (I/we) got money to buy more. Never true [facility] Start: 1965 Sex assigned at Not on file C [facility] Medical Equipment Procedure Code Equipment Code Equipment Origin al Text Equipment Identifier Dates Insert Triathlon 3 9mm Tibial Bearing Condylar Stabilize Sterile Knee - [id number] Start: 06-14-2019 Component 32mm Tritanium 10mm Patellar Asymmetric - [id number] Start: 06-14-2019 Baseplate Triath domi 3 Tritanium 44mm 67mm Tibial Sterile Latex Free - [id number] Start: 06-14-2019 Component Triath vivien 3 Pa Femoral Cruciate Retain Bead Knee Left - [id number] Start: 06-14-2019 Pin 1/8in Flute Square Stainless Steel 3.5in Fixation Sterile Knee - [id number] Start: 06-14-2019 Functional Status Date Assessment Result Facility 12-08-2023 Functional Status N/A [facility] 08-27-2023 Functional Status N/A [facility] 06-01-2023 Functional Status N/A [facility] 05-14-2023 Functional Status N/A [facility] 10-26-2022 Functional Status N/A [facility] 10-13-2022 Functional Status N/A [facility] 09-22-2022 Functional Status N/A [facility] 09-07-2022 Functional Status N/A [facility] 10-28-2021 Functional Status N/A [facility] Clinical Notes 09-30-2012 to 12-08-2023 Note Date & Type Note Facility 12-08-2023 Hospital Discharg e instructions Patient Education 12/08/2023 14:58:24 Rib Contusion Rib Contusion A rib contusion is a deep bruise on the rib area. Contusions are the result of a blunt trauma that causes bleeding and injury to the tissues under the skin. A rib contusion may involve bruising of the ribs and of the skin and muscles in the area. The skin over the contusion may turn blue, purple, or yellow. Minor injuries result in a painless contusion. More severe contusions may be painful and swollen for a few weeks. What are the causes? This condition is usually caused by a hard, direct hit to an area of the body. This often occurs while playing contact sports. What are the signs or symptoms? Symptoms of this condition include: Swelling and redness of the injured area. Discoloration of the injured area. Tenderness and soreness of the injured area. Pain with or without movement. Pain when breathing in. How is this diagnosed? This condition may be diagnosed based on: Your symptoms and medical history. A physical exam. Imaging tests such as an X-ray, CT scan, or MRI to determine if there were internal injuries or broken bones (fractures). How is this treated? This condition may be treated with: Rest. This is often the best treatment for a rib contusion. Ice packs. This reduces swelling and inflammation. Deep-breathing exercises. These may be recommended to reduce the risk for lung collapse and pneumonia. Medicines. Hdbt-mfj-quysrnc or prescription medicines may be given to control pain. Injection of a numbing medicine around the nerve near your injury (nerve block). Follow these instructions at home: Medicines Take sslg-iww-tacynsl and prescription medicines only as told by your health care provider. Ask your health care provider if the medicine prescribed to you: ?Requires you to avoid driving or using machinery. ?Can cause constipation. You may need to take these actions to prevent or treat constipation: ?Drink enough fluid to keep your urine pale yellow. ?Take uuqo-gbs-ekodrrw or prescription medicines. ?Eat foods that are high in fiber, such as beans, whole grains, and fresh fruits and vegetables. ?Limit foods that are high in fat and processed sugars, such as fried or sweet foods. Managing pain, stiffness, and swelling If directed, put ice on the injured area. To do this: Put ice in a plastic bag. Place a towel between your skin and the bag. Leave the ice on for 20 minutes, 2 3 times a day. Remove the ice if your skin turns bright red. This is very important. If you cannot feel pain, heat, or cold, you have a greater risk of damage to the area. Activity Rest the injured area. Avoid strenuous activity and any activities or movements that cause pain. Be careful during activities, and avoid bumping the injured area. Do not lift anything that is heavier than 5 lb (2.3 kg), or the limit that you are told, until your health care provider says that it is safe. General instructions Do not use any products that contain nicotine or tobacco, such as cigarettes, e-cigarettes, and chewing tobacco. These can delay healing. If you need help quitting, ask your health care provider. Do deep-breathing exercises as told by your health care provider. If you were given an incentive spirometer, use it every 1 2 hours while you are awake, or as recommended by your health care provider. This device measures how well you are filling your lungs with each breath. Keep all follow-up visits. This is important. Contact a health care provider if you have: Increased bruising or swelling. Pain that is not controlled with treatment. A fever. Get help right away if you: Have difficulty breathing or shortness of breath. Develop a continual cough, or you cough up thick or bloody mucus from your lungs (sputum). Feel nauseous or you vomit. Have pain in your abdomen. These symptoms may represent a serious problem that is an emergency. Do not wait to see if the symptoms will go away. Get medical help right away. Call your local emergency services (911 in the [place] Do not drive yourself to the hospital. Summary A rib contusion is a deep bruise on your rib area. Contusions are the result of a blunt trauma that causes bleeding and injury to the tissues under the skin. The skin over the contusion may turn blue, purple, or yellow. Minor injuries may cause a painless contusion. More severe contusions may be painful and swollen for a few weeks. Rest the injured area. Avoid strenuous activity and any activities or movements that cause pain. This information is not intended to replace advice given to you by your health care provider. Make sure you discuss any questions you have with your health care provider. Document Revised: 05/01/2020 Document Reviewed: 05/01/2020 [employer] Patient Education 2023 [employer]. 12/08/2023 14:58:24 RICE Therapy for Routine Care of Injuries, Eefn-pr-Hytd RICE Therapy for Routine Care of Injuries Many injuries can be cared for with rest, ice, compression, and elevation (RICE therapy). This includes: Resting the injured body part. Putting ice on the injury. Putting pressure (compression) on the injury. Raising the injured part (elevation). Using RICE therapy can help to lessen pain and swelling. Supplies needed: Ice. Plastic bag. Towel. Elastic bandage. Pillow or pillows to raise your injured body part. How to care for your injury with RICE therapy Rest Try to rest the injured part of your body. You can go back to your normal activities when your doctor says it is okay to do them and when you can do them without pain. If you rest the injury too much, it may not heal as well. Some injuries heal better with early movement instead of resting for too long. Ask your doctor if you should do exercises to help your injury get better. Ice If told, put ice on the injured area. To do this: ?Put ice in a plastic bag. ?Place a towel between your skin and the bag. ?Leave the ice on for 20 minutes, 2 3 times a day. ?Take off the ice if your skin turns bright red. This is very important. If you cannot feel pain, heat, or cold, you have a greater risk of damage to the area. Do not put ice on your bare skin. Use ice for as many days as your doctor tells you to use it. Compression Put pressure on the injured area. This can be done with an elastic bandage. If this type of bandage has been put on your injury: Follow instructions on the package the bandage came in about how to use it. Do not wrap the bandage too tightly. ?Wrap the bandage more loosely if part of your body beyond the bandage is blue, swollen, cold, painful, or loses feeling. Take off the bandage and put it on again every 3 4 hours or as told by your doctor. See your doctor if the bandage seems to make your problems worse. Elevation Raise the injured area above the level of your heart while you are sitting or lying down. Follow these instructions at home: If your symptoms get worse or last a long time, make a follow-up appointment with your doctor. You may need to have imaging tests, such as X-rays or an MRI. If you have imaging tests, ask how to get your results when they are ready. Return to your normal activities when your doctor says that it is safe. Keep all follow-up visits. Contact a doctor if: You keep having pain and swelling. Your symptoms get worse. Get help right away if: You have sudden, very bad pain at your injury or lower than your injury. You have redness or more swelling around your injury. You have tingling or numbness at your injury or lower than your injury, and it does not go away when you take off the bandage. Summary Many injuries can be cared for using rest, ice, compression, and elevation (RICE therapy). You can go back to your normal activities when your doctor says it is okay and when you can do them without pain. Put ice on the injured area as told by your doctor. Get help if your symptoms get worse or if you keep having pain and swelling. This information is not intended to replace advice given to you by your health care provider. Make sure you discuss any questions you have with your health care provider. Document Revised: 11/14/2020 Document Reviewed: 11/14/2020 [employer] Patient Education 2023 [employer]. 12/08/2023 14:58:24 Contusion Contusion A contusion is a deep bruise. Contusions are the result of a blunt injury to tissues and muscle fibers under the skin. The injury causes bleeding under the skin. The skin over the contusion may turn blue, purple, or yellow. Minor injuries will give you a painless contusion, but more severe injuries cause contusions that can stay painful and swollen for a few weeks. Follow these instructions at home: Pay attention to any changes in your symptoms. Let your health care provider know about them. Take these actions to relieve your pain. Managing pain, stiffness, and swelling Use resting, icing, applying pressure (compression), and raising (elevating) the injured area. This is often called the RICE method. ?Rest the injured area. Return to your normal activities as told by your health care provider. Ask your health care provider what activities are safe for you. ?If directed, put ice on the injured area. To do this: ?Put ice in a plastic bag. ?Place a towel between your skin and the bag. ?Leave the ice on for 20 minutes, 2 3 times a day. ?If your skin turns bright red, remove the ice right away to prevent skin damage. The risk of skin damage is higher if you cannot feel pain, heat, or cold. ?If directed, apply light compression to the injured area using an elastic bandage. Make sure the bandage is not wrapped too tightly. Remove and reapply the bandage as directed by your health care provider. ?If possible, elevate the injured area above the level of your heart while you are sitting or lying down. General instructions Take oanj-wbn-hulqmub and prescription medicines only as told by your health care provider. Keep all follow-up visits. Your health care provider may want to see how your contusion is healing with treatment. Contact a health care provider if: Your symptoms do not improve after several days of treatment. Your symptoms get worse. You have difficulty moving the injured area. Get help right away if: You have severe pain. You have numbness in a hand or foot. Your hand or foot turns pale or cold. This information is not intended to replace advice given to you by your health care provider. Make sure you discuss any questions you have with your health care provider. Document Revised: 07/13/2022 Document Reviewed: 07/13/2022 [employer] Patient Education 2023 [employer]. Follow Up Care 12/08/2023 12:48:22 With:GOODAshley TAYLOR Address: [address] [place], [place] [id number] Business (1) When:12/11/2023 14:49:03 Comments:Call Dr for diagnosis based follow up [facility] 12-08-2023 Note ED Patient Education Note Orthopedics Rib Contusion A rib contusion is a deep bruise on the rib area. Contusions are the result of a blunt trauma that causes bleeding and injury to the tissues under the skin. A rib contusion may involve bruising of the ribs and of the skin and muscles in the area. The skin over the contusion may turn blue, purple, or yellow. Minor injuries result in a painless contusion. More severe contusions may be painful and swollen for a few weeks. What are the causes? This condition is usually caused by a hard, direct hit to an area of the body. This often occurs while playing contact sports. What are the signs or symptoms? Symptoms of this condition include: ??? Swelling and redness of the injured area. ??? Discoloration of the injured area. ??? Tenderness and soreness of the injured area. ??? Pain with or without movement. ??? Pain when breathing in. How is this diagnosed? This condition may be diagnosed based on: ??? Your symptoms and medical history. ??? A physical exam. ??? Imaging tests?such as an X-ray, CT scan, or MRI?to determine if there were internal injuries or broken bones (fractures). How is this treated? This condition may be treated with: ??? Rest. This is often the best treatment for a rib contusion. ??? Ice packs. This reduces swelling and inflammation. ??? Deep-breathing exercises. These may be recommended to reduce the risk for lung collapse and pneumonia. ??? Medicines. Ymnv-rcy-wzjtudq or prescription medicines may be given to control pain. ??? Injection of a numbing medicine around the nerve near your injury (nerve block). Follow these instructions at home: Medicines ??? Take mpwn-pss-drejwyx and prescription medicines only as told by your health care provider. ??? Ask your health care provider if the medicine prescribed to you: ? Requires you to avoid driving or using machinery. ? Can cause constipation. You may need to take these actions to prevent or treat constipation: ? Drink enough fluid to keep your urine pale yellow. ? Take zvvi-rey-rvixrdq or prescription medicines. ? Eat foods that are high in fiber, such as beans, whole grains, and fresh fruits and vegetables. ? Limit foods that are high in fat and processed sugars, such as fried or sweet foods. Managing pain, stiffness, and swelling If directed, put ice on the injured area. To do this: ??? Put ice in a plastic bag. ??? Place a towel between your skin and the bag. ??? Leave the ice on for 20 minutes, 2?3 times a day. ??? Remove the ice if your skin turns bright red. This is very important. If you cannot feel pain, heat, or cold, you have a greater risk of damage to the area. Activity ??? Rest the injured area. ??? Avoid strenuous activity and any activities or movements that cause pain. Be careful during activities, and avoid bumping the injured area. ??? Do not lift anything that is heavier than 5 lb (2.3 kg), or the limit that you are told, until your health care provider says that it is safe. General instructions ??? Do not use any products that contain nicotine or tobacco, such as cigarettes, e-cigarettes, and chewing tobacco. These can delay healing. If you need help quitting, ask your health care provider. ??? Do deep-breathing exercises as told by your health care provider. ??? If you were given an incentive spirometer, use it every 1?2 hours while you are awake, or as recommended by your health care provider. This device measures how well you are filling your lungs with each breath. ??? Keep all follow-up visits. This is important. Contact a health care provider if you have: ??? Increased bruising or swelling. ??? Pain that is not controlled with treatment. ??? A fever. Get help right away if you: ??? Have difficulty breathing or shortness of breath. ??? Develop a continual cough, or you cough up thick or bloody mucus from your lungs (sputum). ??? Feel nauseous or you vomit. ??? Have pain in your abdomen. These symptoms may represent a serious problem that is an emergency. Do not wait to see if the symptoms will go away. Get medical help right away. Call your local emergency services (911 in the [place] Do not drive yourself to the hospital. Summary ??? A rib contusion is a deep bruise on your rib area. Contusions are the result of a blunt trauma that causes bleeding and injury to the tissues under the skin. ??? The skin over the contusion may turn blue, purple, or yellow. Minor injuries may cause a painless contusion. More severe contusions may be painful and swollen for a few weeks. ??? Rest the injured area. Avoid strenuous activity and any activities or movements that cause pain. This information is not intended to replace advice given to you by your health care provider. Make sure you discuss any questions you have with your health care provider. Document Revised: 05/01/2020 Document Rev (more content not included)... [facility] 12-08-2023 Evaluation + Plan note Extrac philippe from: Title:ED Note Author:Tj Helton PA-C te:12/08/23 Contusion of left knee (S80. 02XA: Contusion of left knee, initial encounter) Contusion of rib on right side (S20.211A: Contusion of right front wall of thorax, initial encounter) Contusion of right knee (S80.01XA: Contusion of right knee, initial encounter) Contusion of right shoulder (S40.011A: Contusion of right shoulder, initial encounter) Fall (W19.XXXA: Unspecified fall, initial encounter) Orders: morphine, 4 mg = 1 mL, Injection, IntraMuscular, Once, Stop date 12/08/23 12:58:00 EDT, STAT, Start date 12/08/23 12:58:00 EDT, 12/08/23 12:58:00 EDT ondansetron, 4 mg = 1 tab(s), Tab-Dis, Oral, Once, Stop date 12/08/23 12:58:00 EDT, STAT, Start date 12/08/23 12:58:00 EDT, 12/08/23 12:58:00 EDT XR Knee Complete 4+ Views Left XR Knee Complete 4+ Views Right XR Ribs Unilat 3 Views Right w/ PA Chest XR Shoulder Complete Right [facility] 07-19-2024 Hospital Discharge instructions Patient Education 08/27/2023 09:38:18 BMI for Adults BMI for Adults What is BMI? Body mass index (BMI) is a number that is calculated from a person's weight and height. BMI can help estimate how much of a person's weight is composed of fat. BMI does not measure body fat directly.Rather, it is an alternative to procedures that [...] your height. Both height and weight are measured,and the BMI is calculated from those numbers. This can be done either in [place] ([place] or metric measurements. Note that charts and online BMI calculators are available to help you find your BMI quickly and easily without having to do these calculations yourself. To calculate your BMI in [place] measurements: 1.Measure your weight in pounds [...] inches squared measurement is 70 inches x 70inches, which equals 4,900 inches squared. 4.Divide the [...] muscular build, such as an athlete, may havea BMI that is higher than 24.9. In cases like these, BMI is not an accurate measure of body fat. To determine if excess body fat is the cause of a BMI of 25 or higher, further assessments may needto be done by a health care provider. BMI is usually interpreted in the same way for men and women. Where to find more information For more information about BMI, including tools to quickly calculate your BMI, go to these websites: Centers for Disease Control and Prevention: www.cdc.gov [place] [employer]: www.heart.org National Heart, Lung, and Blood [place]: www.nhlbi.nih.gov Summary Body mass index (BMI) is a number that is calculated from a person's weight and height. BMI may help estimate how much of a person's weight is composed of fat. BMI can help identify thosewho may be at higher risk for certain medical problems. BMI can be measured using Scottish measurements or metric measurements. BMI charts are used to identify whether you are underweight, normal weight, overweight, or obese. This information is not intended to replace advice given to you by your health care provider. Make sure you discuss any questions you have with your health care provider. Document Revised: 10/18/2019 Document Reviewed: 08/25/2019 [employer] Patient Education 2022 [employer]. 08/27/2023 09:38:16 Exercising to Lose Weight Exercising to Lose Weight Getting regular exercise is important for everyone. It is especially important if you are overweight. Being overweight increases your risk of heart disease, stroke, diabetes, high blood pressure, andseveral types of cancer. Exercising, and reducing the [...] of moderate-intensity exercise a week to maintain theirbody weight. Vigorous-intensity exercise Vigorous-intensity exercise is any [...] you need and what types of activities aresafe for you. Nutrition Make changes to your diet as told by your health care provider or diet and livestock nutrition territory manager (dietitian). This may include: ?Eating fewer calories. ?Eating more protein. ?Eating less unhealthy fats. ?Eating a diet that includes fresh fruits and vegetables, whole grains, low-fat dairy products, andlean protein. ?Avoiding foods with added fat, salt, [...] provider. Document Revised: 03/23/2021 Document Reviewed: 03/23/2021 [employer] Patient Education 2022 [employer]. 08/27/2023 09:38:14 Bacterial Conjunctivitis, Adult, Ofqj-ij-Ifre Bacterial Conjunctivitis, Adult Bacterial conjunctivitis is an [...] start to feel better. Take or apply tevk-qrf-vkzhuga and prescription medicines only as told by [...] until your doctor says it is okay towear contacts again. Do not wear eye makeup [...] provider. Document Revised: 05/07/2021 Document Reviewed: 05/07/2021 [employer] Patient Education 2022 [employer]. Follow Up Care 08/27/2023 08:59:24 With:GOOD TAYLOR CNP Address: [address] [place] [address]- When: Unknown [facility] 07-19-2024 NotePatient Education Infectious Disease Bacterial Conjunctivitis, Adult Bacterial [...] infections that do not get better with dropsor ointment or that last more than 10 days. ? Cool, wet cloths placed on the eyes. ? Artificial tears used 2?6 times a day. Follow these instructions at home: Medicines ? Take or apply your antibiotic medicine as told by your doctor. Do not stop using it even if you start to feel better. ? Take or apply plqv-bal-nozjnnf and prescription medicines only as told by [...] provider. Document Revised: 05/07/2021 Document Reviewed: 05/07/2021 [employer] Patient Education ? 2022 [employer] Nutrition BMI for Adults What is BMI? Body mass index (BMI) is a number that is calculated from a person's weight and height. BMI can help estimate how much of a person's weight is composed of fat. BMI does not measure body fat directly.Rather, it is an alternative to procedures that [...] your height. Both height and weight are measured,and the BMI is calculated from those numbers. This can be done either in [place] ([place] or metric measurements. Note that charts and online BMI calculators are available to (more content not included)...[facility]04-23-2024 Hospital Discharge instructions Patient Education 06/01/2023 20:03:13 Foot Contusion Foot Contusion A foot contusion is a deep bruise to the foot. Contusions are the result of an injury to tissues and muscle fibers under the skin. The injury causes bleeding under the skin. The skin over the contusion may turn blue, purple, or yellow. Minor injuries will cause a painless contusion, but more severecontusions may stay painful and swollen for a few weeks. What are the causes? This condition is usually caused by a hard hit or direct force to your foot, such as having a heavyobject fall on your foot. What are the [...] may be recommended to support your foot. Awrn-end-fwssfwq anti-inflammatory medicines may also be recommended for [...] sitting or lying down. General instructions Take dioj-fug-fryytgd and prescription medicines only as told by your health care provider. Use crutches as told by your health care provider, if this applies. Do not use the injured foot to support your body weight until your health care provider says that you can. Do not use any products that contain nicotine or tobacco, such as cigarettes, e- cigarettes, and chewing tobacco. These can delay healing. [...] 04/30/2021 Document Reviewed: 04/30/2021 Else[employer] Patient Education 2022 [employer] Follow Up Care 06/01/2023 18:28:13 With:Bertin Laguna Address: [facility] [address] [place] [address] 0 Business (1) When:06/04/2023 19:21:39 [facility]04-05-2024 Hospital Discharge instructions Patient Education 05/14/2023 13:13:46 Foot Pain [...] feet clean and dry. General instructions Take njoa-nug-qtenfds and prescription medicines only as told by [...] provider. Document Revised: 04/30/2021 Document Reviewed: 04/30/2021 [employer] Patient Education 2022 [employer]. Follow Up Care 05/14/2023 11:46:17 With:GOOD [place] Address: [address] [place], [place] [phone] Business (1) When:05/17/2023 13:12:55 Comments:Call the office [...] you develop any new or worsening symptoms. [facility]04-05-2024 Evaluation + Plan noteExtracted from: Title:ED Note Author:Freddy Means DO Date: Acute foot pain (M79.673: Pa in in unspecified foot) Orders: methylPREDNISolone, = 1 packet(s), Oral, As Directed, as directed on package labeling, X 6 day(s), # 21 tab(s), Refills(s) 0, Pharmacy: [id number], 167, cm, 05/14/23 11:52:00 EDT, Height/Length Dosing, 78, kg, 05/14/23 11:52:00 EDT, Weight Dosing morphine, 4 mg = 1 mL, Injection, IntraMuscular, Once, Stop date 05/14/23 12:01:00 EDT, STAT, Start date 05/14/23 12:01:00 EDT, 05/14/23 12:01:00 EDT XR Foot 3+ Views Left [facility]12-18-2023 Evaluation note* Encounter Date Diagnosis Assessment [...] see your pcp. Take tylenol as needed. Adiana Other 09-18-2023 Evaluation + Plan noteExtracted from: [...] clinic sooner if necessary. CADENCE score: 36% [facility]08-15-2023 Evaluation + Plan noteExtracted from: Title:Pain Managment [...] she is supposed to be going to [place] for a baby shower. She is going [...] Appointments Appointment Date:10/13/2022 03:15:00 PM Scheduled Provider: Location:[facility] Appointment Type:Surgery FT Appointment Date:10/26/2022 09:00:00 AM Scheduled Provider:Mariama Mesa PA-C Location[facility] Appointment Type:Pain Management - Follow Up (FT) [facility]07-31-2023 Evaluation + Plan noteExtracted from: Title:Pain [...] will obtain a UDS. CADENCE score: 38% [facility]09-20-2022 Hospital Discharge instructions Patient Education 10/28/2021 15:07:50 Corneal Abrasion, Qwxf-qo-Xppp Corneal Abrasion A corneal abrasion is a scratch or injury to the clear covering over the front of your eye (cornea). This can be painful. It is important to get treatment for a corneal abrasion. If this problem is not treated, it can affect your eyesight (vision). What are the causes? A business analyst intern the eye. An object in the eye. [...] who specializes in conditions of the eye (foam rubber mixer). This condition may be diagnosed based on [...] if you start to feel better. Take lveu-plc-yseooqq and prescription medicines only as told by your doctor. Ask your doctor if the medicine prescribed to you: ?Requires you to avoid driving or using heavy machinery. ?Can cause trouble pooping (constipation). You may need to take these actions to prevent or treat trouble pooping: ?Drink enough fluid to keep your pee (urine) pale yellow. ?Take tsza-vcc-rcywudd or prescription medicines. ?Eat foods that are [...] 07/13/2008 Document Revised: 06/02/2019 Document Reviewed: 06/02/2019 [employer] Patient Education 2019 [employer]. Follow Up Care 10/28/2021 14:09:12 With:Live Godinez DO Address: [address], [place] [address]- When:3 to 5 days [facility]09-20-2022 Evaluation + Plan noteExtracted from: Title:ED Note Author:Ishan HARDY, Sarah Samuels ate:10/28/21 1. Right corneal abrasion (S 05.01XA: Injury of conjunctiva and corneal abrasion without foreign body, right eye, initial encounter) Ordered: polymyxin B-trimethoprim ophthalmic, 1 drop(s), Eye-Right, q3hr for 7 day(s), 10 mL, Refill(s) 0, q3 hr while awake not to exceed 6 doses/day, DIIME #24, 165, cm, 10/28/21 14:14:00 EDT, Height/Length [...] date 10/28/21 14:24:00 EDT Visual Acuity Screening [facility]05-09-2022 Evaluation note* Encounter Date Diagnosis Assessment [...] the plan. June, Cough (ICD-10 - R05.9) Adiana Other 08-23-2013 History general Narrative - Reported* Type Description Date Medical History CHRONIC KNEE PAIN Medical History ANXIETY Medical History CHOLECYSTECTOMY Medical History LT SIDED HEMIPARESIS Medical History stroke Medical History 09/30/12 CRANIECTOMY-DR. BURNETT Surgical History DR. BURNETT -CRANIECTOMY 09/30/12 Surgical History CHOLECYSTECTOMY 1997 Surgical History pyloric stenosis Dr Benavides thre e days old 1966 Hospitalization History SEE ABOVE SUREGRY Adiana Other Evaluation + Plan note Future Appointments Appointment Date:10/26/2022 09:00:00 AM Scheduled Provider:Mariama Mesa PA-C Location:[facility] Appointment Type:Pain Management - Follow Up (FT) [facility] information available [facility] Work Phone: Evaluation note* Diagnosis Pre-op exam- Primary Preoperative examination, unspecified Primary osteoarthritis of left knee Primary localized osteoarthrosis, lower leg Hypertension, unspecified type Lupus erythematosus discoid Deep vein thrombosis (DVT) of proximal lower extremity, unspecified chronicity, unspecified laterality (HCC) Contusion of right knee, initial encounter documented in this encounter [facility] course Narrative No data available for this section [facility] Dis[facility] instructions No data available for this section [facility] No data available for this section [facility] for referral (narrative)* Diagnostic Procedure Only (Routine) - Closed Specialty Diagnoses / Procedures Referred By Contac t Referred To Contact XR IMAGING Diagnoses Contusion of right knee, initial encounter Procedures XR KNEE SPECIFY 1V RIGHT RADIOLOGIC EXAMINATION KNEE 1/2 VIEWS Mike Bean PA-C [address] [place] [address] [place] [address] Referral ID Status Reason Start Date Expiration Date V isits Requested Visits Authorized [id number] Closed Auto-Generate d Referral 06/26/2022 07/26/2023 1 1 [facility] for visit Narrative* Diagnostic Procedure Only (Routine) - Closed Specialty Diagnoses / Procedures Referred By Contac t Referred To Contact XR IMAGING Diagnoses Contusion of right knee, initial encounter Procedures XR KNEE SPECIFY 1V RIGHT RADIOLOGIC EXAMINATION KNEE 1/2 VIEWS Mike Bean PA-C [address] [place] [address] [place] [address] Referral ID Status Reason Start Date Expiration Date V isits Requested Visits Authorized [id number] Closed Auto-Generate d Referral 06/26/2022 07/26/2023 1 1 [facility] Summary Purpose Family History No Family [...] October 4:07pm Hospital Course Note HNO ID: [id number] Author: Britni Licona (Pa) Service: Orthopaedic Surgery Author Type: Physician Diagnostic Technician Type: Discharge Summary Filed: 06/15/2019 11:22 AM Note Text: Attestation signed by Miguel Angel Ponce at 06/15/2019 11:54 AM I have personally performed face to face diagnostic evaluation on this patient. I have examined the patient and reviewed radiographic studies and agree with plan as outlined above. Miguel Angel Ponce MD June 15, 2019 11:54 AM DISCHARGE SUMMARY Patient Name: Ruthie CRODERO : 1965 ADMISSION DATE: 06/14/2019 DISCHARGE DATE: 06/15/2019 Attending Physician: Miguel Angel Ponce Primary Diagnosis: Primary osteoarthritis of left knee [M17.12] Operations During Hospitalization: Procedure(s) (LRB): ARTHROPLASTY REPLACE JOINT TOTAL KNEE (Left) Procedures During Hospitalization: No procedures performed Hospi (more content not included)... Note HNO ID: [id number] Author: Arvind Ayala Service: ? Author Type: Nurse Financial Sales Associate Type: Anesthesia Procedure Notes Filed: 06/14/2019 9:14 AM Note Text: ANESTHESIOLOGY PROCEDURE NOTE Spinal Block General Information SIGNATURE: Maria Del Rosario Ayala, CHIEF EMBALMER.CHEL PATIENT NAME: Ruthie CORDERO DATE: June 14, 2019 TIME: 9:12 AM CSN: [id number] Note HNO ID: [id number] Author: Arvind Ayala Service: ? Author Type: Nurse Financial Sales Associate Type: Anesthesia Procedure Notes Filed: 06/14/2019 9:17 AM Note Text: ANESTHESIOLOGY PROCEDURE NOTE Spinal Block General Information Procedure Start Time/Medication Administration: 06/14/2019 9:03 AM Staffing DIRECTOR OF MEDICAL EDUCATION: Maria Del Rosario Ayala SIGNATURE: Maria Del Rosario Ayala, CHIEF EMBALMER.DIRECTOR OF MEDICAL EDUCATION PATIENT NAME: Ruthie CORDERO DATE: June 14, 2019 TIME: 9:16 AM CSN: [id number] Note HNO ID: [id number] Author: Arvind Ayala Service: ? Author Type: Nurse Financial Sales Associate Type: Anesthesia Procedure Notes Filed: 06/14/2019 9:19 AM Note Text: ANESTHESIOLOGY PROCEDURE NOTE Spinal Block General Information Procedure Start Time/Medication Administration: 06/14/2019 9:05 AM Patient location during procedure: ORTimeout Performed Pre-procedure: timeout performed Consent Obtained: Yes (via Surgical Consent) Patient identity confirmed: arm band Reason for Block: primary surgical anesthetic Staffing DIRECTOR OF MEDICAL EDUCATION: Maria Del Rosario Ayala Preparation Sterility Preparation: [...] (more content not included)... Note HNO ID: [id number] Author: Arvind Ayala Service: ? Author Type: Nurse Financial Sales Associate Type: Anesthesia Procedure Notes Filed: 06/14/2019 9:32 AM Note Text: ANESTHESIOLOGY PROCEDURE NOTE Peripheral Nerve Block General Information Procedure Start Time/Medication Administration: 06/14/2019 9:10 AM Patient location during procedure: ORTimeout Performed Pre-procedure: timeout performed Consent Obtained: Yes (via Surgical Consent) Patient identity confirmed: patient sedated or unresponsive and arm band Reason for block: post-op pain management/at surgeon's request Staffing Anesthesiologist: Christy Guiterrez Performed by: anesthesiologist Preparation Sterility Preparation: hand hygiene performed prior to procedure, surgical cap used, mask used, sterile drape used during line insertion, skin prep agent completely dried prior to procedure Site Prep: Chloraprep Pre-Procedure Neuro Exam Location: LLE Sensory: sensory deficit and Spinal anesthesia Motor: pre-existing condition and Spinal anesth (more content not included)... Note HNO ID: [id number] Author: Arvind Ayala Service: ? Author Type: Nurse Financial Sales Associate Type: Anesthesia Procedure Notes Filed: 06/14/2019 9:49 AM Note Text: ANESTHESIOLOGY PROCEDURE NOTE Spinal Block General Information Procedure Start Time/Medication Administration: 06/14/2019 9:03 AM Patient location during procedure: ORTimeout Performed Pre-procedure: timeout performed Consent Obtained: Yes (via Surgical Consent) Patient identity confirmed: arm band Reason for Block: primary surgical anesthetic Staffing DIRECTOR OF MEDICAL EDUCATION: Maria Del Rosario Ayala Preparation Sterility Preparation: [...] (more content not included)... Note HNO ID: [id number] Author: Arvind Ayala Service: ? Author Type: Nurse Financial Sales Associate Type: Anesthesia Procedure Notes Filed: 06/14/2019 10:06 AM Note Text: ANESTHESIOLOGY PROCEDURE NOTE Spinal Block General Information Procedure Start Time/Medication Administration: 06/14/2019 9:03 AM Patient location during procedure: ORTimeout Performed Pre-procedure: timeout performed Consent Obtained: Yes Patient identity confirmed: arm band Reason for Block: primary surgical anesthetic Staffing DIRECTOR OF MEDICAL EDUCATION: Maria Del Rosario Ayala Performed by: DIRECTOR OF MEDICAL EDUCATION Preparation Sterility Preparation: hand hygiene performed prior [...] not included)... Procedure Findings Note HNO ID: [id number] Author: Arvind Ayala Service: ? Author Type: Nurse Financial Sales Associate Type: Anesthesia Procedure Notes Filed: 06/14/2019 9:14 AM Note Text: ANESTHESIOLOGY PROCEDURE NOTE Spinal Block General Information SIGNATURE: Maria Del Rosario Ayala APRN.CRNA PATIENT NAME: Ruthie CORDERO DATE: June 14, 2019 TIME: 9:12 AM CSN: [id number] Note HNO ID: [id number] Author: Arvind Ayala Service: ? Author Type: Nurse Financial Sales Associate Type: Anesthesia Procedure Notes Filed: 06/14/2019 9:17 AM Note Text: ANESTHESIOLOGY PROCEDURE NOTE Spinal Block General Information Procedure Start Time/Medication Administration: 06/14/2019 9:03 AM Staffing DIRECTOR OF MEDICAL EDUCATION: Maria Del Rosario Ayala SIGNATURE: Maria Del Rosario Ayala APRN.CRNA PATIENT NAME: Ruthie CORDERO DATE: June 14, 2019 TIME: 9:16 AM CSN: [id number] Note HNO ID: [id number] Author: Arvind Ayala Service: ? Author Type: Nurse Financial Sales Associate Type: Anesthesia Procedure Notes Filed: 06/14/2019 9:19 AM Note Text: ANESTHESIOLOGY PROCEDURE NOTE Spinal Block General Information Procedure Start Time/Medication Administration: 06/14/2019 9:05 AM Patient location during procedure: ORTimeout Performed Pre-procedure: timeout performed Consent Obtained: Yes (via Surgical Consent) Patient identity confirmed: arm band Reason for Block: primary surgical anesthetic Staffing DIRECTOR OF MEDICAL EDUCATION: Maria Del Rosario Ayala Preparation Sterility Preparation: [...] (more content not included)... Note HNO ID: [id number] Author: Arvind Ayala Service: ? Author Type: Nurse Financial Sales Associate Type: Anesthesia Procedure Notes Filed: 06/14/2019 9:32 [...] (more content not included)... Note HNO ID: [id number] Author: Arvind Ayala Service: ? Author Type: Nurse Financial Sales Associate Type: Anesthesia Procedure Notes Filed: 06/14/2019 9:49 AM Note Text: ANESTHESIOLOGY PROCEDURE NOTE Spinal Block General Information Procedure Start Time/Medication Administration: 06/14/2019 9:03 AM Patient location during procedure: ORTimeout Performed Pre-procedure: timeout performed Consent Obtained: Yes (via Surgical Consent) Patient identity confirmed: arm band Reason for Block: primary surgical anesthetic Staffing DIRECTOR OF MEDICAL EDUCATION: Maria Del Rosario Ayala Preparation Sterility Preparation: [...] (more content not included)... Note HNO ID: [id number] Author: Arvind Ayala Service: ? Author Type: Nurse Financial Sales Associate Type: Anesthesia Procedure Notes Filed: 06/14/2019 10:06 AM Note Text: ANESTHESIOLOGY PROCEDURE NOTE Spinal Block General Information Procedure Start Time/Medication Administration: 06/14/2019 9:03 AM Patient location during procedure: ORTimeout Performed Pre-procedure: timeout performed Consent Obtained: Yes Patient identity confirmed: arm band Reason for Block: primary surgical anesthetic Staffing DIRECTOR OF MEDICAL EDUCATION: Maria Del Rosario Ayala Performed by: DIRECTOR OF MEDICAL EDUCATION Preparation Sterility Preparation: hand hygiene performed prior [...] section and content) DATE CREATED AUTHOR 06/25/2019 [facility] DATE CREATED AUTHOR AUTHOR'S ORGANIZ ATION 07/25/2019 [facility] DATE CREATED AUTHOR AUTHOR'S ORGANIZ ATION 05/30/2021 [facility] DATE CREATED AUTHOR AUTHOR'S ORGANIZ ATION 02/17/2023 [facility] DATE CREATED AUTHOR AUTHOR'S ORGANIZ ATION 12/12/[address] [facility] Care Teams (unrecognized sec tion and content) Team Status: Inactive Member Role Status Dates [facility] Active Pavithra Briseno ([facility]) , CHIEF EMBALMER Attending Provider Active Team Status: Active Member Role Status Dates [facility] Provider Active Signwriter Relationship Specialty Start Date End Date Estela Sorto MD PCP - General Family Medicine 03/15/14 Goals (unrecognized section and content) Goals may [...] section and content) congestion, coughCOUGH, JOSEPH ESTION Source Comments (unrecognize d section and content) In the event this informatio n is protected by the Federal Confidentiality of Alcohol and Drug Abuse Patient Records regulations: The Federal rules restrict any use of the information to criminally investigate or prosecute any alcohol or drug abuse patient.[facility] FOR RECORDS PERTAINING TO PATIENTS WHO ARE [...] BE BASED ON THE PRIMARY CLINICAL RECORDS. [employer] provides no warranty or guarantee of the accuracy or completeness of information in this document.
--- NOTE | 2023-12-23 08:43 | PM.CN ---
Consult Note: HPI Data of Consult Patient: known to practice within the last 3 years Consult date: 02/15/23 Requesting Physician: Lauren Ag NP Primary Care Provider: Non-Staff Physician, MD Consult Narrative Reason for consult: Right knee pain Narrative: Ruthie Thompson a pleasant 58 year old female presents for evaluation and management of chronic knee pain with moderate to severe OA. Patient rating pain 9/10 generalized and right knee. At this time patient noticing moderate improvement in pain and functional ability with percocet 5-325mg BID PRN and diclofenac 50mg BID, Pt planning for right TKR 2024. Has failed steroid and MUNOZ injections, insurance will not cover genicular RFAs. failed to benefit from HEP greater than 6 weeks. cc:: CC: Lauren Ag NP Review of Systems ROS Status of ROS 10 or more systems reviewed and unremarkable except as noted in history and below Musculoskeletal Reports: extremity pain and joint pain Meds Home Medications and Allergies Home Medications ?Medication ?Instructions ?Recorded ?Confirmed ?Type amlodipine 2.5 mg tablet 2.5 mg PO DAILY 11/30/22 11/30/22 History duloxetine 20 mg capsule,delayed 20 mg PO DAILY 11/30/22 11/30/22 History release (Cymbalta) lisinopril 40 mg tablet 40 mg PO DAILY 11/30/22 11/30/22 History diclofenac sodium 50 mg 50 mg PO BID PRN pain #60 tabs 01/20/23 Rx tablet,delayed release oxycodone-acetaminophen 5 mg-325 1 tab PO Q8H PRN pain #60 tabs 08/23/23 Rx mg tablet (Percocet) diclofenac sodium 50 mg 50 mg PO BID #60 tabs 09/23/23 Rx tablet,delayed release oxycodone-acetaminophen 5 mg-325 1 tab PO TID PRN pain #90 tabs 09/23/23 Rx mg tablet (Percocet) oxycodone-acetaminophen 5 mg-325 1 tab PO TID PRN pain #90 tabs 10/20/23 Rx mg tablet (Percocet) oxycodone-acetaminophen 5 mg-325 1 tab PO TID PRN pain #90 tabs 11/18/23 Rx mg tablet (Percocet) Allergies Allergy/AdvReac Type Severity Reaction Status Date / Time No Known Drug Allergies Allergy Verified 11/30/22 14:33 Exam Narrative Exam Narrative: Psych-alert and oriented x 3.? Attentive and appropriate, constitutionally normal, displays normal mood and affect per situation.? There are no obvious deficits in memory, reasoning, or intellect. Extremities-lower extremities are warm with minimal edema and palpable pulses. Knee-examination of the right knee reveals tenderness to palpation over the superior, inferior, lateral, and medial aspect of the knee.? Some swelling is noted without erythema. Pain is elicited with flexion and extension of the knee both actively and passively.? Some grinding is noted with these motions.? There is no notable ligamental laxity or instability.? Coordination remains intact.? Gait remains antalgic. Assessment and Plan Assessment and Plan (1) Osteoarthritis of right knee: Qualifiers: Osteoarthritis type: primary Qualified Code(s): M17.11 - Unilateral primary osteoarthritis, right knee (2) Chronic prescription opiate use: (3) Chronic pain syndrome: (4) Generalized OA: Plan OUTPATIENT SERVICES DIRECTOR reviewed and signed, update UDS today naloxone discussed and prescribed risks vs benefits of current medication regimen reviewed with pt, continues to find moderate pain relief and functional improvement. 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 pt planning for right TKA with Dr Quach in march 2024 continue HEP as tolerated f/u 3 months, sooner if needed
== END 2023-12-23 08:19 | disposition home or self-care (01) ==
LOC: PM 08:18
PROVIDERS: Visit Provider Nurse Practitioner
DX: M17.11 Unilateral primary osteoarthritis, right knee (principal); Z79.891 Long term (current) use of opiate analgesic; G89.4 Chronic pain syndrome; M15.9 Polyosteoarthritis, unspecified
CPT/HCPCS: G0463